=== PATIENT | female | born 1970 | race Caucasian/White ===

== ENCOUNTER → 2022-08-24 | Outpatient (CLI) | payer OTHER, SELFPAY ==
[2022-08-28 08:12] LABS: Hepatitis B Core Ab Total Negative (Negative)
== END | disposition home or self-care (01) ==
LOC: MTLAB 11:07
PROVIDERS: PCP Family Medicine; Referring Provider Physician Assistant Medical; Visit Provider Physician Assistant Medical
DX: L40.0 Psoriasis vulgaris (principal); Z79.899 Other long term (current) drug therapy
CPT/HCPCS: 36415; 86480; 86704

== ENCOUNTER → 2024-12-17 | Outpatient (CLI) | payer OTHER, SELFPAY ==
--- OUTSIDE RECORDS SUMMARY | 2024-12-17 14:24 | XMS RPT_ITS | CCD ---
Author Organization [facility] Care Team Providers Care Table Games Supervisor Name Role Phone Donovan Jimenes Unavailable [phone] Unavailable Unavailable Unavailable Donovan Jimenes Primary Care Provider Joyce Wilks Primary Care Provider [phone] ALAN MADRID Admitting Unavailab AUDRA Mancilla Attending Unavailable ALAN MADRID Referring Unavailab JOYCE Ordaz Primary Care Unavailable Joyce Wilks Primary Care Provider Joyce iWlks Primary Care Provider Joyce Wilks CNP Primary Care Provider [phone] Mg Ndiaye Unavailable Unavailable Unavailable Joyce Wilks CNP Primary Care Provider Joyce Wilks CNP Primary Care Provider [phone] Donovan Jimenes MD Primary Care Provider [phone] Joyce Wilks CNP Primary Care Provider Etienne Hutchins Primary Care Unavailable Carlos Stone Referring Unavailable Carlos Stone Attending Unavailable Mg Gunn Primary Care Provider Joyce Wilks CNP Primary Care Provider [phone] MG NDIAYE Primary Care Unavailable Bob Cruz PA-C Primary Care Provider LOYD JACKSON Attending Unavailable STENTZ, BOB Primary Care Unavailable Stentz Bob CARROLL Primary Care Provider STENTZ, BOB Primary Care Unavailable TATI LOVE Attending Unavailable STENTZ, BOB Primary Care Unavailable JOSSELIN BERNABE Attending Unavailable LOYD JACKSON Referring Unavailable STENTZ, BOB Primary Care Unavailable ALAN MADRID Attending UnavailJOYCE Calvin Primary Care Unavailable ALAN MADRID Attending UnavailJOYCE Calvin Primary Care Unavailable ALAN MADRID Attending UnavailJOYCE Calvin Primary Care Unavailable TRI PIKE Attending Unavailable JOYCE WILKS Primary Care Unavailable JOYCE WILKS Primary Care Unavailable ALAN MADRID Attending Unavailab ALAN Bai Attending UnavailJOYCE Calvin Primary Care Unavailable ALAN MADRID Attending UnavailJOYCE Calvin Primary Care Unavailable ROSALEE EASON Attending Unavailable JOYCE WILKS Primary Care Unavailable Medications Current Medications Medication Drug Class(es) Dates Sig (Normalized) Sig (Original) [id number] actuat albuterol 0.09 mg/actuat metered dose inhaler (1 source) beta2-Adrenergic Agonist Start: 05-04-2024 End: 06-03-2024 take 2 puff(s) by inhalation every four hours for wheezing albuterol 90 mcg/actuation inhaler Indications: Influenza A Inhale 2 puffs every 4 hours if needed for wheezing or shortness of breath. 17 g 05/04/2024 06/03/2024 Active BASAGLAR KWIKPEN 100 unit/mL (3 mL) InPn (1 source) Start: 09-14-2016 BASAGLAR KWIKPEN 100 unit/mL (3 mL) InPn Use as directed, approx 41 units per day. 45 mL 3 09/14/2016 Active Basaglar Kwikpen 100 Unit/Ml (3 Ml) Subcutaneous (1 source) Start: 09-14-2016 BASAGLAR KWIKPEN 100 unit/mL (3 mL) InPn Use as directed, approx 41 units per day. 45 mL 3 09/14/2016 Active blood-glucose meter (Accu-Chek Kiki Plus Meter) Misc (20 sources) Start: 03-12-2019 blood-glucose meter (Accu-Chek Kiki Plus Meter) Misc Use to check BG 4x daily. DX code E10.65 Use Accu-chek brand . 1 each 03/12/2019 Active Start: 03-12-2019 blood-glucose meter (Accu-Chek Kiki Plus Meter) Misc Use to check BG 4x daily. DX code E10.65 Use Accu-chek brand . 1 each 0 03/12/2019 Active blood-glucose sensor (Dexcom G7 Sensor) Shanon (2 sources) Start: 11-12-2024 blood-glucose sensor (Dexcom G7 Sensor) Shanon Indications: Type 1 diabetes mellitus with hyperglycemia (HCC) 1 each by Miscellaneous route every 10 (ten) days . 9 each 3 11/12/2024 Active brompheniramine maleate 0.4 mg/ml / dextromethorphan hydrobromide 2 mg/ml / pseudoephedrine hydrochloride 6 mg/ml oral solution (1 source) alpha-Adrenergic Agonist, Uncompetitive P-sntomr-O-aspartat e Receptor Antagonist, Sigma-1 Agonist Start: 05-04-2024 End: 05-14-2024 take 5 mL by mouth four times daily as needed for cough brompheniramine-ps eudoeph-DM 2-30-10 mg/5 mL syrup Indications: Influenza A Take 5 mL by mouth 4 times a day as needed for congestion or cough for up to 10 days. 120 mL 05/04/2024 05/14/2024 Active cholecalciferol 0.025 mg oral tablet (20 sources) Vitamin D take 1 tablet by mouth once daily cholecalciferol, vitamin D3, 1,000 unit tablet Take 1 (one) tablet (1,000 Units total) by mouth daily . Active take 1 capsule by mouth once senait ly cholecalciferol (Vitamin D-3) 25 MCG (1000 UT) capsule Take 1 capsule (25 mcg) by mouth once daily. Active Vitamin D 1000 U NIT CAPS Quantity: 0 Refills: 0 Ordered: 09-Jan-2019 DO Active esomeprazole 20 mg delayed release oral capsule (20 sources) Proton Pump Inhibitor Start: 10-22-2012 End: 06-05-2024 take 1 capsule by mouth once daily before breakfast esomeprazole (NEXIUM) 20 MG capsule Take 1 (one) capsule (20 mg total) by mouth every morning before breakfast . 90 capsule 3 06/05/2024 Active NexIUM 24HR 20 M G Oral Capsule Delayed Release Quantity: 0 Refills: 0 Ordered: 09-Jan-2019 DO Active 1.5 ml insulin glargine 300 unt/ml pen injector (20 sources) Insulin Analogue Start: 02-28-2024 Toujeo SoloSt ar U-300 Insulin 300 unit/mL (1.5 mL) injection Inject 300 Units under the skin. 02/28/2024 Active Start: 03-13-2022 End: 06-05-2024 insulin glargine U-300 conc (Toujeo SoloStar U-300 Insulin) 300 unit/mL (1.5 mL) Inject 40 (forty) Units under the skin 2 (two) times a day . 39 mL 3 05/24/2023 06/05/2024 Discontinued Start: 12-11-2021 End: 03-13-2022 insulin glargine U-300 conc (Toujeo SoloStar U-300 Insulin) 300 unit/mL (1.5 mL) Inject 65 (sixty five) Units under the skin at bedtime . 39 mL 3 12/11/2021 03/13/2022 Discontinued (Reorder (Suppress CancelRx Message to Pharmacy)) Start: 05-23-2021 End: 12-11-2021 Basaglar KwikPen U-100 Insul in 100 unit/mL (3 mL) InPn Inject 62 (sixty two) Units under the skin nightly . 60 mL 3 08/11/2021 12/11/2021 Discontinued (Reorder) Start: 05-30-2018 End: 05-23-2021 Basaglar KwikPen U-100 Insul in 100 unit/mL (3 mL) InPn INJECT 60 UNITS SUBCUTANEOUSLY NIGHTLY 60 mL 3 05/30/2020 05/23/2021 Discontinued Start: 05-30-2017 inject 60 [IU] by holm bcutaneous injection once daily, then inject 100 [IU] by subcutaneous injection BASAGLAR KWIKPEN U-100 INSULIN 100 unit/mL (3 mL) InPn Inject 60 (sixty) Units under the skin nightly. 60 mL 3 05/30/2017 Active Start: 05-30-2017 BASAGLAR KWIKP EN U-100 INSULIN 100 unit/mL (3 mL) InPn Inject 60 (sixty) Units under the skin nightly. 60 mL 3 05/30/2017 Active Start: 05-30-2017 BASAGLAR KWIKP EN U-100 INSULIN 100 unit/mL (3 mL) InPn Inject 60 (sixty) Units under the skin nightly. 60 mL 3 05/30/2017 Active Start: 09-14-2016 End: 05-30-2017 BASAGLAR KWIKPEN 100 unit/mL (3 mL) InPn Use as directed, approx 41 units per day. 45 mL 3 09/14/2016 05/30/2017 Discontinued Basaglar KwikPen 100 UNIT/ML Subcutaneous Solution Pen-injector INJECT 41 UNIT Daily Quantity: 0 Refills: 0 Ordered: 09-Jan-2019 DO Active Basaglar KwikPen 100 UNIT/ML Subcutaneous Solution Pen-injector INJECT 41 UNIT Daily Quantity: 0 Refills: 0 Ordered: 09-Jan-2019 DO Active 3 ml insulin lispro 200 unt/ml pen injector (20 sources) Insulin Analog Start: 04-30-2022 End: 05-30-2024 insulin lispro (HumaLOG KwikPen Insulin) 200 unit/mL (3 mL) InPn Inject 60 (sixty) Units under the skin 3 (three) times a day . 90 mL 3 05/31/2024 Active Start: 03-13-2022 End: 04-30-2022 insulin lispro (HumaLOG Kwik Pen Insulin) 200 unit/mL (3 mL) InPn Inject 45 (forty five) Units under the skin 3 (three) times a day . 75 mL 3 03/13/2022 04/30/2022 Discontinued (Reorder (Suppress CancelRx Message to Pharmacy)) Start: 12-11-2021 End: 03-13-2022 insulin lispro (HumaLOG Kwik Pen Insulin) 200 unit/mL (3 mL) InPn Inject 30 (thirty) Units under the skin 3 (three) times a day . 45 mL 3 12/11/2021 03/13/2022 Discontinued (Reorder (Suppress CancelRx Message to Pharmacy)) insulin x ray service engineer cart,aut,G6/7,cntr (Omnipod 5 G6-G7 Intro Kt,Gen5,) Crtg (5 sources) Start: 12-23-2023 insulin x ray service engineer cart,aut,G6/7,cntr (Omnipod 5 G6-G7 Intro Kt,Gen5,) Crtg Inject 1 Device under the skin daily . 1 each 12/23/2023 Active insulin pump cart,auto,BT,G6/7 (Omnipod 5 G6-G7 Pods, Gen 5,) Crtg (5 sources) Start: 12-23-2023 insulin pump cart,auto,BT,G6/7 (Omnipod 5 G6-G7 Pods, Gen 5,) Crtg Inject 1 Device under the skin every other day . 45 each 3 12/23/2023 Active 3 ml insulin aspart, human 100 unt/ml pen injector (20 sources) Insulin Analogue Start: 06-23-2021 End: 12-11-2021 NovoLOG Flexpen U-100 Insulin 100 unit/mL (3 mL) InPn Use as directed up to 35 units TID. . 135 mL 0 08/11/2021 12/11/2021 Discontinued (Reorder) Start: 06-06-2020 End: 06-23-2021 NovoLOG Flexpen U-100 Insuli n 100 unit/mL (3 mL) InPn Use as directed up to 45 units TID. . 135 mL 3 06/06/2020 06/23/2021 Discontinued Start: 01-19-2020 End: 06-06-2020 inject 150 [IU] by subcutaneous injection once daily before mealtime, then inject 100 [IU] by subcutaneous injection NovoLOG Flexpen U-100 Insulin 100 unit/mL (3 mL) InPn INJECT SUBCUTANEOUSLY DIRECTED BEFORE MEALS, APPROXIMATELY 150 UNITS DAILY 135 mL 0 04/08/2020 06/06/2020 Discontinued (Reorder) Start: 03-23-2019 NovoLOG Flexpe n U-100 Insulin 100 unit/mL (3 mL) InPn Use as directed before meals, approx. 150 units daily. . 150 mL 3 03/23/2019 Active Start: 10-07-2018 End: 03-23-2019 NOVOLOG FLEXPEN U-100 INSULI N 100 unit/mL (3 mL) InPn Use as directed before meals, approx. 100 units daily. . 90 mL 3 10/07/2018 03/23/2019 Discontinued (Reorder) Start: 10-03-2018 End: 10-07-2018 NOVOLOG FLEXPEN U-100 INSULI N 100 unit/mL (3 mL) InPn USE APPROXIMATELY 80 UNITS SUBCUTANEOUSLY DAILY DIRECTED . 75 mL 3 10/03/2018 10/07/2018 Discontinued Start: 09-14-2016 End: 10-07-2018 NOVOLOG FLEXPEN U-100 INSULI N 100 unit/mL InPn USE DIRECTED APPROXIMATELY 80 UNITS DAILY 75 mL 3 11/21/2017 10/07/2018 Discontinued lisinopril 40 mg oral tablet (20 sources) Angiotensin Converting Enzyme Inhibitor Start: 11-30-2024 lisinopriL (PRINIVIL,ZESTRIL) 40 MG tablet TAKE 1 TABLET DAILY 90 tablet 3 11/30/2024 Active Start: 12-23-2023 End: 11-30-2024 take 1 tablet by mouth once daily lisinopriL (PRINIVIL,ZESTRIL) 40 MG tablet Take 1 (one) tablet (40 mg total) by mouth daily . 90 tablet 3 12/23/2023 11/30/2024 Discontinued Start: 05-30-2015 End: 05-24-2023 take 1 tablet by mouth once daily lisinopril 40 mg tablet Take 1 tablet (40 mg) by mouth once daily. 05/30/2015 Active Omnipod 5 G6-G7 Intro Kt,Gen 5, cartridge (3 sources) Start: 01-08-2024 Omnipod 5 G6-G 7 Intro Kt,Gen5, cartridge 01/08/2024 Active Pen Needle, Diabetic 31 Gaug e X 5/16" (1 source) Start: 06-22-2016 pen needle, di abetic 31 gauge x 5/16" Ndle Use as directed QID. 400 each 3 06/22/2016 Active pen needle, diabetic 31 gaug e x 5/16" Ndle (3 sources) Start: 05-30-2017 pen needle, di abetic 31 gauge x 5/16" Ndle Use as directed QID. 400 each 3 05/30/2017 Active Start: 06-22-2016 End: 05-30-2017 pen needle, diabetic 31 gaug e x 5/16" Ndle Use as directed QID. 400 each 3 06/22/2016 05/30/2017 Discontinued Start: 06-22-2016 pen needle, kimberly roberts 31 gauge x 16" Ndle Use as directed QID. 400 each 3 06/22/2016 Active rosuvastatin calcium 20 mg oral tablet (20 sources) HMG-CoA Reductase Inhibitor Start: 12-23-2023 take 1 tablet by mouth once daily rosuvastatin (CRESTOR) 20 MG tablet Take 1 (one) tablet (20 mg total) by mouth daily . 90 tablet 3 12/23/2023 Active Start: 11-19-2013 End: 05-24-2023 take 1 tablet by mouth once daily rosuvastatin (Crestor) 20 mg tablet Take 1 tablet (20 mg) by mouth once daily. 11/19/2013 Active 0.25 mg, 0.5 mg dose 1.5 ml semaglutide 1.34 mg/ml pen injector (2 sources) Start: 08-11-2021 End: 12-11-2021 semaglutide (Ozempic) 0.25 mg or 0.5 mg(2 mg/1.5 mL) Pen Inject 0.25 (one-quarter) mg under the skin every 7 days . 1.5 mL 11 08/11/2021 12/11/2021 Discontinued Skyrizi 150 mg/mL Pen (3 sources) Start: 09-09-2024 Skyrizi 150 mg /mL Pen 09/09/2024 Active Stelara 45 Mg/0.5 Ml Subcutaneous Syringe (1 source) Start: 01-08-2017 STELARA 45 mg/ 0.5 mL Syrg levothyroxine sodium 0.137 mg oral tablet (20 sources) l-Thyroxi ne Start: 12-23-2023 take 1 tablet by mouth once daily levothyroxine (SYNTHROID, LEVOTHROID) 137 MCG tablet Indications: Hypothyroidism, unspecified type Take 1 (one) tablet (137 mcg total) by mouth daily . 90 tablet 3 12/23/2023 Active Start: 10-24-2020 End: 05-24-2023 take 1 tablet by mouth once daily levothyroxine (Synthroid, Levoxyl) 137 mcg tablet Take 1 tablet (137 mcg) by mouth once daily. 03/19/2022 Active Start: 08-01-2018 End: 10-24-2020 levothyroxine (Synthroid) 12 5 MCG tablet Take 1 (one) tablet (125 mcg total) by mouth daily With extra 1/2 on Saturday . 100 tablet 3 06/06/2020 10/24/2020 Discontinued Start: 07-09-2016 End: 05-30-2017 take 1 tablet by mouth once daily levothyroxine (SYNTHROID, LEVOTHROID) 125 MCG tablet Take 1 (one) tablet (125 mcg total) by mouth once daily. 90 tablet 3 05/30/2017 Active 0.5 ml ustekinumab 90 mg/ml prefilled syringe (20 sources) Start: 01-08-2017 STELARA 45 mg/ 0.5 mL Syrg 01/08/2017 Active Start: 01-08-2017 STELARA 45 mg/ 0.5 mL Syrg Stelara SOLN Сергей ntity: 0 Refills: 0 Ordered: 09-Jan-2019 DO Active Completed/Discontinued Medications Medication Drug Class(es) Dates Sig (Normalized) Sig (Original) Adalimumab 40 Mg/0.8 Ml Subcutaneous Syringe Kit (2 sources) Tumor Necrosis Factor Aditi End: 02-05-2017 adalimumab (HUMIRA) 40 mg/0.8 mL syringe Inject 40 mg under the skin. 02/05/2017 Discontinued adalimumab (HUMI RA) 40 mg/0.8 mL syringe Inject 40 mg under the skin. Active aspirin 81 mg delayed release oral tablet (20 sources) Nonsteroidal Anti-inflammatory Drug Start: 05-28-2008 End: 06-05-2024 take 1 tablet by mouth once daily aspirin 81 MG EC tablet Take 1 (one) tablet (81 mg total) by mouth daily . 05/28/2008 06/05/2024 Discontinued Aspirin 81 MG Or al Tablet Chewable Quantity: 0 Refills: 0 Ordered: 25-Oct-2020 DO Active 0.5 ml dulaglutide 3 mg/ml auto-injector (8 sources) GLP-1 Receptor Agonist Start: 03-13-2022 End: 10-01-2022 dulaglutide (Trulicity) 1.5 mg/0.5 mL Pen Inject 0.5 mL (1.5 mg total) under the skin every 7 days . 6 mL 3 03/13/2022 10/01/2022 Discontinued Start: 12-11-2021 End: 03-13-2022 dulaglutide (Trulicity) 0.75 mg/0.5 mL Pen Inject 0.5 mL (0.75 mg total) under the skin every 7 days . 6 mL 3 12/11/2021 03/13/2022 Discontinued ferrous sulfate 325 mg oral tablet (1 source) End: 10-04-2016 take 1 tablet by mouth once daily at breakfast ferrous sulfate 325 (65 FE) MG tablet Take 325 mg by mouth daily with breakfast. 10/04/2016 Discontinued methylPREDNISolone 4 MG Oral Tablet Therapy Pack (3 sources) Start: 05-18-2021 methylPREDNISo lone 4 MG Oral Tablet Therapy Pack TAKE 1 TABLET Other take medication as directed in the package Quantity: 1 Refills: 0 Ordered: 18-May-2021 Davis Dorian Start : 18-May-2021 Active semaglutide, weight loss, (Wegovy) 0.25 mg/0.5 mL Pen (2 sources) Start: 04-30-2022 End: 10-01-2022 semaglutide, weight loss, (Wegovy) 0.25 mg/0.5 mL Pen Inject 0.5 mL (0.25 mg total) under the skin every 7 days For first month. . 2 mL 0 04/30/2022 10/01/2022 Discontinued Start: 04-30-2022 semaglutide, w eight loss, (Wegovy) 0.25 mg/0.5 mL Pen Inject 0.5 mL (0.25 mg total) under the skin every 7 days For first month. . 2 mL 0 04/30/2022 Active semaglutide, weight loss, (Wegovy) 0.5 mg/0.5 mL Pen (2 sources) Start: 04-30-2022 End: 10-01-2022 semaglutide, weight loss, (Wegovy) 0.5 mg/0.5 mL Pen Inject 0.5 mL (0.5 mg total) under the skin every 7 days Starting month 2 and 3. . 6 mL 3 04/30/2022 10/01/2022 Discontinued Start: 04-30-2022 semaglutide, w eight loss, (Wegovy) 0.5 mg/0.5 mL Pen Inject 0.5 mL (0.5 mg total) under the skin every 7 days Starting month 2 and 3. . 6 mL 3 04/30/2022 Active valsartan 80 mg oral tablet (9 sources) Angiotensin 2 Receptor Aditi Start: 05-30-2018 End: 12-15-2018 valsartan (DIOVAN) 80 MG tablet TAKE 1 TABLET DAILY 90 tablet 3 05/30/2018 12/15/2018 Discontinued (Therapy completed) Start: 07-09-2016 End: 05-30-2017 take 1 tablet by mouth once daily valsartan (DIOVAN) 80 MG tablet Take 1 (one) tablet (80 mg total) by mouth daily. 90 tablet 3 05/30/2017 Active Problems Active Problems Problem Classification Problem Date Documented Da te Episodic/Chronic Diabetes mellitus with complications (20 sources) Type 1 diabetes mellitus with hyperglycemia; Translations: [Hyperglycemia due to type 1 diabetes mellitus] Onset: 06-07-2016 Chronic Diabetes mellitus without complication (20 sources) Type 1 diabetes mellitus; Translations: [Type 1 diabetes mellitus without complications] Onset: 06-07-2016 06-07-2016 Chronic Disorders of lipid metabolism (20 sources) Hyperlipidemia; Translations: [Hyperlipidemia, unspecified] Onset: 06-11-2016 06-11-2016 Chronic Essential hypertension (20 sources) Hypertensive disorder; Translations: [Essential hypertension] Onset: 06-11-2016 06-11-2016 Chronic Genitourinary symptoms and ill-defined conditions (17 sources) History of hematuria; Translations: [Personal history of other specified urinary system disorders] Episodic Influenza (1 source) Influenza due to Influenza A virus; Translations: [Influenza due to other identified influenza virus with other respiratory manifestations] 05-04-2024 Episodic Malaise and fatigue (17 sources) Fatigue; Translations: [Other malaise and fatigue] Episodic Other complications of ; puerperium affecting management of mother (17 sources) Deliveries by ; Translations: [ delivery, without mention of indication, unspecified as to episode of care or not applicable] Episodic Comment on above: 06/29/2000_39weeks 3 days_Male_9# 6oz; Other inflammatory condition of skin (17 sources) Psoriasis; Translations: [Other psoriasis] Chronic Other inflammatory condition of skin (1 source) Psoriasis vulgaris; Translations: [Psoriasis vulgaris] Onset: 09-20-2022 Chronic Other lower respiratory disease (1 source) Cough; Translations: [Acute cough] 05-04-2024 Episodic Other nervous system disorders (1 source) Bilateral carpal tunnel syndrome; Translations: [Carpal tunnel syndrome, bilateral upper limbs] Chronic Other nervous system disorders (17 sources) Median nerve entrapment; Translations: [Carpal tunnel syndrome] Chronic Other nervous system disorders (19 sources) Numbness and tingling sensation of skin; Translations: [Anesthesia of skin] Episodic Other nutritional; endocrine; and metabolic disorders (17 sources) Obesity; Translations: [Obesity, unspecified] Chronic Other nutritional; endocrine; and metabolic disorders (14 sources) Body mass index 40+ - severely obese; Translations: [Body mass index (BMI) 40.0-44.9, adult] Onset: 04-30-2022 Chronic Other screening for suspected conditions (not mental disorders or infectious disease) (20 sources) Patient encounter status; Translations: [Special screening for malignant neoplasms of colon] Onset: 03-09-2024 03-06-2023 Episodic Residual codes; unclassified (17 sources) Past history of procedure; Translations: [Other specified personal history presenting hazards to health] Episodic Comment on above: 08/19/2018; Thyroid disorders (20 sources) Hypothyroidism; Translations: [Hypothyroidism, unspecified] Onset: 08-31-2019 08-31-2019 Chronic Unclassified (2 sources) Patient encounter status 03-09-2024 Unclassified (1 source) Acute cough; Translations: [Acute cough] Onset: 05-04-2024 Past or Other Problems Problem Classification Problem Date Documented Da te Episodic/Chronic Other upper respiratory infections (3 sources) Viral upper respiratory tract infection; Translations: [Acute upper respiratory infection, unspecified] Onset: 01-23-2024 01-23-2024 Episodic Unclassified (17 sources) Finding of menstrual bleeding; Translations: [Menstruation] Comment on above: Onset age 9 years; Unclassified (3 sources) Onset: 03-09-2024 03-09-2024 Unclassified (1 source) Acute cough; Translations: [Acute cough] Onset: 05-04-2024 Results Test Name Value Interpretation Reference Range Facility POCT SARS-COV-2/FLU/RSV PCR SYMPTOMATIC manually resultedon 05-04-2024 FLUAV RNA TONYA+probe Ql (Resp) Detected Abnormal Not Detected [facility] Work Phone: FLUBV RNA TONYA+probe Ql (Resp) Not detected Not Detected [facility] Work Phone: Interpretation and review of laboratory results Abnormal [facility] Work Phone: RSV RNA TONYA+probe Ql (Resp) Not detected Not Detected [facility] Work Phone: SARS-CoV-2 (COVID-19) RNA TONYA+probe Ql (Resp) Not detected Not Detected [facility] Work Phone: [facility] Work Phone: BI MAMMO BILATERAL SCREENING TOMOSYNTHESISon 03-23-2024 BI MAMMO BILATERAL SCREENING TOMOSYNTHESIS Interpreted By: Emerson Lynch, STUDY: BI MAMMO BILATERAL SCREENING TOMOSYNTHESIS; 03/23/2024 10:00 am ACCESSION NUMBER(S): [id number] ORDERING CLINICIAN: LOYD JACKSON INDICATION: Screening. COMPARISON: Digital mammograms dated 03/15/2023 FINDINGS: CC and MLO 2D digital mammograms and digital breast tomosynthesis images were obtained of the bilateral breasts. 3-D volume images were reconstructed in 4 views at an independent workstation as 1 mm slices through the breasts in both the CC and MLO projections. Density: There are scattered areas of fibroglandular density. No discrete mass or focal asymmetry is identified. No suspicious microcalcifications or foci of architectural distortion are seen. There has been no significant change. This study was interpreted with CAD. IMPRESSION: No mammographic evidence of malignancy. BI-RADS CATEGORY: BI-RADS Category: 1 Negative. Recommendation: Annual Screening. Recommended Date: 1 Year. Laterality: Bilateral. MACRO: None Signed by: Emerson Lynch 03/24/2024 8:16 AM Dictation workstation: [id number] [facility] Cervical AND or Vaginal cyto logy studyon 03-09-2024 Cytology Cervical or vaginal smear or scraping study Pathology report.total SEE COMMENT Gynecologic Cytology Case: [id number] Authorizing Provider: Loyd Jackson MD Collected: 03/09/2024 0839 Ordering Location: [facility] Received: 03/09/2024 0839 Office Building First Screen: Larissa Kink, CT Specimen: ThinPrep Liquid-Based Pap-Imaging System Screen, VAGINA, SCREENING Cytology study comment SEE COMMENT A. THINPREP PAP VAGINA, SCREENING - Specimen Adequacy Satisfactory for evaluation General Categorization Negative for intraepithelial lesion or malignancy. Descriptive Interpretation Negative for intraepithelial lesion or malignancy Specimen does not meet the requisition-stated criteria for HPV testing. See Pap test interpretation above. Laboratory comment SEE COMMENT Slide(s) initially screened by LIZ Tomlinson at [facility] [id number] [facility] [id number] By the signature on this report, the individual or group listed as making the Final Interpretation/Diagnosis certifies that they have reviewed this case. This specimen has been analyzed by the [employer] System ([employer] an automated imaging and review system, which assists the laboratory in evaluating cells on ThinPrep Pap tests. Following automated imaging, selected kaur from every slide were reviewed by a digital campaign manager and/or pathologist. Cervical cytology is a screening procedure primarily for squamous cancers and precursors and has associated false-negative and false-positives results as evidenced by published data. Your patient's test should be interpreted in this context, together with the patient's history and clinical findings. Regular sampling and follow-up of unexplained clinical signs and symptoms are recommended to minimize false negative results. LAB AP HPV HR Reflex if ASCUS only LAB AP HPV GENOTYPE QUESTION Yes Menstrual History Hysterectomy Normal [facility] Ambulatory ALBUMIN, RANDOM URINE W/CREA [place] 12-23-2023 ALBUMIN, URINE 2.2 mg/dL Normal See Note: [facility] Comment on above: Result Comment: Refe renmorenita Range: Reference Range Not established Performed By: #### [id number], [id number] [id number] [phone] [id number] #### [facility] [address], [address] [place] [address] Md Senior Research Scientist: Bo Greer MD ALBUMIN/CREATININE RATIO, RANDOM URINE 28 mg/g creat Normal <30 [facility] Comment on above: Result Comment: The ADA defines abnormalities in albumin excretion as follows: Albuminuria Category Result (mg/g creatinine) Normal to Mildly increased <30 Moderately increased 30-299 Severely increased > OR = 300 The ADA recommends that at least two of three specimens collected within a 3-6 month period be abnormal before considering a patient to be within a diagnostic category. Performed By: #### 7 600, 6517, 899, 6399, 496, 30895 #### [facility] [place] [address] Md Senior Research Scientist: Bo Greer MD Creatinine (U) [Mass/Vol] 78 mg/dL Normal 20-275 [facility] Comment on above: Performed By: #### 7 600, 6517, 899, 6399, 496, 77815 #### [facility] [place] [address] Md Senior Research Scientist: Bo Greer MD CBC (INCLUDES DIFF/PLT)on Basophils (Bld) [#/Vol] 0.107 10*3/uL Normal 0-200 [facility] Comment on above: Performed By: #### 7 600, 6517, 899, 6399, 496, 46118 #### [facility] [place] [address] Md Senior Research Scientist: Bo Greer MD Basophils/100 WBC (Bld) 1.2 % Normal [facility] Comment on above: Performed By: #### 7 600, 6517, 899, 6399, 496, 63285 #### [facility] [place] [address] Md Senior Research Scientist: Bo Greer MD Eosinophils (Bld) [#/Vol] 0.24 10*3/uL Normal 15-500 [facility] Comment on above: Performed By: #### 7 600, 6517, 899, 6399, 496, 96791 #### [facility] [place] [address] Md Senior Research Scientist: Bo Greer MD Eosinophils/100 WBC (Bld) 2.7 % Normal [facility] Comment on above: Performed By: #### 7 600, 6517, 899, 6399, 496, 98578 #### [facility] [place] [address] Md Senior Research Scientist: Bo Greer MD Erythrocyte distribution width (RBC) [Ratio] 12.1 % Normal 11.0-15.0 [facility] Comment on above: Performed By: #### 7 600, 6517, 899, 6399, 496, 78885 #### [facility] [place] [address] Md Senior Research Scientist: Bo Greer MD Hematocrit (Bld) [Volume fraction] 46.4 % High 35.0-45.0 [facility] Comment on above: Performed By: #### 7 600, 6517, 899, 6399, 496, 67930 #### [facility] [place] [address] Md Senior Research Scientist: Bo Greer MD Hemoglobin (Bld) [Mass/Vol] 14.7 g/dL Normal 11.7-15.5 [facility] Comment on above: Performed By: #### 7 600, 6517, 899, 6399, 496, 35762 #### [facility] [place] [address] Md Senior Research Scientist: Bo Greer MD Lymphocytes (Bld) [#/Vol] 2.341 10*3/uL Normal 850-3900 [facility] Comment on above: Performed By: #### 7 600, 6517, 899, 6399, 496, 03356 #### [facility] [place] [address] Md Senior Research Scientist: Bo Greer MD Lymphocytes/100 WBC (Bld) 26.3 % Normal [facility] Comment on above: Performed By: #### 7 600, 6517, 899, 6399, 496, 53223 #### [facility] [place] [address] Md Senior Research Scientist: Bo Greer MD MCH (RBC) [Entitic mass] 28.7 pg Normal 27.0-33.0 [facility] Comment on above: Performed By: #### 7 600, 6517, 899, 6399, 496, 95977 #### [facility] [place] [address] Md Senior Research Scientist: Bo Greer MD MCHC (RBC) [Mass/Vol] 31.7 g/dL Low 32.0-36.0 [facility] Comment on above: Result Comment: For adults, a slight decrease in the calculated MCHC value (in the range of 30 to 32 g/dL) is most likely not clinically significant; however, it should be interpreted with caution in correlation with other red cell parameters and the patient's clinical condition. Performed By: #### 7 600, 6517, 899, 6399, 496, 21946 #### [facility] [place] [address] Md Senior Research Scientist: Bo Greer MD MCV (RBC) [Entitic vol] 90.4 fL Normal 80.0-100.0 [facility] Comment on above: Performed By: #### 7 600, 6517, 899, 6399, 496, 60169 #### [facility] [place] [address] Md Senior Research Scientist: Bo Greer MD Monocytes (Bld) [#/Vol] 0.765 10*3/uL Normal 200-950 [facility] Comment on above: Performed By: #### 7 600, 6517, 899, 6399, 496, 08220 #### [facility] [place] [address] Md Senior Research Scientist: Bo Greer MD Monocytes/100 WBC (Bld) 8.6 % Normal [facility] Comment on above: Performed By: #### 7 600, 6517, 899, 6399, 496, 58006 #### [facility] [place] [address] Md Senior Research Scientist: Bo Greer MD Neutrophils (Bld) [#/Vol] 5.447 10*3/uL Normal 0888-7449 [facility] Comment on above: Performed By: #### 7 600, 6517, 899, 6399, 496, 39980 #### [facility] [place] [address] Md Senior Research Scientist: Bo Greer MD Neutrophils/100 WBC (Bld) 61.2 % Normal [facility] Comment on above: Performed By: #### 7 600, 6517, 899, 6399, 496, 14186 #### [facility] [place] [address] Md Senior Research Scientist: Bo Greer MD Platelet mean volume (Bld) [Entitic vol] 12.2 fL Normal 7.5-12.5 [facility] Comment on above: Performed By: #### 7 600, 6517, 899, 6399, 496, 05352 #### [facility] of [address], [address] [place] [address] Md Senior Research Scientist: Bo Greer MD Platelets (Bld) [#/Vol] 205 10*3/uL Normal 140-400 [facility] Comment on above: Performed By: #### 7 600, 6517, 899, 6399, 496, 48189 #### [facility] [place] [address] Md Senior Research Scientist: Bo Greer MD RBC (Bld) [#/Vol] 5.13 10*6/uL High 3.80-5.10 [facility] Comment on above: Performed By: #### 7 600, 6517, 899, 6399, 496, 56122 #### [facility] [place] [address] Md Senior Research Scientist: Bo Greer MD WBC (Bld) [#/Vol] 8.9 10*3/uL Normal 3.8-10.8 [facility] Comment on above: Performed By: #### 7 600, 6517, 899, 6399, 496, 38913 #### [facility] [place] [address] Md Senior Research Scientist: Bo Greer MD COMPREHENSIVE METABOLIC PANE [facility] 12-23-2023 Albumin [Mass/Vol] 3.7 g/dL Normal 3.6-5.1 [facility] Comment on above: Performed By: #### 7 600, 6517, 899, 6399, 496, 87609 #### [facility] [place] [address] Md Senior Research Scientist: Bo Greer MD Albumin/Globulin [Mass ratio] 1.5 {ratio} Normal 1.0-2.5 [facility] Comment on above: Performed By: #### 7 600, 6517, 899, 6399, 496, 15923 #### [facility] [place] [address] Md Senior Research Scientist: Bo Greer MD ALP [Catalytic activity/Vol] 67 U/L Normal 37-153 [facility] Comment on above: Performed By: #### 7 600, 6517, 899, 6399, 496, 99909 #### [facility] [place] [address] Md Senior Research Scientist: Bo Greer MD ALT [Catalytic activity/Vol] 19 U/L Normal 6-29 [facility] Comment on above: Performed By: #### 7 600, 6517, 899, 6399, 496, 30577 #### [facility] [place] [address] Md Senior Research Scientist: Bo Greer MD AST [Catalytic activity/Vol] 14 U/L Normal 10-35 [facility] Comment on above: Performed By: #### 7 600, 6517, 899, 6399, 496, 56886 #### [facility] [place] [address] Md Senior Research Scientist: Bo Greer MD Bilirubin [Mass/Vol] 0.6 mg/dL Normal 0.2-1.2 [facility] Comment on above: Performed By: #### 7 600, 6517, 899, 6399, 496, 78059 #### [facility] [place] [address] Md Senior Research Scientist: Bo Greer MD BUN/CREATININE RATIO SEE NOTE: Normal 6-22 [facility] Comment on above: Result Comment: Not Reported: BUN and Creatinine are within reference range. Performed By: #### 7 600, 6517, 899, 6399, 496, 94181 #### [facility] [place] [address] Md Senior Research Scientist: Bo Greer MD Calcium [Mass/Vol] 8.7 mg/dL Normal 8.6-10.4 [facility] Comment on above: Performed By: #### 7 600, 6517, 899, 6399, 496, 37109 #### [facility] [place] [address] Md Senior Research Scientist: Bo Greer MD Chloride [Moles/Vol] 101 mmol/L Normal 98-110 [facility] Comment on above: Performed By: #### 7 600, 6517, 899, 6399, 496, 61272 #### [facility] [place] [address] Md Senior Research Scientist: Bo Greer MD CO2 [Moles/Vol] 26 mmol/L Normal 20-32 [facility] Comment on above: Performed By: #### 7 600, 6517, 899, 6399, 496, 46181 #### [facility] [place] [address] Md Senior Research Scientist: Bo Greer MD Creatinine [Mass/Vol] 0.70 mg/dL Normal 0.50-1.03 [facility] Comment on above: Performed By: #### 7 600, 6517, 899, 6399, 496, 96562 #### [facility] [place] [address] Md Senior Research Scientist: Bo Greer MD GFR/1.73 sq M.predicted among non-blacks MDRD (S/P/Bld) [Vol rate/Area] 102 mL/min/{1.73_m2} Normal > OR = 60 [facility] Comment on above: Performed By: #### 7 600, 6517, 899, 6399, 496, 65457 #### [facility] [place] [address] Md Senior Research Scientist: Bo Greer MD Globulin (S) [Mass/Vol] 2.5 g/dL Normal 1.9-3.7 [facility] Comment on above: Performed By: #### 7 600, 6517, 899, 6399, 496, 50703 #### [facility] [place] [address] Md Senior Research Scientist: Bo Greer MD Glucose [Mass/Vol] 330 mg/dL High 65-99 [facility] Comment on above: Result Comment: Fasting reference interval For someone without known diabetes, a glucose value >125 mg/dL indicates that they may have diabetes and this should be confirmed with a follow-up test. Performed By: #### 7 600, 6517, 899, 6399, 496, 64217 #### [facility] [place] [address] Md Senior Research Scientist: Bo Greer MD Potassium [Moles/Vol] 4.3 mmol/L Normal 3.5-5.3 [facility] Comment on above: Performed By: #### 7 600, 6517, 899, 6399, 496, 39272 #### [facility] [place] [address] Md Senior Research Scientist: Bo Greer MD Protein [Mass/Vol] 6.2 g/dL Normal 6.1-8.1 [facility] Comment on above: Performed By: #### 7 600, 6517, 899, 6399, 496, 55467 #### [facility] [place] [address] Md Senior Research Scientist: Bo Greer MD Sodium [Moles/Vol] 136 mmol/L Normal 135-146 [facility] Comment on above: Performed By: #### 7 600, 6517, 899, 6399, 496, 93935 #### [facility] of [address], [address] [place], [place] [id number] Md Senior Research Scientist: Bo Greer MD Urea nitrogen [Mass/Vol] 15 mg/dL Normal 7-25 [facility] Comment on above: Performed By: #### 7 600, 6517, 899, 6399, 496, 76387 #### [facility] [address], [address] [place] [address] Md Senior Research Scientist: Bo Greer MD HEMOGLOBIN A1con 12-23-2023 HEMOGLOBIN A1c 11.1 % of total Hgb High <5.7 [facility] Comment on above: Result Comment: For someone without known diabetes, a hemoglobin A1c value of 6.5% or greater indicates that they may have diabetes and this should be confirmed with a follow-up test. For someone with known diabetes, a value <7% indicates that their diabetes is well controlled and a value greater than or equal to 7% indicates suboptimal control. A1c targets should be individualized based on duration of diabetes, age, comorbid conditions, and other considerations. Currently, no consensus exists regarding use of hemoglobin A1c for diagnosis of diabetes for children. Performed By: #### 7 600, 6517, 899, 6399, 496, 57148 #### [facility] [address], [address] [place] [address] Md Senior Research Scientist: Bo Greer MD LIPID PANEL, STANDARDon 12-03 Cholesterol [Mass/Vol] 179 mg/dL Normal <200 [facility] Comment on above: Order Comment: FASTI NG:YES FASTING: YES Performed By: #### 7 600, 6517, 899, 6399, 496, 53925 #### [facility] [address], [address] [place] [address] Md Senior Research Scientist: Bo Greer MD Cholesterol in HDL [Mass/Vol] 39 mg/dL Low > OR = 50 [facility] Comment on above: Order Comment: FASTI NG:YES FASTING: YES Performed By: #### 7 600, 6517, 899, 6399, 496, 53727 #### [facility] [place] [address] [place] [address] Md Senior Research Scientist: Bo Greer MD Cholesterol in LDL [Mass/Vol] 108 mg/dL High [facility] Comment on above: Order Comment: FASTI NG:YES FASTING: YES Result Comment: Refe rence range: <100 Desirable range <100 mg/dL for primary prevention; <70 mg/dL for patients with CHD or diabetic patients with > or = 2 CHD risk factors. LDL-C is now calculated using the Saima calculation, which is a validated novel method providing better accuracy than the Friedewald equation in the estimation of LDL-C. Michael MILLER et al. EN. 2013;310(19): 2088-1179 (http://education.[employer]/faq/KIR512) Performed By: #### 7 600, 6517, 899, 6399, 496, 63299 #### [facility] [place] [address] Md Senior Research Scientist: Bo Greer MD Cholesterol.total/ Cholesterol in HDL [Mass ratio] 4.6 {ratio} Normal <5.0 [facility] Comment on above: Order Comment: FASTI NG:YES FASTING: YES Performed By: #### 7 600, 6517, 899, 6399, 496, 76829 #### [facility] [place] [address] Md Senior Research Scientist: Bo Greer MD NON HDL CHOLESTEROL 140 mg/dL (calc) High <130 [facility] Comment on above: Order Comment: FASTI NG:YES FASTING: YES Result Comment: For patients with diabetes plus 1 major ASCVD risk factor, treating to a non-HDL-C goal of <100 mg/dL (LDL-C of <70 mg/dL) is considered a therapeutic option. Performed By: #### 7 600, 6517, 899, 6399, 496, 67217 #### [facility] [place] [address] Md Senior Research Scientist: Bo Greer MD Triglyceride [Mass/Vol] 207 mg/dL High <150 [facility] Comment on above: Order Comment: FASTI NG:YES FASTING: YES Result Comment: If a non-fasting specimen was collected, consider repeat triglyceride testing on a fasting specimen if clinically indicated. Ajay et al. J. of Clin. Lipidol. 2015;9:129-169. Performed By: #### 7 600, 6517, 899, 6399, 496, 68923 #### [facility] [address], [address] [place] [address] Md Senior Research Scientist: Bo Greer MD T4, FREEon 12-23-2023 Free T4 [Mass/Vol] 1.3 ng/dL Normal 0.8-1.8 [facility] Comment on above: Performed By: #### 7 600, 6517, 899, 6399, 496, 88176 #### [facility] [address], [address] [place] [address] Md Senior Research Scientist: Bo Greer MD TSHon 12-23-2023 TSH Qn 2.80 m[IU]/L Normal [facility] Comment on above: Result Comment: Refe rence Range > or = 20 Years 0.40-4.50 Ranges First trimester 0.26-2.66 Second trimester 0.55-2.73 Third trimester 0.43-2.91 Performed By: #### 7 600, 6517, 899, 6399, 496, 16748 #### [facility] [address], [address] [place] [address] Md Senior Research Scientist: Bo Greer MD CBC and Differentialon 12-20 Basophils (Bld) [#/Vol] 107 10*3/uL [facility] Basophils/100 WBC (Bld) 1.2 % [facility] Eosinophils (Bld) [#/Vol] 240 10*3/uL [facility] Eosinophils/100 WBC (Bld) 2.7 % [facility] Erythrocyte distribution width (RBC) [Ratio] 12.1 % 11.0 - 15.0 % [facility] Hematocrit (Bld) [Volume fraction] 46.4 % High 35.0 - 45.0 % [facility] Hemoglobin (Bld) [Mass/Vol] 14.7 g/dL 11.7 - 15.5 g/dL [facility] Lymphocytes (Bld) [#/Vol] 2341 10*3/uL [facility] Lymphocytes/100 WBC (Bld) 26.3 % [facility] MCH (RBC) [Entitic mass] 28.7 pg 27.0 - 33.0 pg [facility] MCHC (RBC) [Mass/Vol] 31.7 g/dL Low 32.0 - 36.0 g/dL [facility] Comment on above: For adults, a slight decrease in the calculated MCHC value (in the range of 30 to 32 g/dL) is most likely not clinically significant; however, it should be interpreted with caution in correlation with other red cell parameters and the patient's clinical condition. MCV (RBC) [Entitic vol] 90.4 fL 80.0 - 100.0 fL [facility] Monocytes (Bld) [#/Vol] 765 10*3/uL [facility] Monocytes/100 WBC (Bld) 8.6 % [facility] Neutrophils (Bld) [#/Vol] 5447 10*3/uL [facility] Neutrophils/100 WBC (Bld) 61.2 % [facility] Platelet mean volume (Bld) [Entitic vol] 12.2 fL 7.5 - 12.5 fL [facility] Platelets (Bld) [#/Vol] 205 10*3/uL [facility] RBC (Bld) [#/Vol] 5.13 10*6/uL High [facility] ealth WBC (Bld) [#/Vol] 8.9 10*3/uL [facility] Comprehensive metabolic 2000 panelon 12-21-2023 Albumin [Mass/Vol] 3.7 g/dL 3.6 - 5.1 g/dL [facility] Albumin/Globulin [Mass ratio] 1.5 {ratio} [facility] ALP [Catalytic activity/Vol] 67 U/L 37 - 153 U/L [facility] ALT [Catalytic activity/Vol] 19 U/L 6 - 29 U/L [facility] AST [Catalytic activity/Vol] 14 U/L 10 - 35 U/L [facility] Bilirubin [Mass/Vol] 0.6 mg/dL 0.2 - 1.2 mg/dL [facility] Calcium [Mass/Vol] 8.7 mg/dL 8.6 - 10. 4 mg/dL [facility] Chloride [Moles/Vol] 101 mmol/L 98 - 110 mmol/L [facility] CO2 [Moles/Vol] 26 mmol/L 20 - 32 mmol/L [facility] Creatinine [Mass/Vol] 0.7 mg/dL 0.50 - 1.03 mg/dL [facility] GFR/1.73 sq M.predicted among non-blacks MDRD (S/P/Bld) [Vol rate/Area] 102 mL/min/{1.73_m2} > OR = 60 mL/min/1.73m2 [facility] Globulin (S) [Mass/Vol] 2.5 g/dL [facility] Glucose [Mass/Vol] 330 mg/dL High 65 - 99 mg/dL [facility] Comment on above: Fasting reference interval For someone without known diabetes, a glucose value >125 mg/dL indicates that they may have diabetes and this should be confirmed with a follow-up test. Potassium [Moles/Vol] 4.3 mmol/L 3.5 - 5.3 mmol/L [facility] Protein [Mass/Vol] 6.2 g/dL 6.1 - 8.1 g/dL [facility] Sodium [Moles/Vol] 136 mmol/L 135 - 146 mmol/L [facility] Urea nitrogen [Mass/Vol] 15 mg/dL 7 - 25 mg/dL [facility] Urea nitrogen/Creatinin e [Mass ratio] SEE NOTE: [facility] Comment on above: Not Reported: BUN an d Creatinine are within reference range. HbA1c (Bld) [Mass fraction]o n 12-21-2023 Interpretation and review of laboratory results Abnormal [facility] FASTING:YES FASTING: YES [facility] Hemoglobin A1con 12-21-2023 HbA1c (Bld) [Mass fraction] 11.1 % High [facility] Comment on above: For someone without known diabetes, a hemoglobin A1c value of 6.5% or greater indicates that they may have diabetes and this should be confirmed with a follow-up test. For someone with known diabetes, a value <7% indicates that their diabetes is well controlled and a value greater than or equal to 7% indicates suboptimal control. A1c targets should be individualized based on duration of diabetes, age, comorbid conditions, and other considerations. Currently, no consensus exists regarding use of hemoglobin A1c for diagnosis of diabetes for children. Lipid 1996 panelon 4 Cholesterol [Mass/Vol] 179 mg/dL NINF - 200 mg/dL [facility] Cholesterol in HDL [Mass/Vol] 39 mg/dL Low > OR = 50 [facility] Cholesterol in LDL [Mass/Vol] 108 mg/dL High mg/dL (calc) [facility] Comment on above: Reference range: <10 0 Desirable range <100 mg/dL for primary prevention; <70 mg/dL for patients with CHD or diabetic patients with > or = 2 CHD risk factors. LDL-C is now calculated using the Michael-Mervat calculation, which is a validated novel method providing better accuracy than the Friedewald equation in the estimation of LDL-C. Michael SS et al. EN. 2013;310(19): 7563-6124 (http://education.[employer]/faq/VWW537) Cholesterol non HDL [Mass/Vol] 140 mg/dL High [facility] Comment on above: For patients with di abetes plus 1 major ASCVD risk factor, treating to a non-HDL-C goal of <100 mg/dL (LDL-C of <70 mg/dL) is considered a therapeutic option. Cholesterol.total/ Cholesterol in HDL [Mass ratio] 4.6 {ratio} [facility] Triglyceride [Mass/Vol] 207 mg/dL High [facility] - 150 mg/dL [facility] Comment on above: If a non-fasting specimen was collected, consider repeat triglyceride testing on a fasting specimen if clinically indicated. Moss et al. J. of Clin. Lipidol. 2015;9:129-169. No Panel Informationon 12-20 Interpretation and review of laboratory results Abnormal [facility] FASTING:YES FASTING: YES [facility] T4, Freeon 12-21-2023 Free T4 [Mass/Vol] 1.3 ng/dL 0.8 - 1.8 ng/dL [facility] TSH DL <= 0.005 mIU/L Qnon 1 TSH Qn 2.8 m[IU]/L mIU/L [facility] Comment on above: Reference Range > or = 20 Years 0.40-4.50 Ranges First trimester 0.26-2.66 Second trimester 0.55-2.73 Third trimester 0.43-2.91 Comprehensive metabolic 2000 panelon 05-22-2023 Albumin BCP dye [Mass/Vol] 3.7 g/dL Normal 3.4-5.0 [facility] Comment on above: Performed By: #### 2 4322-8 #### ANANT PAEZ ([id number]) [facility] ([facility]) [address] [place] [address] ALP [Catalytic activity/Vol] 72 U/L Normal 33-110 [facility] Comment on above: Performed By: #### 2 4322-8 #### ANANT PAEZ ([id number]) [facility] ([facility]) [address] [place] [address] ALT With P-5'-P [Catalytic activity/Vol] 15 U/L Normal 7-45 [facility] Comment on above: Result Comment: Blaire ents treated with Sulfasalazine may generate falsely decreased results for ALT. Performed By: #### 2 4322-8 #### ANANT PAEZ ([id number]) [facility] ([facility]) [address] [place] [address] Anion gap [Moles/Vol] 11 mmol/L Normal 10-20 [facility] Comment on above: Performed By: #### 2 4322-8 #### ANANT PAEZ ([id number]) [facility] ([facility]) [address] [place] [address] AST With P-5'-P [Catalytic activity/Vol] 14 U/L Normal 9-39 [facility] Comment on above: Performed By: #### 2 4322-8 #### ANANT PAEZ ([id number]) [facility] ([facility]) [address] [place] [address] Bilirubin [Mass/Vol] 0.6 mg/dL Normal 0.0-1.2 [facility] Comment on above: Performed By: #### 2 4322-8 #### NAANT PAEZ ([id number]) [facility] ([facility]) [address] [place] [address] Calcium [Mass/Vol] 8.7 mg/dL Normal 8.6-10.3 [facility] Comment on above: Performed By: #### 2 4322-8 #### ANANT PAEZ ([id number]) [facility] ([facility]) [address] [place] [address] Chloride [Moles/Vol] 101 mmol/L Normal 98-107 [facility] Comment on above: Performed By: #### 2 4323-8 #### ANANT PAEZ ([id number]) [facility] ([facility]) [address] [place] [address] CO2 [Moles/Vol] 29 mmol/L Normal 21-32 [facility] Comment on above: Performed By: #### 2 4323-8 #### ANANT PAEZ ([id number]) [facility] ([facility]) [address] [place] [address] Creatinine [Mass/Vol] 0.69 mg/dL Normal 0.50-1.05 [facility] Comment on above: Performed By: #### 2 4323-8 #### ANANT PAEZ ([id number]) [facility] ([facility]) [address] [place] [address] GFR/1.73 sq M.predicted MDRD (S/P/Bld) [Vol rate/Area] mL/min/{1.73_m2} Normal >60 [facility] Comment on above: Result Comment: Calc ulations of estimated GFR are performed using the 2020 CKD-EPI Study Refit equation without the race variable for the IDMS-Traceable creatinine methods. https://jasn.asnjournals.org/content//ASN.289540618 8 Performed By: #### 2 4323-8 #### ANANT PAEZ ([id number]) [facility] ([facility]) [address] [place] [address] Glucose [Mass/Vol] 274 mg/dL High 74-99 [facility] Comment on above: Performed By: #### 2 4323-8 #### ANANT PAEZ ([id number]) [facility] ([facility]) [address] [place] [address] Potassium [Moles/Vol] 4.3 mmol/L Normal 3.5-5.3 [facility] Comment on above: Performed By: #### 2 4323-8 #### ANANT PAEZ ([id number]) [facility] ([facility]) [address] [place] [address] Protein [Mass/Vol] 6.1 g/dL Low 6.4-8.2 [facility] Comment on above: Performed By: #### 2 4323-8 #### ANANT PAEZ (05071) [facility] [facility] ([facility]) [address] [place] [address] Sodium [Moles/Vol] 137 mmol/L Normal 136-145 [facility] Comment on above: Performed By: #### 2 4323-8 #### ANANT PAEZ ([id number]) [facility] ([facility]) [address] [place] [address] Urea nitrogen [Mass/Vol] 12 mg/dL Normal 6-23 [facility] Comment on above: Performed By: #### 2 4323-8 #### ANANT PAEZ ([id number]) [facility] ([facility]) [address] [place] [address] HbA1c (Bld) [Mass fraction]o n 05-22-2023 Average glucose Estimated from glycated hemoglobin (Bld) [Mass/Vol] 249 mg/dL Normal Not Established [facility] Comment on above: Order Comment: Diagn osis of Diabetes-Adults Non-Diabetic: < or = 5.6% Increased risk for developing diabetes: 5.7-6.4% Diagnostic of diabetes: > or = 6.5% Monitoring of Diabetes Age (y)....................... Therapeutic Goal (%) Adults: >18.........................<7.0 Pediatrics: 13-18...................<7.5 Pediatrics: 7-12....................<8.0 Pediatrics: 0-6..................... 7.5-8.5 [employer]. Diabetes Care 33(S1), Mar 2009 Performed By: #### 4 548-4 #### ANANT PAEZ ([id number]) [facility] ([facility]) [address] [place] [address] Hemoglobin A1c/Hemoglobin.to mayra 05-22-2023 HbA1c (Bld) [Mass fraction] 10.3 % High see below [facility] Comment on above: Order Comment: Diagn osis of Diabetes-Adults Non-Diabetic: < or = 5.6% Increased risk for developing diabetes: 5.7-6.4% Diagnostic of diabetes: > or = 6.5% Monitoring of Diabetes Age (y)....................... Therapeutic Goal (%) Adults: >18.........................<7.0 Pediatrics: 13-18...................<7.5 Pediatrics: 7-12....................<8.0 Pediatrics: 0-6..................... 7.5-8.5 [employer]. Diabetes Care 33(S1), Mar 2009 Performed By: #### 4 548-4 #### ANANT PAEZ ([id number]) [facility] ([facility]) [address] [place] [address] Thyrotropinon 05-22-2023 TSH Qn 3.34 m[IU]/L Normal 0.44-3.98 [facility] Comment on above: Order Comment: TSH t esting is performed using different testing methodology at [facility] than at other [facility]. Direct result comparisons should only be made within the same method. Performed By: #### 3 016-3 #### ANANT PAEZ ([id number]) [facility] ([facility]) [facility] [place] [address] Thyroxine.freeon 05-22-2023 Free T4 [Mass/Vol] 0.87 ng/dL Normal 0.61-1.12 [facility] Comment on above: Order Comment: Thyro xine Free testing is performed using different testing methodology at [facility] than at other [facility]. Direct result comparisons should only be made within the same method. Biotin can cause falsely elevated free T4 results. Patients taking a Biotin dose of up to 10 mg/day should refrain from taking Biotin for 24 hours before sample collection. Patient taking a Biotin dose of >10 mg/day should consult with their physician or the laboratory before the blood draw. Performed By: #### 3 024-7 #### [place] PHILIPPE ([id number]) [facility] ([facility]) [address] [place] [address] COMPREHENSIVE PANELon 2022 Albumin [Mass/Vol] 3.7 g/dL Normal 3.4 - 5.0 [facility] Comment on above: Performed By: #### C MP #### [address] [address] ALP [Catalytic activity/Vol] 68 U/L Normal 33 - 110 [facility] Comment on above: Performed By: #### C MP #### [address] [address] ALT [Catalytic activity/Vol] 16 U/L Normal 7 - 45 [facility] Comment on above: Result Comment: Blaire ents treated with Sulfasalazine may generate falsely decreased results for ALT. Performed By: #### C MP #### [address] [address] Anion gap [Moles/Vol] 11 mmol/L Normal 10 - 20 [facility] Comment on above: Performed By: #### C MP #### [address] [address] AST [Catalytic activity/Vol] 13 U/L Normal 9 - 39 [facility] Comment on above: Performed By: #### C MP #### [address] [address] Bilirubin [Mass/Vol] 0.6 mg/dL Normal 0.0 - 1.2 [facility] Comment on above: Performed By: #### C MP #### [address] [address] Calcium [Mass/Vol] 9.2 mg/dL Normal 8.6 - 10.3 [facility] Comment on above: Performed By: #### C MP #### [address] [address] Chloride [Moles/Vol] 104 mmol/L Normal 98 - 107 [facility] Comment on above: Performed By: #### C MP #### [address] [address] Creatinine [Mass/Vol] 0.74 mg/dL Normal 0.50 - 1.05 [facility] Comment on above: Performed By: #### C MP #### [address] [address] eGFR FEMALE >90 Normal >90 [facility] Comment on above: Result Comment: CALC ULATIONS OF ESTIMATED GFR ARE PERFORMED USING THE 2020 CKD-EPI STUDY REFIT EQUATION WITHOUT THE RACE VARIABLE FOR THE IDMS-TRACEABLE CREATININE METHODS. https://jasn.asnjournals.org/content//ASN.264598454 8 Performed By: #### C MP #### [address] [address] Glucose [Mass/Vol] 265 mg/dL High 74 - 99 [facility] Comment on above: Performed By: #### C MP #### [address] [address] HCO3 (Bld) [Moles/Vol] 28 mmol/L Normal 21 - 32 [facility] Comment on above: Performed By: #### C MP #### [address] [address] Potassium [Moles/Vol] 4.0 mmol/L Normal 3.5 - 5.3 [facility] Comment on above: Performed By: #### C MP #### [address] [address] Protein [Mass/Vol] 6.4 g/dL Normal 6.4 - 8.2 [facility] Comment on above: Performed By: #### C MP #### [address] [address] Sodium [Moles/Vol] 139 mmol/L Normal 136 - 145 [facility] Comment on above: Performed By: #### C MP #### [address] [address] Urea nitrogen [Mass/Vol] 16 mg/dL Normal 6 - 23 [facility] Comment on above: Performed By: #### C MP #### [address] [address] HEMOGLOBIN A1Con 09-28-2022 Glucose [Mass/Vol] 226 mg/dL Normal [facility] Comment on above: Performed By: #### H BA1E #### [address] [address] HbA1c (Bld) [Mass fraction] 9.5 % Abnormal [facility] Comment on above: Result Comment: Diag nosis of Diabetes-Adults Non-Diabetic: < or = 5.6% Increased risk for developing diabetes: 5.7-6.4% Diagnostic of diabetes: > or = 6.5% . Monitoring of Diabetes Age (y) Therapeutic Goal (%) Adults: >18 <7.0 Pediatrics: 13-18 <7.5 7-12 <8.0 0- 6 7.5-8.5 [employer]. Diabetes Care 33(S1), Mar 2009. Performed By: #### H BA1E #### [address] [address] THYROXINE,FREEon 09-28-2022 THYROXINE,FREE 1.09 ng/dL Normal 0.61 - 1.12 [facility] Comment on above: Result Comment: Thyr oxine Free testing is performed using different testing methodology at [facility] than at other [facility]. Direct result comparisons should only be made within the same method. . Biotin can cause falsely elevated free T4 results. Patients taking a Biotin dose of up to 10 mg/day should refrain from taking Biotin for 24 hours before sample collection. Patient taking a Biotin dose of >10 mg/day should consult with their physician or the laboratory before the blood draw. Performed By: #### T 4FRE #### [address] [place] [address] TSHon 09-28-2022 TSH Qn 3.79 m[IU]/L Normal 0.44 - 3.98 [facility] Comment on above: Result Comment: TSH testing is performed using different testing methodology at [facility] than at other [facility]. Direct result comparisons should only be made within the same method. Performed By: #### T 4FRE #### [address] [address] Quantiferon TB-Gold+on 08-29 QFT TB GOLD+ Normal [facility] Comment on above: Result Comment: TEST RESULTS LIMITS QFT-TB Plus (Client Incubated) QuantiFERON Criteria QuantiFERON-TB Gold Plus is a qualitative indirect test for M tuberculosis infection (including disease) and is intended for use in conjunction with risk assessment, radiography, and other medical and diagnostic evaluations. The QuantiFERON-TB Gold Plus result is determined by subtracting the Nil value from either TB antigen (Ag) value. The Mitogen tube serves as a control for the test. QuantiFERON TB1 Ag Value 0.05 IU/mL QuantiFERON TB2 Ag Value 0.07 IU/mL QuantiFERON Nil Value 0.07 IU/mL QuantiFERON Mitogen Value >10.00 IU/mL QuantiFERON-TB Gold Plus Negative Negative No response to M tuberculosis antigens detected. Infection with M tuberculosis is unlikely, but high risk individuals should be considered for additional testing (ATS/IDSA/CDC Clinical Practice Guidelines, 2017). The reference range is an Antigen minus Nil result of <0.35 IU/mL. The specimen received for QuantiFERON testing was incubated by the ordering institution. Specific procedures outlined in our Directory of Services and in the package insert for the QuantiFERON Gold (In Tube) test must be followed to enable for proper stimulation of cells for the production of interferon gamma. Chemiluminescence immunoassay methodology TESTING PERFORMED AT [facility]. ORIGINAL REPORT ON FILE IN LAB CONTAINS ADDITIONAL TEST SITE INFORMATION. Performed By: #### L 3400.8000, L3100.0460 #### [facility] [address] [place], [place], [address] Hepatitis B Core Ab Totalon 08-28-2022 HEP B CORE,TOT Negative Normal Negative [facility] Comment on above: Result Comment: Perf ormed at: CB - [facility] [address] [id number] Manuscripts Curator: Austin Almeida PhD, Phone: [phone] Performed By: #### L 3400.8000, L3100.0460 #### [facility] [address] [place], [place], [id number] Serum hepatitis B virus core antibody detectionOrdered By: Carlos Zuniga on 08-24-2022 HBV core Ab Ql (S) Negative Negative [facility] Comment on above: Performed at: CB - [facility] [address] [id number] Director: Austin Almeida PhD, Phone: [phone] ALBUMIN, URINE SPOTon 2022 ALBUMIN,URINE 36.4 mg/L Normal Not Established [facility] Comment on above: Performed By: #### A LBSP #### [facility] [address] 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 [address] CREATININE,URINE 276.0 mg/dL Normal 20.0 - 320.0 [facility] Comment on above: Performed By: #### A LBSP #### [facility] [address] [place] [address] CBC AND DIFFERENTIALon 04-11 % AUTOMATED IMMATURE GRAN 0.3 % Normal 0.0 - 0.9 [facility] Comment on above: Result Comment: Alice ture Granulocyte Count (IG) includes promyelocytes, myelocytes and metamyelocytes but does not include bands. Percent differential counts (%) should be interpreted in the context of the absolute cell counts (cells/L). Performed By: #### C BCDF #### [address] [address] Basophils (Bld) [#/Vol] 0.06 10*3/uL Normal 0.00 - 0.10 [facility] Comment on above: Performed By: #### C BCDF #### [address] [address] Basophils/100 WBC (Bld) 0.9 % Normal 0.0 - 2.0 [facility] Comment on above: Performed By: #### C BCDF #### [address] [address] Eosinophils (Bld) [#/Vol] 0.10 10*3/uL Normal 0.00 - 0.70 [facility] Comment on above: Performed By: #### C BCDF #### [address] [address] Eosinophils/100 WBC (Bld) 1.5 % Normal 0.0 - 6.0 [facility] Comment on above: Performed By: #### C BCDF #### [address] [address] Erythrocyte distribution width (RBC) [Ratio] 12.7 % Normal 11.5 - 14.5 [facility] Comment on above: Performed By: #### C BCDF #### [address] [address] Hematocrit (Bld) [Volume fraction] 46.6 % High 36.0 - 46.0 [facility] Comment on above: Performed By: #### C BCDF #### [address] [address] Hemoglobin (Bld) [Mass/Vol] 15.2 g/dL Normal 12.0 - 16.0 [facility] Comment on above: Performed By: #### C BCDF #### [address] [address] Lymphocytes (Bld) [#/Vol] 2.33 10*3/uL Normal 1.20 - 4.80 [facility] Comment on above: Performed By: #### C BCDF #### [address] [address] Lymphocytes/100 WBC (Bld) 35.7 % Normal 13.0 - 44.0 [facility] Comment on above: Performed By: #### C BCDF #### [address] [address] MCHC (RBC) [Mass/Vol] 32.6 g/dL Normal 32.0 - 36.0 [facility] Comment on above: Performed By: #### C BCDF #### [address] [address] MCV (RBC) [Entitic vol] 88 fL Normal 80 - 100 [facility] Comment on above: Performed By: #### C BCDF #### [address] [address] Monocytes (Bld) [#/Vol] 1.12 10*3/uL High 0.10 - 1.00 [facility] Comment on above: Performed By: #### C BCDF #### [address] [address] Monocytes/100 WBC (Bld) 17.2 % Normal 2.0 - 10.0 [facility] Comment on above: Performed By: #### C BCDF #### [address] [address] Neutrophils (Bld) [#/Vol] 2.89 10*3/uL Normal 1.20 - 7.70 [facility] Comment on above: Result Comment: Perc ent differential counts (%) should be interpreted in the context of the absolute cell counts (cells/L). Performed By: #### C BCDF #### [address] [address] Neutrophils/100 WBC (Bld) 44.4 % Normal 40.0 - 80.0 [facility] Comment on above: Performed By: #### C BCDF #### [address] [address] Platelets (Bld) [#/Vol] 202 10*3/uL Normal 150 - 450 [facility] Comment on above: Performed By: #### C BCDF #### [address] [address] RBC 5.29 x10E12/L High 4.00 - 5.20 [facility] Comment on above: Performed By: #### C BCDF #### [address] [address] WBC (Bld) [#/Vol] 6.5 10*3/uL Normal 4.4 - 11.3 [facility] Comment on above: Performed By: #### C BCDF #### [address] [address] COMPREHENSIVE PANELon 2022 Albumin [Mass/Vol] 3.8 g/dL Normal 3.4 - 5.0 [facility] Comment on above: Performed By: #### C MP #### [address] [address] ALP [Catalytic activity/Vol] 64 U/L Normal 33 - 110 [facility] Comment on above: Performed By: #### C MP #### [address] [address] ALT [Catalytic activity/Vol] 27 U/L Normal 7 - 45 [facility] Comment on above: Result Comment: Blaire ents treated with Sulfasalazine may generate falsely decreased results for ALT. Performed By: #### C MP #### [address] [address] Anion gap [Moles/Vol] 12 mmol/L Normal 10 - 20 [facility] Comment on above: Performed By: #### C MP #### [address] [address] AST [Catalytic activity/Vol] 23 U/L Normal 9 - 39 [facility] Comment on above: Performed By: #### C MP #### [address] [address] Bilirubin [Mass/Vol] 0.6 mg/dL Normal 0.0 - 1.2 [facility] Comment on above: Performed By: #### C MP #### [address] [address] Calcium [Mass/Vol] 9.0 mg/dL Normal 8.6 - 10.3 [facility] Comment on above: Performed By: #### C MP #### [address] [address] Chloride [Moles/Vol] 103 mmol/L Normal 98 - 107 [facility] Comment on above: Performed By: #### C MP #### [address] [address] Creatinine [Mass/Vol] 0.78 mg/dL Normal 0.50 - 1.05 [facility] Comment on above: Performed By: #### C MP #### [address] [address] GFR/1.73 sq M.predicted among non-blacks MDRD (S/P/Bld) [Vol rate/Area] 90 mL/min/{1.73_m2} Normal >90 [facility] Comment on above: Result Comment: CALC ULATIONS OF ESTIMATED GFR ARE PERFORMED USING THE 2020 CKD-EPI STUDY REFIT EQUATION WITHOUT THE RACE VARIABLE FOR THE IDMS-TRACEABLE CREATININE METHODS. https://jasn.asnjournals.org/content/early//ASN.072871956 8 Performed By: #### C MP #### [address] [address] Glucose [Mass/Vol] 250 mg/dL High 74 - 99 [facility] Comment on above: Performed By: #### C MP #### [address] [address] HCO3 (Bld) [Moles/Vol] 28 mmol/L Normal 21 - 32 [facility] Comment on above: Performed By: #### C MP #### [address] [address] Potassium [Moles/Vol] 3.7 mmol/L Normal 3.5 - 5.3 [facility] Comment on above: Performed By: #### C MP #### [address] [address] Protein [Mass/Vol] 6.6 g/dL Normal 6.4 - 8.2 [facility] Comment on above: Performed By: #### C MP #### [address] [address] Sodium [Moles/Vol] 139 mmol/L Normal 136 - 145 [facility] Comment on above: Performed By: #### C MP #### [address] [address] Urea nitrogen [Mass/Vol] 14 mg/dL Normal 6 - 23 [facility] Comment on above: Performed By: #### C MP #### [address] [address] HEMOGLOBIN A1Con 04-11-2022 Glucose [Mass/Vol] 246 mg/dL Normal [facility] Comment on above: Performed By: #### H BA1E #### [address] [address] HbA1c (Bld) [Mass fraction] 10.2 % Abnormal [facility] Comment on above: Result Comment: Diag nosis of Diabetes-Adults Non-Diabetic: < or = 5.6% Increased risk for developing diabetes: 5.7-6.4% Diagnostic of diabetes: > or = 6.5% . Monitoring of Diabetes Age (y) Therapeutic Goal (%) Adults: >18 <7.0 Pediatrics: 13-18 <7.5 7-12 <8.0 0- 6 7.5-8.5 [employer]. Diabetes Care 33(S1), Mar 2009. Performed By: #### H BA1E #### [address] [address] LIPID PANEL (CORONARY RISK 2 )on 04-11-2022 Cholesterol [Mass/Vol] 142 mg/dL Normal 0 - 199 [facility] Comment on above: Result Comment: . AGE DESIRABLE BORDERLINE HIGH HIGH 0-19 Y 0 - 169 170 - 199 >/= 200 20-24 Y 0 - 189 190 - 224 >/= 225 >24 Y 0 - 199 200 - 239 >/= 240 All ranges are based on fasting samples. Specific therapeutic targets will vary based on patient-specific cardiac risk. . Pediatric guidelines reference:Pediatrics 2011, 128(S5). Adult guidelines reference: NCEP ATPIII Guidelines, EN 2001, 258:2486-97 . Venipuncture immediately after or during the administration of Metamizole may lead to falsely low results. Testing should be performed immediately prior to Metamizole dosing. Performed By: #### L IPID #### [address] [address] Cholesterol in HDL [Mass/Vol] 32.0 mg/dL Abnormal [facility] Comment on above: Result Comment: . AGE VERY LOW LOW NORMAL HIGH 0-19 Y < 35 < 40 40-45 ---- 20-24 Y ---- < 40 >45 ---- >24 Y ---- < 40 40-60 >60 . Performed By: #### L IPID #### [address] [address] Cholesterol in LDL [Mass/Vol] 88 mg/dL Normal 0 - 99 [facility] Comment on above: Result Comment: . NEAR BORD AGE DESIRABLE OPTIMAL HIGH HIGH VERY HIGH 0-19 Y 0 - 109 --- 110-129 >/= 130 ---- 20-24 Y 0 - 119 --- 120-159 >/= 160 ---- >24 Y 0 - 99 100-129 130-159 160-189 >/=190 . Performed By: #### L IPID #### [address] [address] Cholesterol in VLDL [Mass/Vol] 22 mg/dL Normal 0 - 40 [facility] Comment on above: Performed By: #### L IPID #### [address] [address] Cholesterol.total/ Cholesterol in HDL [Mass ratio] 4.4 {ratio} Normal [facility] Comment on above: Result Comment: REF VALUES DESIRABLE < 3.4 HIGH RISK > 5.0 Performed By: #### L IPID #### [address] [address] Triglyceride [Mass/Vol] 112 mg/dL Normal 0 - 149 [facility] Comment on above: Result Comment: . AGE DESIRABLE BORDERLINE HIGH HIGH VERY HIGH 0 D-90 D 19 - 174 ---- ---- ---- 91 D- 9 Y 0 - 74 75 - 99 >/= 100 ---- 10-19 Y 0 - 89 90 - 129 >/= 130 ---- 20-24 Y 0 - 114 115 - 149 >/= 150 ---- >24 Y 0 - 149 150 - 199 200- 499 >/= 500 . Venipuncture immediately after or during the administration of Metamizole may lead to falsely low results. Testing should be performed immediately prior to Metamizole dosing. Performed By: #### L IPID #### [place] [id number] THYROXINE,FREEon 04-11-2022 THYROXINE,FREE 0.95 ng/dL Normal 0.61 - 1.12 [facility] Comment on above: Result Comment: Thyr oxine Free testing is performed using different testing methodology at [facility] than at [facility]. Direct result comparisons should only be made within the same method. . Biotin can cause falsely elevated free T4 results. Patients taking a Biotin dose of up to 10 mg/day should refrain from taking Biotin for 24 hours before sample collection. Patient taking a Biotin dose of >10 mg/day should consult with their physician or the laboratory before the blood draw. Performed By: #### T 4FRE #### [address] [address] TSHon 04-11-2022 TSH Qn 1.19 m[IU]/L Normal 0.44 - 3.98 [facility] Comment on above: Result Comment: TSH testing is performed using different testing methodology at [facility] than at [facility]. Direct result comparisons should only be made within the same method. Performed By: #### T SH2 #### [place] [id number] Established Visit (Orthopaed ic Surgery)on 06-01-2021 Established Visit (Orthopaedic Surgery) Diagnoses/Problems Assessed Numbness and tingling (782.0) (R20.0,R20.2) Patient Discussion/Summary By signing my name below, I, Kitty Chuadhari, attest that this documentation has been prepared under the direction and in the presence of Dr. Dorian Davis. All medical record entries made by the Manuelibe were at my direction and personally dictated by me. I have reviewed the chart and agree that the record accurately reflects my personal performance of the history, physical exam, discussion and plan. Provider Impressions Assessment?status post left open carpal tunnel release, left wrist numbness Plan?oral steroid did not help her symptoms of numbness and tingling along the dorsal radial sensory nerve branch. Not sure why she has symptoms there is is distant from previous surgical site and occurred in an odd manner. At this point there is no real direct treatment method for improving her symptoms I think I would allow time to tell us if she will have nerve improvement. It is not affecting her function her daily activity at this point it may be something that she has to live with but I am happy to see her back at any point This note has been created with voice recognition software. Please be aware that there may be grammatical or contextual errors due to the use of the software. Chief Complaint 2 week follow-up) re-evaluation of left hand numbness. She is 3+ months status post open carpal tunnel release of the left wrist in 02/2021. She states overall numbness of the left radial wrist has decreased, however she states it still feels "weird". History of Present Illness Patient is a pleasant 50-year-old female presenting today for 2 week follow up with regards to her left hand numbness. She is 3+ months status post open carpal tunnel release of the left wrist performed on 02/20/21. She was administered a corticosteroid injection at her last office visit in which she reports provided mild improvement in her condition, but caused complications with her sugar levels as she is a type 2 diabetic, as well as hot flashes and anxiety. She reports overall numbness of the left radial wrist has mildly decreased, but states it continues to present with a "weird" feeling. She denies experiencing the "pulling" sensation with reaching that she was previously. Her hand is occasionally bothersome with over use, but states she would like to delay any intervention as her condition has been manageable and does not disrupt her daily activities. Review of Systems Constitutional: no fever, no chills, not feeling tired, no recent weight gain and no recent weight loss. ENT: no nosebleeds. Cardiovascular: no chest pain. Respiratory: no shortness of breath and no cough. Gastrointestinal: no abdominal pain, no nausea, no vomiting and no diarrhea. Musculoskeletal: no arthralgias and as noted in HPI. Integumentary: no rashes and no skin wound. Neurological: no headache. Psychiatric: no depression and no sleep disturbances. Endocrine: no muscle weakness and no muscle cramps. Hematologic/Lymphatic: no swollen glands and no tendency for easy bruising. All other systems have been reviewed and are negative for complaint. Active Problems Problems Diabetes mellitus, type 2 (250.00) (E11.9) Encounter for screening mammogram for breast cancer (V76.12) (Z12.31) Fatigue (780.79) (R53.83) History of hematuria (V13.09) (Z87.448) HTN (hypertension) (401.9) (I10) Hypothyroidism (244.9) (E03.9) Median nerve entrapment (354.0) (G56.00) Mixed hyperlipidemia (272.2) (E78.2) Numbness and tingling (782.0) (R20.0,R20.2) Obesity (278.00) (E66.9) Psoriasis (696.1) (L40.9) Screening for malignant neoplasm of colon (V76.51) (Z12.11) Vaginal Papanicolaou smear (V76.47) (Z12.72) Women's annual routine gynecological examination (V72.31) (Z01.419) Past Medical History Problems History of Delivery of by section (669.70) (O82) 06/29/1998_39weeks 3days_Male_9# 6oz History of mammogram (V15.89) (Z92.89) 08/19/2018 History of Menstruation Onset age 9 years History of Pap test, as part of routine gynecological examination (V76.2) (Z01.419) 11/09/2020: Negative 11/02/2019: Negative 08/13/2018: Negative Surgical History Problems History of Cervical cryosurgery 1992 History of section 1998 History of Hysterectomy abdominal 04/28/2015: with corpus and cervix History of Tonsillectomy Family History Mother Family history of lung cancer (V16.1) (Z80.1) Brother Family history of liver cancer (V16.0) (Z80.0) Grandparent Family history of diabetes mellitus (V18.0) (Z83.3) Family history of gastric ulcer (V18.59) (Z83.79) Family history of hypertension (V17.49) (Z82.49) Family history of thyroid disease (V18.19) (Z83.49) Family history of type 2 diabetes mellitus (V18.0) (Z83.3) Social History Problems Former smoker (V15.82) (Z87.891) No advance directives (V49.89) (Z78.9) No alcohol use (more content not included)... Normal [employer] Tobacco Screening.on 022 Tobacco use status [facility] b) No [facility] 300 Work Phone: Established Visit (Orthopaed ic Surgery)on 05-18-2021 Established Visit (Orthopaedic Surgery) Diagnoses/Problems Assessed Numbness and tingling (782.0) (R20.0,R20.2) Patient Discussion/Summary By signing my name below, I, Kitty Chaudhari, attest that this documentation has been prepared under the direction and in the presence of Dr. Dorian Davis. All medical record entries made by the Kitty were at my direction and personally dictated by me. I have reviewed the chart and agree that the record accurately reflects my personal performance of the history, physical exam, discussion and plan. Provider Impressions Assessment?status post left open carpal tunnel release, left wrist numbness Plan?patient is having some mild numbness and tingling is in the dorsum of the wrist which is atypical. She was lifting a computer bag and potentially this aggravated the dorsal aspect of the wrist she does not have any numbness tingling or symptoms along the median nerve. I think she is successfully recovering from her carpal tunnel release but she does have some mild nerve symptoms I like to start her on an oral steroid pack if this is ineffective we may consider EMG. I will see her back in 2 weeks This note has been created with voice recognition software. Please be aware that there may be grammatical or contextual errors due to the use of the software. Chief Complaint Est patient) returning for left dorsal radial wrist numbness, intermittent radial wrist pain x few weeks. She is 12+ weeks status post open carpal tunnel release on 02/20/2021. She rarely has pain and denies any significant pain at this time. She is more concerned about the numbness. History of Present Illness Patient is a pleasant 50-year-old female presenting today for follow up with regards to her left wrist. Patient is 12+ weeks status post open carpal tunnel release performed on 02/20/2021. She returns as she is complaining of left dorsal radial wrist numbness and tingling sensations, as well as intermittent radial wrist pain. She states she picked up a heavy bag approximately 4 weeks ago and began to become symptomatic 2 days later. She states although the pain is bothersome, she is most concerned about the numbness at this time. She has mild pain with palpation along her wrist, but denies any feeling with palpation along the area of the radial nerve. With regards to intervention, patient states she would like to try an oral steroid medication in hopes to avoid EMG testing. She is a type II diabetic in which she states she is not opposed to trying the steroid medication as there is a possibility the medication can alter her sugar levels. Review of Systems Constitutional: no fever, no chills, not feeling tired, no recent weight gain and no recent weight loss. ENT: no nosebleeds. Cardiovascular: no chest pain. Respiratory: no shortness of breath and no cough. Gastrointestinal: no abdominal pain, no nausea, no vomiting and no diarrhea. Musculoskeletal: no arthralgias and as noted in HPI. Integumentary: no rashes and no skin wound. Neurological: no headache. Psychiatric: no depression and no sleep disturbances. Endocrine: no muscle weakness and no muscle cramps. Hematologic/Lymphatic: no swollen glands and no tendency for easy bruising. All other systems have been reviewed and are negative for complaint. Active Problems Problems Diabetes mellitus, type 2 (250.00) (E11.9) Encounter for screening mammogram for breast cancer (V76.12) (Z12.31) Fatigue (780.79) (R53.83) History of hematuria (V13.09) (Z87.448) HTN (hypertension) (401.9) (I10) Hypothyroidism (244.9) (E03.9) Median nerve entrapment (354.0) (G56.00) Mixed hyperlipidemia (272.2) (E78.2) Numbness and tingling (782.0) (R20.0,R20.2) Obesity (278.00) (E66.9) Psoriasis (696.1) (L40.9) Screening for malignant neoplasm of colon (V76.51) (Z12.11) Vaginal Papanicolaou smear (V76.47) (Z12.72) Women's annual routine gynecological examination (V72.31) (Z01.419) Past Medical History Problems History of Delivery of by section (669.70) (O82) 06/29/1998_39weeks 3days_Male_9# 6oz History of mammogram (V15.89) (Z92.89) 08/19/2018 History of Menstruation Onset age 9 years History of Pap test, as part of routine gynecological examination (V76.2) (Z01.419) 11/09/2020: Negative 11/02/2019: Negative 08/13/2018: Negative Surgical History Problems History of Cervical cryosurgery 1992 History of section 1998 History of Hysterectomy abdominal 04/28/2015: with corpus and cervix History of Tonsillectomy Family History Mother Family history of lung cancer (V16.1) (Z80.1) Brother Family history of liver cancer (V16.0) (Z80.0) Grandparent Family history of diabetes mellitus (V18.0) (Z83.3) Family history of gastric ulcer (V18.59) (Z83.79) Family history of hypertension (V17.49) (Z82.49) Family history of thyroid disease (V18.19) (Z83.49) Family history of type 2 diabetes mellitus (V18.0) (Z83.3) Social History Problems Former s (more content not included)... Normal [employer] Tobacco Screening.on 03-17-2 022 Tobacco use status [facility] b) No [facility] 300 Work Phone: Post Op (Orthopaedic Surgery )on 04-18-2021 Post Op (Orthopaedic Surgery) Diagnoses/Problems Assessed Numbness and tingling (782.0) (R20.0,R20.2) Provider Impressions Assessment?status post left open carpal tunnel release Plan?patient is healing from her carpal tunnel release she still is having some occasional numbness and tingling in the median nerve distribution with certain activities I did discuss with her that the nerve is continuing to heal from the surgery her pillar pain is very typical following the surgical intervention she needs to continue to be patient and to perform her scar massage and these do think should resolve with time I am happy to see her back whenever she wants she does want to proceed with the contralateral side to side at some point but she is can let us know when she would like to do that This note has been created with voice recognition software. Please be aware that there may be grammatical or contextual errors due to the use of the software. Chief Complaint Post-op) 8+ weeks status post open carpal tunnel release left wrist on 02/20/2021. She denies any night time pain, only mild intermittent pain with pressure over pillar region of the hand. She does have intermittent numbness as well. History of Present Illness Patient is a pleasant 50-year-old female who presents today follow-up with regards to her carpal tunnel release. She still having some occasional numbness and tingling and some pillar pain but she is improving her overall symptoms. Review of Systems Constitutional: no fever, no chills, not feeling tired, no recent weight gain and no recent weight loss. ENT: no nosebleeds. Cardiovascular: no chest pain. Respiratory: no shortness of breath and no cough. Gastrointestinal: no abdominal pain, no nausea, no vomiting and no diarrhea. Musculoskeletal: no arthralgias and as noted in HPI. Integumentary: no rashes and no skin wound. Neurological: no headache. Psychiatric: no depression and no sleep disturbances. Endocrine: no muscle weakness and no muscle cramps. Hematologic/Lymphatic: swollen glands, but no tendency for easy bruising. Active Problems Problems Diabetes mellitus, type 2 (250.00) (E11.9) Encounter for screening mammogram for breast cancer (V76.12) (Z12.31) Fatigue (780.79) (R53.83) History of hematuria (V13.09) (Z87.448) HTN (hypertension) (401.9) (I10) Hypothyroidism (244.9) (E03.9) Median nerve entrapment (354.0) (G56.00) Mixed hyperlipidemia (272.2) (E78.2) Numbness and tingling (782.0) (R20.0,R20.2) Obesity (278.00) (E66.9) Psoriasis (696.1) (L40.9) Screening for malignant neoplasm of colon (V76.51) (Z12.11) Vaginal Papanicolaou smear (V76.47) (Z12.72) Women's annual routine gynecological examination (V72.31) (Z01.419) Past Medical History Problems History of Delivery of by section (669.70) (O82) 06/29/1998_39weeks 3days_Male_9# 6oz History of mammogram (V15.89) (Z92.89) 08/19/2018 History of Menstruation Onset age 9 years History of Pap test, as part of routine gynecological examination (V76.2) (Z01.419) 11/09/2020: Negative 11/02/2019: Negative 08/13/2018: Negative Surgical History Problems History of Cervical cryosurgery 1991 History of section 1998 History of Hysterectomy abdominal 04/28/2015: with corpus and cervix History of Tonsillectomy Family History Mother Family history of lung cancer (V16.1) (Z80.1) Brother Family history of liver cancer (V16.0) (Z80.0) Grandparent Family history of diabetes mellitus (V18.0) (Z83.3) Family history of gastric ulcer (V18.59) (Z83.79) Family history of hypertension (V17.49) (Z82.49) Family history of thyroid disease (V18.19) (Z83.49) Family history of type 2 diabetes mellitus (V18.0) (Z83.3) Social History Problems Former smoker (V15.82) (Z87.891) No advance directives (V49.89) (Z78.9) No alcohol use No illicit drug use No recent foreign travel Sexually active Allergies Medication No Known Drug Allergies Recorded By: Queenie Rodriguez; 01/09/2019 7:06:38 AM Current Meds Medication NameInstruction Accu-Chek Kiki Plus In Vitro Strip Aspirin 81 MG Oral Tablet Chewable Basaglar KwikPen 100 UNIT/ML Subcutaneous Solution Pen-injectorINJECT 41 UNIT Daily Crestor 20 MG Oral TabletTake 1 tablet daily Levothyroxine Sodium 137 MCG Oral TabletTAKE 1 TABLET DAILY DIRECTED. Lisinopril 40 MG Oral TabletTAKE 1 TABLET DAILY DIRECTED. NexIUM 24HR 20 MG Oral Capsule Delayed Release NovoLOG FlexPen 100 UNIT/ML Subcutaneous Solution [id number] per day Stelara SOLN Vitamin D 1000 UNIT CAPS Vitals Vital Signs Recorded: [id number] 03:34PM Rkmppamzdpa97.8 F Height5 ft 4 in Zhslda873 lb BMI Qhtqawjkrv67.79 kg/m2 BSA Calculated2.06 Tobacco Useb) No Physical Exam Alert and Oriented x 3 Patient resting comfortably in the exam room Normocephalic atraumatic extraocular movements intact mucous membranes moist warm well perfused extremities nonlabored breathi (more content not included)... Normal [employer] Tobacco Screening.on 022 Tobacco use status [facility] b) No [facility] 300 Work Phone: Post Op (Orthopaedic Surgery )on 03-28-2021 Post Op (Orthopaedic Surgery) Diagnoses/Problems Assessed Numbness and tingling (782.0) (R20.0,R20.2) Patient Discussion/Summary By signing my name below, I, Kitty Chaudhari, attest that this documentation has been prepared under the direction and in the presence of Dr. Dorian Davis. All medical record entries made by the Kitty were at my direction and personally dictated by me. I have reviewed the chart and agree that the record accurately reflects my personal performance of the history, physical exam, discussion and plan. Provider Impressions Assessment?bilateral carpal tunnel syndrome left worse than right, s/p left carpal tunnel release Plan?patient continues to heal from her open carpal tunnel release. She occasionally does still have some numbness and tingling especially when she is gripping the steering well and occasional things I did encourage her to be aggressive with her scar massage and that some of the pillar pain symptoms will improve with time she desensitize the hand we will see her back in a few weeks to evaluate her This note has been created with voice recognition software. Please be aware that there may be grammatical or contextual errors due to the use of the software. Chief Complaint Pt presents to this office for PO L CTR. PAIN - POSITIONAL STRENGTH - GOOD ROM- 100% SOME NUMBNESS AT TIMES History of Present Illness Patient is a pleasant 50-year-old female presenting today for post operative evaluation of left CTR surgery on 02/20/21. Patient states her hand has remained tender and her pain is positional. She states her strength is good and her range of motion is almost to 100% but there is some stiffness. Following surgery and when she was still wearing the casting she states she was not experiencing any numbness. She has now begun to feel numbness in her hand and fingers that increases with fine motor activities and driving. She reports an increase in pain when her hand is straight and turning of the wrist that radiates up the arm and throughout the wrist. She has been doing physical therapy and has been tolerating it well. Review of Systems Constitutional: no fever, no chills, not feeling tired, no recent weight gain and no recent weight loss. ENT: no nosebleeds. Cardiovascular: no chest pain. Respiratory: no shortness of breath and no cough. Gastrointestinal: no abdominal pain, no nausea, no vomiting and no diarrhea. Musculoskeletal: no arthralgias and as noted in HPI. Integumentary: no rashes and no skin wound. Neurological: no headache. Psychiatric: no depression and no sleep disturbances. Endocrine: no muscle weakness and no muscle cramps. Hematologic/Lymphatic: no swollen glands and no tendency for easy bruising. All other systems have been reviewed and are negative for complaint. Active Problems Problems Diabetes mellitus, type 2 (250.00) (E11.9) Encounter for screening mammogram for breast cancer (V76.12) (Z12.31) Fatigue (780.79) (R53.83) History of hematuria (V13.09) (Z87.448) HTN (hypertension) (401.9) (I10) Hypothyroidism (244.9) (E03.9) Median nerve entrapment (354.0) (G56.00) Mixed hyperlipidemia (272.2) (E78.2) Numbness and tingling (782.0) (R20.0,R20.2) Obesity (278.00) (E66.9) Psoriasis (696.1) (L40.9) Screening for malignant neoplasm of colon (V76.51) (Z12.11) Vaginal Papanicolaou smear (V76.47) (Z12.72) Women's annual routine gynecological examination (V72.31) (Z01.419) Past Medical History Problems History of Delivery of by section (669.70) (O82) 06/29/1998_39weeks 3days_Male_9# 6oz History of mammogram (V15.89) (Z92.89) 08/19/2018 History of Menstruation Onset age 9 years History of Pap test, as part of routine gynecological examination (V76.2) (Z01.419) 11/09/2020: Negative 11/02/2019: Negative 08/13/2018: Negative Surgical History Problems History of Cervical cryosurgery 1991 History of section 1998 History of Hysterectomy abdominal 04/28/2015: with corpus and cervix History of Tonsillectomy Family History Mother Family history of lung cancer (V16.1) (Z80.1) Brother Family history of liver cancer (V16.0) (Z80.0) Grandparent Family history of diabetes mellitus (V18.0) (Z83.3) Family history of gastric ulcer (V18.59) (Z83.79) Family history of hypertension (V17.49) (Z82.49) Family history of thyroid disease (V18.19) (Z83.49) Family history of type 2 diabetes mellitus (V18.0) (Z83.3) Social History Problems Former smoker (V15.82) (Z87.891) No advance directives (V49.89) (Z78.9) No alcohol use No illicit drug use No recent foreign travel Sexually active Allergies Medication No Known Drug Allergies Recorded By: Queenie Rodriguez; 01/09/2019 7:06:38 AM Current Meds Medication NameInstruction Accu-Chek Kiki Plus In Vitro Strip Aspirin 81 MG Oral Tablet Chewable Basaglar KwikPen 100 UNIT/ML Subcutaneous Solution Pen-injectorINJECT 41 UNIT Daily Crestor 20 MG Ora (more content not included)... Normal [employer] Tobacco Screening.on 022 Fall risk assessment a) No falls within the last year [facility] 300 Work Phone: Tobacco use status [facility] b) No [facility] 300 Work Phone: Post Op (Orthopaedic Surgery )on 03-07-2021 Post Op (Orthopaedic Surgery) Diagnoses/Problems Assessed Median nerve entrapment (354.0) (G56.00) Patient Discussion/Summary She was instructed on wound cleansing with antibacterial soap and water, cover healing wound as needed. She was instructed on Steri-Strip care. Reviewed signs and symptoms of infection to seek urgent evaluation. She was updated to work on right range of motion gently and no lifting greater than 5 to 10 pounds for the next 3 to 4 weeks and then gently increase as tolerated. Follow-up here in approximately 1 month, sooner for changes or concerns. This note was generated using [employer] software. It may contain errors in wording, punctuation or spelling. Provider Impressions Patient is status post carpal tunnel surgery with good wound healing. She has had immediate relief of her preoperative symptoms. Chief Complaint 10 day PO L CTR. Pain 3/10. History of Present Illness Patient is a pleasant 60-year-old female here for 10-day postop visit for her left carpal tunnel release. She was wearing her postop splint up to 3 days ago. She has been washing the wound with soap and water. She does get some random pains, she does take occasional Tylenol or ibuprofen which help her symptoms. She did use the pain medication for a few days postop and none since. She had immediate relief of the numb and tingling to her hand and fingers after the procedure. This is her nondominant hand. Review of Systems Constitutional: no fever, no chills, not feeling tired and not feeling poorly. Eyes: no eyesight problems. ENT: no nosebleeds. Cardiovascular: no chest pain. Respiratory: no shortness of breath and no cough. Gastrointestinal: no abdominal pain, no nausea, no vomiting and no diarrhea. The patient presents with complaints of left wrist arthralgias. Integumentary: no rashes and no skin wound. Neurological: no headache. Psychiatric: no depression and no sleep disturbances. Endocrine: no muscle weakness and no muscle cramps. Hematologic/Lymphatic: no swollen glands and no tendency for easy bruising. All other systems have been reviewed and are negative for complaint. Active Problems Problems Diabetes mellitus, type 2 (250.00) (E11.9) Encounter for screening mammogram for breast cancer (V76.12) (Z12.31) Fatigue (780.79) (R53.83) History of hematuria (V13.09) (Z87.448) HTN (hypertension) (401.9) (I10) Hypothyroidism (244.9) (E03.9) Median nerve entrapment (354.0) (G56.00) Mixed hyperlipidemia (272.2) (E78.2) Numbness and tingling (782.0) (R20.0,R20.2) Obesity (278.00) (E66.9) Psoriasis (696.1) (L40.9) Screening for malignant neoplasm of colon (V76.51) (Z12.11) Vaginal Papanicolaou smear (V76.47) (Z12.72) Women's annual routine gynecological examination (V72.31) (Z01.419) Past Medical History Problems History of Delivery of by section (669.70) (O82) 06/29/1998_39weeks 3days_Male_9# 6oz History of mammogram (V15.89) (Z92.89) 08/19/2018 History of Menstruation Onset age 9 years History of Pap test, as part of routine gynecological examination (V76.2) (Z01.419) 11/09/2020: Negative 11/02/2019: Negative 08/13/2018: Negative Surgical History Problems History of Cervical cryosurgery 1991 History of section 1998 History of Hysterectomy abdominal 04/28/2015: with corpus and cervix History of Tonsillectomy Family History Mother Family history of lung cancer (V16.1) (Z80.1) Brother Family history of liver cancer (V16.0) (Z80.0) Grandparent Family history of diabetes mellitus (V18.0) (Z83.3) Family history of gastric ulcer (V18.59) (Z83.79) Family history of hypertension (V17.49) (Z82.49) Family history of thyroid disease (V18.19) (Z83.49) Family history of type 2 diabetes mellitus (V18.0) (Z83.3) Social History Problems Former smoker (V15.82) (Z87.891) No advance directives (V49.89) (Z78.9) No alcohol use No illicit drug use No recent foreign travel Sexually active Allergies Medication No Known Drug Allergies Recorded By: Queenie Rodriguez; 01/09/2019 7:06:38 AM Current Meds Medication NameInstruction Accu-Chek Kiki Plus In Vitro Strip Aspirin 81 MG Oral Tablet Chewable Basaglar KwikPen 100 UNIT/ML Subcutaneous Solution Pen-injectorINJECT 41 UNIT Daily Crestor 20 MG Oral TabletTake 1 tablet daily Levothyroxine Sodium 137 MCG Oral TabletTAKE 1 TABLET DAILY DIRECTED. Lisinopril 40 MG Oral TabletTAKE 1 TABLET DAILY DIRECTED. NexIUM 24HR 20 MG Oral Capsule Delayed Release NovoLOG FlexPen 100 UNIT/ML Subcutaneous Solution [id number] per day Stelara SOLN Vitamin D 1000 UNIT CAPS Vitals Vital Signs Recorded: 07Mar2021 09:36AM Vwupdeknqah83.5 F Height5 ft 4 in Yknkjg907 lb BMI Nkedcosred72.62 kg/m2 BSA Calculated2.06 Tobacco Useb) No Fall Screeninga) No falls within the last year Physical Exam Left Wrist: Surgical incision was clean, dry, and intact Wound edges well approximated, small anamika (more content not included)... Normal [employer] Tobacco Screening.on 022 Fall risk assessment a) No falls within the last year [facility] 300 Work Phone: Tobacco use status [facility] b) No [facility] 300 Work Phone: GLUCOSE-[facility] 02-20-2021 Glucose [Mass/Vol] 193 mg/dL High 74 - 99 [facility] Comment on above: Performed By: #### G SEAN #### [place] [address] Laboratory - Chemistry and C hemistry - challengeon 02-20-2021 Glucose [Mass/Vol] 193 mg/dL above high threshold 74 - 99 [facility] 300 Work Phone: Order Reconciliationon 02-20 Order Reconciliation Page 1 Discharge Reconciliation Document Reconciliation Type: Discharge requested on behalf of Dorian Davis (Physician) done by Dorian Davis (DO) Discharge - Reconciliation: 20-Feb-2021 10:39 by: Dorian Davis (DO) Home Medications EnteredHOME MEDICATIONS AT DISCHARGE DateReconciliation Comment/ Additional Information Basaglar KwikPen 100 units/mL subcutaneous solution 55 unit(s) subcutaneous 07-Apr-2019 11:18 Basaglar KwikPen 100 units/mL subcutaneous solution 55 unit(s) subcutaneous 07-Apr-2019 11:18 Basaglar KwikPen 100 units/mL subcutaneous solution is continued as Basaglar KwikPen 100 units/mL subcutaneous solution lisinopril 40 mg oral tablet 1 tab(s) orally once a day 07-Apr-2019 11:15 lisinopril 40 mg oral tablet 1 tab(s) orally once a day 07-Apr-2019 11:15 lisinopril 40 mg oral tablet is continued as lisinopril 40 mg oral tablet [place] 5 mg-325 mg oral tablet 1 tab(s) orally every 4 hours, As Needed 20-Feb-2021 10:37 [place] 5 mg-325 mg oral tablet 1 tab(s) orally every 4 hours, As Needed 20-Feb-2021 10:37 [place] 5 mg-325 mg oral tablet is continued as [place] 5 mg-325 mg oral tablet NovoLOG 100 units/mL injectable solution 30-36 units a day then uses it as sliding scale throughout the day 07-Apr-2019 11:17 NovoLOG 100 units/mL injectable solution 30-36 units a day then uses it as sliding scale throughout the day 07-Apr-2019 11:17 NovoLOG 100 units/mL injectable solution is continued as NovoLOG 100 units/mL injectable solution rosuvastatin 20 mg oral tablet 1 tab(s) orally once a day 07-Apr-2019 11:15 rosuvastatin 20 mg oral tablet 1 tab(s) orally once a day 07-Apr-2019 11:15 rosuvastatin 20 mg oral tablet is continued as rosuvastatin 20 mg oral tablet Stelara 45 mg/0.5 mL subcutaneous solution subcutaneous every 3 months 07-Apr-2019 11:14 Stelara 45 mg/0.5 mL subcutaneous solution subcutaneous every 3 months 07-Apr-2019 11:14 Stelara 45 mg/0.5 mL subcutaneous solution is continued as Stelara 45 mg/0.5 mL subcutaneous solution Synthroid 125 mcg (0.125 mg) oral tablet 1 tab(s) orally once a day 07-Apr-2019 11:14 Synthroid 125 mcg (0.125 mg) oral tablet 1 tab(s) orally once a day 07-Apr-2019 11:14 Synthroid 125 mcg (0.125 mg) oral tablet is continued as Synthroid 125 mcg (0.125 mg) oral tablet Vitamin D3 1000 intl units (25 mcg) oral tablet 1 tab(s) orally once a day 07-Apr-2019 11:16 Vitamin D3 1000 intl units (25 mcg) oral tablet 1 tab(s) orally once a day 07-Apr-2019 11:16 Vitamin D3 1000 intl units (25 mcg) oral tablet is continued as Vitamin D3 1000 intl units (25 mcg) oral tablet Current OrdersDateHOME MEDICATIONS AT DISCHARGE DateReconciliation Comment/ Additional Information Lactated Ringers Infusion IV Bag Volume = 1,000 mL Run at: 100 mL/hr IntraVenous Clinician Notes: [facility]-operative order ONLY 17-Feb-2021 09:48 Lactated Ringers Infusion is not required Lactated Ringers Infusion IV Bag Volume = 1,000 mL Run at: 30 mL/hr IntraVenous 17-Feb-2021 09:48 Lactated Ringers Infusion is not required Morphine Injectable DOSE = 4 mg IntraVenous Push Every 5 Minutes, PRN Pain - Severe (7-10) (PACU)Clinician Notes: [facility]-operative order ONLYMax total of 20 mg regardless of dose. 17-Feb-2021 09:48 Morphine Injectable is not required oxyCODONE Immediate Release Tablet (OXYIR, ROXICODONE)DOSE = 5 mg Oral Every 4 Hours, PRN Pain - Mod (4-6) (PACU) when able to take OralClinician Notes: [facility] order ONLY 17-Feb-2021 09:48 oxyCODONE Immediate Release is not required Home Medications Added During Discharge Reconciliation Activity as Tolerated 20-Feb-2021, Routine, Assistance Level: None, Restrictions: None, Limit your activities and rest today. Additional Patient Instructions Apply Ice pack to surgical area. Additional Patient Instructions Do not consume alcoholic beverages for 24 hours. Additional Patient Instructions Do not engage in sports, heavy work or lifting. Additional Patient Instructions Do not make important decisions or sign any important documents for the next 24 hours. Additional Patient Instructions Keep Surgical incision dry and clean. Call Physician For: excessive bleeding (slow general oozing that completely soaks dressing or fresh bright red bleeding) or bleeding that will not stop. Apply pressure to the area and elevate. Call Physician For: if the arm or leg operated on has a change in color, numbness or tingling coldness to the touch or excessive pain. Call Physician For: inability to urinate every 8-12 hours and your bladder becomes too full or painful. Call Physician For: persistant nausea and/or vomiting Over 24 hours Call Physician For: signs and sypmtoms of infection Increased redness or swelling at incision site, increased pain/tenderness at surgical site, increased temperature greater than 100 degress, increasing and/or progressive drainage from surgical site, and/or unusual odor from (more content not included)... Normal [facility] Coronavirus 2019 RNA by PCR, Screening Asymptomticon 02-17-2021 Coronavirus 2019 RNA by PCR, Screening Asymptomtic Not detected Normal See Below [facility] Work Phone: Comment on above: SOURCE: Nasal, Nasop haryngealReference Range: Not Detected.This assay is designed to detect the N, ORF1ab and/or S genes of SARS-CoV-2 via nucleic acid amplification. A Negative (NOT DETECTED) result does not preclude 2019-nCoV infection since the adequacy of sample collection and/or low viral burden may result in presence of viral nucleic acids below the clinical sensitivity of this test method. Negative (NOT DETECTED) result should not be used as the sole basis for treatment or other patient management decisions. Rather negative results should be combined with clinical observations, patient history, and epidemiological information to make patient management decisions.Fact sheet for providers: https://www.fda.gov/media/739256/downloadFact sheet for patients: https://www.fda.gov/media/543809/downloadThis test has received FDA Emergency Use Authorization (EUA) and has been verified by [facility] ([facility]). This test is only authorized for the duration of time that circumstances exist to justify the authorization of the emergency use of in vitro diagnostic tests for the detection of SARS-CoV-2 virus and/or diagnosis of COVID-19 infection under section 564(b)(1) of the Act, 21 U.S.C. 360bbb-3(b)(1), unless the authorization is terminated or revoked sooner. [facility] is certified under CLIA-88 as qualified to perform high complexity testing. Testing is performed in the [facility] laboratories located at [address] [place] [address]. Patient Profile - Preop v3on 02-16-2021 Patient Profile - Preop v3 Patient Profile - Preop: Initial Info: Patient DemographicsName: GREGORIA BAI Date: 1970 Address: [address] [place] [address] Primary Phone [phone] How to be AddressedTricia Spoken Language PreferredEnglish Source of Informationpatient Stated Reason for Admissionleft carpal tunnel surgery Primary Contact Name and [phone] Medications Brought to Hospitalno General Health: Weight in kg100 kilogram(s) Weight in tzt491.4 pound(s) Weight Methodactual (measured) Height in feet5 feet Height in inches3 inch(es) Height in cm160 centimeter(s) BMI (kg/m2)39.062 square meter Patient or Family Member Reaction to Anesthesiano previous reaction Blood Avoidance/Restrictionsnon e Previous Transfusion Reactionnot applicable Health Mgmt: Symptoms/Conditions Managed at [facility] Are You no Are You Currently Breastfeedingno Barriers to Managing Healthnone Relationship/Environ: Lives Withspouse Living Arrangementshouse Resource/Environmental Concernsnone [facility] Anticipated at Transitionnone Tobacco Use: Tobacco Useno Pre-op Checklist: Arrival [id number] Arrival Time08:19 NPOyes Last Food [id number] 20:00 Last Clear Fluid [id number] 07:15 NPO Commenttook sips of water with am meds ID Band On Patientpatient ID (name) Consent Signedyes H&P Completeyes Bowel Prepno Additional Information: Information Review: Allergies, Home Meds and Significant Events have been Reviewed and Verified with Patient/Familyyes Allergy, Intolerance, Adverse Event: Allergies: No Known Allergies: Active Electronic Signatures: Tami Patel (RN) (Signed 16-Feb-2021 10:52) Authored: Initial Info, General Health, Health Mgmt, Tobacco Use, Additional Information Gertrude Nolasco (WINNIE) (Signed 20-Feb-2021 08:34) Authored: Initial Info, General Health, Relationship/Environ, Pre-op Checklist, Additional Information Last Updated: 20-Feb-2021 08:34 by Gertrude Nolasco (RN) [facility] Established Visit (Orthopaed ic Surgery)on 01-11-2021 Established Visit (Orthopaedic Surgery) Diagnoses/Problems Assessed Median nerve entrapment (354.0) (G56.00) Patient Discussion/Summary By signing my name below, I, Kitty Chaudhari, attest that this documentation has been prepared under the direction and in the presence of Dr. Dorian Davis. Provider Impressions Assessment?bilateral carpal tunnel syndrome left worse than right Plan?patient has continued to be quite symptomatic if not having worsening symptoms primarily in the left hand. She is failed more conservative measures including splinting and oral medication. She is interested in pursuing a surgical invention I did caution her that with her hemoglobin A1c we certainly at risk for infection and poor nerve recovery because of the significant abnormality in her A1c she is going to try and work on this prior to surgery. But she does understand the risks and benefits she would like to proceed This note has been created with voice recognition software. Please be aware that there may be grammatical or contextual errors due to the use of the software. Chief Complaint L CTS, F/U PRE SURGERY History of Present Illness Patient is a very pleasant 50-year-old female presents today for left CTS; pre-surgery. She has bilateral hand numbness and tingling patient has been dealing with numbness and tingling the hand for some time now. She states the pain and numbness has been progressively worsening. She does have a number of confounding medical comorbidities including diabetes mellitus type 2 with hemoglobin A1c of around 9 as well as psoriatic arthritis treated with immunomodulators. The left hand is much more severe than the right hand which bothers her primarily when she is driving. She has been wearing splints but do not feel they have been helping. She would like to move forward with scheduling surgery, starting with the left hand first. Review of Systems Constitutional: no fever, no chills, not feeling tired, no recent weight gain and no recent weight loss. ENT: no nosebleeds. Cardiovascular: no chest pain. Respiratory: no shortness of breath and no cough. Gastrointestinal: no abdominal pain, no nausea, no vomiting and no diarrhea. Musculoskeletal: no arthralgias and as noted in HPI. Integumentary: no rashes and no skin wound. Neurological: no headache. Psychiatric: no depression and no sleep disturbances. Endocrine: no muscle weakness and no muscle cramps. Hematologic/Lymphatic: swollen glands, but no tendency for easy bruising. Active Problems Problems Diabetes mellitus, type 2 (250.00) (E11.9) Encounter for screening mammogram for breast cancer (V76.12) (Z12.31) Fatigue (780.79) (R53.83) History of hematuria (V13.09) (Z87.448) HTN (hypertension) (401.9) (I10) Hypothyroidism (244.9) (E03.9) Median nerve entrapment (354.0) (G56.00) Mixed hyperlipidemia (272.2) (E78.2) Numbness and tingling (782.0) (R20.0,R20.2) Obesity (278.00) (E66.9) Psoriasis (696.1) (L40.9) Screening for malignant neoplasm of colon (V76.51) (Z12.11) Vaginal Papanicolaou smear (V76.47) (Z12.72) Women's annual routine gynecological examination (V72.31) (Z01.419) Past Medical History Problems History of Delivery of by section (669.70) (O82) 06/29/1998_39weeks 3days_Male_9# 6oz History of mammogram (V15.89) (Z92.89) 08/19/2018 History of Menstruation Onset age 9 years History of Pap test, as part of routine gynecological examination (V76.2) (Z01.419) 11/09/2020: Negative 11/02/2019: Negative 08/13/2018: Negative Surgical History Problems History of Cervical cryosurgery 1992 History of section 1998 History of Hysterectomy abdominal 04/28/2015: with corpus and cervix History of Tonsillectomy Family History Mother Family history of lung cancer (V16.1) (Z80.1) Brother Family history of liver cancer (V16.0) (Z80.0) Grandparent Family history of diabetes mellitus (V18.0) (Z83.3) Family history of gastric ulcer (V18.59) (Z83.79) Family history of hypertension (V17.49) (Z82.49) Family history of thyroid disease (V18.19) (Z83.49) Family history of type 2 diabetes mellitus (V18.0) (Z83.3) Social History Problems Former smoker (V15.82) (Z87.891) No advance directives (V49.89) (Z78.9) No alcohol use No illicit drug use No recent foreign travel Sexually active Allergies Medication No Known Drug Allergies Recorded By: Queenie Rodriguez; 01/09/2019 7:06:38 AM Current Meds Medication NameInstruction Accu-Chek Kiki Plus In Vitro Strip Aspirin 81 MG Oral Tablet Chewable Basaglar KwikPen 100 UNIT/ML Subcutaneous Solution Pen-injectorINJECT 41 UNIT Daily Crestor 20 MG Oral TabletTake 1 tablet daily Levothyroxine Sodium 137 MCG Oral TabletTAKE 1 TABLET DAILY DIRECTED. Lisinopril 40 MG Oral TabletTAKE 1 TABLET DAILY DIRECTED. NexIUM 24HR 20 MG Oral Capsule Delayed Release NovoLOG FlexPen 100 UNIT/ML Subcutaneous Solution Pgu--729muzgm per day Henry SMITH (more content not included)... Normal [facility] Tobacco Screening.on 021 Fall risk assessment a) No falls within the last year [facility] [address] Work Phone: Tobacco use status [facility] b) No -[facility] Work Phone: DIGITAL MAMM SCREENING W/ TO [place] 12-23-2020 DIGITAL MAMM SCREENING W/ RON Patient Name: GREGORIA BAI STUDY: Digital mammography screening with ron; 12/23/2020 8:33 am ACCESSION NUMBER(S): [id number] ORDERING CLINICIAN: LOYD JACKSON INDICATION: Screening. COMPARISON: Comparison is made to prior digital mammograms dated 11/18/2019 FINDINGS: CC and MLO 2D digital mammograms and digital breast tomosynthesis images were obtained of the bilateral breasts. 3-D volume images were reconstructed in 4 views at an independent workstation as 1 mm slices through the breasts in both the CC and MLO projections. There are areas of scattered fibroglandular tissue. No discrete mass or focal asymmetry is identified. No suspicious microcalcifications or foci of architectural distortion are seen. There has been no significant change. This study was interpreted with CAD. IMPRESSION: No mammographic evidence of malignancy. BI-RADS CATEGORY: Category: 1 - Negative. Recommendation: 1 Year Screening. Electronically signed by: EMERSON LYNCH MD [facility] Mamm - Screening Mammogram w / Tomosynthesison 12-23-2020 MG Breast Screening Normal [facility] [employer] Work Phone: Laboratory - Cytologyon Cytology report Cyto stain.thin prep Doc (Cvx/Vag) [place] [address] [employer] Work Phone: CHROME POLISHER - Office Visiton [facility]ER - Office Visit Diagnoses/Problems Assessed Encounter for screening mammogram for breast cancer (V76.12) (Z12.31) Vaginal Papanicolaou smear (V76.47) (Z12.72) Women's annual routine gynecological examination (V72.31) (Z01.419) Orders Mamm - Screening Mammogram w/ Tomosynthesis; Status:Hold For - Scheduling; Requested for:09Nov2020; Radiologist to Determine Optimal Study : Y What are the patient's signs and symptoms ? : Annual Screening Mammogram PAP PRACTICE OR STUDENT TEACHER, Cytology; Status:In Progress - Specimen/Data Collected; Done: 09Nov2020 Last Menstrual Period (LMP): : Hysterectomy PAP - Site : VAGINAL Cytology Order : ThinPrep PAP, Screening, HPV Reflex - Include Genotyping Provider Impressions 1. Annual exam 2. Screening mammogram Follow-up in 1 year or as needed. Chief Complaint Patient is here for her yearly exam and pap test. Hysterectomy in 2016. Patient does not do self breast exams and has no concerns at this time. History of Present IllnessPresents for annual exam. She voices no complaints and is doing well. Denies any bowel or bladder problems. Denies any breast problems. She had previous hysterectomy. Review of Systems Review of Systems: Constitutional: No fever or chills Respiratory: No shortness of breath, or cough Cardiovascular: No chest pain or syncope Breasts: No breast pain, no masses, no nipple discharge Gastrointestinal: No nausea, vomiting, or diarrhea, no abdominal pain Genitourinary: No dysuria or frequency Gynecology: Negative except as noted in history of present illness All other: All other systems reviewed and negative for complaint Active Problems Problems Diabetes mellitus, type 2 (250.00) (E11.9) Encounter for screening mammogram for breast cancer (V76.12) (Z12.31) Fatigue (780.79) (R53.83) History of hematuria (V13.09) (Z87.448) HTN (hypertension) (401.9) (I10) Hypothyroidism (244.9) (E03.9) Median nerve entrapment (354.0) (G56.00) Mixed hyperlipidemia (272.2) (E78.2) Numbness and tingling (782.0) (R20.0,R20.2) Obesity (278.00) (E66.9) Psoriasis (696.1) (L40.9) Screening for malignant neoplasm of colon (V76.51) (Z12.11) Vaginal Papanicolaou smear (V76.47) (Z12.72) Women's annual routine gynecological examination (V72.31) (Z01.419) Past Medical History Problems History of Delivery of by section (669.70) (O82) 06/29/1998_39weeks 3days_Male_9# 6oz History of mammogram (V15.89) (Z92.89) 08/19/2018 History of Menstruation Onset age 9 years History of Pap test, as part of routine gynecological examination (V76.2) (Z01.419) 11/02/2019: Negative 08/13/2018: Negative Surgical History Problems History of Cervical cryosurgery 1992 History of section 1998 History of Hysterectomy abdominal 04/28/2015: with corpus and cervix History of Tonsillectomy Family History Mother Family history of lung cancer (V16.1) (Z80.1) Brother Family history of liver cancer (V16.0) (Z80.0) Grandparent Family history of diabetes mellitus (V18.0) (Z83.3) Family history of gastric ulcer (V18.59) (Z83.79) Family history of hypertension (V17.49) (Z82.49) Family history of thyroid disease (V18.19) (Z83.49) Family history of type 2 diabetes mellitus (V18.0) (Z83.3) Social History Problems Former smoker (V15.82) (Z87.891) No advance directives (V49.89) (Z78.9) No alcohol use No illicit drug use No recent foreign travel Sexually active Allergies Medication No Known Drug Allergies Recorded By: Queenie Rodriguez; 01/09/2019 7:06:38 AM Current Meds Medication NameInstruction Accu-Chek Kiki Plus In Vitro Strip Aspirin 81 MG Oral Tablet Chewable Basaglar KwikPen 100 UNIT/ML Subcutaneous Solution Pen-injectorINJECT 41 UNIT Daily Crestor 20 MG Oral TabletTake 1 tablet daily Levothyroxine Sodium 137 MCG Oral TabletTAKE 1 TABLET DAILY DIRECTED. Lisinopril 40 MG Oral TabletTAKE 1 TABLET DAILY DIRECTED. NexIUM 24HR 20 MG Oral Capsule Delayed Release NovoLOG FlexPen 100 UNIT/ML Subcutaneous Solution Utj-[id number] per day Stelara SOLN Vitamin D 1000 UNIT CAPS Vitals Vital Signs Recorded: 09Nov2020 09:17AM Tvugnvimagf47.5 F Tctddfxa110 Twhbdnwze59 Height5 ft 4.6 in Vqsgmm639.7 kg BMI Idbdhfsdou91.15 kg/m2 BSA Calculated2.08 Tobacco Useb) No LMPHysterectomy 2015 Physical Exam PHYSICAL EXAMINATION: Well-developed, well nourished, in no acute distress, alert and oriented x three, is pleasant and cooperative. HEENT: Clear. Pupils equal, round and reactive to light and accommodation. Extraocular muscles are intact. Oral mucosa pink without exudate. NECK: No lymphadenopathy, no thyromegaly. BREASTS: Symmetric, no palpable masses. No nipple discharge or retraction. LUNGS: Clear bilaterally. HEART: Regular rate and rhythm without murmurs. ABDOMEN: Normoactive bowel sounds, soft and nontender, no guarding or rebound tenderness, no CVA tenderness. EXTREMITIES: No clubbing, cya (more content not included)... Normal [facility] Tobacco Screening.on Last menstrual period start date [facility]sterectomy [facility] Work Phone: Tobacco use status [facility] b) No [facility] Work Phone: Initial Visit (Orthopaedic S urgery)on 10-25-2020 Initial Visit (Orthopaedic Surgery) Diagnoses/Problems Assessed Median nerve entrapment (354.0) (G56.00) Provider Impressions Assessment?bilateral carpal tunnel syndrome left worse than right Plan?we did have a long discussion today about potential treatment options we discussed night splints injections and surgical intervention based on the patient's EMG I would recommend a surgical intervention as a long period of waiting certainly would place the nerve at risk for some reversible nerve damage unfortunately patient does have significantly elevated hemoglobin A1c she was interested in trying to get this down prior to surgery which I do think would only benefit nerve healing and wound healing and potentially limit the complications associated with that. As well she is on biologic immune modulators for her psoriatic arthritis this could certainly impact wound healing as well as recovery of the nerve we could try to schedule surgery at the tail end of a dose prior to the new dose she is going to think about timing get back with me and let me know when she would like to proceed with this if she would like to proceed This note has been created with voice recognition software. Please be aware that there may be grammatical or contextual errors due to the use of the software. Chief Complaint BILAT CTS, EMG DONE. PAIN 0 History of Present Illness Patient is a very pleasant 50-year-old female presents today for evaluation of bilateral hand numbness and tingling patient has been dealing with numbness and tingling the hand for some time now. It has been progressively worsening. She does have a number of confounding medical comorbidities including diabetes mellitus type 2 with hemoglobin A1c of around 9 as well as psoriatic arthritis treated with immunomodulators. The left hand is much more severe than the right hand bothers her primarily when she is driving her fingers will fall asleep in the median nerve distribution she is tried a night splint already she is already had an EMG done we did review the EMG. Review of Systems Constitutional: no fever, no chills, not feeling tired, no recent weight gain and no recent weight loss. ENT: no nosebleeds. Cardiovascular: no chest pain. Respiratory: no shortness of breath and no cough. Gastrointestinal: no abdominal pain, no nausea, no vomiting and no diarrhea. Musculoskeletal: no arthralgias and as noted in HPI. Integumentary: no rashes and no skin wound. Neurological: no headache. Psychiatric: no depression and no sleep disturbances. Endocrine: no muscle weakness and no muscle cramps. Hematologic/Lymphatic: no swollen glands and no tendency for easy bruising. All other systems have been reviewed and are negative for complaint. Active Problems Problems Diabetes mellitus, type 2 (250.00) (E11.9) Encounter for screening mammogram for breast cancer (V76.12) (Z12.31) Fatigue (780.79) (R53.83) History of hematuria (V13.09) (Z87.448) HTN (hypertension) (401.9) (I10) Hypothyroidism (244.9) (E03.9) Median nerve entrapment (354.0) (G56.00) Mixed hyperlipidemia (272.2) (E78.2) Numbness and tingling (782.0) (R20.0,R20.2) Obesity (278.00) (E66.9) Psoriasis (696.1) (L40.9) Screening for malignant neoplasm of colon (V76.51) (Z12.11) Vaginal Papanicolaou smear (V76.47) (Z12.72) Women's annual routine gynecological examination (V72.31) (Z01.419) Past Medical History Problems History of Delivery of by section (669.70) (O82) 06/29/1998_39weeks 3days_Male_9# 6oz History of mammogram (V15.89) (Z92.89) 08/19/2018 History of Menstruation Onset age 9 years History of Pap test, as part of routine gynecological examination (V76.2) (Z01.419) 11/02/2019: Negative 08/13/2018: Negative Surgical History Problems History of Cervical cryosurgery 1991 History of section 1998 History of Hysterectomy abdominal 04/28/2015: with corpus and cervix History of Tonsillectomy Family History Mother Family history of lung cancer (V16.1) (Z80.1) Brother Family history of liver cancer (V16.0) (Z80.0) Grandparent Family history of diabetes mellitus (V18.0) (Z83.3) Family history of gastric ulcer (V18.59) (Z83.79) Family history of hypertension (V17.49) (Z82.49) Family history of thyroid disease (V18.19) (Z83.49) Family history of type 2 diabetes mellitus (V18.0) (Z83.3) Social History Problems Former smoker (V15.82) (Z87.891) No advance directives (V49.89) (Z78.9) No alcohol use No illicit drug use No recent foreign travel Sexually active Allergies No Known Drug Allergies Recorded By: Queenie Rodriguez; 01/09/2019 7:06:38 AM Current Meds Medication NameInstruction Accu-Chek Kiki Plus In Vitro Strip Aspirin 81 MG Oral Tablet Chewable Basaglar KwikPen 100 UNIT/ML Subcutaneous Solution Pen-injectorINJECT 41 UNIT Daily Crestor 20 MG Oral TabletTake 1 tablet daily Levothyroxine Sodium 137 MCG Oral TabletTAKE 1 TABLET DAILY DIRECTED. Lisinopril 40 MG (more content not included)... Normal [employer] Tobacco Screening.on 021 Fall risk assessment a) No falls within the last year [facility] Work Phone: Tobacco use status [facility] b) No [facility] Work Phone: Office Visit (Family Carrington harman)on 08-16-2020 Follow-up visit Diagnoses/Problems Median nerve entrapment (354.0) (G56.00) Numbness and tingling (782.0) (R20.0,R20.2) Orders Median nerve entrapment Orthopedic - Hand Referral Evaluation and Treatment Evaluate AND Treat Status: Hold For - Scheduling Requested for: 16Aug2020 Provider Impressions Median nerve entrapment as indicated by nerve conduction study completed in Dr. Pires's office. She would like to be referred to Dr. Davis to discuss treatment options, however she is not sure that she would like to proceed with surgery at this time. She can wear a brace on wrist/hands to help manage symptoms. Will place referral order. She will follow with endocrinology for DM management. Follow up 6 months or sooner for any new or worsening issues. Discussed s/sx that would require ER visit or follow up in this office. She is agreeable with the above plan and verbalized understanding of all education provided. Chief Complaint pt here to discuss EMG results. History of Present Illness Here for follow up of numbness and tingling in bilateral arms/hands. She had a nerve conduction study/EMG done with Dr. Pires, at [facility] on 08/11/2020. She would like to discuss those results. She does report that her symptoms have improved slightly, with left being worse than right. She feels that she is more aware of how she sleeps at night and has made some modifications to wrist movements and she feels this may have contributed to the mild improvement of her symptoms. She does feel as if her hand grasps are weaker, but denies clumsiness or dropping items. No new concerns today, however she does report that her last hemoglobin A1C that she had done at endocrinology was improved from 10.8% it was last time. Denies excessive thirst or urination, denies episodes of low blood sugars. Does not need any refills today. Review of Systems Constitutional: no chills, no fever and no night sweats. Eyes: no blurred vision and no eyesight problems. ENT: no hearing loss, no nasal congestion, no nasal discharge, no hoarseness and no sore throat. Neck: no mass(es) and no swelling. Cardiovascular: no chest pain, no intermittent leg claudication, no lower extremity edema, no palpitations and no syncope. Respiratory: no cough, no shortness of breath during exertion, no shortness of breath at rest and no wheezing. Gastrointestinal: no abdominal pain, no blood in stools, no constipation, no diarrhea, no melena, no nausea, no rectal pain and no vomiting. Genitourinary: no dysuria, no change in urinary frequency, no urinary hesitancy, no feelings of urinary urgency and no vaginal discharge. Musculoskeletal: no arthralgias, no back pain and no myalgias. Integumentary: no new skin lesions and no rashes. Neurological: limb weakness, numbness and tingling, but no difficulty walking and no headache . bilteral upper extremeties. Psychiatric: no anxiety, no depression, no anhedonia and no substance use disorders. Endocrine: no recent weight gain and no recent weight loss. Hematologic/Lymphatic: no tendency for easy bruising and no swollen glands. Active Problems Diabetes mellitus, type 2 (250.00) (E11.9) Encounter for screening mammogram for breast cancer (V76.12) (Z12.31) Fatigue (780.79) (R53.83) History of hematuria (V13.09) (Z87.448) HTN (hypertension) (401.9) (I10) Hypothyroidism (244.9) (E03.9) Mixed hyperlipidemia (272.2) (E78.2) Numbness and tingling (782.0) (R20.0,R20.2) Obesity (278.00) (E66.9) Psoriasis (696.1) (L40.9) Screening for malignant neoplasm of colon (V76.51) (Z12.11) Vaginal Papanicolaou smear (V76.47) (Z12.72) Women's annual routine gynecological examination (V72.31) (Z01.419) Past Medical History History of Delivery of by section (669.70) (O82) 06/29/1998_39weeks 3days_Male_9# 6oz History of mammogram (V15.89) (Z92.89) 08/19/2018 History of Menstruation Onset age 9 years History of Pap test, as part of routine gynecological examination (V76.2) (Z01.419) 11/02/2019: Negative 08/13/2018: Negative Surgical History History of Cervical cryosurgery 1991 History of section 1998 History of Hysterectomy abdominal 04/28/2015: with corpus and cervix History of Tonsillectomy Family History Family history of lung cancer (V16.1) (Z80.1) Family history of liver cancer (V16.0) (Z80.0) Family history of diabetes mellitus (V18.0) (Z83.3) Family history of gastric ulcer (V18.59) (Z83.79) Family history of hypertension (V17.49) (Z82.49) Family history of thyroid disease (V18.19) (Z83.49) Family history of type 2 diabetes mellitus (V18.0) (Z83.3) Social History Former smoker (V15.82) (Z87.891) No advance directives (V49.89) (Z78.9) No alcohol use No illicit drug use No recent foreign travel Sexually active Allergies No Known Drug Allergies Recorded By: Queenie Rodriguez; 01/09/2019 7:06:38 AM Current Meds Medication NameInstructionReason Basaglar KwikPen 100 UNIT/ML Subcuta (more content not included)... Normal Touchworks Tobacco Screening.on 021 Tobacco use status CP a) Yes Nomanini [facility] Work Phone: Tobacco Screening. Yes Kabam [facility] Work Phone: Office Visit ([facility] gh[facility]al)on 06-14-2020 Follow-up visit Chief Complaint 3 week f/u, review labs. History of Present Illness Gregoria presents to the office for three week follow up and review of labs. She reports numbness and tingling in her bilateral hands/fingers. She states that her left hand is worse than her right hand, and her left hand tingles almost constantly. She noticed this first about six months ago. 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 She is here to review her labs. Her A1C is 8.3% through her philosophy specialist, her fasting sugar is slightly above 200, her B12 is on the lower end of normal, and her vitamin D was 22.3. hyperglycemia: blood sugars all over the place at home. diet has not been the greatest. needs to eat a healthy, well-balanced diet and increase fluids. reports that she doesn't eat how she should, but she knows how she should eat. some days are better than others. 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 labs reviewed. Review of Systems Constitutional: no chills, no fever and no night sweats. Cardiovascular: lower extremity edema, but no chest pain, no intermittent leg claudication, no palpitations and no syncope . psoriatic arthritis. Respiratory: shortness of breath during exertion, but no cough, no shortness of breath at rest and no wheezing. Active Problems Diabetes mellitus, type 2 (250.00) (E11.9) Encounter for screening mammogram for breast cancer (V76.12) (Z12.31) Fatigue (780.79) (R53.83) History of hematuria (V13.09) (Z87.448) HTN (hypertension) (401.9) (I10) Hypothyroidism (244.9) (E03.9) Mixed hyperlipidemia (272.2) (E78.2) Obesity (278.00) (E66.9) Psoriasis (696.1) (L40.9) Screening for malignant neoplasm of colon (V76.51) (Z12.11) Vaginal Papanicolaou smear (V76.47) (Z12.72) Women's annual routine gynecological examination (V72.31) (Z01.419) Past Medical History History of Delivery of by section (669.70) (O82) 06/29/1998_39weeks 3days_Male_9# 6oz History of mammogram (V15.89) (Z92.89) 08/19/2018 History of Menstruation Onset age 9 years History of Pap test, as part of routine gynecological examination (V76.2) (Z01.419) 11/02/2019: Negative 08/13/2018: Negative Surgical History History of Cervical cryosurgery 1991 History of section 1998 History of Hysterectomy abdominal 04/28/2015: with corpus and cervix History of Tonsillectomy Family History Family history of lung cancer (V16.1) (Z80.1) Family history of liver cancer (V16.0) (Z80.0) Family history of diabetes mellitus (V18.0) (Z83.3) Family history of gastric ulcer (V18.59) (Z83.79) Family history of hypertension (V17.49) (Z82.49) Family history of thyroid disease (V18.19) (Z83.49) Family history of type 2 diabetes mellitus (V18.0) (Z83.3) Social History Former smoker (V15.82) (Z87.891) No advance directives (V49.89) (Z78.9) No alcohol use No illicit drug use No recent foreign travel Sexually active Allergies No Known Drug Allergies Recorded By: Queenie Rodriguez; 01/09/2019 7:06:38 AM Current Meds Basaglar KwikPen 100 UNIT/ML Subcutaneous Solution Pen-injector; INJECT 41 UNIT Daily; Therapy: (Recorded:09Jan2019) to Recorded Dispense: 0 Days ; #: Sufficient X 3 ML Pen; Refill: 0;For: Diabetes mellitus, type 2; SAMI = N; Record; Last Updated By: Queenie Rodriguez; 01/09/2019 7:19:39 AM NovoLOG FlexPen 100 UNIT/ML Subcutaneous Solution Pen-injector; 90-150units per day; Therapy: (Recorded:[id number]) to Recorded Dispense: 0 Days ; #: Sufficient X 5 x 3 ML Pen; Refill: 0;For: Diabetes mellitus, type 2; SAMI = N; Record; Last Updated By: Aimee Patterson; 11/02/2019 9:41:03 AM Lisinopril 40 MG Oral Tablet; TAKE 1 TABLET DAILY DIRECTED; Therapy: (Recorded:09Jan2019) to Recorded Dispense: 0 Days ; #: Sufficient X 30 Tablet Pack; Refill: 0;For: HTN (hypertension); SAMI = N; Record; Last Updated By: Queenie Rodriguez; 01/09/2019 7:19:39 AM Synthroid 125 MCG Oral Tablet; TAKE 1 TABLET DAILY; Therapy: (Recorded:09Jan2019) to Recorded Dispense: 0 Days ; #: Sufficient Tablet; Refill: 0;For: Hypothyroidism; SAMI = N; Record; Last Updated By: Queenie Rodriguez; 01/09/2019 7:19:39 AM Crestor 20 MG Oral Tablet; Take 1 tablet daily; Therapy: (Recorded:09Jan2019) to Recorded Dispense: 0 Days ; #: Sufficient Tablet; Refill: 0;For: Mixed hyperlipidemia; SAMI = N; Record; Last Updated By: Queenie Rodriguez; 01/09/2019 7:19:39 AM NexIUM 24HR 20 MG Oral Capsule Delayed Release; Therapy: (Recorded:09Jan2019) to Recorded Dispense: 0 Days ; #: Sufficient; Refill: 0; SAMI = N; Record; Last Updated By: Michael Queenie; 01/09/2019 7:19:39 AM Henry SMITH; Therapy: (Recorded:09Jan2019) to Recorded Dispense: 0 Days ; #: Sufficient; Refill: 0; SAMI = N; Record; Last Updated By: Queenie Rodriguez; 01/09/2019 7:19:39 AM Vitamin D 1000 UNIT CAPS; Therapy: (Recorded:09Jan2019) to Recorded Dispense: 0 Days ; #: Sufficient; Refill: 0; SAMI = N; Record; Last Updated B (more content not included)... Normal [facility] C Urineon 11-20-2018 C Urine Final Report: Light growth of Normal skin analisa isolated [facility] Comment on above: Performed By: #### 1 [id number] #### SARAH [employer] [facility] [place] [id number] US Renalon 11-19-2018 US Renal Exam Date/Time: 11/19/2018 14:14 EDT Reason for Exam: GROSS HEMATURIA;Hematuria Report STUDY: US Renal; 11/19/2018 2:14 pm INDICATION: Hematuria. COMPARISON: None. ACCESSION NUMBER(S): [id number] ORDERING CLINICIAN: Etienne Hutchins TECHNIQUE: Multiple images of the kidneys were obtained . FINDINGS: RIGHT KIDNEY: The right kidney measures 11.9 cm. The renal parenchymal echogenicity is normal. A 0.4 cm calculus in the mid lateral right kidney. No hydronephrosis. LEFT KIDNEY: The left kidney measures 12.8 cm. The renal parenchymal echogenicity is normal. 0.5 cm calculus in the mid left kidney. No hydronephrosis. BLADDER: The ureteral jets are noted bilaterally. The urinary bladder is well distended and unremarkable. No significant postvoid residual. IMPRESSION: Bilateral nephrolithiasis. No hydronephrosis. FINAL REPORT Dictated: 11/19/2018 3:29 pm Alia Moran MD Signed (Electronic Signature): 11/19/2018 3:29 pm Signed by: Alia Moran MD Technologist: BS [facility] IGP W/hpv Rfx [id number] 08-19 Diagnosis: See Ref Lab Report Normal [facility] Comment on above: Order Comment: Thin Prep. Hysterectomy Performed By: #### 1 [id number] #### [place] [address] [place] Mamm Screen w/CAD if perf ormed bilaton 08-19-2018 [place] Mamm Screen w/CAD if performed bilat Exam Date/Time: 08/19/2018 08:16 EDT Reason for Exam: SCREENING;Screening Report STUDY: Digital mammography screening; 08/19/2018 8:16 am ACCESSION NUMBER(S): [id number] ORDERING CLINICIAN: Loyd Jackson INDICATION: Screening. COMPARISON: Comparison is made to prior digital mammograms dated 08/16/2017 and 02/22/2015 FINDINGS: CC and MLO 2D digital mammographic images of the bilateral breasts were obtained. There are areas of scattered fibroglandular tissue. No discrete mass or focal asymmetry is identified. No suspicious microcalcifications or foci of architectural distortion are seen. There has been no significant change. This study was interpreted with CAD. IMPRESSION: No mammographic evidence of malignancy. BI-RADS CATEGORY: Category: 1 - Negative. Recommendation: Normal Interval Follow-up, Over Age 40. Recall Interval: 12 Months. Breast Density: Scattered Fibroglandular Density. FINAL REPORT Dictated: 08/19/2018 10:44 am Emerson Lynch MD Signed (Electronic Signature): 08/19/2018 10:44 am Signed by: Emerson Lynch MD Technologist: MGW Assessment: BI-RADS Category 1-Negative Recommendation: Normal interval follow-up [facility] 08-13-2018 [place] [facility] Date of Procedure: 08/13/2018 Pathologist: PATHOLOGIST SALVADOR Date Reported: 08/18/2018 Date Received: 08/14/2018 Submitting Physician: LOYD JACKSON MD FINAL CYTOLOGICAL INTERPRETATION A. THINPREP PAP Vaginal Reflex - Ascus only: Specimen Adequacy: SATISFACTORY FOR EVALUATION. General Categorization: NEGATIVE FOR INTRAEPITHELIAL LESION OR MALIGNANCY. Electronically Signed Out By [facility], Cytology//MXG By the signature on this report, the individual or group listed as making the Final Interpretation/Diagnosis certifies that they have reviewed this case. Educational Note: Cervical cytology is a screening procedure primarily for squamous cancers and precursors and has associated false-negative and false-positive results as evidenced by published data. Your patient?s test should be interpreted in this context, together with patient?s history and clinical findings. Regular sampling and follow-up of unexplained clinical signs and symptoms are recommended to minimize false negative results. Clinical History Date of Last Menstrual Period: {Not Entered} Menstrual History: Hysterectomy Other Clinical Conditions: Reflex HPV Testing Ordered: Ascus and Above Bloody Prep - Reprocessed with addition of Glacial Acetic Acid Z12.72, Z11.51 Source of Specimen A: THINPREP PAP Vaginal Reflex - Ascus only Normal [facility] [id number] 03-30-2018 HbA1c (Bld) [Mass fraction] 9.4 % High 4.0-6.3 [facility] Comment on above: Performed By: #### 3 [id number] #### SARAH Chemistry Manual [address] [place] [address] CMPon 03-29-2018 Albumin [Mass/Vol] 3.8 g/dL Normal 3.4-5.0 [facility] Comment on above: Performed By: #### 2 [id number] #### SARAH [employer] [address] [place] [address] Albumin/Globulin [Mass ratio] 1.5 {ratio} Normal 1.1-1.9 [facility] Comment on above: Performed By: #### 2 [id number] #### SARAH [employer] [facility] [place] [address] Alk Phos 76 Int._Unit/L Normal 33-110 [facility] Comment on above: Performed By: #### 2 [id number] #### SARAH [employer] [facility] [place] [address] ALT [Catalytic activity/Vol] 16 Int._Unit/L Normal 7-45 [facility] Comment on above: Performed By: #### 2 [id number] #### SARAH [employer] [facility] [place] [address] Anion gap [Moles/Vol] 9 mmol/L Low 10-20 [facility] Comment on above: Performed By: #### 2 [id number] #### SARAH [employer] [address] [place] [address] AST [Catalytic activity/Vol] 15 Int._Unit/L Normal 9-39 [facility] Comment on above: Performed By: #### 2 [id number] #### SARAH [employer] [address] [place] [address] Bili Total 0.75 mg/dL Normal 0.00-1.20 [facility] Comment on above: Performed By: #### 2 [id number] #### SARAH [employer] [address] [place], [place] [address] Calcium [Mass/Vol] 9.4 mg/dL Normal 8.6-10.3 [facility] Comment on above: Performed By: #### 2 [id number] #### [facility] [employer] [address] [place] [address] Chloride [Moles/Vol] 104 mmol/L Normal 98-107 [facility] Comment on above: Performed By: #### 2 [id number] #### [facility] [employer] [address] [place] [address] CO2 [Moles/Vol] 29.0 mmol/L Normal 21.0-32.0 [facility] Comment on above: Performed By: #### 2 [id number] #### [facility] [employer] [address] [place], [place] [address] Creatinine [Mass/Vol] 0.8 mg/dL Normal 0.5-1.1 [facility] Comment on above: Performed By: #### 2 [id number] #### SARAH [employer] [address] [place] [address] Globulin (S) [Mass/Vol] 3.0 g/dL Normal 2.0-4.0 [facility] Comment on above: Performed By: #### 2 115611 #### SARAH [employer] [address] [place] [address] Glucose [Mass/Vol] 253 mg/dL High 70-99 [facility] Comment on above: Performed By: #### 2 [id number] #### SARAH [employer] [address] [place] [address] Potassium [Moles/Vol] 4.0 mmol/L Normal 3.5-5.3 [facility] Comment on above: Performed By: #### 2 [id number] #### SARAH [employer] [address] [place] [address]364 Protein [Mass/Vol] 6.3 g/dL Low 6.4-8.2 [facility] Comment on above: Performed By: #### 2 [id number] #### SARAH [employer] [address] [place] [address]37 Sodium [Moles/Vol] 138 mmol/L Normal 136-145 [facility] Comment on above: Performed By: #### 2 [id number] #### SARAH [employer] [address] [place], [place] [address] Urea nitrogen [Mass/Vol] 13 mg/dL Normal 6-23 [facility] Comment on above: Performed By: #### 2 [id number] #### SARAH [employer] [address] [place], [place] [address] Urea nitrogen/Creatinin e [Mass ratio] 16.2 ratio Normal 5.4-30.0 [facility] Comment on above: Performed By: #### 2 [id number] #### SARAH [employer] [address] [place] [address] Free T4on 03-29-2018 Free T4 [Mass/Vol] 1.18 ng/dL Normal 0.58-1.64 [facility] Comment on above: Performed By: #### 2 [id number] #### SARAH [employer] [address] [place] [address] TSHon 03-29-2018 TSH Qn 0.36 mcIU/mL Normal 0.30-5.60 [facility] Comment on above: Performed By: #### 2 [id number] #### SARAH [employer] [address] [place] [address] eGFRon 03-29-2018 GFR/1.73 sq M predicted among non-blacks MDRD (S/P/Bld) [Vol rate/Area] mL/min/{1.73_m2} Normal [facility] Comment on above: Order Comment: Order added by Discern Expert. Performed By: #### 1 [id number] #### SARAH [employer] [address] [place], [place] [address] CMPon 11-26-2017 Albumin [Mass/Vol] 3.7 g/dL Normal 3.2-5.0 [facility] Comment on above: Performed By: #### 2 [id number] #### SARAH [employer] [address] [place] [address] Albumin/Globulin [Mass ratio] 1.2 {ratio} Normal 1.1-1.9 [facility] Comment on above: Performed By: #### 2 [id number] #### SARAH [employer] [address] [place] [address] Alk Phos 81 Int._Unit/L Normal 42-121 [facility] Comment on above: Performed By: #### 2 [id number] #### SARAH [employer] [address] [place] [address] ALT [Catalytic activity/Vol] 19 Int._Unit/L Normal 10-40 [facility] Comment on above: Performed By: #### 2 [id number] #### SARAH [employer] [address] [place] [address] AST [Catalytic activity/Vol] 22 Int._Unit/L Normal 10-42 [facility] Comment on above: Performed By: #### 2 [id number] #### SARAH [employer] [address] [place] [address] Bili Total 0.7 mg/dL Normal 0.2-1.0 [facility] Comment on above: Performed By: #### 2 309267 #### SARAH [employer] [address] [place] [address] Calcium [Mass/Vol] 9.2 mg/dL Normal 8.4-10.2 [facility] Comment on above: Performed By: #### 2 653927 #### SARAH [employer] [address] [place] [address] Chloride [Moles/Vol] 103 mmol/L Normal 98-107 [facility] Comment on above: Performed By: #### 2 [id number] #### SARAH [employer] [address] [place] [address] CO2 [Moles/Vol] 26.5 mmol/L Normal 24.0-30.0 [facility] Comment on above: Performed By: #### 2 537117 #### SARAH [employer] [address] [place] [address] Creatinine [Mass/Vol] 0.6 mg/dL Normal 0.6-1.3 [facility] Comment on above: Performed By: #### 2 [id number] #### SARAH [employer] [facility] [place] [address] Globulin (S) [Mass/Vol] 3.0 g/dL Normal 2.0-4.0 [facility] Comment on above: Performed By: #### 2 145828 #### [facility] [place] [address] Glucose [Mass/Vol] 207 mg/dL High 70-99 [facility] Comment on above: Performed By: #### 2 [id number] #### [facility] [place] [address] Potassium [Moles/Vol] 3.9 mmol/L Normal 3.5-5.1 [facility] Comment on above: Performed By: #### 2 [id number] #### [facility] [address] [place] [address] Protein [Mass/Vol] 6.7 g/dL Normal 6.4-8.3 [facility] Comment on above: Performed By: #### 2 [id number] #### [facility] [address] [place] [address] Sodium [Moles/Vol] 141 mmol/L Normal 136-145 [facility] Comment on above: Performed By: #### 2 597739 #### [facility] [place] [address] Urea nitrogen [Mass/Vol] 15 mg/dL Normal 7-18 [facility] Comment on above: Performed By: #### 2 136156 #### [facility] [place] [address] Urea nitrogen/Creatinin e [Mass ratio] 25.0 ratio Normal 5.4-30.0 [facility] Comment on above: Performed By: #### 2 [id number] #### [facility] [place] [address] [id number] 11-26-2017 HbA1c (Bld) [Mass fraction] 9.2 % High 4.0-6.3 [facility] Comment on above: Performed By: #### 3 [id number] #### SARAH Chemistry Manual Subsection [address] [place] [address] eGFRon 11-26-2017 GFR/1.73 sq M predicted among non-blacks MDRD (S/P/Bld) [Vol rate/Area] mL/min/{1.73_m2} Normal [facility] Comment on above: Order Comment: Order added by Discern Expert. Performed By: #### 1 [id number] #### SARAH [employer] [address] [place] [id number] Pathology ([facility])on 08-05-2017 Pathology ([facility]) FINAL GYNECOLOGIC CYTOLOGY [id number] ADEQUACYSatisfactory for EvaluationEndocervical component absent but acceptable due to patient age/historyGENERAL CATEGORIZATIONNegative for Intraepithelial Lesion or MalignancyCLINICAL HISTORYHysterectomySPECIM EN(A) SCREENING CERVICAL/ENDOCERVICAL THIN PREP VIALPerformed at [facility], [address] [place], [place] [address]Upsowcgh by: Signed Out by: KEVAN SUAREZ Transfer Specialist Reported: 08/08/2017 Normal [facility] Healthcare Comment on above: Performed By: #### G YN ####[facility] [address] [place] [address] Vital Signs Date Time Vital Sign Value Performing Clinician Facility 10-12-2024 09:15-0400 Body mass index (BMI) [Ratio] 39.51 kg/m2 Alan Madrid SUPERVISOR [employer] Work Phone: [facility] 10-12-2024 09:15-0400 Body weight 97.98 kg Alan Madrid SUPERVISOR [employer] Work Phone: [facility] 10-12-2024 09:15-0400 Diastolic blood pressure 79 mm[Hg] Alan Madrid SUPERVISOR [employer] Work Phone: [facility] 10-12-2024 09:15-0400 Heart rate 103 /min Alan Madrid SUPERVISOR [employer]TERN Work Phone: [facility] 10-12-2024 09:15-0400 Systolic blood pressure 125 mm[Hg] Alan Madrid SUPERVISOR [employer] [place] Phone: [place] [facility] 06-05-2024 13:11-0400 Body mass index (BMI) [Ratio] 39.38 kg/m2 Alan Madrid SUPERVISOR FRAME SAMPLE AND PATTERN Work Phone: [facility] 06-05-2024 13:11-0400 Body weight 97.66 kg Alanmaya Madrid SUPERVISOR FRAME SAMPLE AND PATTERN Work Phone: [facility] 06-05-2024 13:11-0400 Diastolic blood pressure 82 mm[Hg] Alan Madrid SUPERVISOR FRAME SAMPLE AND PATTERN Work Phone: [facility] 06-05-2024 13:11-0400 Heart rate 90 /min Alanmaya Madrid SUPERVISOR FRAME SAMPLE AND PATTERN Work Phone: [facility] 06-05-2024 13:11-0400 Systolic blood pressure 125 mm[Hg] Alan Madrid SUPERVISOR FRAME SAMPLE AND PATTERN Work Phone: [facility] 05-04-2024 10:18-0500 Body height 160 cm Tati Kate APPAREL MACHINERY INSTRUCTOR-SUPERVISOR FRAME SAMPLE AND PATTERN Work Phone: [facility] 05-04-2024 10:18-0500 Body mass index (BMI) [Ratio] 38.97 kg/m2 Tati Kate APPAREL MACHINERY INSTRUCTOR-SUPERVISOR FRAME SAMPLE AND PATTERN Work Phone: [facility] 05-04-2024 10:18-0500 Body temperature 100.8 [degF] Tati Kate APPAREL MACHINERY INSTRUCTOR-SUPERVISOR FRAME SAMPLE AND PATTERN Work Phone: [facility] 05-04-2024 10:18-0500 Body weight 99.79 kg Tativaldemar Dilley APPAREL MACHINERY INSTRUCTOR-SUPERVISOR FRAME SAMPLE AND PATTERN Work Phone: [facility] 05-04-2024 10:18-0500 Diastolic blood pressure 87 mm[Hg] Tati Love APPAREL MACHINERY INSTRUCTOR-SUPERVISOR FRAME SAMPLE AND PATTERN Work Phone: [facility] 05-04-2024 10:18-0500 Heart rate 128 /min Tati Love APPAREL MACHINERY INSTRUCTOR-SUPERVISOR FRAME SAMPLE AND PATTERN Work Phone: [facility] 05-04-2024 10:18-0500 Respiratory rate 16 /min Tati Love APPAREL MACHINERY INSTRUCTOR-SUPERVISOR FRAME SAMPLE AND PATTERN Work Phone: [facility] 05-04-2024 10:18-0500 SaO2% (BldA) [Mass fraction] 95 % Tati Love APPAREL MACHINERY INSTRUCTOR-SUPERVISOR FRAME SAMPLE AND PATTERN Work Phone: [facility] 05-04-2024 10:18-0500 Systolic blood pressure 136 mm[Hg] Tati Love APPAREL MACHINERY INSTRUCTOR-SUPERVISOR FRAME SAMPLE AND PATTERN Work Phone: [facility] 03-23-2024 10:08-0500 Body height 160 cm [facility] 03-23-2024 10:08-0500 Body mass index (BMI) [Ratio] 39.26 kg/m2 [facility] 03-23-2024 10:08-0500 Body weight 100.52 kg [facility] 03-09-2024 08:34-0500 Body height 160 cm Loyd Jackson MD Work Phone: [facility] 03-09-2024 08:34-0500 Body mass index (BMI) [Ratio] 39.25 kg/m2 Loyd Jackson MD Work Phone: [facility] 03-09-2024 08:34-0500 Body weight 100.52 kg Loyd Jackson MD Work Phone: [facility] 03-09-2024 08:34-0500 Diastolic blood pressure 76 mm[Hg] Loyd Jackson MD Work Phone: [facility] 03-09-2024 08:34-0500 Systolic blood pressure 118 mm[Hg] Loyd Jackson MD Work Phone: [facility] 01-23-2024 13:47-0500 Body height 160 cm Josselin Bernabe PA-C Work Phone: [facility] 01-23-2024 13:47-0500 Body mass index (BMI) [Ratio] 38.97 kg/m2 Josselin Bernabe PA-C Work Phone: [facility] 01-23-2024 13:47-0500 Body temperature 98.01 [degF] Josselin Florecita PA-C Work Phone: [facility] 01-23-2024 13:47-0500 Body weight 99.79 kg Josselin Florecita PA-C Work Phone: [facility] 01-23-2024 13:47-0500 Diastolic blood pressure 86 mm[Hg] Josselin Florecita PA-C Work Phone: [facility] 01-23-2024 13:47-0500 Heart rate 108 /min Josselin Florecita PA-C Work Phone: [facility] 01-23-2024 13:47-0500 Respiratory rate 16 /min Josselin Florecita PA-C Work Phone: [facility] 01-23-2024 13:47-0500 SaO2% (BldA) [Mass fraction] 97 % Josselin Florecita PA-C Work Phone: [facility] 01-23-2024 13:47-0500 Systolic blood pressure 129 mm[Hg] Josselin Florecita PA-C Work Phone: [facility] 05-24-2023 08:14-0400 Body mass index (BMI) [Ratio] 41.34 kg/m2 Alan Madrid SUPERVISOR FRAME SAMPLE AND PATTERN Work Phone: [facility] 05-24-2023 08:14-0400 Body weight 102.51 kg Alan Madrid SUPERVISOR FRAME SAMPLE AND PATTERN Work Phone: [facility] 05-24-2023 08:14-0400 Diastolic blood pressure 84 mm[Hg] Alan Madrid SUPERVISOR FRAME SAMPLE AND PATTERN Work Phone: [facility] 05-24-2023 08:14-0400 Heart rate 98 /min Alan Madrid SUPERVISOR FRAME SAMPLE AND PATTERN Work Phone: [facility] 05-24-2023 08:14-0400 Systolic blood pressure 128 mm[Hg] Alan Madrid SUPERVISOR FRAME SAMPLE AND PATTERN Work Phone: [facility] 03-06-2023 08:54-0500 Body height 162.6 cm Loyd Jackson MD Work Phone: [facility] 03-06-2023 08:54-0500 Body mass index (BMI) [Ratio] 38.45 kg/m2 Loyd Jackson MD Work Phone: [facility] 03-06-2023 08:54-0500 Body weight 101.61 kg Loyd Jackson MD Work Phone: [facility] 03-06-2023 08:54-0500 Diastolic blood pressure 78 mm[Hg] Loyd Jackson MD Work Phone: [facility] 03-06-2023 08:54-0500 Systolic blood pressure 122 mm[Hg] Loyd Jackson MD Work Phone: [facility] 10-01-2022 14:59-0400 Body mass index (BMI) [Ratio] 40.42 kg/m2 Alan Madrid SUPERVISOR FRAME SAMPLE AND PATTERN Work Phone: [facility] 10-01-2022 14:59-0400 Body weight 100.25 kg Alan Madrid SUPERVISOR FRAME SAMPLE AND PATTERN Work Phone: [facility] 10-01-2022 14:59-0400 Diastolic blood pressure 84 mm[Hg] Alan Madrid SUPERVISOR FRAME SAMPLE AND PATTERN Work Phone: [facility] 10-01-2022 14:59-0400 Heart rate 101 /min Alan Madrid SUPERVISOR FRAME SAMPLE AND PATTERN Work Phone: [facility] 10-01-2022 14:59-0400 Systolic blood pressure 126 mm[Hg] Alan Madrid SUPERVISOR FRAME SAMPLE AND PATTERN Work Phone: [facility] 04-30-2022 15:21-0500 Body mass index (BMI) [Ratio] 40.26 kg/m2 Alan Madrid SUPERVISOR FRAME SAMPLE AND PATTERN Work Phone: [facility] 04-30-2022 15:21-0500 Body weight 99.84 kg Alan Madrid SUPERVISOR FRAME SAMPLE AND PATTERN Work Phone: [facility] 04-30-2022 15:21-0500 Diastolic blood pressure 69 mm[Hg] Alan Madrid SUPERVISOR FRAME SAMPLE AND PATTERN Work Phone: [facility] 04-30-2022 15:21-0500 Heart rate 116 /min Alan Madrid SUPERVISOR FRAME SAMPLE AND PATTERN Work Phone: [facility] 04-30-2022 15:21-0500 Systolic blood pressure 130 mm[Hg] Alan Madrid SUPERVISOR FRAME SAMPLE AND PATTERN Work Phone: [facility] 12-11-2021 08:00-0400 Body mass index (BMI) [Ratio] 39.87 kg/m2 Alan Madrid SUPERVISOR FRAME SAMPLE AND PATTERN Work Phone: [facility] 12-11-2021 08:00-0400 Body weight 98.88 kg Alan Madrid SUPERVISOR FRAME SAMPLE AND PATTERN Work Phone: [facility] 12-11-2021 08:00-0400 Diastolic blood pressure 85 mm[Hg] Alan Madrid SUPERVISOR FRAME SAMPLE AND PATTERN Work Phone: [facility] 12-11-2021 08:00-0400 Heart rate 91 /min Alan Madrid SUPERVISOR FRAME SAMPLE AND PATTERN Work Phone: [facility] 12-11-2021 08:00-0400 Systolic blood pressure 127 mm[Hg] Alan Madrid SUPERVISOR FRAME SAMPLE AND PATTERN Work Phone: [facility] 08-11-2021 07:54-0400 Body height 157.5 cm Alan Madrid SUPERVISOR FRAME SAMPLE AND PATTERN Work Phone: [facility] 08-11-2021 07:54-0400 Body mass index (BMI) [Ratio] 41.15 kg/m2 Alan Madrid SUPERVISOR FRAME SAMPLE AND PATTERN Work Phone: [facility] 08-11-2021 07:54-0400 Body weight 102.06 kg Alan Madrid SUPERVISOR FRAME SAMPLE AND PATTERN Work Phone: [facility] 08-11-2021 07:54-0400 Diastolic blood pressure 75 mm[Hg] Alan Madrid SUPERVISOR FRAME SAMPLE AND PATTERN Work Phone: [facility] 08-11-2021 07:54-0400 Heart rate 90 /min Alan Madrid SUPERVISOR FRAME SAMPLE AND PATTERN Work Phone: [facility] 08-11-2021 07:54-0400 Systolic blood pressure 113 mm[Hg] Alan Madrid CNP Work Phone: [facility] 06-01-2021 15:51-0400 Body height 162.56 cm Mg Ndiaye Work Phone: [facility] Work Phone: 06-01-2021 15:51-0400 Body mass index (BMI) [Ratio] 38.79 kg/m2 Mg Ndiaye Work Phone: [facility] Work Phone: 06-01-2021 15:51-0400 Body surface area Derived from formula 2.06 m2 Mg Ndiaye Work Phone: [facility] Work Phone: 06-01-2021 15:51-0400 Body temperature 97.7 [degF] Mg Ndiaye Work Phone: [facility] Work Phone: 06-01-2021 15:51-0400 Body weight 102.51 kg Mg Ndiaye Work Phone: [facility] Work Phone: 05-18-2021 07:58-0400 Body height 162.56 cm Mg Ndiaye Work Phone: [facility] Work Phone: 05-18-2021 07:58-0400 Body mass index (BMI) [Ratio] 38.79 kg/m2 Mg Ndiaye Work Phone: [facility] Work Phone: 05-18-2021 07:58-0400 Body surface area Derived from formula 2.06 m2 Mg Ndiaye Work Phone: [facility] Work Phone: 05-18-2021 07:58-0400 Body temperature 96.8 [degF] Mg Ndiaye Work Phone: [facility] [address] Work Phone: 05-18-2021 07:58-0400 Body weight 102.51 kg Mg Ndiaye Work Phone: [facility] Work Phone: 04-18-2021 15:34-0500 Body height 162.56 cm Mg Ndiaye Work Phone: [facility] Work Phone: 04-18-2021 15:34-0500 Body mass index (BMI) [Ratio] 38.79 kg/m2 Mg Ndiaye Work Phone: [facility] Work Phone: 04-18-2021 15:34-0500 Body surface area Derived from formula 2.06 m2 Mg Ndiaye Work Phone: [facility] Work Phone: 04-18-2021 15:34-0500 Body temperature 97.8 [degF] Mg Ndiaye Work Phone: [facility] [address] Work Phone: 04-18-2021 15:34-0500 Body weight 102.51 kg Mg Ndiaye Work Phone: [facility] Work Phone: 03-28-2021 15:59-0500 Body height 162.56 cm Mg Ndiaye Work Phone: [facility] Work Phone: 03-28-2021 15:59-0500 Body mass index (BMI) [Ratio] 38.79 kg/m2 Mg Ndiaye Work Phone: [facility] [address] Work Phone: 03-28-2021 15:59-0500 Body surface area Derived from formula 2.06 m2 Mg Ndiaye Work Phone: [facility] [address] Work Phone: 03-28-2021 15:59-0500 Body temperature 97.7 [degF] Mg Ndiaye Work Phone: [facility] [address] Work Phone: 03-28-2021 15:59-0500 Body weight 102.51 kg Mg Ndiaye Work Phone: [facility] [address] Work Phone: 03-07-2021 09:36-0500 Body height 162.56 cm Mg Ndiaye Work Phone: [facility] [address] Work Phone: 03-07-2021 09:36-0500 Body mass index (BMI) [Ratio] 38.62 kg/m2 Mg Ndiaye Work Phone: [facility] [address] Work Phone: 03-07-2021 09:36-0500 Body surface area Derived from formula 2.06 m2 Mg Ndiaye Work Phone: [facility] [address] Work Phone: 03-07-2021 09:36-0500 Body temperature 97.5 [degF] Mg Ndiaye Work Phone: [facility] [address] Work Phone: 03-07-2021 09:36-0500 Body weight 102.06 kg Mg Ndiaye Work Phone: [facility] [address] Work Phone: 01-11-2021 09:44-0500 Body height 164.08 cm Mg Ndiaye Work Phone: [facility] [address] Work Phone: 01-11-2021 09:44-0500 Body mass index (BMI) [Ratio] 38.08 kg/m2 Mg Ndiaye Work Phone: [facility] [address] Work Phone: 01-11-2021 09:44-0500 Body surface area Derived from formula 2.07 m2 Mg M Zelda Work Phone: [facility] [address] Work Phone: 01-11-2021 09:44-0500 Body temperature 97.8 [degF] Mglandry Emersoner Work Phone: [facility] [address] Work Phone: 01-11-2021 09:44-0500 Body weight 102.51 kg Mg Ndiaye Work Phone: [facility] Work Phone: 01-11-2021 09:44-0500 Diastolic blood pressure 82 mm[Hg] Mg Zachariah Zelda Work Phone: [facility] [address] Work Phone: 01-11-2021 09:44-0500 Heart rate 84 /min Mg M Zelda Work Phone: [facility] Work Phone: 01-11-2021 09:44-0500 Systolic blood pressure 124 mm[Hg] Mg Zachariah Zelda Work Phone: [facility] [address] Work Phone: 11-09-2020 09:17-0400 Body height 164.08 cm Mg Ndiaye Work Phone: [employer] [facility] [place] [address] [place] Work Phone: 11-09-2020 09:17-0400 Body mass index (BMI) [Ratio] 38.15 kg/m2 Mg Ndiaye Work Phone: [facility] [address] [place] Work Phone: 11-09-2020 09:17-0400 Body surface area Derived from formula 2.08 m2 Mg Ndiaye Work Phone: [place] [address] [place] Work Phone: 11-09-2020 09:17-0400 Body temperature 97.5 [degF] Mg Ndiaye Work Phone: [place] [address] [place] Work Phone: 11-09-2020 09:17-0400 Body weight 102.7 kg Mg Ndiaye Work Phone: [employer] [place] [address] [place] Work Phone: 11-09-2020 09:17-0400 Diastolic blood pressure 72 mm[Hg] Mg Ndiaye Work Phone: [facility] [address] [place] Work Phone: 11-09-2020 09:17-0400 Systolic blood pressure 124 mm[Hg] Mg Ndiaye Work Phone: [address] Work Phone: 10-25-2020 08:32-0400 Body height 164.08 cm Mg Ndiaye Work Phone: [facility] Work Phone: 10-25-2020 08:32-0400 Body mass index (BMI) [Ratio] 37.74 kg/m2 Mg Ndiaye Work Phone: [facility] Work Phone: 10-25-2020 08:32-0400 Body surface area Derived from formula 2.07 m2 Mg Ndiaye Work Phone: [facility] Work Phone: 10-25-2020 08:32-0400 Body temperature 97.7 [degF] Mg Ndiaye Work Phone: [facility] Work Phone: 10-25-2020 08:32-0400 Body weight 101.61 kg Mg Ndiaye Work Phone: [facility] Work Phone: 10-25-2020 08:32-0400 Diastolic blood pressure 79 mm[Hg] Mg Ndiaye Work Phone: [facility] Work Phone: 10-25-2020 08:32-0400 Heart rate 85 /min Mg Ndiaye Work Phone: [facility] Work Phone: 10-25-2020 08:32-0400 Systolic blood pressure 126 mm[Hg] Mg Ndiaye Work Phone: [facility] Work Phone: 10-24-2020 13:41-0400 Body height 157.5 cm Alan Madrid SUPERVISOR FRAME SAMPLE AND PATTERN Work Phone: [facility] 10-24-2020 13:41-0400 Body mass index (BMI) [Ratio] 42.07 kg/m2 Alan Madrid SUPERVISOR FRAME SAMPLE AND PATTERN Work Phone: [facility] 10-24-2020 13:41-0400 Body weight 104.33 kg Alan Madrid SUPERVISOR FRAME SAMPLE AND PATTERN Work Phone: [facility] 10-24-2020 13:41-0400 Diastolic blood pressure 82 mm[Hg] Alan Madrid SUPERVISOR FRAME SAMPLE AND PATTERN Work Phone: [facility] 10-24-2020 13:41-0400 Heart rate 86 /min Alan Madrid SUPERVISOR FRAME SAMPLE AND PATTERN Work Phone: [facility] 10-24-2020 13:41-0400 Systolic blood pressure 120 mm[Hg] Alan Madrid SUPERVISOR FRAME SAMPLE AND PATTERN Work Phone: [facility] 08-16-2020 16:24-0400 Body height 164.08 cm Mg Ndiaye Work Phone: [facility] Work Phone: 08-16-2020 16:24-0400 Body mass index (BMI) [Ratio] 37.91 kg/m2 Mg Ndiaye Work Phone: [facility] Work Phone: 08-16-2020 16:24-0400 Body surface area Derived from formula 2.07 m2 Mg Ndiaye Work Phone: [facility] Work Phone: 08-16-2020 16:24-0400 Body weight 102.06 kg Mg Ndiaye Work Phone: [facility] Work Phone: 08-16-2020 16:24-0400 Diastolic blood pressure 70 mm[Hg] Mg Ndiaye Work Phone: [facility] Work Phone: 08-16-2020 16:24-0400 Heart rate 84 /min Mg Ndiaye Work Phone: [facility] Work Phone: 08-16-2020 16:24-0400 Systolic blood pressure 128 mm[Hg] Mg Ndiaye Work Phone: [facility] Work Phone: 06-06-2020 15:21-0400 BMI (Body Mass Index) 41.88 kg/m2 Alan Madrid [facility] 06-06-2020 15:21-0400 Body weight 103.87 kg Alan Madrid [facility] 06-06-2020 15:21-0400 BP Diastolic 83 mm[Hg] Alan Madrid [facility] 06-06-2020 15:21-0400 BP Systolic 122 mm[Hg] Alan Madrid [facility] 06-06-2020 15:21-0400 Height 157.5 cm Alan [facility] 06-06-2020 [id number] Pulse (Heart Rate) 93 /min Alan [facility] 02-01-2020 15:09-0500 BMI (Body Mass Index) 38.56 kg/m2 Alan [facility] 02-01-2020 15:090500 Body weight 95.62 kg Alan [facility] 02-01-2020 15:09-0500 BP Diastolic 77 mm[Hg] [facility] 02-01-2020 15:09-0500 BP Systolic 133 mm[Hg] Alan [facility] 02-01-2020 15:090500 Height 157.5 cm [facility] 02-01-2020 15:09-0500 Pulse (Heart Rate) 97 /min [facility] 08-31-2019 15:08-0400 BMI (Body Mass Index) 37.86 kg/m2 Alan [facility] 08-31-2019 15:08-0400 Body weight 93.89 kg [facility] 08-31-2019 15:08-0400 BP Diastolic 83 mm[Hg] Alan [facility] 08-31-2019 15:08-0400 BP Systolic 122 mm[Hg] Alan [facility] 08-31-2019 15:080400 Height 157.5 cm [facility] 08-31-2019 15:08-0400 Pulse (Heart Rate) 85 /min [facility] 03-23-2019 15:09-0500 BMI (Body Mass Index) 37 kg/m2 [facility] 03-23-2019 15:09-0500 Body weight 94.76 kg [facility] 03-23-2019 15:09-0500 BP Diastolic 80 mm[Hg] [facility] 03-23-2019 15:09-0500 BP Systolic 119 mm[Hg] [facility] 03-23-2019 15:090500 Height 160 cm [facility] 03-23-2019 15:09-0500 Pulse (Heart Rate) 97 /min [facility] 03-23-2019 15:09-0500 Respiratory Rate 96 /min [facility] 12-15-2018 15:46-0400 BMI (Body Mass Index) 36.35 kg/m2 [facility] 12-15-2018 15:46-0400 Body weight 93.07 kg [facility] 12-15-2018 15:46-0400 BP Diastolic 77 mm[Hg] [facility] 12-15-2018 15:46-0400 BP Systolic 111 mm[Hg] [facility] 12-15-2018 15:46-0400 Height 160 cm [facility] 12-15-2018 15:46-0400 Pulse (Heart Rate) 94 /min [facility] 09-01-2018 15:41-0400 BMI (Body Mass Index) 36.14 kg/m2 [facility] 09-01-2018 15:41-0400 Body weight 92.53 kg [facility] 09-01-2018 15:41-0400 Height 160 cm [facility] 04-01-2018 08:41-0500 BMI (Body Mass Index) 34.45 kg/m2 [facility] 04-01-2018 08:41-0500 BP Diastolic 72 mm[Hg] [facility] 04-01-2018 08:41-0500 BP Systolic 106 mm[Hg] [facility] 04-01-2018 08:41-0500 Height 160 cm [facility] 04-01-2018 08:41-0500 Pulse (Heart Rate) 87 /min [facility] 04-01-2018 08:41-0500 Weight 88.22 kg [facility] 05-30-2017 14:21-0400 BMI (Body Mass Index) 37.73 kg/m2 [facility] 05-30-2017 14:21-0400 BP Diastolic 72 mm[Hg] [facility] 05-30-2017 14:21-0400 BP Systolic 104 mm[Hg] [facility] 05-30-2017 14:21-0400 Height 160 cm [facility] 05-30-2017 14:21-0400 Weight 96.62 kg [facility] 02-05-2017 15:26-0500 BMI (Body Mass Index) 36.49 kg/m2 [facility] Work Phone: 02-05-2017 15:26-0500 BP Diastolic 62 mm[Hg] [facility] Work Phone: 02-05-2017 15:26-0500 BP Systolic 110 mm[Hg] [facility] Work Phone: 02-05-2017 15:26-0500 Height 160 cm [facility] Work Phone: 02-05-2017 15:26-0500 Pulse (Heart Rate) 68 /min [facility] Work Phone: 02-05-2017 15:26-0500 Weight 93.44 kg [facility] Work Phone: 10-04-2016 14:51-0400 BMI (Body Mass Index) 35.89 kg/m2 Alan Madrid [facility] Work Phone: 10-04-2016 14:51-0400 BP Diastolic 72 mm[Hg] Alan Madrid [facility] Work Phone: 10-04-2016 14:51-0400 BP Systolic 110 mm[Hg] Alan Madrid [facility] Work Phone: 10-04-2016 14:51-0400 Height 160 cm Alan Madrid [facility] Work Phone: 10-04-2016 14:51-0400 Weight 91.9 kg Alan Madrid [facility] Work Phone: Encounters Encounter Date Encounter Type Care Provider Facility Start: 12-02-2024 ambulatory JOYCE WILKS [facility] Ambulatory Start: 11-30-2024 End: 11-30-2024 Refill Alan Madrid SUPERVISOR FR[employer] SAMPLE [employer] PATTERN Work Phone: [facility] [place] Start: 11-11-2024 End: 11-12-2024 Refill Alan Madrid SUPERVISOR FRAME SAMPLE AND PATTERN Work Phone: [facility] Comment on above: Type 1 diabetes shanta itus with hyperglycemia (HCC) (Primary Dx) Start: 10-12-2024 End: 10-12-2024 Office outpatient visit 25 minutes Alan Madrid SUPERVISOR FRAME SAMPLE AND PATTERN Work Phone: [facility] [place] Comment on above: Type 1 diabetes shanta itus with hyperglycemia (HCC) [E10.65] (Primary Dx) Start: 10-12-2024 End: 10-12-2024 ambulatory ALAN MADRID [facility] Amb[facility] Start: 06-05-2024 End: 06-05-2024 Office outpatient visit 25 minutes Alan Madrid SUPERVISOR FRAME SAMPLE AND PATTERN Work Phone: [facility] [place] Comment on above: Type 1 diabetes shanta itus with hyperglycemia (HCC) (Primary Dx); Hypothyroidism, unspecified type Start: 06-05-2024 End: 06-05-2024 ambulatory ALAN MADRID [facility] Ambulatory Start: 06-02-2024 ambulatory TRI PIKE [facility] Ambulatory Start: 05-30-2024 End: 05-31-2024 Refill Alan Madrid SUPERVISOR FR[employer] SAMPLE [employer] PATTERN Work Phone: [facility] Start: 05-04-2024 End: 05-04-2024 Patient encounter procedure Tati Love APRN-SUPERVISOR FRAME SAMPLE AND PATTERN Work Phone: [facility] Comment on above: Influenza A (Primary Dx); Acute cough Start: 05-04-2024 End: 05-04-2024 ambulatory BOB [facility] Start: 03-23-2024 End: 03-23-2024 Subsequent hospital visit by physician Hay [id number] Comment on above: Encounter for screen ing mammogram for malignant neoplasm of breast Start: 03-23-2024 End: 03-23-2024 ambulatory LOYD JACKSON [facility] Start: 03-14-2024 ambulatory ROSALEE EASON [facility] Start: 03-09-2024 End: 03-09-2024 Patient encounter status Loyd Jackson MD Work Phone: [facility] Work Phone: Start: 03-09-2024 End: 03-09-2024 Periodic preventive med est patient 40-64yrs Loyd Jackson MD Work Phone: [facility] Comment on above: Encounter for screen ing mammogram for malignant neoplasm of breast; Encounter for gynecological examination without abnormal finding; Vaginal Pap smear Start: 03-09-2024 End: 03-09-2024 ambulatory [facility] Ambulatory Start: 03-09-2024 End: 03-09-2024 Encounter for gynecological examination (general) (routine) without abnormal findings [facility] Ambulatory Start: 01-23-2024 End: 01-23-2024 Office outpatient visit 10 minutes Josselin Bernabe PA-C Work Phone: [facility] Comment on above: Viral URI with cough (Primary Dx) Start: 01-23-2024 End: 01-23-2024 ambulatory BOB CRUZ [facility] Start: 12-23-2023 End: 12-23-2023 ambulatory ALAN MADRID [facility] Start: 12-20-2023 End: 01-02-2024 Orders Only Alan Madrid SUPERVISOR FRAME SAMPLE AND PATTERN Work Phone: [facility] Start: 12-10-2023 ambulatory ALAN MADRID [facility] Ambulatory Start: 10-28-2023 End: 11-17-2023 Refill Alan Madrid SUPERVISOR FRAME SAMPLE AND PATTERN Work Phone: [facility] [place] Start: 06-24-2023 Refill Alan Madrid SUPERVISOR FRAME SAMPLE AND PATTERN Work Phone: [facility] [place] Start: 06-03-2023 Refill Alan Madrid SUPERVISOR FRAME SAMPLE AND PATTERN Work Phone: [facility] Start: 05-24-2023 End: 05-24-2023 Office outpatient visit 25 minutes Alan Madrid SUPERVISOR FRAME SAMPLE AND PATTERN Work Phone: [facility] [place] Comment on above: Type 1 diabetes shanta itus with hyperglycemia (HCC) (Primary Dx) Start: 05-22-2023 End: 05-23-2023 ambulatory MG NDIAYE [facility] Start: 03-06-2023 End: 03-06-2023 Patient encounter status Loyd Jackson MD Work Phone: [facility] Start: 03-06-2023 End: 03-06-2023 Periodic preventive med est patient 40-64yrs Loyd Jackson MD Work Phone: [facility] Comment on above: Encounter for gyneco logical examination without abnormal finding; Vaginal Pap smear; Encounter for screening mammogram for breast cancer Start: 11-27-2022 Documentation procedure Trey Massey MD Work Phone: [facility] Start: 10-01-2022 End: 10-01-2022 Office outpatient visit 25 minutes Alan Madrid SUPERVISOR FRAME SAMPLE AND PATTERN Work Phone: [facility] [place] Comment on above: Type 1 diabetes shanta itus with hyperglycemia (HCC) (Primary Dx); Hyperlipidemia, unspecified hyperlipidemia type Start: 08-24-2022 End: 08-24-2022 ambulatory [facility] Work Phone: Start: 08-24-2022 End: 08-24-2022 Patient encounter procedure [facility] Work Phone: Start: 04-30-2022 End: 04-30-2022 Office outpatient visit 25 minutes Alan Madrid SUPERVISOR FRAME SAMPLE AND PATTERN Work Phone: [facility] [place] Comment on above: Type 1 diabetes shanta itus with hyperglycemia (HCC) (Primary Dx); Hypothyroidism, unspecified type; Primary hypertension; Hyperlipidemia, unspecified hyperlipidemia type; BMI 40.0-44.9, adult (HCC) Start: 03-19-2022 Refill Alan Madrid SUPERVISOR FRAME SAMPLE AND PATTERN Work Phone: [facility] Start: 03-13-2022 Orders Only Alan Madrid SUPERVISOR FRAME SAMPLE AND PATTERN Work Phone: [facility] Start: 12-28-2021 Refill Alan Madrid SUPERVISOR FRAME SAMPLE AND PATTERN Work Phone: [facility] Start: 12-11-2021 End: 12-11-2021 Office outpatient visit 25 minutes Alan Darrelyenni Madrid SUPERVISOR FRAME SAMPLE AND PATTERN Work Phone: [facility] [place] Comment on above: Type 1 diabetes shanta itus with hyperglycemia (HCC) (Primary Dx); Hypothyroidism, unspecified type; Hyperlipidemia, unspecified hyperlipidemia type; Primary hypertension Start: 08-11-2021 End: 08-11-2021 Office outpatient visit 25 minutes Alan Darrelyenni Madrid SUPERVISOR FRAME SAMPLE AND PATTERN Work Phone: [facility] [place] Comment on above: Type 1 diabetes shanta itus with hyperglycemia (HCC) (Primary Dx); Hypothyroidism, unspecified type; Primary hypertension; Hyperlipidemia, unspecified hyperlipidemia type Start: 06-22-2021 Refill Alan Arnol Madrid SUPERVISOR FRAME SAMPLE AND PATTERN Work Phone: [facility] [place] Start: 06-01-2021 Office outpatient vi sit 15 minutes Mg Ndiaye Work Phone: [facility] Work Phone: Start: 06-01-2021 Patient encounter procedure Mg Ndiaye Work Phone: [facility] Work Phone: Start: 05-18-2021 Office outpatient vi sit 15 minutes Mg Ndiaye Work Phone: -[facility] Work Phone: Start: 05-17-2021 Refill Ned Brown PA-C Work Phone: [facility] Start: 04-18-2021 Patient encounter procedure Mg Ndiaye Work Phone: -[facility] [address] Work Phone: Start: 04-18-2021 Postop follow up vis it related to original px Mg Ndiaye Work Phone: [facility] [address] Work Phone: Start: 04-18-2021 Luh Brown PA-C Work Phone: [facility] Start: 03-28-2021 Postop follow up vis it related to original px Mglandry Emersoner Work Phone: [facility] [address] Work Phone: Start: 03-07-2021 Patient encounter procedure Mglandry Ndiaye Work Phone: [facility] [address] Work Phone: Start: 03-07-2021 Postop follow up vis it related to original px Mglandry Ndiaye Work Phone: [facility] Work Phone: Start: 02-21-2021 Chart Update Mg willis Work Phone: [facility] [address] Work Phone: Start: 01-11-2021 Office outpatient vi sit 15 minutes Mg Ndiaye Work Phone: [facility] [address] Work Phone: Start: 01-11-2021 Patient encounter procedure Mglandry Ndiaye Work Phone: [facility] [address] Work Phone: Start: 12-23-2020 Chart Update Mg willis Work Phone: [facility] [address] Work Phone: Start: 11-17-2020 Chart Update Mg willis Work Phone: [facility] [address] Work Phone: Start: 11-09-2020 Periodic preventive med est patient 40-64yrs Mg Ndiaye Work Phone: [facility] [address] Work Phone: Start: 10-24-2020 End: 10-24-2020 Office outpatient visit 15 minutes Alan Madrid SUPERVISOR FRAME SAMPLE AND PATTERN Work Phone: [facility] Comment on above: Type 1 diabetes shanta itus with hyperglycemia (HCC) (Primary Dx); Hypothyroidism, unspecified type; Essential hypertension; Hyperlipidemia, unspecified hyperlipidemia type Start: 08-16-2020 Office outpatient vi sit 15 minutes Mg Ndiaye Work Phone: [facility] Work Phone: Start: 08-08-2020 Refill Alan Madrid SUPERVISOR FRAME SAMPLE AND PATTERN Work Phone: [facility] Start: 08-08-2020 End: 08-08-2020 Patient encounter procedure Jen Brooks CNP Work Phone: [facility] Comment on above: Carpal tunnel syndro me, bilateral (Primary Dx); Numbness and tingling Start: 06-17-2020 End: 06-17-2020 Transcribe Orders Jen Brooks CNP Work Phone: [facility] Comment on above: Numbness and tinglin g (Primary Dx) Start: 06-06-2020 End: 06-06-2020 Office outpatient visit 25 minutes Alan Madrid Work Phone: [facility] Comment on above: Type 1 diabetes shanta itus with hyperglycemia (HCC) (Primary Dx); Hypothyroidism, unspecified type; Hyperlipidemia, unspecified hyperlipidemia type Start: 05-29-2020 End: 05-29-2020 Refill Ned Brown Work Phone: [facility] Start: 05-10-2020 End: 05-10-2020 Orders Only Shauna Marin Work Phone: [facility] Start: 04-08-2020 End: 04-08-2020 Refill Alan Madrid Work Phone: [facility] Start: 04-08-2020 End: 04-08-2020 Refill Alan Madrid Work Phone: [facility] Start: 02-01-2020 End: 02-01-2020 Office outpatient visit 25 minutes Alan Madrid Work Phone: [facility] Comment on above: Type 1 diabetes shanta itus with hyperglycemia (HCC) (Primary Dx); Hypothyroidism, unspecified type; Essential hypertension; Hyperlipidemia, unspecified hyperlipidemia type Start: 08-31-2019 End: 08-31-2019 Office outpatient visit 25 minutes Alan Madrid Work Phone: [facility] Comment on above: Type 1 diabetes shanta itus with hyperglycemia (HCC) (Primary Dx); Essential hypertension; Hyperlipidemia, unspecified hyperlipidemia type; Hypothyroidism, unspecified type Start: 04-14-2019 End: 04-18-2019 Patient encounter procedure ALANMAYA MADRID [facility] Start: 03-23-2019 End: 03-23-2019 Office outpatient visit 25 minutes Alan Madrid Work Phone: [facility] Comment on above: Type 1 diabetes shanta itus with hyperglycemia (HCC) (Primary Dx); Essential hypertension; Hyperlipidemia, unspecified hyperlipidemia type Start: 12-15-2018 End: 12-15-2018 Office outpatient visit 25 minutes Ned Brown Work Phone: [facility] Comment on above: Type 1 diabetes shanta itus with hyperglycemia (HCC) (Primary Dx) Start: 10-03-2018 Refill Alan Darrelyenni Madrid SUPERVISOR FRAME SAMPLE AND PATTERN Work Phone: [facility] Start: 09-01-2018 End: 09-01-2018 Office outpatient visit 25 minutes Ned Brown Work Phone: [facility] Comment on above: Type 1 diabetes shanta itus with hyperglycemia (HCC) (Primary Dx) Start: 04-01-2018 End: 04-01-2018 Office outpatient visit 25 minutes Alan Darrelyenni Madrid Work Phone: [facility] Comment on above: Type 1 diabetes shanta itus with hyperglycemia (HCC) (Primary Dx); Hyperlipidemia, unspecified hyperlipidemia type; Essential hypertension Start: 02-14-2018 End: 02-14-2018 Patient encounter procedure Miya Massey Work Phone: [facility] Start: 05-30-2017 Office/outpatient vi sit, est, level 4 Alan Madrid Work Phone: [facility] Start: 02-05-2017 Office outpatient vi sit 15 minutes Diana Rodriguez Work Phone: [facility] Start: 10-04-2016 Office/outpatient vi sit, est, level 3 Alan Madrid Work Phone: [facility] Cancer cervix - screening done Mg Ndiaye Work Phone: [facility] Work Phone: Comment on above: 11/02/2019: Negative 08/13/2018: Negative; Encounter for gynecological examination (general) (routine) without abnormal findings Mg Ndiaye Work Phone: [address] Work Phone: Comment on above: 11/09/2020: Negative 11/02/2019: [id number]/12/2019: Negative; Patient encounter procedure Mglandry Ndiaye Work Phone: [facility] Work Phone: Procedures Date Procedure Procedure Detail Performing Clinician Start: 10-12-2024 External resaw carriage operator, CGM sys Alan Madrid SUPERVISOR FRAME SAMPLE AND PATTERN Work Phone: Start: 06-04-2024 External resaw carriage operator, CGM sys Alan Madrid SUPERVISOR FRAME SAMPLE AND PATTERN Work Phone: Start: 05-04-2024 POCT SARS-COV-2/FLU/ RSV PCR SYMPTOMATIC Tati oLve APPAREL MACHINERY INSTRUCTOR-SUPERVISOR FRAME SAMPLE AND PATTERN Work Phone: Start: 03-23-2024 Mammography Tati frederick APPAREL MACHINERY INSTRUCTOR-SUPERVISOR FRAME SAMPLE [employer] PATTERN Work Phone: Start: 03-09-2024 Microscopic observat ion [Identifier] in Cervix by Cyto stain Alan Madrid SUPERVISOR FRAME SAMPLE AND PATTERN Work Phone: Start: 12-20-2023 Comprehensive metabo lic panel Alan Madrid SUPERVISOR FRAME SAMPLE AND PATTERN Work Phone: Start: 12-20-2023 Lipid panel Alan Madrid SUPERVISOR FRAME SAMPLE AND PATTERN Work Phone: Start: 12-20-2023 Thyrotropin [Units/v olume] in Serum or Plasma Josselin Bernabe PA-C Work Phone: Start: 05-22-2023 Comprehensive metabo lic 2000 panel - Serum or Plasma MG NDIAYE Start: 05-22-2023 Hemoglobin A1c/Hemoglobin.total in Blood MG EMERSONER Start: 05-22-2023 Thyrotropin [Units/v olume] in Serum or Plasma MG NDIAYE Start: 05-22-2023 THYROXINE, FREE MG NDIAYE Start: 03-15-2023 Mammography Alanmaya ricci SUPERVISOR FRAME SAMPLE AND PATTERN Work Phone: Start: 03-06-2023 Microscopic observat ion [Identifier] in Cervix by Cyto stain Alan Madrid SUPERVISOR FRAME SAMPLE AND PATTERN Work Phone: Start: 11-27-2022 Examination of retina C larry Massey MD Work Phone: Start: 10-01-2022 3 comp foot exam completed Alan Madrid SUPERVISOR FRAME SAMPLE AND PATTERN Work Phone: Start: 04-30-2022 3 comp foot exam completed Alan Madrid SUPERVISOR FRAME SAMPLE AND PATTERN Work Phone: Start: 04-11-2022 Lipid 1996 panel - S clarice or Plasma Loyd Jackson MD Work Phone: Start: 04-11-2022 Microalbumin [Mass/v olume] in Urine by Test strip Alan Madrid SUPERVISOR FRAME SAMPLE AND PATTERN Work Phone: Start: 12-11-2021 3 comp foot exam completed Alan Madrid SUPERVISOR FRAME SAMPLE AND PATTERN Work Phone: Start: 11-02-2021 Ophthalmic examinati on and evaluation Alan Madrid SUPERVISOR FRAME SAMPLE AND PATTERN Work Phone: Start: 08-11-2021 3 comp foot exam completed Alanmaya Madrid SUPERVISOR FRAME SAMPLE AND PATTERN Work Phone: Start: 12-23-2020 Mammography Loyd graham MD Work Phone: Start: 10-24-2020 3 comp foot exam completed Alan Madrid SUPERVISOR FRAME SAMPLE AND PATTERN Work Phone: Start: 10-21-2020 Microalbumin [Mass/v olume] in Urine by Test strip Alan Madrid SUPERVISOR FRAME SAMPLE AND PATTERN Work Phone: Start: 06-06-2020 3 comp foot exam completed Alan Madrid Start: 02-01-2020 3 comp foot exam completed Alan Madrid Start: 08-31-2019 3 comp foot exam completed Alan Madrid Start: 04-10-2019 Colonoscopy Loyd graham MD Work Phone: Start: 03-23-2019 3 comp foot exam completed Alan Madrid Start: 12-15-2018 3 comp foot exam completed Ned Brown Start: 12-09-2018 Microalbumin [Mass/v olume] in Urine by Test strip Andrew Pires MD Work Phone: Start: 09-01-2018 3 comp foot exam completed Ned Brown Start: 11-28-2017 3 comp foot exam completed Miya Massey Abdominal hysterectomy Laura Ndiaye Work Phone: Comment on above: 04/28/2015: with cor pus and cervix; section Mg coleman Work Phone: Comment on above: 1998; Cryosurgery of lesio n of cervix Mg Ndiaye Work Phone: Comment on above: 1991; Tonsillectomy Mg willis Work Phone: Plan of Treatment Date Care Activity Detail Author Start: 04-10-2029 Screening for malign ant neoplasm of colon [facility] Start: 03-31-2028 DTaP/Tdap/Td Vaccine s (2 - Td or Tdap) DTaP/Tdap/Td Vaccines (2 - Td or Tdap) [facility] Start: 03-31-2028 Tetanus vaccination Tetanus: Every 1 0yrs [facility] Start: 04-11-2027 Lipid panel Lipid Panel [facility] Start: 03-09-2027 Screening for malign ant neoplasm of cervix [facility] Start: 03-06-2026 Screening for malign ant neoplasm of cervix [facility] Start: 10-12-2025 Diabetic foot examination Diabetic Foot Exam [facility] Start: 10-08-2025 eGFR Diabetes eGFR Diabetes [facility] Start: 09-28-2025 Diabetes mellitus screening Diabetes Screening [facility] Start: 06-05-2025 Diabetic foot examination Diabetic Foot Exam [facility] Start: 06-03-2025 Urine screening for protein eGFR Diabetes [facility] Start: 03-23-2025 Screening for malign ant neoplasm of breast Mammogram [facility] Start: 03-15-2025 End: 03-15-2025 Patient encounter procedure [facility] Start: 03-10-2025 Yearly Adult Physical Yearly Adult P hysical [facility] Start: 03-09-2025 History and physical examination, annual for health maintenance Wellness Visit [facility] Start: 02-12-2025 End: 02-12-2025 Patient encounter procedure 02/12/2025 2:45 PM EST Office Visit [facility] [place] [address] [place] [phone] Alan Madrid, SUPERVISOR FRAME SAMPLE AND PATTERN [address] [place] [address] [facility] [place] Start: 01-08-2025 Hemoglobin A1c measurement A1C [facility] Start: 12-22-2024 Diabetic foot examination Diabetic Foot Exam [facility] Start: 12-19-2024 Thyroid stimulating hormone measurement TSH Level [facility] Start: 12-19-2024 Urine screening for protein [facility] Start: 12-08-2024 Glaucoma screening Diabetic Eye Exam [facility] Start: 11-02-2024 COVID-19 Vaccine ( season) COVID-19 Vaccine ( season) [facility] Start: 11-02-2024 Influenza vaccination [facility] Start: 10-12-2024 End: 10-12-2024 Patient encounter procedure 10/12/2024 9:15 AM EDT Office Visit [facility] [place] [address] [place] [address] Alan Madrid, SUPERVISOR FRAME SAMPLE AND PATTERN [address] [place] [address] [facility] [place] Start: 10-01-2024 End: 06-06-2025 Comprehensive metabolic 2000 panel - Serum or Plasma Comprehensive Metabolic Panel Lab Routine Type 1 diabetes mellitus with hyperglycemia (HCC) Expected: 10/01/2024, Expires: 06/06/2025 [facility] Work Phone: Comment on above: Expected: 10/01/2024 , Expires: 06/06/2025 Start: 10-01-2024 End: 06-06-2025 Hemoglobin A1c/Hemoglobin.total in Blood Hemoglobin A1c Lab Routine Type 1 diabetes mellitus with hyperglycemia (HCC) Expected: 10/01/2024, Expires: 06/06/2025 [facility] Comment on above: Expected: 10/01/2024 , Expires: 06/06/2025 Start: 10-01-2024 End: 06-06-2025 Thyrotropin [Units/volume] in Serum or Plasma TSH Lab Routine Type 1 diabetes mellitus with hyperglycemia (HCC) Hypothyroidism, unspecified type Expected: 10/01/2024, Expires: 06/06/2025 [facility] Comment on above: Expected: 10/01/2024 , Expires: 06/06/2025 Start: 10-01-2024 End: 06-06-2025 Thyroxine (T4) free [Mass/volume] in Serum or Plasma T4, Free Lab Routine Type 1 diabetes mellitus with hyperglycemia (HCC) Hypothyroidism, unspecified type Expected: 10/01/2024, Expires: 06/06/2025 [facility] Comment on above: Expected: 10/01/2024 , Expires: 06/06/2025 Start: 09-02-2024 Hemoglobin A1c measurement A1C [facility] Start: 06-05-2024 End: 06-05-2024 Patient encounter procedure 06/05/2024 1:15 PM EDT Office Visit [facility] [place] [address] [place] [address] Alan Madrid, SUPERVISOR FRAME SAMPLE AND PATTERN [address] [place] [address] [facility] [place] Start: 05-23-2024 Diabetic foot examination Diabetic Foot Exam [facility] Start: 05-21-2024 Thyroid stimulating hormone measurement TSH Level [facility] Start: 03-27-2024 End: 03-27-2024 Patient encounter procedure 03/27/2024 2:15 PM EST Office Visit [facility] [place] [address] [place] [phone] Alan aMdrid, SUPERVISOR FRAME SAMPLE AND PATTERN [address] [place] [address] [facility] [place] Start: 03-21-2024 Hemoglobin A1c measurement [facility] Start: 03-15-2024 Screening for malign ant neoplasm of breast Mammogram [facility] Start: 03-09-2024 End: 03-09-2025 Cytology Cervical or vaginal smear or scraping study [facility] Work Phone: Comment on above: Expected: 03/09/2024 (Approximate), Expires: 03/09/2025 Start: 03-09-2024 End: 04-09-2025 DBT Breast - bilateral BI mammo bilateral screening [facility]os[facility] Imaging Routine Encounter for screening mammogram for malignant neoplasm of breast Expected: 03/09/2024, Expires: 04/09/2025 [facility] Service Area Work Phone: Comment on above: Expected: 03/09/2024 , Expires: 04/09/2025 Start: 03-09-2024 End: 03-09-2024 Patient encounter procedure 03/09/2024 8:30 AM EST Office Visit [facility] [address] [place] [id number] Loyd Jackson MD [address] [facility], [address] [place] [address] [facility] Start: 03-07-2024 Yearly Adult Physical Yearly Adult P hysical [facility] Start: 03-06-2024 History and physical examination, annual for health maintenance Wellness Visit [facility] Start: 12-23-2023 End: 12-23-2023 Patient encounter procedure 12/23/2023 2:15 PM EDT Office Visit [facility] [address] [place] [address] Alan Madrid, UVALDO [address] [place] [address] [facility] Start: 11-28-2023 Glaucoma screening Diabetic Eye Exam [facility] Start: 11-03-2023 COVID-19 Vaccine ( season) COVID-19 Vaccine ( season) [facility] Start: 11-03-2023 COVID-19 Vaccine ( season) COVID-19 Vaccine ( season) [facility] Start: 11-03-2023 COVID-19 Vaccine ( season) COVID-19 Vaccine ( season) [facility] Start: 11-03-2023 Influenza vaccination [facility] Start: 10-28-2023 End: 10-28-2023 Patient encounter procedure 10/28/2023 3:30 PM EDT Office Visit [facility] [address] [place] [address] Alan Madrid, UVALDO [address] [place] [address] [facility] Start: 10-03-2023 End: 05-24-2024 Complete blood count with white cell differential, manual CBC and Differential Lab Routine Type 1 diabetes mellitus with hyperglycemia (HCC) Expected: 10/03/2023, Expires: 05/24/2024 [facility] Work Phone: Comment on above: Expected: 10/03/2023 , Expires: 05/24/2024 Start: 10-03-2023 End: 05-24-2024 Comprehensive metabolic 2000 panel - Serum or Plasma Comprehensive Metabolic Panel Lab Routine Type 1 diabetes mellitus with hyperglycemia (HCC) Expected: 10/03/2023, Expires: 05/24/2024 [facility] Comment on above: Expected: 10/03/2023 , Expires: 05/24/2024 Start: 10-03-2023 End: 05-24-2024 Hemoglobin A1c/Hemoglobin.total in Blood Hemoglobin A1c Lab Routine Type 1 diabetes mellitus with hyperglycemia (HCC) Expected: 10/03/2023, Expires: 05/24/2024 [facility] Comment on above: Expected: 10/03/2023 , Expires: 05/24/2024 Start: 10-03-2023 End: 05-24-2024 Lipid 1996 panel - Serum or Plasma Lipid Panel Lab Routine Type 1 diabetes mellitus with hyperglycemia (HCC) Expected: 10/03/2023, Expires: 05/24/2024 [facility] Comment on above: Expected: 10/03/2023 , Expires: 05/24/2024 Start: 10-03-2023 End: 05-23-2024 Microalbumin measurement, urine, quantitative Microalbumin/Creatinin e Ratio, UR Random Lab Routine Type 1 diabetes mellitus with hyperglycemia (HCC) Expected: 10/03/2023, Expires: 05/23/2024 [facility] Comment on above: Expected: 10/03/2023 , Expires: 05/23/2024 Start: 10-03-2023 End: 05-24-2024 Thyrotropin [Units/volume] in Serum or Plasma TSH Lab Routine Type 1 diabetes mellitus with hyperglycemia (HCC) Expected: 10/03/2023, Expires: 05/24/2024 [facility] Comment on above: Expected: 10/03/2023 , Expires: 05/24/2024 Start: 10-03-2023 End: 05-24-2024 Thyroxine (T4) free [Mass/volume] in Serum or Plasma T4, Free Lab Routine Type 1 diabetes mellitus with hyperglycemia (HCC) Expected: 10/03/2023, Expires: 05/24/2024 [facility] Comment on above: Expected: 10/03/2023 , Expires: 05/24/2024 Start: 10-02-2023 Diabetic foot examination Foot Exam [facility] Start: 08-22-2023 Hemoglobin A1c measurement [facility] Start: 04-30-2023 Diabetic foot examination Foot Exam [facility] Start: 04-11-2023 Lipid panel Lipid Panel [facility] Start: 04-11-2023 Urine screening for protein [facility] Start: 03-06-2023 End: 03-06-2024 Cytology Cervical or vaginal smear or scraping study THINPREP PAP TEST Pathology and Cytology Routine Encounter for gynecological examination without abnormal finding Vaginal Pap smear Expected: 03/06/2023 (Approximate), Expires: 03/06/2024 [facility] Work Phone: Comment on above: Expected: 03/06/2023 (Approximate), Expires: 03/06/2024 Start: 03-06-2023 End: 05-04-2024 DBT Breast - bilateral BI mammo bilateral screening tomosynthesis Imaging Routine Encounter for screening mammogram for breast cancer Expected: 03/06/2023, Expires: 05/04/2024 [facility] Service Area Work Phone: Comment on above: Expected: 03/06/2023 , Expires: 05/04/2024 Start: 02-04-2023 End: 02-04-2023 Patient encounter procedure 02/04/2023 3:15 PM EST Office Visit [facility] [place] [address] [place] [id number] Alan Madrid, SUPERVISOR [employer]TERN [address] [place] [address] [facility] [place] Start: 01-02-2023 End: 10-02-2023 Comprehensive metabolic 2000 panel - Serum or Plasma Comprehensive Metabolic Panel Lab Routine Type 1 diabetes mellitus with hyperglycemia (HCC) Expected: 01/02/2023, Expires: 10/02/2023 [facility] Work Phone: Comment on above: Expected: 01/02/2023 , Expires: 10/02/2023 Start: 01-02-2023 End: 10-02-2023 Hemoglobin A1c/Hemoglobin.total in Blood Hemoglobin A1c Lab Routine Type 1 diabetes mellitus with hyperglycemia (HCC) Expected: 01/02/2023, Expires: 10/02/2023 [facility] Comment on above: Expected: 01/02/2023 , Expires: 10/02/2023 Start: 01-02-2023 End: 10-02-2023 Thyrotropin [Units/volume] in Serum or Plasma TSH Lab Routine Type 1 diabetes mellitus with hyperglycemia (HCC) Expected: 01/02/2023, Expires: 10/02/2023 [facility] Comment on above: Expected: 01/02/2023 , Expires: 10/02/2023 Start: 01-02-2023 End: 10-02-2023 Thyroxine (T4) free [Mass/volume] in Serum or Plasma T4, Free Lab Routine Type 1 diabetes mellitus with hyperglycemia (HCC) Expected: 01/02/2023, Expires: 10/02/2023 [facility] Comment on above: Expected: 01/02/2023 , Expires: 10/02/2023 Start: 12-29-2022 Hemoglobin A1c measurement A1C [facility] Start: 12-11-2022 Diabetic foot examination Foot Exam [facility] Start: 11-02-2022 COVID-19 Vaccine ( season) COVID-19 Vaccine ( season) [facility] Start: 11-02-2022 Glaucoma screening [facility] Start: 11-02-2022 Influenza vaccination [facility] Start: 08-27-2022 End: 08-27-2022 Patient encounter procedure 08/27/2022 Office Visit Endocrinology Alan Madrid, SUPERVISOR [employer]TERN [address] [place] [address] [facility] [place] Start: 08-11-2022 Diabetic foot examination Foot Exam [facility] Start: 07-02-2022 End: 05-01-2023 Comprehensive metabolic 2000 panel - Serum or Plasma Comprehensive Metabolic Panel Lab Routine Type 1 diabetes mellitus with hyperglycemia (HCC) Expected: 07/02/2022, Expires: 05/01/2023 [facility] Work Phone: Comment on above: Expected: 07/02/2022 , Expires: 05/01/2023 Start: 07-02-2022 End: 05-01-2023 Hemoglobin A1c/Hemoglobin.total in Blood Hemoglobin A1c Lab Routine Type 1 diabetes mellitus with hyperglycemia (HCC) Expected: 07/02/2022, Expires: 05/01/2023 [facility] Comment on above: Expected: 07/02/2022 , Expires: 05/01/2023 Start: 07-02-2022 End: 05-01-2023 Thyrotropin [Units/volume] in Serum or Plasma TSH Lab Routine Type 1 diabetes mellitus with hyperglycemia (HCC) Expected: 07/02/2022, Expires: 05/01/2023 [facility] Comment on above: Expected: 07/02/2022 , Expires: 05/01/2023 Start: 07-02-2022 End: 05-01-2023 Thyroxine (T4) free [Mass/volume] in Serum or Plasma T4, Free Lab Routine Type 1 diabetes mellitus with hyperglycemia (HCC) Expected: 07/02/2022, Expires: 05/01/2023 [facility] Comment on above: Expected: 07/02/2022 , Expires: 05/01/2023 Start: 04-13-2022 End: 04-13-2022 Patient encounter procedure 04/13/2022 Office Visit Endocrinology Alan Madrid, SUPERVISOR [employer]TERN [address] [place] [id number] [facility] [place] Start: 04-04-2022 End: 12-12-2022 Complete blood count with white cell differential, manual CBC and Differential Lab Routine Type 1 diabetes mellitus with hyperglycemia (HCC) Expected: 04/04/2022, Expires: 12/12/2022 [facility] Comment on above: Expected: 04/04/2022 , Expires: 12/12/2022 Start: 04-04-2022 End: 12-12-2022 Comprehensive metabolic 2000 panel - Serum or Plasma Comprehensive Metabolic Panel Lab Routine Type 1 diabetes mellitus with hyperglycemia (HCC) Expected: 04/04/2022, Expires: 12/12/2022 [facility] Work Phone: Comment on above: Expected: 04/04/2022 , Expires: 12/12/2022 Start: 04-04-2022 End: 12-12-2022 Hemoglobin A1c/Hemoglobin.total in Blood Hemoglobin A1c Lab Routine Type 1 diabetes mellitus with hyperglycemia (HCC) Expected: 04/04/2022, Expires: 12/12/2022 [facility] Comment on above: Expected: 04/04/2022 , Expires: 12/12/2022 Start: 04-04-2022 End: 12-12-2022 Lipid 1996 panel - Serum or Plasma Lipid Panel Lab Routine Type 1 diabetes mellitus with hyperglycemia (HCC) Expected: 04/04/2022, Expires: 12/12/2022 [facility] Comment on above: Expected: 04/04/2022 , Expires: 12/12/2022 Start: 04-04-2022 End: 12-11-2022 Microalbumin measurement, urine, quantitative Microalbumin/Creatinin e Ratio, UR Random Lab Routine Type 1 diabetes mellitus with hyperglycemia (HCC) Expected: 04/04/2022, Expires: 12/11/2022 [facility] Comment on above: Expected: 04/04/2022 , Expires: 12/11/2022 Start: 04-04-2022 End: 12-12-2022 Thyrotropin [Units/volume] in Serum or Plasma TSH Lab Routine Type 1 diabetes mellitus with hyperglycemia (HCC) Expected: 04/04/2022, Expires: 12/12/2022 [facility] Comment on above: Expected: 04/04/2022 , Expires: 12/12/2022 Start: 04-04-2022 End: 12-12-2022 Thyroxine (T4) free [Mass/volume] in Serum or Plasma T4, Free Lab Routine Type 1 diabetes mellitus with hyperglycemia (HCC) Expected: 04/04/2022, Expires: 12/12/2022 [facility] Comment on above: Expected: 04/04/2022 , Expires: 12/12/2022 Start: 03-04-2022 Hemoglobin A1c measurement A1C [facility] Start: 12-23-2021 Screening for malign ant neoplasm of breast Mammogram [facility] Start: 12-11-2021 End: 12-11-2021 Patient encounter procedure 12/11/2021 Office Visit Endocrinology Alan Madrid, SUPERVISOR [employer]TERN [address] [place] [address] [facility] [place] Start: 12-02-2021 End: 08-12-2022 Comprehensive metabolic 2000 panel - Serum or Plasma Comprehensive Metabolic Panel Lab Routine Type 1 diabetes mellitus with hyperglycemia (HCC) Expected: 12/02/2021, Expires: 08/12/2022 [facility] Work Phone: Comment on above: Expected: 12/02/2021 , Expires: 08/12/2022 Start: 12-02-2021 End: 08-12-2022 Hemoglobin A1c/Hemoglobin.total in Blood Hemoglobin A1c Lab Routine Type 1 diabetes mellitus with hyperglycemia (HCC) Expected: 12/02/2021, Expires: 08/12/2022 [facility] Comment on above: Expected: 12/02/2021 , Expires: 08/12/2022 Start: 12-02-2021 End: 08-12-2022 Thyrotropin [Units/volume] in Serum or Plasma TSH Lab Routine Type 1 diabetes mellitus with hyperglycemia (HCC) Expected: 12/02/2021, Expires: 08/12/2022 [facility] Comment on above: Expected: 12/02/2021 , Expires: 08/12/2022 Start: 12-02-2021 End: 08-12-2022 Thyroxine (T4) free [Mass/volume] in Serum or Plasma T4, Free Lab Routine Type 1 diabetes mellitus with hyperglycemia (HCC) Expected: 12/02/2021, Expires: 08/12/2022 [facility] Comment on above: Expected: 12/02/2021 , Expires: 08/12/2022 Start: 11-09-2021 History and physical examination, annual for health maintenance Wellness Visit [facility] Start: 11-02-2021 Influenza vaccination [facility] Start: 10-24-2021 Diabetic foot examination Foot Exam [facility] Start: 10-21-2021 Microalbumin measurement, urine, quantitative Urine Microalbumin [facility] Start: 10-21-2021 Urine screening for protein Urine Microalbumin [facility] Start: 10-17-2021 Hemoglobin A1c measurement A1C [facility] Start: 06-06-2021 Diabetic foot examination Foot Exam [facility] Start: 06-01-2021 FUV, Provider: Dorian Davis, Status: Pen, Time: 3:30 PM FUV, Provider: Dorian Davis, Status: Pen, Time: 3:30 PM [facility] 300 Work Phone: Start: 04-23-2021 Hemoglobin A1c measurement A1C [facility] Start: 04-23-2021 Urine screening for protein Urine Microalbumin [facility] Start: 04-18-2021 POV, Provider: Dorian Davis, Status: Pen, Time: 3:30 PM POV, Provider: Dorian Davis, Status: Pen, Time: 3:30 PM [facility] 300 Work Phone: Start: 03-28-2021 POV, Provider: Dorian Davis, Status: Pen, Time: 3:30 PM POV, Provider: Dorian Davis, Status: Pen, Time: 3:30 PM [facility] 300 Work Phone: Start: 03-07-2021 POV, Provider: Dorian Davis, Status: Pen, Time: 8:30 AM POV, Provider: Dorian Davis, Status: Pen, Time: 8:30 AM [facility] 300 Work Phone: Start: 02-17-2021 End: 02-17-2021 Patient encounter procedure 02/17/2021 Office Visit Endocrinology Alan Madrid, SUPERVISOR [employer]TERN [address] [place] [id number] [facility] [place] Start: 02-01-2021 End: 10-25-2021 Comprehensive metabolic 2000 panel - Serum or Plasma Comprehensive Metabolic Panel Lab Routine Type 1 diabetes mellitus with hyperglycemia (HCC) Expected: 02/01/2021, Expires: 10/25/2021 [facility] Comment on above: Expected: 02/01/2021 , Expires: 10/25/2021 Start: 02-01-2021 End: 10-25-2021 Hemoglobin A1c/Hemoglobin.total in Blood Hemoglobin A1c Lab Routine Type 1 diabetes mellitus with hyperglycemia (HCC) Expected: 02/01/2021, Expires: 10/25/2021 [facility] Comment on above: Expected: 02/01/2021 , Expires: 10/25/2021 Start: 02-01-2021 End: 10-25-2021 Thyrotropin [Units/volume] in Serum or Plasma TSH Lab Routine Type 1 diabetes mellitus with hyperglycemia (HCC) Expected: 02/01/2021, Expires: 10/25/2021 [facility] Work Phone: Comment on above: Expected: 02/01/2021 , Expires: 10/25/2021 Start: 02-01-2021 End: 10-25-2021 Thyroxine (T4) free [Mass/volume] in Serum or Plasma T4, Free Lab Routine Type 1 diabetes mellitus with hyperglycemia (HCC) Expected: 02/01/2021, Expires: 10/25/2021 [facility] Comment on above: Expected: 02/01/2021 , Expires: 10/25/2021 Start: 01-31-2021 Diabetic foot examination Foot Exam [facility] Start: 01-21-2021 Hemoglobin A1c measurement A1C [facility] Start: 01-11-2021 FUV, Provider: Dorian Davis, Status: Pen, Time: 9:30 AM FUV, Provider: Dorian Davis, Status: Pen, Time: 9:[address] Work Phone: Start: 01-10-2021 End: 02-01-2021 Comprehensive metabolic 2000 panel Comprehensive Metabolic Panel Lab Routine Type 1 diabetes mellitus with hyperglycemia (HCC) Expected: 01/10/2021, Expires: 02/01/2021 [facility] Comment on above: Expected: 01/10/2021 , Expires: 02/01/2021 Start: 01-10-2021 End: 02-01-2021 HbA1c (Bld) [Mass fraction] Hemoglobin A1c Lab Routine Type 1 diabetes mellitus with hyperglycemia (HCC) Expected: 01/10/2021, Expires: 02/01/2021 [facility] Comment on above: Expected: 01/10/2021 , Expires: 02/01/2021 Start: 12-02-2020 HbA1c (Bld) [Mass fraction] A1C [facility] Start: 12-02-2020 Hemoglobin A1c measurement A1C [facility] Start: 11-09-2020 Patient encounter procedure ANNUAL, Provider: Loyd Jackson, Status: Pen, Time: 9:[address] [facility] Work Phone: Start: 11-02-2020 Influenza vaccination [facility] Start: 10-12-2020 COVID-19 Vaccine (3 - Booster for Pfizer series) COVID-19 Vaccine (3 - Booster for Pfizer series) [facility] Start: 10-03-2020 End: 10-03-2020 Office Visit 10/03/2020 Office Visit Endocrinology Julius Alanmaya Ambrose, SUPERVISOR [employer]TERN [address] [place] [address] [phone] [facility] [place] Start: 10-02-2020 End: 06-07-2021 Complete blood count with white cell differential, manual CBC and Differential Lab Routine Type 1 diabetes mellitus with hyperglycemia (HCC) Expected: 10/02/2020, Expires: 06/07/2021 [facility] Comment on above: Expected: 10/02/2020 , Expires: 06/07/2021 Start: 10-02-2020 End: 06-07-2021 Comprehensive metabolic 2000 panel Comprehensive Metabolic Panel Lab Routine Type 1 diabetes mellitus with hyperglycemia (HCC) Expected: 10/02/2020, Expires: 06/07/2021 [facility] Comment on above: Expected: 10/02/2020 , Expires: 06/07/2021 Start: 10-02-2020 End: 06-07-2021 Free T4 [Mass/Vol] T4, Free Lab Routine Type 1 diabetes mellitus with hyperglycemia (HCC) Expected: 10/02/2020, Expires: 06/07/2021 [facility] Comment on above: Expected: 10/02/2020 , Expires: 06/07/2021 Start: 10-02-2020 End: 06-07-2021 HbA1c (Bld) [Mass fraction] Hemoglobin A1c Lab Routine Type 1 diabetes mellitus with hyperglycemia (HCC) Expected: 10/02/2020, Expires: 06/07/2021 [facility] Comment on above: Expected: 10/02/2020 , Expires: 06/07/2021 Start: 10-02-2020 End: 06-07-2021 Lipid 1996 panel Lipid Panel Lab Routine Type 1 diabetes mellitus with hyperglycemia (HCC) Expected: 10/02/2020, Expires: 06/07/2021 [facility] Comment on above: Expected: 10/02/2020 , Expires: 06/07/2021 Start: 10-02-2020 End: 06-06-2021 Microalbumin measurement, urine, quantitative Microalbumin/Creatinin e Ratio, UR Random Lab Routine Type 1 diabetes mellitus with hyperglycemia (HCC) Expected: 10/02/2020, Expires: 06/06/2021 [facility] Comment on above: Expected: 10/02/2020 , Expires: 06/06/2021 Start: 10-02-2020 End: 06-07-2021 TSH Qn TSH Lab Routine Type 1 diabetes mellitus with hyperglycemia (HCC) Expected: 10/02/2020, Expires: 06/07/2021 [facility] Comment on above: Expected: 10/02/2020 , Expires: 06/07/2021 Start: 09-30-2020 NPV, Provider: Dorian Davis, Status: Pen, Time: 10:30 AM NPV, Provider: Dorian Davis, Status: Pen, Time: 10:30 AM [facility] Work Phone: Start: 08-30-2020 Diabetic foot examination Foot Exam [facility] Start: 07-28-2020 HbA1c (Bld) [Mass fraction] A1C [facility] Start: 07-07-2020 COVID-19 Vaccine (3 - Booster for Pfizer series) COVID-19 Vaccine (3 - Booster for Pfizer series) [facility] Start: 07-07-2020 COVID-19 Vaccine (3 - Pfizer series) COVID-19 Vaccine (3 - Pfizer series) [facility] Start: 06-06-2020 End: 06-06-2020 Office Visit 06/06/2020 Office Visit Endocrinology Alan Madrid CNP [address] [place] [address] [phone] [facility] [place] Start: 03-23-2020 Diabetic foot examination FOOT EXAM [facility] Start: 02-27-2020 HbA1c (Bld) [Mass fraction] A1C [facility] Start: 01-04-2020 End: 01-04-2020 Office Visit 01/04/2020 Office Visit Endocrinology Alan Madrid CNP [address] [address] [phone] [facility] Start: 12-16-2019 Diabetic foot examination FOOT EXAM [facility] Start: 12-10-2019 Microalbumin measurement, urine, quantitative Urine Microalbumin [facility] Start: 12-01-2019 End: 08-31-2020 Comprehensive metabolic 2000 panel Comprehensive Metabolic Panel Lab Routine Type 1 diabetes mellitus with hyperglycemia (HCC) Expected: 12/01/2019, Expires: 08/31/2020 [facility] Comment on above: Expected: 12/01/2019 , Expires: 08/31/2020 Start: 12-01-2019 End: 08-31-2020 Free T4 [Mass/Vol] T4, Free Lab Routine Type 1 diabetes mellitus with hyperglycemia (HCC) Expected: 12/01/2019, Expires: 08/31/2020 [facility] Comment on above: Expected: 12/01/2019 , Expires: 08/31/2020 Start: 12-01-2019 End: 08-31-2020 HbA1c (Bld) [Mass fraction] Hemoglobin A1c Lab Routine Type 1 diabetes mellitus with hyperglycemia (HCC) Expected: 12/01/2019, Expires: 08/31/2020 [facility] Comment on above: Expected: 12/01/2019 , Expires: 08/31/2020 Start: 12-01-2019 End: 08-31-2020 TSH Qn TSH Lab Routine Type 1 diabetes mellitus with hyperglycemia (HCC) Expected: 12/01/2019, Expires: 08/31/2020 [facility] Comment on above: Expected: 12/01/2019 , Expires: 08/31/2020 Start: 11-03-2019 Influenza vaccination Sequenti al Influenza Vaccine (#1) [facility] Start: 11-03-2019 Influenza vaccinatio n given [facility] Start: 09-18-2019 HbA1c (Bld) [Mass fraction] A1C [facility] Start: 09-02-2019 Diabetic foot examination FOOT EXAM [facility] Start: 06-22-2019 End: 06-22-2019 Office Visit 06/22/2019 Office Visit Endocrinology Alan Madrid, SUPERVISOR [employer]TERN [address] [address] [phone] [facility] Start: 06-10-2019 HbA1c (Bld) [Mass fraction] A1C [facility] Start: 03-23-2019 End: 03-23-2019 Office Visit 03/23/2019 Office Visit Endocrinology Rosalee Eason, SUPERVISOR [employer]TERN [address] [facility] [address] [place] [address] [phone] [facility] Start: 02-27-2019 HbA1c (Bld) [Mass fraction] A1C [facility] Start: 12-15-2018 End: 12-15-2018 Office Visit 12/15/2018 Office Visit Endocrinology Ned Brown PA-C [address] [place] [address] [place] [address] [phone] [facility] Start: 11-28-2018 Diabetic foot examination FOOT EXAM [facility] Start: 11-02-2018 Influenza vaccinatio n given SEQUENTIAL INFLUENZA VACCINE (#1) [facility] Start: 2018 Administration of rpes zoster vaccine Zoster Vaccines (1 of 2) [facility] Start: 2018 Screening for malign ant neoplasm of colon [facility] Start: 2018 Zoster Vaccines (1 of 2) Zoste r Vaccines (1 of 2) [facility] Start: 07-29-2018 End: 07-29-2018 Office Visit 07/29/2018 Office Visit Endocrinology Vandana Davis PA-C [address] [place] [address] [place] [address] [phone] [facility] Start: 05-30-2018 Diabetic foot examination (regime/therapy) FOOT EXAM [facility] Start: 04-01-2018 End: 04-01-2018 Ambulatory 04/01/2018 Office Visit Endocrinology Alan Madrid, SUPERVISOR [employer] [address] [facility] [address] [place] [address] [phone] [facility] Start: 02-05-2018 Diabetic foot examination (regime/therapy) FOOT EXAM [facility] Work Phone: Start: 11-02-2017 Influenza vaccination SEQUENTI AL INFLUENZA VACCINE (#1) [facility] Start: 11-02-2017 Influenza vaccinatio n given SEQUENTIAL INFLUENZA VACCINE (#1) [facility] Start: 10-04-2017 FOOT EXAM FOOT EXAM [facility] Work Phone: Start: 10-03-2017 Ambulatory 10/03/2017 [place] Visit Endocrinology Diana Rodrigueze, SUPERVISOR [employer]TERN [address] [place] [address] [phone] [facility] Start: 05-20-2017 Ambulatory 05/20/2017 [place] Visit Endocrinology Michael Diana Shaila, SUPERVISOR [employer]TERN [address] [facility] [address] [place] [address] [phone] [facility] Start: 01-10-2017 Ambulatory 01/10/2017 [place] Visit Endocrinology Alan Madrid, SUPERVISOR [employer] PATTERN [address] [facility] [address] [place] [address] [phone] [facility] Start: 11-02-2016 Influenza vaccination SEQUENTI AL INFLUENZA VACCINE (#1) [facility] Work Phone: Start: 11-02-2016 SEQUENTIAL INFLUENZA VACCINE (#1) SEQUENTIAL INFLUENZA VACCINE (#1) [facility] Work Phone: Start: 2008 Screening for malign ant neoplasm of breast Mammogram [facility] Start: 2008 Screening mammography Mammogram [facility] Start: 1998 Screening for malign ant neoplasm of cervix HPV/Cotest [facility] Start: 1989 Screening for malign ant neoplasm of cervix Pap Smear [facility] Start: 08-11-1987 Hepatitis B Vaccines (1 of 3 - 19+ 3-dose series) Hepatitis B Vaccines (1 of 3 - 19+ 3-dose series) [facility] Start: 08-11-1987 Pneumococcal vaccination Pneum ococcal Vaccine (1 of 2 - PCV) [facility] Start: 08-11-1987 Pneumococcal Vaccine : Age 50+ (1 of 2 - PCV) Pneumococcal Vaccine: Age 50+ (1 of 2 - PCV) [facility] Start: 1986 Hepatitis C antibody , confirmatory test Hepatitis C Screening [facility] Start: 1986 Hepatitis C screening Hepatitis C Sc [facility] Start: 1984 COVID-19 Vaccine (1 of 2) COVID-19 Vaccine (1 of 2) [facility] Start: 1984 COVID-19 Vaccine (1) COVID-19 Vaccin e (1) [facility] Start: 08-11-1983 HIV screening HIV Screening [facility] Start: 1980 Adolescent depressio n screening assessment Depression Screening (PHQ9) [facility] Start: 1980 Depression screening using PHQ-9 (Patient Health Questionnaire 9) score [facility] Start: 1978 Glaucoma screening [facility] Start: 1978 Microalbumin measurement, urine, quantitative Urine Microalbumin [facility] Start: 1978 Ophthalmic examinati on and evaluation OPHTHALMOLOGY EXAM [facility] Start: 1978 OPHTHALMOLOGY EXAM OPHTHALMOLOGY EXA M [facility] Work Phone: Start: 1978 URINE MICROALBUMIN URINE MICROALBUMI N [facility] Work Phone: Start: 1978 Urine, microalbumin URINE MICROALBUM IN [facility] Work Phone: Start: 1974 Pneumococcal Vaccine : Ped or At-Risk (1 - PCV) Pneumococcal Vaccine: Ped or At-Risk (1 - PCV) [facility] Start: 1974 Pneumococcal Vaccine : Ped or At-Risk (1 of 2 - PCV) Pneumococcal Vaccine: Ped or At-Risk (1 of 2 - PCV) [facility] Start: 1974 Pneumococcal Vaccine : Ped or At-Risk (1 of 2 - PPSV23) Pneumococcal Vaccine: Ped or At-Risk (1 of 2 - PPSV23) [facility] Start: 1974 Pneumococcal Vaccine : Pediatrics (0 to 5 Years) and At-Risk Patients (6 to 64 Years) (1 of 2 - PCV) Pneumococcal Vaccine: Pediatrics (0 to 5 Years) and At-Risk Patients (6 to 64 Years) (1 of 2 - PCV) [facility] Start: 08-11-1971 History and physical examination, annual for health maintenance Wellness Visit [facility] Start: 1969 MMR Vaccines (1 of 1 - Standard series) MMR Vaccines (1 of 1 - Standard series) [facility] Start: 1968 Cyanocobalamin vitam in b-12 Vitamin B-12 [facility] Start: 1968 Cytopathology proced ure, preparation of smear, genital source PAP SMEAR [facility] Work Phone: Start: 1968 Diabetes: Celiac Dis ease Screening Diabetes: Celiac Disease Screening [facility] Start: 1968 HbA1c HEMOGLOBIN A1C [facility] Work Phone: Start: 1968 HEMOGLOBIN A1C HEMOGLOBIN A1C [facility] Work Phone: Start: 1968 Hepatitis B Vaccines (1 of 3 - 3-dose series) Hepatitis B Vaccines (1 of 3 - 3-dose series) [facility] Start: 1970 HIV screening HIV Screening [facility] Start: 1970 Screening for malign ant neoplasm of cervix PAP SMEAR [facility] Start: 1970 Screening for malign ant neoplasm of colon [facility] Start: 1968 Screening mammography Mammogram [facility] Start: 1968 TETANUS EVERY 10 YR TETANUS EVERY 10 YR [facility] Work Phone: Start: 1968 Tetanus vaccination [facility] Start: 1968 Yearly Adult Physical Yearly Adult P hycal [facility] End: 02-05-2018 CBC and Differential CBC and Differential Routine Type 1 diabetes mellitus with hyperglycemia (HCC) Essential hypertension 1 Occurrences starting 02/05/2017 until 02/05/2018 [facility] Work Phone: End: 04-02-2019 Complete blood count with white cell differential, manual CBC and Differential Routine Type 1 diabetes mellitus with hyperglycemia (HCC) 1 Occurrences starting 04/01/2018 until 04/02/2019 [facility] Comment on above: 1 Occurrences starti ng 04/01/2018 until 04/02/2019 End: 10-13-2025 Complete blood count with white cell differential, manual CBC and Differential Lab Routine Type 1 diabetes mellitus with hyperglycemia (HCC) [E10.65] 1 Occurrences starting 10/12/2024 until 10/13/2025 [facility] Comment on above: 1 Occurrences starti ng 10/12/2024 until 10/13/2025 End: 04-02-2019 Comprehensive metabolic 2000 panel Comprehensive Metabolic Panel Routine Type 1 diabetes mellitus with hyperglycemia (HCC) 1 Occurrences starting 04/01/2018 until 04/02/2019 [facility] Comment on above: 1 Occurrences starti ng 04/01/2018 until 04/02/2019 End: 09-02-2019 Comprehensive metabolic 2000 panel Comprehensive Metabolic Panel Lab Routine Type 1 diabetes mellitus with hyperglycemia (HCC) 1 Occurrences starting 09/01/2018 until 09/02/2019 [facility] Comment on above: 1 Occurrences starti ng 09/01/2018 until 09/02/2019 End: 03-23-2020 Comprehensive metabolic 2000 panel Comprehensive Metabolic Panel Lab Routine Type 1 diabetes mellitus with hyperglycemia (HCC) 1 Occurrences starting 03/23/2019 until 03/23/2020 [facility] Comment on above: 1 Occurrences starti ng 03/23/2019 until 03/23/2020 End: 12-16-2019 Comprehensive metabolic 2000 panel Comprehensive Metabolic Panel Lab Routine Type 1 diabetes mellitus with hyperglycemia (HCC) 1 Occurrences starting 12/15/2018 until 12/16/2019 [facility] Comment on above: 1 Occurrences starti ng 12/15/2018 until 12/16/2019 End: 10-13-2025 Comprehensive metabolic 2000 panel - Serum or Plasma Comprehensive Metabolic Panel Lab Routine Type 1 diabetes mellitus with hyperglycemia (HCC) [E10.65] 1 Occurrences starting 10/12/2024 until 10/13/2025 [facility] Work Phone: Comment on above: 1 Occurrences starti ng 10/12/2024 until 10/13/2025 End: 05-31-2018 Comprehensive metabolic panel [AGGREGATE] Comprehensive Metabolic Panel Routine Type 1 diabetes mellitus with hyperglycemia (HCC) 1 Occurrences starting 05/30/2017 until 05/31/2018 [facility] End: 02-05-2018 Comprehensive metabolic panel [AGGREGATE] Comprehensive Metabolic Panel Routine Type 1 diabetes mellitus with hyperglycemia (HCC) Essential hypertension 1 Occurrences starting 02/05/2017 until 02/05/2018 [facility] Work Phone: End: 03-23-2024 DBT Breast - bilateral [facility] Work Phone: Comment on above: Once for 1 Occurrenc es starting 03/23/2024 until 03/23/2024 End: 02-05-2018 External Lab Microalbumin/Creatinine External Lab Microalbumin/Creatinin e Routine Type 1 diabetes mellitus with hyperglycemia (HCC) Essential hypertension 1 Occurrences starting 02/05/2017 until 02/05/2018 [facility] Work Phone: End: 09-02-2019 External Lab Microalbumin/Creatinine External Lab Microalbumin/Creatinin e Lab Routine Type 1 diabetes mellitus with hyperglycemia (HCC) 1 Occurrences starting 09/01/2018 until 09/02/2019 [facility] Comment on above: 1 Occurrences starti ng 09/01/2018 until 09/02/2019 End: 09-02-2019 Free T4 [Mass/Vol] T4, Free Lab Routine Type 1 diabetes mellitus with hyperglycemia (HCC) 1 Occurrences starting 09/01/2018 until 09/02/2019 [facility] Comment on above: 1 Occurrences starti ng 09/01/2018 until 09/02/2019 End: 03-23-2020 Free T4 [Mass/Vol] T4, Free Lab Routine Type 1 diabetes mellitus with hyperglycemia (HCC) 1 Occurrences starting 03/23/2019 until 03/23/2020 [facility] Comment on above: 1 Occurrences starti ng 03/23/2019 until 03/23/2020 End: 05-31-2018 HbA1c Hemoglobin A1c Routine Type 1 diabetes mellitus with hyperglycemia (HCC) 1 Occurrences starting 05/30/2017 until 05/31/2018 [facility] End: 10-05-2017 HbA1c Hemoglobin A1c Routine Type 1 diabetes mellitus with hyperglycemia (HCC) 1 Occurrences starting 10/04/2016 until 10/05/2017 [facility] Work Phone: End: 09-02-2019 HbA1c (Bld) [Mass fraction] Hemoglobin A1c Lab Routine Type 1 diabetes mellitus with hyperglycemia (HCC) 1 Occurrences starting 09/01/2018 until 09/02/2019 [facility] Comment on above: 1 Occurrences starti ng 09/01/2018 until 09/02/2019 End: 03-23-2020 HbA1c (Bld) [Mass fraction] Hemoglobin A1c Lab Routine Type 1 diabetes mellitus with hyperglycemia (HCC) 1 Occurrences starting 03/23/2019 until 03/23/2020 [facility] Comment on above: 1 Occurrences starti ng 03/23/2019 until 03/23/2020 End: 12-16-2019 HbA1c (Bld) [Mass fraction] Hemoglobin A1c Lab Routine Type 1 diabetes mellitus with hyperglycemia (HCC) 1 Occurrences starting 12/15/2018 until 12/16/2019 [facility] Comment on above: 1 Occurrences starti ng 12/15/2018 until 12/16/2019 End: 10-13-2025 Hemoglobin A1c/Hemoglobin.total in Blood Hemoglobin A1c Lab Routine Type 1 diabetes mellitus with hyperglycemia (HCC) [E10.65] 1 Occurrences starting 10/12/2024 until 10/13/2025 [facility] Comment on above: 1 Occurrences starti ng 10/12/2024 until 10/13/2025 End: 02-05-2018 Hemoglobin A1c/Hemoglobin.total mass fraction (Bld) Hemoglobin A1c Routine Type 1 diabetes mellitus with hyperglycemia (HCC) Essential hypertension 1 Occurrences starting 02/05/2017 until 02/05/2018 [facility] Work Phone: End: 04-02-2019 Hemoglobin A1c/Hemoglobin.total mass fraction (Bld) Hemoglobin A1c Routine Type 1 diabetes mellitus with hyperglycemia (HCC) 1 Occurrences starting 04/01/2018 until 04/02/2019 [facility] Comment on above: 1 Occurrences starti ng 04/01/2018 until 04/02/2019 In-vitro immunologic test [facility] End: 04-02-2019 Lipid 1996 panel Lipid Panel Routine Type 1 diabetes mellitus with hyperglycemia (HCC) 1 Occurrences starting 04/01/2018 until 04/02/2019 [facility] Comment on above: 1 Occurrences starti ng 04/01/2018 until 04/02/2019 End: 12-16-2019 Lipid 1996 panel Lipid Panel Lab Routine Type 1 diabetes mellitus with hyperglycemia (HCC) 1 Occurrences starting 12/15/2018 until 12/16/2019 [facility] Comment on above: 1 Occurrences starti ng 12/15/2018 until 12/16/2019 End: 10-13-2025 Lipid 1996 panel - Serum or Plasma Lipid Panel Lab Routine Type 1 diabetes mellitus with hyperglycemia (HCC) [E10.65] 1 Occurrences starting 10/12/2024 until 10/13/2025 [facility] Comment on above: 1 Occurrences starti ng 10/12/2024 until 10/13/2025 End: 02-05-2018 Lipid panel Lipid Panel Routine Type 1 diabetes mellitus with hyperglycemia (HCC) Essential hypertension 1 Occurrences starting 02/05/2017 until 02/05/2018 [facility] Work Phone: End: 10-12-2025 Microalbumin measurement, urine, quantitative Microalbumin/Creatinin e Ratio, UR Random Lab Routine Type 1 diabetes mellitus with hyperglycemia (HCC) [E10.65] 1 Occurrences starting 10/12/2024 until 10/12/2025 [facility] Comment on above: 1 Occurrences starti ng 10/12/2024 until 10/12/2025 Mycobacterium tuberculosis tuberculin stimulated gamma interferon [Presence] in Blood [facility] End: 10-13-2025 Thyrotropin [Units/volume] in Serum or Plasma TSH Lab Routine Type 1 diabetes mellitus with hyperglycemia (HCC) [E10.65] 1 Occurrences starting 10/12/2024 until 10/13/2025 [facility] Comment on above: 1 Occurrences starti ng 10/12/2024 until 10/13/2025 End: 02-05-2018 Thyroxine (T4) free T4, Free Routine Type 1 diabetes mellitus with hyperglycemia (HCC) Essential hypertension 1 Occurrences starting 02/05/2017 until 02/05/2018 [facility] Work Phone: End: 10-13-2025 Thyroxine (T4) free [Mass/volume] in Serum or Plasma T4, Free Lab Routine Type 1 diabetes mellitus with hyperglycemia (HCC) [E10.65] 1 Occurrences starting 10/12/2024 until 10/13/2025 [facility] Comment on above: 1 Occurrences starti ng 10/12/2024 until 10/13/2025 End: 02-05-2018 TSH TSH Routine Type 1 diabetes mellitus with hyperglycemia (HCC) Essential hypertension 1 Occurrences starting 02/05/2017 until 02/05/2018 [facility] Work Phone: End: 09-02-2019 TSH Qn TSH Lab Routine Type 1 diabetes mellitus with hyperglycemia (HCC) 1 Occurrences starting 09/01/2018 until 09/02/2019 [facility] Comment on above: 1 Occurrences starti ng 09/01/2018 until 09/02/2019 End: 03-23-2020 TSH Qn TSH Lab Routine Type 1 diabetes mellitus with hyperglycemia (HCC) 1 Occurrences starting 03/23/2019 until 03/23/2020 [facility] Comment on above: 1 Occurrences starti ng 03/23/2019 until 03/23/2020 [facility] Immunizations Immunization Date Immunization Notes Care Provider Marion teran 05-12-2020 Pfizer SARS-CoV-2 Vaccination Alan Madrid [facility] 04-22-2020 Pfizer SARS-CoV-2 Vaccination Alan Madrid [facility] 01-15-2007 influenza virus vaccine, whole virus Mg Ndiaye Work Phone: [facility] Work Phone: 01-15-2007 influenza virus vaccine, unspecified formulation Loyd Jackson MD Work Phone: [facility] Work Phone: Payers Date Payer Category Payer Managed Care (Private) [employer] [id number] 2022 Self-pay 2021 Managed Care PPO (unspecified) [employer] PPO [id number] 2021 Unknown [id number] 2016 Unknown xxxxxxxxx [id number] 2016 Unknown [id number] 2015 Unknown 2015 Unknown [id number] [id number] 2014 Unknown [id number] 1968 Unknown [id number] 2.16.840.1.336180.3.579.2. 903 1968 Unknown [id number] 2.16.840.1.043498.3.579.2. 124 1968 Unknown [id number] 2.16.840.1.093971.3.579.2. 1243 1968 Unknown [id number] 2.16.840.1.707588.3.579.2. 1242 1968 Unknown [id number] 2.16.840.1.159168.3.579.2. 1242 1968 Unknown [id number] 2.16.840.1.796467.3.579.2. 1242 1968 Unknown [id number] 2.16.840.1.514560.3.579.2. 1968 Unknown [id number] 2.16.840.1.561817.3.579.2. 1968 Unknown [id number] 2.16.840.1.454013.3.579.2. 90 1968 Unknown [id number] 2.16.840.1.492124.3.579.2. 90 1968 Unknown [id number] 2.16.840.1.811351.3.579.2. 1968 Unknown [id number] 2.16.840.1.200516.3.579.2. 1968 Unknown [id number] 2.16.840.1.885203.3.579.2. 90 1968 Unknown [id number] 2.16.840.1.785795.3.579.2. 90 Unknown [id number] 2.16.840.1.000211.3.579.2. 462 Social History Date Type Detail Facility Start: 05-30-2017 End: 08-11-2021 Tobacco smoking status NHIS Former smoker [facility] Work Phone: Start: 1970 Sex Assigned At Not on file [facility] Work Phone: Start: 06-11-2016 End: 08-11-2021 Tobacco Comment quit 14 years ago [facility] Start: 03-23-2019 End: 10-12-2024 Alcohol intake Current non-drinker of alcohol (finding) [facility] Start: 08-01-2021 End: 05-04-2024 Exposure to SARS-CoV-2 (event) Not sure [facility] Start: 02-01-2020 End: 08-11-2021 Tobacco use and exposure Never used [facility] Start: 08-11-2021 End: 10-12-2024 Former smoker Former smoker [facility] Work Phone: History of tobacco use [facility] Start: 1970 Sex Assigned At Female [facility] Start: 04-30-2022 End: 10-12-2024 Tobacco use panel [facility] History of tobacco use Cigarette Smoker [facility] Work Phone: Start: 03-06-2023 End: 05-04-2024 Alcohol intake Lifetime non-drinker (finding) [facility] Work Phone: Within the last year , have you been afraid of your partner or ex-partner? No [facility] Work Phone: How often to you hav e a drink containing alcohol? Never [facility] Work Phone: Average Number of Drinks Not on file [facility] Work Phone: Do you feel stress - tense, restless, nervous, or anxious, or unable to sleep at night because your mind is troubled all the time - these days [OSQ] Not at all [facility] Work Phone: Medical Equipment Procedure Code Equipment Code Equipment Origin al Text Equipment Identifier Dates One Touch Ultra test strips. Use as directed, 6 times daily. E10.65. [id number] Start: 11-28-2017 End: 02-04-2019 Use as directed QID. [id number] Star t: 05-30-2017 End: 12-11-2021 Accu-chek test strips. Use as directed, 4 times daily. E10.65 . [id number] Start: 03-12-2019 Accu-chek test strips. Use as directed, 4 times daily. E10.65 . [id number] Start: 04-14-2019 End: 12-11-2021 Accu-chek test strips SAMI. Use as directed, 4 times daily. E10.65 . [id number] Start: 12-11-2021 Inject 1 Device under the skin 4 (four) times a day Use as directed QID . [id number] Start: 12-11-2021 End: 03-13-2022 Inject 1 Device under the skin 5 (five) times a day . [id number] Start: 03-13-2022 End: 05-24-2023 Inject insulin u p to 5 times daily . . [id number] Start: 05-24-2023 Accu-chek test strips SAMI. Use as directed, 4 times daily. E10.65 . [id number] Start: 12-23-2023 Clinical Notes 08-08-2020 to 10-12-2024 lAan Madrid CNP - 10/12/2024 9:30 AM Alan Orozco CNP - 06/05/2024 1:19 PM Geraldo Love APRN-[facility] - 05/04/2024 10:05 AM Rommel Jackson MD - 03/09/2024 8:30 AM EST Note Date & Type Note Facility 10-12-2024 Note +Patient ID: Gregoria Bai is a 54 y.o. female 1970 Subjective: HPI: Gregoria Bai presents for follow-up of Type 1 diabetes The initial diagnosis of gestational diabetes was made 26 years ago in 1997. One year later she developed Type 2 and was on oral agents for ~ 4 years, then started on Insulin and her diagnosis was changed to Type 1 Diabetes, confirmed with labs on 06/14/16. Started omnipod 5 insulin pump 05/30/24 Dexcom downloaded and reviewed by this provider 10/12/24 Patient is following a diabetic diet intermittently Meal planning includes avoidance of concentrated sweets. She was able to meet with a intensive care specialist once. Currently taking: Humalog U-200 in Omnipod insulin pump Current pump settings: BASAL RATES: Time U/Hr. 0000 1.3 0600 1.4 Insulin to Carb Ratio: 0000 1:7 Sensitivity: 0000 1:30 Target B Correct Above: 150 Attempted ozempic in August 2021, however reported increased heartburn days 3-4 after injection. Outpatient Medications Marked as Taking for the 10/12/24 encounter (Office Visit) with Alan Madrid CNP: blood sugar diagnostic strips, Accu-chek test strips SAMI. Use as directed, 4 times daily. E10.65 . blood-glucose meter (Accu-Chek Kiki Plus Meter) [facility] [place] BG 4x daily. DX code E10.65 Use Accu-chek brand . cholecalciferol, vitamin D3, 1,000 unit tablet, Take 1 (one) tablet (1,000 Units total) by mouth daily . esomeprazole (NEXIUM) 20 MG capsule, Take 1 (one) capsule (20 mg total) by mouth every morning before breakfast . insulin lispro (HumaLOG KwikPen Insulin) 200 unit/mL (3 mL) InPn, Inject 60 (sixty) Units under the skin 3 (three) times a day . insulin x ray service engineer cart,aut,G6/7,cntr (Omnipod 5 G6-G7 Intro Kt,Gen5,) Crtg, Inject 1 Device under the skin daily . insulin pump cart,auto,BT,G6/7 (Omnipod 5 G6-G7 Pods, Gen 5,) Crtg, Inject 1 Device under the skin every other day . levothyroxine (SYNTHROID, LEVOTHROID) 137 MCG tablet, Take 1 (one) tablet (137 mcg total) by mouth daily . lisinopriL (PRINIVIL,ZESTRIL) 40 MG tablet, Take 1 (one) tablet (40 mg total) by mouth daily . pen needle, diabetic 31 gauge x 5/16" Ndle, Inject insulin up to 5 times daily . . rosuvastatin (CRESTOR) 20 MG tablet, Take 1 (one) tablet (20 mg total) by mouth daily . Skyrizi 150 mg/mL Pen, Review of Systems: Review of Systems Constitutional: Negative for activity change and unexpected weight change. HENT: Negative for trouble swallowing and voice change. Eyes: Negative for visual disturbance. Respiratory: Negative for cough and shortness of breath. Cardiovascular: Negative for chest pain, palpitations and leg swelling. Gastrointestinal: Negative for constipation, diarrhea, nausea and vomiting. Endocrine: Negative for cold intolerance, heat intolerance, polydipsia, polyphagia and polyuria. Genitourinary: Negative for dysuria. Skin: Chronic dry patches on extremities r/t psoriasis. Improving with Stelara Neurological: Negative for dizziness, tremors, light-headedness and numbness. Psychiatric/Behavioral: Negative for sleep disturbance. The following portions of the patient's history were reviewed and updated as appropriate: allergies, current medications, past family history, past medical history, past social history, past surgical history and problem list. Objective: BP 125/79 Pulse (!) 103 Wt 98 kg (216 lb) BMI 39.51 kg/m Wt Readings from Last 3 Encounters: 10/12/24 98 kg (216 lb) 06/05/24 97.7 kg (215 lb 4.8 oz) 12/23/23 100.5 kg (221 lb 8 oz) Physical Exam: General: alert, appears stated age and cooperative Eyes: conjunctivae/corneas clear. PERRL, EOM's intact. Neck: no adenopathy, supple, symmetrical, trachea midline. Thyroid: No thyromegaly appreciated. Skin is moist Lung: clear to auscultation bilaterally slightly diminished. Heart: regular rate and rhythm, S1, S2 normal, no murmur, click, rub or gallop Extremities: extremities normal, atraumatic, no cyanosis or edema Feet: Dry skin and psporiasis on legs bilaterally, Diabetic Foot Exam: Right Foot: warm, good capillary refill, normal DP and PT pulses, and normal sensory exam Left Foot: warm, good capillary refill, normal DP and PT pulses, normal monofilament exam, and normal sensory exam . Monofilament exam not assessed, bilateral lower extremities. Neuro: normal without focal findings, mental status, speech normal, alert and oriented x3 and JENNIFER Lab Review Date: 10/08/24: *labs reviewed 10/12/24 Hgb A1c: 7.8% Creat: 0.68; eGFR: 102 AST: 14; ALT: 15 K: 4.1 TSH: 1.15 ; FreeT4: 1.4 06/03/24 Hgb A1c: 10.9% Creat: 0.58; eGFR: 107 AST: 16; ALT: 17 K: 4.1 TSH: 0.92 ; FreeT4: 1.6 12/23/23 Hgb A1c: 11.1% Creat: 0.70; eGFR: 102 AST: 14; ALT: 19 K: 4.3 CBC: WBC:8.9; Hgb: 14.7; Hct: 46.4; Plt: 205 Tchol: 179; Tri ; HDL: 39 ; LDL: 108 TSH: 2.80 ; FreeT4: 1.3 Microalbumin/creatinine Ratio: 28 05/22/23 Hgb A1c (more content not included)... [facility] 10-12-2024 History of Present illness Narrative Images from the original note were not included. +Patient ID: Gregoria Bai is a 54 y.o. female 1970 Subjective: HPI: Gregoria Bai presents for follow-up of Type 1 diabetes The initial diagnosis of gestational diabetes was made 26 years ago in 1997. One year later she developed Type 2 and was on oral agents for ~ 4 years, then started on Insulin and her diagnosis was changed to Type 1 Diabetes, confirmed with labs on 06/14/16. Started omnipod 5 insulin pump 05/30/24 Dexcom downloaded and reviewed by this provider 10/12/24 Patient is following a diabetic diet intermittently Meal planning includes avoidance of concentrated sweets. She was able to meet with a intensive care specialist once. Currently taking: Humalog U-200 in Omnipod insulin pump Current pump settings: BASAL RATES: Time U/Hr. 0000 1.3 0600 1.4 Insulin to Carb Ratio: 0000 1:7 Sensitivity: 0000 1:30 Target B Correct Above: 150 Attempted ozempic in August 2021, however reported increased heartburn days 3-4 after injection. Outpatient Medications Marked as Taking for the 10/12/24 encounter (Office Visit) with Alan Madrid CNP: blood sugar diagnostic strips, Accu-chek test strips SAMI. Use as directed, 4 times daily. E10.65 . blood-glucose meter (Accu-Chek Kiki Plus Meter) [facility] [place] BG 4x daily. DX code E10.65 Use Accu-chek brand . cholecalciferol, vitamin D3, 1,000 unit tablet, Take 1 (one) tablet (1,000 Units total) by mouth daily . esomeprazole (NEXIUM) 20 MG capsule, Take 1 (one) capsule (20 mg total) by mouth every morning before breakfast . insulin lispro (HumaLOG KwikPen Insulin) 200 unit/mL (3 mL) InPn, Inject 60 (sixty) Units under the skin 3 (three) times a day . insulin x ray service engineer cart,aut,G6/7,cntr (Omnipod 5 G6-G7 Intro Kt,Gen5,) Crtg, Inject 1 Device under the skin daily . insulin pump cart,auto,BT,G6/7 (Omnipod 5 G6-G7 Pods, Gen 5,) Crtg, Inject 1 Device under the skin every other day . levothyroxine (SYNTHROID, LEVOTHROID) 137 MCG tablet, Take 1 (one) tablet (137 mcg total) by mouth daily . lisinopriL (PRINIVIL,ZESTRIL) 40 MG tablet, Take 1 (one) tablet (40 mg total) by mouth daily . pen needle, diabetic 31 gauge x 5/16" Ndle, Inject insulin up to 5 times daily . . rosuvastatin (CRESTOR) 20 MG tablet, Take 1 (one) tablet (20 mg total) by mouth daily . Skyrizi 150 mg/mL Pen, Review of Systems: Review of Systems Constitutional: Negative for activity change and unexpected weight change. HENT: Negative for trouble swallowing and voice change. Eyes: Negative for visual disturbance. Respiratory: Negative for cough and shortness of breath. Cardiovascular: Negative for chest pain, palpitations and leg swelling. Gastrointestinal: Negative for constipation, diarrhea, nausea and vomiting. Endocrine: Negative for cold intolerance, heat intolerance, polydipsia, polyphagia and polyuria. Genitourinary: Negative for dysuria. Skin: Chronic dry patches on extremities r/t psoriasis. Improving with Stelara Neurological: Negative for dizziness, tremors, light-headedness and numbness. Psychiatric/Behavioral: Negative for sleep disturbance. The following portions of the patient's history were reviewed and updated as appropriate: allergies, current medications, past family history, past medical history, past social history, past surgical history and problem list. Objective: BP 125/79 Pulse (!) 103 Wt 98 kg (216 lb) BMI 39.51 kg/m Wt Readings from Last 3 Encounters: 10/12/24 98 kg (216 lb) 06/05/24 97.7 kg (215 lb 4.8 oz) 12/23/23 100.5 kg (221 lb 8 oz) Physical Exam: General: alert, appears stated age and cooperative Eyes: conjunctivae/corneas clear. PERRL, EOM's intact. Neck: no adenopathy, supple, symmetrical, trachea midline. Thyroid: No thyromegaly appreciated. Skin is moist Lung: clear to auscultation bilaterally slightly diminished. Heart: regular rate and rhythm, S1, S2 normal, no murmur, click, rub or gallop Extremities: extremities normal, atraumatic, no cyanosis or edema Feet: Dry skin and psporiasis on legs bilaterally, Diabetic Foot Exam: Right Foot: warm, good capillary refill, normal DP and PT pulses, and normal sensory exam Left Foot: warm, good capillary refill, normal DP and PT pulses, normal monofilament exam, and normal sensory exam . Monofilament exam not assessed, bilateral lower extremities. Neuro: normal without focal findings, mental status, speech normal, alert and oriented x3 and JENNIFER Lab Review Date: 10/08/24: *labs reviewed 10/12/24 Hgb A1c: 7.8% Creat: 0.68; eGFR: 102 AST: 14; ALT: 15 K: 4.1 TSH: 1.15 ; FreeT4: 1.4 06/03/24 Hgb A1c: 10.9% Creat: 0.58; eGFR: 107 AST: 16; ALT: 17 K: 4.1 TSH: 0.92 ; FreeT4: 1.6 12/23/23 Hgb A1c: 11.1% Creat: 0.70; eGFR: 102 AST: 14; ALT: 19 K: 4.3 CBC: WBC:8.9; Hgb: 14.7; Hct: 46.4; Plt: 205 Tchol: 179; Tri ; HDL: 39 ; LDL: 108 TSH: 2.80 ; FreeT4: 1.3 Microalbumin/creatinine Ratio: 28 05/22/23 Hgb A1c: 10.3% Creat: 0.69; eGFR: >90 AST: 14; ALT: 15 K: 4.3 TSH: 3.34 ; FreeT4: 0.87 09/28/22 Hgb A1c: 9.5% Creat: 0.74; eGFR: >90 AST: 13; ALT: 16 K: 4.0 TSH: 3.79 ; FreeT4: 1.09 04/11/22 Hgb A1c: 10.2% Creat: 0.78; eGFR: 90 AST: 23; ALT: 27 K: 3.7 Tchol: 142; Tri ; HDL: 32 ; LDL: 88 12/02/21 Hgb A1c: 9.8% Creat: 0.74; eGFR: 105 AST: 10; ALT: 16 K: 4.1 TSH: 1.730 07/17/21 Hgb A1c: 9.7% Creat: 0.67; eGFR: 105 AST: 15; ALT: 18 K: 3.9 TSH: 3.850 ; FreeT4: 1.23 10/21/20 Hgb A1c: 9.2% Creat: 0.71; eGFR: 98 AST: 17; ALT: 20 K: 4.0 CBC: WBC:7.70; Hgb: 14.2; Hct: 42.6; Plt: 186 Tchol: 127; Tri; HDL: 33 ; LDL: 71 TSH: 7.180 ; FreeT4: 1.16 Microalbumin/creatinine Ratio: 9 06/02/20 Hgb A1c: 8.3% Creat: 0.71; eGFR: 99 AST: 15; ALT: 17 K: 4.6 01/29/20 Hgb A1c: 10.8% Creat: 0.73; eGFR: 96 AST: 17; ALT: 18 K: 4.1 TSH: 2.55 ; FreeT4: 1.35 08/28/19 Hgb A1c: 10.1% Creat: 0.82; eGFR: 83 AST: 16; ALT: 21 K: 4.0 TSH: 2.890 ; FreeT4: 1.32 03/20/19 Hgb A1c: 11.2% Creat: 0.75; eGFR: 93 AST: 13; ALT: 17 K: 3.8 Tchol: 158; Tri ; HDL: 39 ; LDL: 93 12/09/18 Hemoglobin A1c 10.1% Creatinine 0.71, estimated GFR 100, K4.5 AST 18, ALT 21 TSH 1.7, free T4--1.32 Microalbumin/creatinine ratio 4.5 08/28/2018 Hemoglobin A1c 9.4% Creatinine 0.70, estimated GFR 101, K3.8 AST 15, ALT 17 T cholesterol 194, TG 172, HDL 40, LDL at 120 CBC: H/H 13.9/41.1, WBC 7.60, platelets 206,000 03/29/18 Hgb A1c: 9.4% Creat: 0.8; eGFR: >60 AST: 15; ALT: 16 K: 4.0 TSH: 0.36 ; FreeT4: 1.18 11/26/17 Hgb A1c: 9.2% Creat: 0.6; eGFR: >60 AST: 22; ALT: 19 K: 3.9 05/28/17 Creat: 0.6 AST: 24; ALT: 25 K: 3.5 CBC: WBC:8.2; Hgb: 14.4; Hct: 43.0; Plt: 204 Tchol: 162; Tri ; HDL: 34 ; LDL: 89 TSH: 1.69 ; FreeT4: 0.99 02/01/17 Hgb A1C 9.6% 10/03/16 Hgb A1c: 8.7% Creat: 0.82 AST: 18; ALT: 29 K: 4.3 06/14/16 C Peptide: <0.1 ASHANTI 65 Antibody >250.0 Assessment: Dx: 1. Type 1 diabetes mellitus with hyperglycemia (HCC) [E10.65] Type 1 diabetes, under poor control Patient is currently managed with: Humalog U-200 in omnipod 5 Most recent Hgb A1c was 7.8%, improved from 10.9% Patient bases insulin injection amount based on BG and meal content. She has not specific formula or pattern. She reports missing some injections leading to hyperglycemia. Reports not exercising, not following diet closely. Retinopathy: Negative Exam within last 12 months: yes Date: 12/25.With Dr. Resendiz in [place]. Evidence of early mild BACTERIOLOGIST PHARMACEUTICAL in left eye 07/21, has follow up 01/21. for the management of Mild BACTERIOLOGIST PHARMACEUTICAL and Glaucoma. Diagnosed with optic nerve swelling following short (possibly viral) GI illness, could also be secondary to stroke or TIA. However unlikely due to no other symptoms. Bartender Server recommended against taking GLP/GIP. Nephropathy: Negative 12/23/23 Creat: 0.70; eGFR: 102; Mialb/creat ratio: 28 , patient takes lisinopril (Prinivil) Peripheral Neuropathy: Negative Denies symptoms associated with neuropathy (numbness and/or tingling). Occasional pains. Autonomic Neuropathy: Negative Patient aware of lows. Hyperlipidemia: Positive Currently taking: rosuvastatin (Crestor). LFT's WNL. Hypertension: Positive. Currently taking: lisinopril (Prinivil) BP: 125/79 Stable-Goal <130/80 Cardiac: Negative Denies Chest pain or SOB at this time. Does have occasional palpitations-needs to check blood sugars when she are having these. Vascular: Negative no edema Feet: Negative sores or lesions at this time. Last foot exam: 10/12/24 Thyroid: Positive. Takes levothyroxine 137 mcg daily. Patient has history of hypothyroidism after her in 1997. 12/20/23: TSH 2.8, free T4--1.3. PLAN: Continue 137 mcg Other: Psoriasis: Currently taking Stelara now instead of Humira per a shorer. She is pleased with this. Plan: Type 1 diabetes mellitus with hyperglycemia (HCC) [E10.65] 1. Rx changes: Continue current regimen Continue checking her BG 4 times a day and get control of her Blood sugars. DexCom CGM BASAL RATES: Time U/Hr. 0000 1.3 0600 1.4 Insulin to Carb Ratio: 0000 1:7 1100 1:7--->6 Sensitivity: 0000 1:30 1100 1:30--->25 Target B--->120 Correct Above: 140--->120 Mrs. Bai would benefit from Continued use of continuous glucose monitoring system. Patient has had Type 1 diabetes for 19 years. Complications include diabetic neuropathy and autonomic neuropathy with hypoglycemic unawareness Patient is currently managed with: insulin injections Patient has been checking their blood sugar 4 times per day Patient's most recent Hgb A1c was 10.9% on 10/26. Patient's HGb is <6.0% or >8.5% Patient currently takes humalog and basaglar insulin injections 4 times daily. Patient is positive for a history of hypoglycemic unawareness Patient has inadequate control despite compliance with multiple alterations in insulin doses/medication regimen. 2. Education: Reviewed ABCs of diabetes management (respective goals in parentheses): A1C (7.0-8.0), blood pressure (<130/80), and cholesterol (LDL <100). 3. Compliance at present is estimated to be fair. Efforts to improve compliance (if necessary) will be directed at dietary modifications: Limit portion sizes, Limit starches, carbohydrates and concentrated sugar sources and following with a intensive care specialist if insurance permits, increased exercise and regular blood sugar monitorin-6 times daily. 4. Follow up: 4 months 5. Record blood sugar readings as instructed. Call if BG consistently <70 or >250. [phone] Check blood sugar 3-4 times daily and as needed. May call in readings if blood glucose readings continue to stay elevated or drop too low. 6. Bring blood sugar meter to follow up appointment. Orders Placed This Encounter Procedures Comprehensive Metabolic Panel CBC and Differential Lipid Panel Hemoglobin A1c Microalbumin/Creatinine Ratio, UR Random T4, Free TSH AR TELEPHONE ORDER CLERK (MONITOR); EXTERNAL, FOR USE WITH NONDURABLE MEDICAL EQUIPMENT INTERSTITIAL CONTINUOUS GLUCOSE MONITORING SYSTEM (CGM) Electronically Signed by: Alan Madrid CNP 10/12/24 7:30 AM documented in this encounter [facility] 06-05-2024 Note +Patient ID: Gregoria Bai is a 53 y.o. female 1970 Subjective: HPI: Gregoria Bai presents for follow-up of Type 1 diabetes The initial diagnosis of gestational diabetes was made 26 years ago in 1997. One year later she developed Type 2 and was on oral agents for ~ 4 years, then started on Insulin and her diagnosis was changed to Type 1 Diabetes, confirmed with labs on 06/14/16. Started omnipod 5 insulin pump 05/30/24 Dexcom downloaded and reviewed by this provider 06/05/24 Patient is following a diabetic diet intermittently Meal planning includes avoidance of concentrated sweets. She was able to meet with a intensive care specialist once. Currently taking: Humalog U-200 in Omnipod insulin pump Current pump settings: BASAL RATES: Time U/Hr. 0000 1.5 0600 1.6 Insulin to Carb Ratio: 0000 1:8 Sensitivity: 0000 1:30 Target B Correct Above: 150 She also is following a standard sliding scale Humalog with meals (Greater than 150-200 extra 2 units, 201-150 extra 4 units...) Attempted ozempic in August 2021, however reported increased heartburn days 3-4 after injection. Outpatient Medications Marked as Taking for the 06/05/24 encounter (Office Visit) with Alan Madrid CNP: blood sugar diagnostic strips, Accu-chek test strips SAMI. Use as directed, 4 times daily. E10.65 . blood-glucose meter (Accu-Chek Kiki Plus Meter) [facility] [place] BG 4x daily. DX code E10.65 Use Accu-chek brand . cholecalciferol, vitamin D3, 1,000 unit tablet, Take 1 (one) tablet (1,000 Units total) by mouth daily . esomeprazole (NEXIUM) 20 MG capsule, Take 1 (one) capsule (20 mg total) by mouth every morning before breakfast . insulin lispro (HumaLOG KwikPen Insulin) 200 unit/mL (3 mL) InPn, Inject 60 (sixty) Units under the skin 3 (three) times a day . insulin x ray service engineer cart,aut,G6/7,cntr (Omnipod 5 G6-G7 Intro Kt,Gen5,) Crtg, Inject 1 Device under the skin daily . insulin pump cart,auto,BT,G6/7 (Omnipod 5 G6-G7 Pods, Gen 5,) Crtg, Inject 1 Device under the skin every other day . levothyroxine (SYNTHROID, LEVOTHROID) 137 MCG tablet, Take 1 (one) tablet (137 mcg total) by mouth daily . lisinopriL (PRINIVIL,ZESTRIL) 40 MG tablet, Take 1 (one) tablet (40 mg total) by mouth daily . pen needle, diabetic 31 gauge x 5/16" Ndle, Inject insulin up to 5 times daily . . rosuvastatin (CRESTOR) 20 MG tablet, Take 1 (one) tablet (20 mg total) by mouth daily . STELARA 45 mg/0.5 mL Syrg, Review of Systems: Review of Systems Constitutional: Negative for activity change and unexpected weight change. HENT: Negative for trouble swallowing and voice change. Eyes: Negative for visual disturbance. Respiratory: Negative for cough and shortness of breath. Cardiovascular: Negative for chest pain, palpitations and leg swelling. Gastrointestinal: Negative for constipation, diarrhea, nausea and vomiting. Endocrine: Negative for cold intolerance, heat intolerance, polydipsia, polyphagia and polyuria. Genitourinary: Negative for dysuria. Skin: Chronic dry patches on extremities r/t psoriasis. Improving with Stelara Neurological: Negative for dizziness, tremors, light-headedness and numbness. Psychiatric/Behavioral: Negative for sleep disturbance. The following portions of the patient's history were reviewed and updated as appropriate: allergies, current medications, past family history, past medical history, past social history, past surgical history and problem list. Objective: BP 125/82 Pulse 90 Wt 97.7 kg (215 lb 4.8 oz) BMI 39.38 kg/m Wt Readings from Last 3 Encounters: 06/05/24 97.7 kg (215 lb 4.8 oz) 12/23/23 100.5 kg (221 lb 8 oz) 05/24/23 102.5 kg (226 lb) Physical Exam: General: alert, appears stated age and cooperative Eyes: conjunctivae/corneas clear. PERRL, EOM's intact. Neck: no adenopathy, supple, symmetrical, trachea midline. Thyroid: No thyromegaly appreciated. Skin is moist Lung: clear to auscultation bilaterally slightly diminished. Heart: regular rate and rhythm, S1, S2 normal, no murmur, click, rub or gallop Extremities: extremities normal, atraumatic, no cyanosis or edema Feet: Dry skin and psporiasis on legs bilaterally, Diabetic Foot Exam: Right Foot: warm, good capillary refill, normal DP and PT pulses, and normal sensory exam Left Foot: warm, good capillary refill, normal DP and PT pulses, normal monofilament exam, and normal sensory exam . Monofilament exam not assessed, bilateral lower extremities. Neuro: normal without focal findings, mental status, speech normal, alert and oriented x3 and JENNIFER Lab Review Date: 06/03/24 *labs reviewed 06/05/24 Hgb A1c: 10.9% Creat: 0.58; eGFR: 107 AST: 16; ALT: 17 K: 4.1 TSH: 0.92 ; FreeT4: 1.6 12/23/23 Hgb A1c: 11.1% Creat: 0.70; eGFR: 102 AST: 14; ALT: 19 K: 4.3 CBC: WBC:8.9; Hgb: 14.7; Hct: 46.4; Plt: 205 Tchol: 179; Tri ; HDL: 39 ; LDL: 108 TSH: 2.80 ; FreeT4: 1.3 Microalbumin/cr (more content not included)... [facility] 06-05-2024 History of Present illness Narrative Images from the original note were not included. +Patient ID: Gregoria Bai is a 53 y.o. female 1970 Subjective: HPI: Gregoria Bai presents for follow-up of Type 1 diabetes The initial diagnosis of gestational diabetes was made 26 years ago in 1997. One year later she developed Type 2 and was on oral agents for ~ 4 years, then started on Insulin and her diagnosis was changed to Type 1 Diabetes, confirmed with labs on 06/14/16. Started omnipod 5 insulin pump 05/30/24 Dexcom downloaded and reviewed by this provider 06/05/24 Patient is following a diabetic diet intermittently Meal planning includes avoidance of concentrated sweets. She was able to meet with a intensive care specialist once. Currently taking: Humalog U-200 in Omnipod insulin pump Current pump settings: BASAL RATES: Time U/Hr. 0000 1.5 0600 1.6 Insulin to Carb Ratio: 0000 1:8 Sensitivity: 0000 1:30 Target B Correct Above: 150 She also is following a standard sliding scale Humalog with meals (Greater than 150-200 extra 2 units, 201-150 extra 4 units...) Attempted ozempic in August 2021, however reported increased heartburn days 3-4 after injection. Outpatient Medications Marked as Taking for the 06/05/24 encounter (Office Visit) with Alan Madrid CNP: blood sugar diagnostic strips, Accu-chek test strips SAMI. Use as directed, 4 times daily. E10.65 . blood-glucose meter (Accu-Chek Kiki Plus Meter) [facility] [place] check BG 4x daily. DX code E10.65 Use Accu-chek brand . cholecalciferol, vitamin D3, 1,000 unit tablet, Take 1 (one) tablet (1,000 Units total) by mouth daily . esomeprazole (NEXIUM) 20 MG capsule, Take 1 (one) capsule (20 mg total) by mouth every morning before breakfast . insulin lispro (HumaLOG KwikPen Insulin) 200 unit/mL (3 mL) InPn, Inject 60 (sixty) Units under the skin 3 (three) times a day . insulin x ray service engineer cart,aut,G6/7,cntr (Omnipod 5 G6-G7 Intro Kt,Gen5,) Crtg, Inject 1 Device under the skin daily . insulin pump cart,auto,BT,G6/7 (Omnipod 5 G6-G7 Pods, Gen 5,) Crtg, Inject 1 Device under the skin every other day . levothyroxine (SYNTHROID, LEVOTHROID) 137 MCG tablet, Take 1 (one) tablet (137 mcg total) by mouth daily . lisinopriL (PRINIVIL,ZESTRIL) 40 MG tablet, Take 1 (one) tablet (40 mg total) by mouth daily . pen needle, diabetic 31 gauge x 5/16" Ndle, Inject insulin up to 5 times daily . . rosuvastatin (CRESTOR) 20 MG tablet, Take 1 (one) tablet (20 mg total) by mouth daily . STELARA 45 mg/0.5 mL Syrg, Review of Systems: Review of Systems Constitutional: Negative for activity change and unexpected weight change. HENT: Negative for trouble swallowing and voice change. Eyes: Negative for visual disturbance. Respiratory: Negative for cough and shortness of breath. Cardiovascular: Negative for chest pain, palpitations and leg swelling. Gastrointestinal: Negative for constipation, diarrhea, nausea and vomiting. Endocrine: Negative for cold intolerance, heat intolerance, polydipsia, polyphagia and polyuria. Genitourinary: Negative for dysuria. Skin: Chronic dry patches on extremities r/t psoriasis. Improving with Stelara Neurological: Negative for dizziness, tremors, light-headedness and numbness. Psychiatric/Behavioral: Negative for sleep disturbance. The following portions of the patient's history were reviewed and updated as appropriate: allergies, current medications, past family history, past medical history, past social history, past surgical history and problem list. Objective: BP 125/82 Pulse 90 Wt 97.7 kg (215 lb 4.8 oz) BMI 39.38 kg/m Wt Readings from Last 3 Encounters: 06/05/24 97.7 kg (215 lb 4.8 oz) 12/23/23 100.5 kg (221 lb 8 oz) 05/24/23 102.5 kg (226 lb) Physical Exam: General: alert, appears stated age and cooperative Eyes: conjunctivae/corneas clear. PERRL, EOM's intact. Neck: no adenopathy, supple, symmetrical, trachea midline. Thyroid: No thyromegaly appreciated. Skin is moist Lung: clear to auscultation bilaterally slightly diminished. Heart: regular rate and rhythm, S1, S2 normal, no murmur, click, rub or gallop Extremities: extremities normal, atraumatic, no cyanosis or edema Feet: Dry skin and psporiasis on legs bilaterally, Diabetic Foot Exam: Right Foot: warm, good capillary refill, normal DP and PT pulses, and normal sensory exam Left Foot: warm, good capillary refill, normal DP and PT pulses, normal monofilament exam, and normal sensory exam . Monofilament exam not assessed, bilateral lower extremities. Neuro: normal without focal findings, mental status, speech normal, alert and oriented x3 and JENNIFER Lab Review Date: 06/03/24 *labs reviewed 06/05/24 Hgb A1c: 10.9% Creat: 0.58; eGFR: 107 AST: 16; ALT: 17 K: 4.1 TSH: 0.92 ; FreeT4: 1.6 12/23/23 Hgb A1c: 11.1% Creat: 0.70; eGFR: 102 AST: 14; ALT: 19 K: 4.3 CBC: WBC:8.9; Hgb: 14.7; Hct: 46.4; Plt: 205 Tchol: 179; Tri ; HDL: 39 ; LDL: 108 TSH: 2.80 ; FreeT4: 1.3 Microalbumin/creatinine Ratio: 28 05/22/23 Hgb A1c: 10.3% Creat: 0.69; eGFR: >90 AST: 14; ALT: 15 K: 4.3 TSH: 3.34 ; FreeT4: 0.87 09/28/22 Hgb A1c: 9.5% Creat: 0.74; eGFR: >90 AST: 13; ALT: 16 K: 4.0 TSH: 3.79 ; FreeT4: 1.09 04/11/22 Hgb A1c: 10.2% Creat: 0.78; eGFR: 90 AST: 23; ALT: 27 K: 3.7 Tchol: 142; Tri ; HDL: 32 ; LDL: 88 12/02/21 Hgb A1c: 9.8% Creat: 0.74; eGFR: 105 AST: 10; ALT: 16 K: 4.1 TSH: 1.730 07/17/21 Hgb A1c: 9.7% Creat: 0.67; eGFR: 105 AST: 15; ALT: 18 K: 3.9 TSH: 3.850 ; FreeT4: 1.23 10/21/20 Hgb A1c: 9.2% Creat: 0.71; eGFR: 98 AST: 17; ALT: 20 K: 4.0 CBC: WBC:7.70; Hgb: 14.2; Hct: 42.6; Plt: 186 Tchol: 127; Tri; HDL: 33 ; LDL: 71 TSH: 7.180 ; FreeT4: 1.16 Microalbumin/creatinine Ratio: 9 06/02/20 Hgb A1c: 8.3% Creat: 0.71; eGFR: 99 AST: 15; ALT: 17 K: 4.6 01/29/20 Hgb A1c: 10.8% Creat: 0.73; eGFR: 96 AST: 17; ALT: 18 K: 4.1 TSH: 2.55 ; FreeT4: 1.35 08/28/19 Hgb A1c: 10.1% Creat: 0.82; eGFR: 83 AST: 16; ALT: 21 K: 4.0 TSH: 2.890 ; FreeT4: 1.32 03/20/19 Hgb A1c: 11.2% Creat: 0.75; eGFR: 93 AST: 13; ALT: 17 K: 3.8 Tchol: 158; Tri ; HDL: 39 ; LDL: 93 12/09/18 Hemoglobin A1c 10.1% Creatinine 0.71, estimated GFR 100, K4.5 AST 18, ALT 21 TSH 1.7, free T4--1.32 Microalbumin/creatinine ratio 4.5 08/28/2018 Hemoglobin A1c 9.4% Creatinine 0.70, estimated GFR 101, K3.8 AST 15, ALT 17 T cholesterol 194, TG 172, HDL 40, LDL at 120 CBC: H/H 13.9/41.1, WBC 7.60, platelets 206,000 03/29/18 Hgb A1c: 9.4% Creat: 0.8; eGFR: >60 AST: 15; ALT: 16 K: 4.0 TSH: 0.36 ; FreeT4: 1.18 11/26/17 Hgb A1c: 9.2% Creat: 0.6; eGFR: >60 AST: 22; ALT: 19 K: 3.9 05/28/17 Creat: 0.6 AST: 24; ALT: 25 K: 3.5 CBC: WBC:8.2; Hgb: 14.4; Hct: 43.0; Plt: 204 Tchol: 162; Tri ; HDL: 34 ; LDL: 89 TSH: 1.69 ; FreeT4: 0.99 02/01/17 Hgb A1C 9.6% 10/03/16 Hgb A1c: 8.7% Creat: 0.82 AST: 18; ALT: 29 K: 4.3 06/14/16 C Peptide: <0.1 ASHANTI 65 Antibody >250.0 Assessment: Dx: 1. Type 1 diabetes mellitus with hyperglycemia (HCC) Comprehensive Metabolic Panel Hemoglobin A1c T4, Free TSH 2. Hypothyroidism, unspecified type T4, Free TSH Type 1 diabetes, under poor control Patient is currently managed with: Humalog with meals and Basaglar at bedtime. Most recent Hgb A1c was 11.1% Patient bases insulin injection amount based on BG and meal content. She has not specific formula or pattern. She reports missing some injections leading to hyperglycemia. Reports not exercising, not following diet closely. Retinopathy: Negative Exam within last 12 months: yes Date: 12/25.With Dr. Resendiz in [place]. Evidence of early mild BACTERIOLOGIST PHARMACEUTICAL in left eye 07/21, has follow up 01/21. for the management of Mild BACTERIOLOGIST PHARMACEUTICAL and Glaucoma. Diagnosed with optic nerve swelling following short (possibly viral) GI illness, could also be secondary to stroke or TIA. However unlikely due to no other symptoms. Bartender Server recommended against taking GLP/GIP. Nephropathy: Negative 12/23/23 Creat: 0.70; eGFR: 102; Mialb/creat ratio: 28 , patient takes lisinopril (Prinivil) Peripheral Neuropathy: Negative Denies symptoms associated with neuropathy (numbness and/or tingling). Occasional pains. Autonomic Neuropathy: Negative Patient aware of lows. Hyperlipidemia: Positive Currently taking: rosuvastatin (Crestor). LFT's WNL. Hypertension: Positive. Currently taking: lisinopril (Prinivil) BP: 125/82 Stable-Goal <130/80 Cardiac: Negative Denies Chest pain or SOB at this time. Does have occasional palpitations-needs to check blood sugars when she are having these. Vascular: Negative no edema Feet: Negative sores or lesions at this time. Last foot exam: 06/05/24 Thyroid: Positive. Takes levothyroxine 137 mcg daily. Patient has history of hypothyroidism after her in 1997. 12/20/23: TSH 2.8, free T4--1.3. PLAN: Continue 137 mcg Other: Psoriasis: Currently taking Stelara now instead of Humira per a shorer. She is pleased with this. Plan: Type 1 diabetes mellitus with hyperglycemia (HCC) [E10.65] 1. Rx changes: Continue current regimen Continue checking her BG 4 times a day and get control of her Blood sugars. DexCom CGM BASAL RATES: Time U/Hr. 0000 1.5--->1.3 0600 1.6--->1.5 Insulin to Carb Ratio: 0000 1:8--->7 Sensitivity: 0000 1:30 Target B--->140 Correct Above: 150---->140 Basal rates between 32-35 units per day, Bolus: 14.8 Mrs. Bai would benefit from Continued use of continuous glucose monitoring system. Patient has had Type 1 diabetes for 19 years. Complications include diabetic neuropathy and autonomic neuropathy with hypoglycemic unawareness Patient is currently managed with: insulin injections Patient has been checking their blood sugar 4 times per day Patient's most recent Hgb A1c was 11.1% on 12/20/23. Patient's HGb is <6.0% or >8.5% Patient currently takes humalog and basaglar insulin injections 4 times daily. Patient is positive for a history of hypoglycemic unawareness Patient has inadequate control despite compliance with multiple alterations in insulin doses/medication regimen. 2. Education: Reviewed ABCs of diabetes management (respective goals in parentheses): A1C (7.0-8.0), blood pressure (<130/80), and cholesterol (LDL <100). 3. Compliance at present is estimated to be fair. Efforts to improve compliance (if necessary) will be directed at dietary modifications: Limit portion sizes, Limit starches, carbohydrates and concentrated sugar sources and following with a intensive care specialist if insurance permits, increased exercise and regular blood sugar monitorin-6 times daily. 4. Follow up: 4 months 5. Record blood sugar readings as instructed. Call if BG consistently <70 or >250. [phone] Check blood sugar 3-4 times daily and as needed. May call in readings if blood glucose readings continue to stay elevated or drop too low. 6. Bring blood sugar meter to follow up appointment. Orders Placed This Encounter Procedures Comprehensive Metabolic Panel Hemoglobin A1c T4, Free TSH AR TELEPHONE ORDER CLERK (MONITOR); EXTERNAL, FOR USE WITH NONDURABLE MEDICAL EQUIPMENT INTERSTITIAL CONTINUOUS GLUCOSE MONITORING SYSTEM (CGM) Electronically Signed by: Alan Madrid CNP 06/05/24 7:30 AM documented in this encounter [facility] 05-04-2024 History of Present illness Narrative [facility] NOTE: Name: Gregoria Bai, 53 y.o. CSN:[id number] PCP: Bob Cruz PA-C ALL: No Known Allergies History: Chief Complaint: Flu Symptoms (Body aches, chills, cough, chest hurts when coughing, runny nose x 1 week) Encounter Date: 05/04/2024 HPI: The history was obtained from the patient. Gregoria is a 53 y.o. female, who presents with a chief complaint of Flu Symptoms (Body aches, chills, cough, chest hurts when coughing, runny nose x 1 week) Sinus pressure and pain, nasal congestion, bilateral ear pain/fullness, productive cough, mild sore throat, and fatigue. Denies shortness of breath, denies wheezing. Symptoms began 1 weeks ago, fever began yesterday with worsening symptoms. Denies any abdominal pain, chest pain, rashes, urinary symptoms, vomiting, and diarrhea. Denies any lightheadedness or dizziness; no changes in mental status. No swelling in legs. Appetite is decreased; is able to eat and drink fluids without difficulty. Denies any recent antibiotic use PMHx: Past Medical History: Diagnosis Date Encounter for delivery without indication ([facility]) Delivery of by section Encounter for gynecological examination (general) (routine) without abnormal findings Pap test, as part of routine gynecological examination Other conditions influencing health status Menstruation Personal history of other medical treatment History of mammogram Current Outpatient Medications Medication Sig Dispense Refill aspirin 81 mg EC tablet Take 1 tablet (81 mg) by mouth once daily. cholecalciferol (Vitamin D-3) 25 MCG (1000 UT) capsule Take 1 capsule (25 mcg) by mouth once daily. esomeprazole (NexIUM) [address] capsule Take 1 capsule (20 mg) by mouth once daily in the morning. Take before meals. HumaLOG KwikPen Insulin 200 unit/mL (3 mL) insulin pen pen Inject 60 Units under the skin 3 times a day. lisinopril 40 mg tablet Take 1 tablet (40 mg) by mouth once daily. Omnipod 5 G6-G7 Intro Kt,Gen5, cartridge rosuvastatin (Crestor) 20 mg tablet Take 1 tablet (20 mg) by mouth once daily. Stelara injection Onel Lucio U-300 Insulin 300 unit/mL (1.5 mL) injection Inject 300 Units under the skin. albuterol 90 mcg/actuation inhaler Inhale 2 puffs every 4 hours if needed for wheezing or shortness of breath. 17 g 0 dsnjnwcxmuknpyz-dfpxkctng-XU 2-30-10 mg/5 mL syrup Take 5 mL by mouth 4 times a day as needed for congestion or cough for up to 10 days. 120 mL 0 levothyroxine (Synthroid, Levoxyl) 137 mcg tablet Take 1 tablet (137 mcg) by mouth once daily. No current facility-administered medications for this visit. PMSx: Past Surgical History: Procedure Laterality Date SECTION, LOW TRANSVERSE 06/29/1998 GYNECOLOGIC CRYOSURGERY 1992 OTHER SURGICAL HISTORY 01/10/2019 Tonsillectomy TOTAL ABDOMINAL HYSTERECTOMY 04/28/2015 with corpus and cervix Fam Hx: Family History Problem Relation Name Age of Onset Lung cancer Mother No Known Problems Father Liver cancer Brother Diabetes Other Grandparent Ulcers Other Grandparent Hypertension Other Grandparent Thyroid disease Other Grandparent SOC. Hx: Social History Socioeconomic History Marital status: Spouse name: Sebastian Number of children: 1 Years of education: Not on file Highest education level: Not on file Occupational History Not on file Tobacco Use Smoking status: Former Types: Cigarettes Smokeless tobacco: Never Vaping Use Vaping status: Never Used Substance and Sexual Activity Alcohol use: Never Drug use: Never Sexual activity: Yes control/protection: Surgical Comment: Hysterectomy Other Topics Concern Not on file Social History Narrative Not on file Social Drivers of Health Financial Resource Strain: Not on file Food Insecurity: Not on file Transportation Needs: Not on file Physical Activity: Not on file Stress: No Stress Concern Present (03/09/2024) [employer] [place] [employer] - Occupational Stress Questionnaire Feeling of Stress : Not at all Social Connections: Not on file Intimate Partner Violence: Not At Risk (03/09/2024) Humiliation, Afraid, Rape, and Kick questionnaire Fear of Current or Ex-Partner: No Emotionally Abused: No Physically Abused: No Sexually Abused: No Housing Stability: Not on file Vitals: 05/04/24 1018 BP: 136/87 Pulse: (!) 128 Resp: 16 Temp: (!) 38.2 C (100.8 F) SpO2: 95% 99.8 kg (220 lb) Physical Exam Vitals and nursing note reviewed. Constitutional: Appearance: Normal appearance. HENT: Head: Normocephalic and atraumatic. Right Ear: Hearing, ear canal and external ear normal. A middle ear effusion is present. Tympanic membrane is erythematous. Tympanic membrane is not bulging. Tympanic membrane has normal mobility. Left Ear: Hearing, ear canal and external ear normal. A middle ear effusion is present. Tympanic membrane is erythematous. Tympanic membrane is not bulging. Tympanic membrane has normal mobility. Nose: Congestion and rhinorrhea present. Rhinorrhea is purulent. Right Sinus: Maxillary sinus tenderness and frontal sinus tenderness present. Left Sinus: Maxillary sinus tenderness and frontal sinus tenderness present. Mouth/Throat: Lips: Orestes. Mouth: Mucous membranes are moist. Pharynx: Uvula midline. Posterior oropharyngeal erythema present. No pharyngeal swelling or oropharyngeal exudate. Tonsils: No tonsillar exudate. Cardiovascular: Rate and Rhythm: Normal rate and regular rhythm. Heart sounds: Normal heart sounds. Pulmonary: Effort: Pulmonary effort is normal. Breath sounds: Normal breath sounds. Abdominal: General: Bowel sounds are normal. Skin: General: Skin is warm and dry. Neurological: Mental Status: She is alert and oriented to person, place, and time. LABORATORY @ RADIOLOGICAL IMAGING (if done): Results for orders placed or performed in visit on 05/04/24 (from the past 24 hours) POCT SARS-COV-2/FLU/RSV PCR SYMPTOMATIC manually resulted Result Value Ref Range POC Coronavirus 2019, PCR Not Detected Not Detected POC Flu A Result Detected (A) Not Detected POC Flu B Result Not Detected Not Detected POC RSV PCR Not Detected Not Detected Reviewed with pt ____ I did personally review Gregoria's past medical history, surgical history, social history, as well as family history (when relevant). In this case, I also oversaw the her drug management by reviewing her medication list, allergy list, as well as the medications that I prescribed during the UC course and/or recommended as an out-patient (including possible OTC medications such as acetaminophen, NSAIDs , etc). After reviewing the items above, I did look at previous medical documentation, such as recent hospitalizations, office visits, and/or recent consultations with PCP/specialist. SDOH: Another factor that I considered in Gregoria's care was her Social Determinants of Health (SDOH). During this UC encounter, she did not have social determinants of health. Those SDOH influencing Gregoria's care are: none COURSE/MEDICAL DECISION MAKING: Gregoria is a 53 y.o., who presents with a working diagnosis of 1. Influenza A 2. Acute cough Gregoria was seen today for flu symptoms. Diagnoses and all orders for this visit: Influenza A (Primary) - mrejwdfyoygkwjk-uzvadofkb-PB 2-30-10 mg/5 mL syrup; Take 5 mL by mouth 4 times a day as needed for congestion or cough for up to 10 days. - albuterol 90 mcg/actuation inhaler; Inhale 2 puffs every 4 hours if needed for wheezing or shortness of breath. Acute cough - POCT SARS-COV-2/FLU/RSV PCR SYMPTOMATIC manually resulted Plan of care reviewed with patient. If symptoms change and/or worsen will follow-up with primary care provider, return to urgent care, or go to the nearest emergency department for further evaluation. Patient states understanding and is agreeable with plan of care. Tati Love APRN, ALBERT Advanced Practice Provider [facility] Please note: While the patient may or may not have received printed discharge paperwork, all relevant medical findings, test results, and treatment details are accessible through the electronic medical record system. The patient is encouraged to review their chart via the patient portal for comprehensive information and follow-up instructions. documented in this encounter [facility] Work Phone: 03-09-2024 History of Present illness Narrative Gregoria Bai is a 53 y.o. female who is here for a routine exam. PCP = Bob Cruz PA-C Chief Complaint Patient presents with Gynecologic Exam Patient is here for yearly exam and pap test. Patient does not do regular self breast exams and has no concerns at this time. LMP: Hysterectomy Presents for annual exam. She voices no complaints and is doing well. Denies any bowel or bladder problems. Denies any breast problems. She had a previous hysterectomy. OB History 1 Para 1 Term 1 0 AB 0 Living 1 SAB 0 IAB 0 Ectopic 0 Multiple 0 Live Births 1 Past Medical History: Diagnosis Date Encounter for delivery without indication ([facility]) Delivery of by section Encounter for gynecological examination (general) (routine) without abnormal findings Pap test, as part of routine gynecological examination Other conditions influencing health status Menstruation Personal history of other medical treatment History of mammogram Past Surgical History: Procedure Laterality Date SECTION, LOW TRANSVERSE 06/29/1998 GYNECOLOGIC CRYOSURGERY 1992 OTHER SURGICAL HISTORY 01/10/2019 Tonsillectomy TOTAL ABDOMINAL HYSTERECTOMY 04/28/2015 with corpus and cervix Past med hx and past surg hx reviewed and notable for: none Review of Systems: Constitutional: No fever or chills Respiratory: No shortness of breath, or cough Cardiovascular: No chest pain or syncope Breasts: No breast pain, no masses, no nipple discharge Gastrointestinal: No nausea, vomiting, or diarrhea, no abdominal pain Genitourinary: No dysuria or frequency Gynecology: Negative except as noted in history of present illness All other: All other systems reviewed and negative for complaint Objective BP 118/76 Ht 1.6 m (5' 3") Wt 101 kg (221 lb 9.6 oz) BMI 39.25 kg/m 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 HEENT: Clear. Pupils equal, round and reactive to light and accommodation. Extraocular muscles are intact. Oral mucosa pink without exudate. NECK: No lymphadenopathy, no thyromegaly. BREASTS: Symmetric, no palpable masses. No nipple discharge or retraction. LUNGS: Clear bilaterally. HEART: Regular rate and rhythm without murmurs. ABDOMEN: Normoactive bowel sounds, soft and nontender, no guarding or rebound tenderness, no CVA tenderness. EXTREMITIES: No clubbing, cyanosis or edema. NEUROLOGIC: Cranial nerves II-XII grossly intact. : Normal external female genitalia. Normal vulva and vagina. Normal urethral meatus, urethra and bladder. Noted surgical absence of the cervix and uterus. Well-healed vaginal cuff. Pap smear performed today. Actions performed during this visit include: - Clinical breast exam - Clinical pelvic exam - Orders Placed This Encounter Procedures BI mammo bilateral screening tomosynthesis Standing Status: Future Standing Expiration Date: 04/09/2025 Order Specific Question: Is the patient ? Answer: No Order Specific Question: Reason for exam: Answer: Screening Order Specific Question: Radiologist to Determine Optimal Study Answer: Yes Order Specific Question: Release result to [facility] Answer: Immediate [1] Order Specific Question: Is this exam part of a Research Study? If Yes, link this order to the research study Answer: No Problem List Items Addressed This Visit None Visit Diagnoses Encounter for screening mammogram for malignant neoplasm of breast Relevant Orders BI mammo bilateral screening tomosynthesis Encounter for gynecological examination without abnormal finding Relevant Orders THINPREP PAP TEST Vaginal Pap smear Relevant Orders THINPREP PAP TEST Provider Impression: 1. Annual 2. Screening mammogram Thank you for coming to your annual exam. Your findings during the exam were normal. Please return for your next visit in 1 year. documented in this encounter [facility] Work Phone: 01-23-2024 History of Present illness Narrative [facility] [place] NOTE: Name: Gregoria Bai, 53 y.o. CSN:[id number] PCP: Bob Cruz PA-C ALL: No Known Allergies History: Chief Complaint: URI (Cough and congestion with sinus perssure since Saturday. ) Encounter Date: 01/23/2024 13:50hrs HPI: The history was obtained from the patient. Gregoria is a 53 y.o. female, who presents with a chief complaint of URI (Cough and congestion with sinus perssure since Saturday. ) mentions she has had symptoms since Saturday and a low-grade temperature yesterday, she took Tylenol and it improved overall symptoms, she now is feeling somewhat improved but mentions she wanted to be reassured given her medical history of diabetes. She has no active chest pain productive cough denies any notable posttussive emesis, denies any diarrhea or notable rash. Mentions she has a history of diabetes and her blood sugars have been 350+ range. PMHx: Past Medical History: Diagnosis Date Encounter for delivery without indication ([facility]) Delivery of by section Encounter for gynecological examination (general) (routine) without abnormal findings Pap test, as part of routine gynecological examination Other conditions influencing health status Menstruation Personal history of other medical treatment History of mammogram Current Outpatient Medications Medication Sig Dispense Refill aspirin 81 mg EC tablet Take 1 tablet (81 mg) by mouth once daily. cholecalciferol (Vitamin D-3) 25 MCG (1000 UT) capsule Take 1 capsule (25 mcg) by mouth once daily. esomeprazole (NexIUM) [address] capsule Take 1 capsule (20 mg) by mouth once daily in the morning. Take before meals. HumaLOG KwikPen Insulin 200 unit/mL (3 mL) insulin pen pen Inject 60 Units under the skin 3 times a day. levothyroxine (Synthroid, Levoxyl) 137 mcg tablet Take 1 tablet (137 mcg) by mouth once daily. lisinopril 40 mg tablet Take 1 tablet (40 mg) by mouth once daily. rosuvastatin (Crestor) 20 mg tablet Take 1 tablet (20 mg) by mouth once daily. Stelara injection No current facility-administered medications for this visit. PMSx: Past Surgical History: Procedure Laterality Date SECTION, LOW TRANSVERSE 06/29/1998 GYNECOLOGIC CRYOSURGERY 1991 OTHER SURGICAL HISTORY 01/10/2019 Tonsillectomy TOTAL ABDOMINAL HYSTERECTOMY 04/28/2015 with corpus and cervix Fam Hx: Family History Problem Relation Name Age of Onset Lung cancer Mother No Known Problems Father Liver cancer Brother Diabetes Other Grandparent Ulcers Other Grandparent Hypertension Other Grandparent Thyroid disease Other Grandparent SOC. Hx: Social History Socioeconomic History Marital status: Spouse name: Not on file Number of children: Not on file Years of education: Not on file Highest education level: Not on file Occupational History Not on file Tobacco Use Smoking status: Former Types: Cigarettes Smokeless tobacco: Never Vaping Use Vaping status: Never Used Substance and Sexual Activity Alcohol use: Never Drug use: Never Sexual activity: Yes control/protection: Surgical Comment: Hysterectomy Other Topics Concern Not on file Social History Narrative Not on file Social Drivers of Health Financial Resource Strain: Not on file Food Insecurity: Not on file Transportation Needs: Not on file Physical Activity: Not on file Stress: Not on file Social Connections: Not on file Intimate Partner Violence: Not on file Housing Stability: Not on file Vitals: 01/23/24 1347 BP: 129/86 Pulse: 108 Resp: 16 Temp: 36.7 C (98 F) SpO2: 97% 99.8 kg (220 lb) Physical Exam Vitals reviewed. Constitutional: Appearance: Normal appearance. She is normal weight. HENT: Head: Normocephalic and atraumatic. Nose: Congestion present. Mouth/Throat: Mouth: Mucous membranes are moist. Eyes: Extraocular Movements: Extraocular movements intact. Cardiovascular: Rate and Rhythm: Normal rate and regular rhythm. Pulmonary: Effort: Pulmonary effort is normal. Breath sounds: Normal breath sounds. Comments: Observed nonproductive nonbloody cough Abdominal: General: Abdomen is flat. Musculoskeletal: General: Normal range of motion. Cervical back: Normal range of motion and neck supple. Skin: General: Skin is warm. Neurological: Mental Status: She is alert and oriented to person, place, and time. Psychiatric: Behavior: Behavior normal. ____ I did personally review Gregoria's past medical history, surgical history, social history, as well as family history (when relevant). In this case, I also oversaw the her drug management by reviewing her medication list, allergy list, as well as the medications that I prescribed during the UC course and/or recommended as an out-patient (including possible OTC medications such as acetaminophen, NSAIDs , etc). After reviewing the items above, I did look at previous medical documentation, such as recent hospitalizations, office visits, and/or recent consultations with PCP/specialist. SDOH: Another factor that I considered in Gregoria's care was her Social Determinants of Health (SDOH). During this UC encounter, she did not have social determinants of health. Those SDOH influencing Gregoria's care are: none UC COURSE/MEDICAL DECISION MAKING: Gregoria is a 53 y.o., who presents with a working diagnosis of 1. Viral URI with cough with a differential to include: Influenza, parainfluenza, rhinovirus, adenovirus, metapneumovirus, coronavirus, COVID-19, postnasal drip, strep pharyngitis, GERD, retropharyngeal abscess, tonsillitis, adenitis, seasonal allergies No further testing at this time was offered and she was not interested. We discussed overall plan to include ulvc-hym-muixbue medications including Robitussin DM, Mucinex, we discussed hydration and this may explain with the elevated blood sugars that she is got tachycardia and may be just generalized malaise. She was reassured, and ultimately discharged. Josselin Bernabe PA-C Advanced Practice Provider [facility] Please note: While the patient may or may not have received printed discharge paperwork, all relevant medical findings, test results, and treatment details are accessible through the electronic medical record system. The patient is encouraged to review their chart via the patient portal for comprehensive information and follow-up instructions. documented in this encounter [facility] Work Phone: 12-23-2023 Note +Patient ID: Gregoria Bai is a 53 y.o. female 1970 Subjective: HPI: Gregoria Bai presents for follow-up of Type 1 diabetes The initial diagnosis of gestational diabetes was made 26 years ago in 1997. One year later she developed Type 2 and was on oral agents for ~ 4 years, then started on Insulin and her diagnosis was changed to Type 1 Diabetes, confirmed with labs on 06/14/16. Dexcom downloaded and reviewed by this provider 12/23/23 Dexcom Clarity Gregoria Bai Date of : 1970 Generated at: Sat, Dec 23, 2023 2:23 PM EDT Reporting period: Sat Dec 07, 2023 - SatDec 20, 2023 Glucose Details Average glucose: 305 mg/dL Standard deviation: 71 mg/dL GMI: 10.6% Time in Range Very High: 77% High: 17% In Range: 6% Low: 0% Very Low: 0% Target Range 70-180 mg/dL CGM Details Sensor usage: 100% Days with CGM data: Total daily dose close to 200 units daily. Patient is following a diabetic diet intermittently Meal planning includes avoidance of concentrated sweets. She was able to meet with a intensive care specialist once. Currently taking: Humalog insulin: 1:2 units at breakfast; 1:2 units at lunch; 1:2 units at supper Toujeo: insulin: 40 units at breakfast; 40 units at bedtime 30-40 units TID with meals. She also is following a standard sliding scale Humalog with meals (Greater than 150-200 extra 2 units, 201-150 extra 4 units...) Attempted ozempic in August 2021, however reported increased heartburn days 3-4 after injection. Outpatient Medications Marked as Taking for the 12/23/23 encounter (Office Visit) with Alan Madrid CNP: aspirin 81 MG EC tablet, Take 1 (one) tablet (81 mg total) by mouth daily . blood sugar diagnostic strips, Accu-chek test strips SAMI. Use as directed, 4 times daily. E10.65 . blood-glucose meter (Accu-Chek Kiki Plus Meter) [facility] [place] 4x daily. DX code E10.65 Use Accu-chek brand . cholecalciferol, vitamin D3, 1,000 unit tablet, Take 1 (one) tablet (1,000 Units total) by mouth daily . esomeprazole (NEXIUM) 20 MG capsule, Take 1 (one) capsule (20 mg total) by mouth every morning before breakfast . insulin glargine U-300 conc (Toujeo SoloStar U-300 Insulin) 300 unit/mL (1.5 mL), Inject 40 (forty) Units under the skin 2 (two) times a day . insulin lispro (HumaLOG KwikPen Insulin) 200 unit/mL (3 mL) InPn, Inject 60 (sixty) Units under the skin 3 (three) times a day . levothyroxine (SYNTHROID, LEVOTHROID) 137 MCG tablet, Take 1 (one) tablet (137 mcg total) by mouth daily . lisinopriL (PRINIVIL,ZESTRIL) 40 MG tablet, Take 1 (one) tablet (40 mg total) by mouth daily . pen needle, diabetic 31 gauge x 5/16" Ndle, Inject insulin up to 5 times daily . . rosuvastatin (CRESTOR) 20 MG tablet, Take 1 (one) tablet (20 mg total) by mouth daily . STELARA 45 mg/0.5 mL Syrg, Review of Systems: Review of Systems Constitutional: Negative for activity change and unexpected weight change. HENT: Negative for trouble swallowing and voice change. Eyes: Negative for visual disturbance. Respiratory: Negative for cough and shortness of breath. Cardiovascular: Negative for chest pain, palpitations and leg swelling. Gastrointestinal: Negative for constipation, diarrhea, nausea and vomiting. Endocrine: Negative for cold intolerance, heat intolerance, polydipsia, polyphagia and polyuria. Genitourinary: Negative for dysuria. Skin: Chronic dry patches on extremities r/t psoriasis. Improving with Stelara Neurological: Negative for dizziness, tremors, light-headedness and numbness. Psychiatric/Behavioral: Negative for sleep disturbance. The following portions of the patient's history were reviewed and updated as appropriate: allergies, current medications, past family history, past medical history, past social history, past surgical history and problem list. Objective: BP 134/84 Pulse 93 Wt 100.5 kg (221 lb 8 oz) BMI 40.51 kg/m Wt Readings from Last 3 Encounters: 12/23/23 100.5 kg (221 lb 8 oz) 05/24/23 102.5 kg (226 lb) 10/01/22 100.2 kg (221 lb) Physical Exam: General: alert, appears stated age and cooperative Eyes: conjunctivae/corneas clear. PERRL, EOM's intact. Neck: no adenopathy, supple, symmetrical, trachea midline. Thyroid: No thyromegaly appreciated. Skin is moist Lung: clear to auscultation bilaterally slightly diminished. Heart: regular rate and rhythm, S1, S2 normal, no murmur, click, rub or gallop Extremities: extremities normal, atraumatic, no cyanosis or edema Feet: Dry skin and psporiasis on legs bilaterally, Diabetic Foot Exam: Right Foot: warm, good capillary refill, normal DP and PT pulses, and normal sensory exam Left Foot: warm, good capillary refill, normal DP and PT pulses, normal monofilament exam, and normal sensory ex (more content not included)... [facility] 05-24-2023 History of Present illness Narrative Images from the original note were not included. +Patient ID: Gregoria Bai is a 52 y.o. female 1970 Subjective: HPI: Gregoria Bai presents for follow-up of Type 1 diabetes The initial diagnosis of gestational diabetes was made 23 years ago in 1997. One year later she developed Type 2 and was on oral agents for ~ 4 years, then started on Insulin and her diagnosis was changed to Type 1 Diabetes, confirmed with labs on 06/14/16. Dexcom downloaded and reviewed by this provider 05/24/23 Dexcom Clarity Gregoria Bai Date of : 1970 Generated at: May 24, 2023 8:35 AM EDT Reporting period: Sat May 11, 2023 - SatMay 24, 2023 Glucose Details Average glucose: 296 mg/dL Standard deviation: 76 mg/dL GMI: 10.4% Time in Range Very High: 72% High: 21% In Range: 7% Low: 0% Very Low: 0% Target Range 70-180 mg/dL CGM Details Sensor usage: 93% Days with CGM data: Patient is following a diabetic diet intermittently Meal planning includes avoidance of concentrated sweets. She was able to meet with a intensive care specialist once. Currently taking: Humalog insulin: 1:2 units at breakfast; 1:2 units at lunch; 1:2 units at supper Toujeo: insulin: 40 units at breakfast; 40 units at bedtime 25-35 units TID with meals. She also is following a standard sliding scale Humalog with meals (Greater than 150-200 extra 2 units, 201-150 extra 4 units...) Attempted ozempic in August 2021, however reported increased heartburn days 3-4 after injection. Outpatient Medications Marked as Taking for the 05/24/23 encounter (Office Visit) with Alan Madrid CNP: aspirin 81 MG EC tablet, Take 1 (one) tablet (81 mg total) by mouth daily . blood sugar diagnostic strips, Accu-chek test strips SAMI. Use as directed, 4 times daily. E10.65 . blood-glucose meter (Accu-Chek Kiki Plus Meter) [facility] [place] BG 4x daily. DX code E10.65 Use Accu-chek brand . cholecalciferol, vitamin D3, 1,000 unit tablet, Take 1 (one) tablet (1,000 Units total) by mouth daily . esomeprazole (NEXIUM) 20 MG capsule, Take 1 (one) capsule (20 mg total) by mouth every morning before breakfast . insulin glargine U-300 conc (Toujeo SoloStar U-300 Insulin) 300 unit/mL (1.5 mL), Inject 40 (forty) Units under the skin 2 (two) times a day . insulin lispro (HumaLOG KwikPen Insulin) 200 unit/mL (3 mL) InPn, Inject 60 (sixty) Units under the skin 3 (three) times a day . levothyroxine (SYNTHROID, LEVOTHROID) 137 MCG tablet, TAKE 1 TABLET DAILY lisinopriL (PRINIVIL,ZESTRIL) 40 MG tablet, TAKE 1 TABLET DAILY pen needle, diabetic (BD Ultra-Fine Haylee Pen Needle) 32 gauge x 5/32" Ndle, Inject 1 Device under the skin 5 (five) times a day . rosuvastatin (CRESTOR) 20 MG tablet, Take 1 (one) tablet (20 mg total) by mouth daily . STELARA 45 mg/0.5 mL Syrg, Review of Systems: Review of Systems Constitutional: Positive for activity change (Continues to exercise 4-5 days per week.). Negative for unexpected weight change. HENT: Negative for trouble swallowing and voice change. Eyes: Negative for visual disturbance. Respiratory: Negative for cough and shortness of breath. Cardiovascular: Negative for chest pain, palpitations and leg swelling. Gastrointestinal: Negative for constipation, diarrhea, nausea and vomiting. Endocrine: Negative for cold intolerance, heat intolerance, polydipsia, polyphagia and polyuria. Genitourinary: Negative for dysuria. Skin: Chronic dry patches on extremities r/t psoriasis. Improving with Stelara Neurological: Negative for dizziness, tremors, light-headedness and numbness. Psychiatric/Behavioral: Negative for sleep disturbance. The following portions of the patient's history were reviewed and updated as appropriate: allergies, current medications, past family history, past medical history, past social history, past surgical history and problem list. Objective: BP 128/84 Pulse 98 Wt 102.5 kg (226 lb) BMI 41.34 kg/m Wt Readings from Last 3 Encounters: 05/24/23 102.5 kg (226 lb) 10/01/22 100.2 kg (221 lb) 04/30/22 99.8 kg (220 lb 1.6 oz) Physical Exam: General: alert, appears stated age and cooperative Eyes: conjunctivae/corneas clear. PERRL, EOM's intact. Neck: no adenopathy, supple, symmetrical, trachea midline. Thyroid: No thyromegaly appreciated. Skin is moist Lung: clear to auscultation bilaterally slightly diminished. Heart: regular rate and rhythm, S1, S2 normal, no murmur, click, rub or gallop Extremities: extremities normal, atraumatic, no cyanosis or edema Feet: Dry skin and psporiasis on legs bilaterally, Bilateral Feet: normal PT. Monofilament exam not assessed, bilateral lower extremities. Neuro: normal without focal findings, mental status, speech normal, alert and oriented x3 and JENNIFER Lab Review Date: 05/22/23 *labs reviewed 05/24/23 Hgb A1c: 10.3% Creat: 0.69; eGFR: >90 AST: 14; ALT: 15 K: 4.3 TSH: 3.34 ; FreeT4: 0.87 09/28/22 Hgb A1c: 9.5% Creat: 0.74; eGFR: >90 AST: 13; ALT: 16 K: 4.0 TSH: 3.79 ; FreeT4: 1.09 04/11/22 Hgb A1c: 10.2% Creat: 0.78; eGFR: 90 AST: 23; ALT: 27 K: 3.7 Tchol: 142; Tri ; HDL: 32 ; LDL: 88 12/02/21 Hgb A1c: 9.8% Creat: 0.74; eGFR: 105 AST: 10; ALT: 16 K: 4.1 TSH: 1.730 07/17/21 Hgb A1c: 9.7% Creat: 0.67; eGFR: 105 AST: 15; ALT: 18 K: 3.9 TSH: 3.850 ; FreeT4: 1.23 10/21/20 Hgb A1c: 9.2% Creat: 0.71; eGFR: 98 AST: 17; ALT: 20 K: 4.0 CBC: WBC:7.70; Hgb: 14.2; Hct: 42.6; Plt: 186 Tchol: 127; Tri; HDL: 33 ; LDL: 71 TSH: 7.180 ; FreeT4: 1.16 Microalbumin/creatinine Ratio: 9 06/02/20 Hgb A1c: 8.3% Creat: 0.71; eGFR: 99 AST: 15; ALT: 17 K: 4.6 01/29/20 Hgb A1c: 10.8% Creat: 0.73; eGFR: 96 AST: 17; ALT: 18 K: 4.1 TSH: 2.55 ; FreeT4: 1.35 08/28/19 Hgb A1c: 10.1% Creat: 0.82; eGFR: 83 AST: 16; ALT: 21 K: 4.0 TSH: 2.890 ; FreeT4: 1.32 03/20/19 Hgb A1c: 11.2% Creat: 0.75; eGFR: 93 AST: 13; ALT: 17 K: 3.8 Tchol: 158; Tri ; HDL: 39 ; LDL: 93 12/09/18 Hemoglobin A1c 10.1% Creatinine 0.71, estimated GFR 100, K4.5 AST 18, ALT 21 TSH 1.7, free T4--1.32 Microalbumin/creatinine ratio 4.5 08/28/2018 Hemoglobin A1c 9.4% Creatinine 0.70, estimated GFR 101, K3.8 AST 15, ALT 17 T cholesterol 194, TG 172, HDL 40, LDL at 120 CBC: H/H 13.9/41.1, WBC 7.60, platelets 206,000 03/29/18 Hgb A1c: 9.4% Creat: 0.8; eGFR: >60 AST: 15; ALT: 16 K: 4.0 TSH: 0.36 ; FreeT4: 1.18 11/26/17 Hgb A1c: 9.2% Creat: 0.6; eGFR: >60 AST: 22; ALT: 19 K: 3.9 05/28/17 Creat: 0.6 AST: 24; ALT: 25 K: 3.5 CBC: WBC:8.2; Hgb: 14.4; Hct: 43.0; Plt: 204 Tchol: 162; Tri ; HDL: 34 ; LDL: 89 TSH: 1.69 ; FreeT4: 0.99 02/01/17 Hgb A1C 9.6% 10/03/16 Hgb A1c: 8.7% Creat: 0.82 AST: 18; ALT: 29 K: 4.3 06/14/16 C Peptide: <0.1 ASHANTI 65 Antibody >250.0 Assessment: Dx: 1. Type 1 diabetes mellitus with hyperglycemia (HCC) CBC and Differential Comprehensive Metabolic Panel Hemoglobin A1c Lipid Panel Microalbumin/Creatinine Ratio, UR Random T4, Free TSH Type 1 diabetes, under fair control Patient is currently managed with: Humalog with meals and Basaglar at bedtime. Most recent Hgb A1c was 10.3% Patient bases insulin injection amount based on BG and meal content. She has not specific formula or pattern. She reports missing some injections leading to hyperglycemia. Reports not exercising, not following diet closely. Retinopathy: Negative Exam within last 12 months: yes Date: 10/14/20.With Dr. Resendiz in [place]. Evidence of early mild [employer]IOLOG[employer]ARM[employer] in left eye 07/21, has follow up 01/21. for the management of Mild [employer]ACT[employer]IOLOG[employer] and Glaucoma. Diagnosed with optic nerve swelling following short (possibly viral) GI illness, could also be secondary to stroke or TIA. However unlikely due to no other symptoms. Nephropathy: Negative Creat: 0.74; eGFR: 105 12/02/21; Mialb/creat ratio: 4.5 on 12/09/2018, patient takes lisinopril (Prinivil) Peripheral Neuropathy: Negative Denies symptoms associated with neuropathy (numbness and/or tingling). Occasional pains. Autonomic Neuropathy: Negative Patient aware of lows. Hyperlipidemia: Positive Currently taking: rosuvastatin (Crestor). LFT's WNL. Hypertension: Positive. Currently taking: lisinopril (Prinivil), was also previously on valsartan 80 mg in combination with JOHANNA, has since discontinued valsartan due to recall. Since combination of ARB and JOHANNA not currently recommended, patient may continue without. BP: 128/84 Stable-Goal <130/80 Cardiac: Negative Denies Chest pain or SOB at this time. Does have occasional palpitations-needs to check blood sugars when she are having these. Vascular: Negative no edema Feet: Negative sores or lesions at this time. Last foot exam: at initial visit 02/05/17 Thyroid: Positive. Takes levothyroxine 125 mcg daily. Patient has history of hypothyroidism after her in 1997. 10/21/20 TSH 7.18, free T4--1.16. PLAN: Adjust dose to 137 mcg. Other: Psoriasis: Currently taking Stelara now instead of Humira per a shorer. She is pleased with this. Plan: Type 1 diabetes mellitus with hyperglycemia (HCC) [E10.65] 1. Rx changes: Adjust medications as below Be sure to take insulin with all meals, even if BG <100. Humalog insulin: 1:2 units at breakfast; 1:2 units at lunch; 1:2 units at supper Toujeo insulin: 40 units AM and 40 units PM twice daily Use as directed with Humalog insulin before meals and at bedtime. 151-200: 2 units fast acting insulin 201-250: 4 units fast acting insulin 251-300: 6 units fast acting insulin 301-350: 8 units fast acting insulin 351-400: 10 units fast acting insulin above 400: 12 units fast acting insulin, call the office. Continue checking her BG 4 times a day and get control of her Blood sugars. DexCom CGM Mrs. Bai would benefit from Continued use of continuous glucose monitoring system. Patient has had Type 1 diabetes for 19 years. Complications include diabetic neuropathy and autonomic neuropathy with hypoglycemic unawareness Patient is currently managed with: insulin injections Patient has been checking their blood sugar 4 times per day Patient's most recent Hgb A1c was 9.5% on 09/28/22 Patient's HGb is <6.0% or >8.5% Patient currently takes humalog and basaglar insulin injections 4 times daily. Patient is positive for a history of hypoglycemic unawareness Patient has inadequate control despite compliance with multiple alterations in insulin doses/medication regimen. 2. Education: Reviewed ABCs of diabetes management (respective goals in parentheses): A1C (7.0-8.0), blood pressure (<130/80), and cholesterol (LDL <100). 3. Compliance at present is estimated to be fair. Efforts to improve compliance (if necessary) will be directed at dietary modifications: Limit portion sizes, Limit starches, carbohydrates and concentrated sugar sources and following with a intensive care specialist if insurance permits, increased exercise and regular blood sugar monitorin-6 times daily. 4. Follow up: 5 months 5. Record blood sugar readings as instructed. Call if BG consistently <70 or >250. [phone] Check blood sugar 3-4 times daily and as needed. May call in readings if blood glucose readings continue to stay elevated or drop too low. 6. Bring blood sugar meter to follow up appointment. Orders Placed This Encounter Procedures CBC and Differential Comprehensive Metabolic Panel Hemoglobin A1c Lipid Panel Microalbumin/Creatinine Ratio, UR Random T4, Free TSH Electronically Signed by: Alan Madrid CNP 05/24/23 7:30 AM documented in this encounter [facility] 03-06-2023 History of Present illness Narrative Gregoria Bai is a 52 y.o. female who is here for a routine exam. PCP = HONG Vergara Chief Complaint Patient presents with Gynecologic Exam Patient is here for yearly exam and pap test. Patient does not do regular self breast exams and has no concerns at this time. LMP: Hysterectomy. Presents for annual exam. She voices no complaints and is doing well. Denies any bowel or bladder problems. Denies any breast problems. She had a previous hysterectomy. OB History 1 Para 1 Term 1 0 AB 0 Living 1 SAB 0 IAB 0 Ectopic 0 Multiple 0 Live Births 1 Past Medical History: Diagnosis Date Encounter for delivery without indication Delivery of by section Encounter for gynecological examination (general) (routine) without abnormal findings Pap test, as part of routine gynecological examination Other conditions influencing health status Menstruation Personal history of other medical treatment History of mammogram Past Surgical History: Procedure Laterality Date SECTION, LOW TRANSVERSE 06/29/1998 GYNECOLOGIC CRYOSURGERY 1991 OTHER SURGICAL HISTORY 01/10/2019 Tonsillectomy TOTAL ABDOMINAL HYSTERECTOMY 04/28/2015 with corpus and cervix Past med hx and past surg hx reviewed and notable for: none Review of Systems: Constitutional: No fever or chills Respiratory: No shortness of breath, or cough Cardiovascular: No chest pain or syncope Breasts: No breast pain, no masses, no nipple discharge Gastrointestinal: No nausea, vomiting, or diarrhea, no abdominal pain Genitourinary: No dysuria or frequency Gynecology: Negative except as noted in history of present illness All other: All other systems reviewed and negative for complaint Objective BP 122/78 Ht 1.626 m (5' 4") Wt 102 kg (224 lb) BMI 38.45 kg/m PHYSICAL EXAMINATION: Well-developed, well nourished, in no acute distress, alert and oriented x three, is pleasant and cooperative. HEENT: Clear. Pupils equal, round and reactive to light and accommodation. Extraocular muscles are intact. Oral mucosa pink without exudate. NECK: No lymphadenopathy, no thyromegaly. BREASTS: Symmetric, no palpable masses. No nipple discharge or retraction. LUNGS: Clear bilaterally. HEART: Regular rate and rhythm without murmurs. ABDOMEN: Normoactive bowel sounds, soft and nontender, no guarding or rebound tenderness, no CVA tenderness. EXTREMITIES: No clubbing, cyanosis or edema. NEUROLOGIC: Cranial nerves II-XII grossly intact. : Normal external female genitalia. Normal vulva and vagina. Normal urethral meatus, urethra and bladder. Noted surgical absence of the cervix and uterus. Well-healed vaginal cuff. Pap smear performed today. Actions performed during this visit include: - Clinical breast exam - Clinical pelvic exam - Orders Placed This Encounter Procedures BI mammo bilateral screening tomosynthesis Standing Status: Future Standing Expiration Date: 05/04/2024 Order Specific Question: Reason for exam: Answer: Screening Order Specific Question: Radiologist to Determine Optimal Study Answer: Yes Order Specific Question: Release result to [facility] Answer: Immediate [1] Order Specific Question: Is this exam part of a Research Study? If Yes, link this order to the research study Answer: No Order Specific Question: Is the patient ? Answer: No Problem List Items Addressed This Visit None Visit Diagnoses Encounter for gynecological examination without abnormal finding Relevant Orders THINPREP PAP TEST Vaginal Pap smear Relevant Orders THINPREP PAP TEST Encounter for screening mammogram for breast cancer Relevant Orders BI mammo bilateral screening tomosynthesis Provider Impression: 1. Annual 2. Screening mammogram Thank you for coming to your annual exam. Your findings during the exam were normal. Please return for your next visit in 1 year. documented in this encounter [facility] Work Phone: 11-27-2022 History of Present illness Narrative Eye exam documented in this encounter [facility] 10-01-2022 History of Present illness Narrative Images from the original note were not included. +Patient ID: Gregoria Bai is a 52 y.o. female 1970 Subjective: HPI: Gregoria Bai presents for follow-up of Type 1 diabetes The initial diagnosis of gestational diabetes was made 23 years ago in 1997. One year later she developed Type 2 and was on oral agents for ~ 4 years, then started on Insulin and her diagnosis was changed to Type 1 Diabetes, confirmed with labs on 06/14/16. Self Monitored blood glucose levels Patient has been checking BG 1-5 times daily. Utilizing DexCom CGM. Blood glucose ranges are: Fasting BG 80-465 10am-1pm: 138-491 5pm-8pm: 131-423 Bedtime (10pm-11pm): 267-528 Dexcom Clarity Gregoria Marilu Date of : 1970 Generated at: Oct 01, 2022 3:31 PM EDT Reporting period: SatSep 18, 2022 - SatOct 01, 2022 Glucose Details Average glucose: 261 mg/dL Standard deviation: 74 mg/dL GMI: 9.6% Time in Range Very High: 56% High: 28% In Range: 16% Low: 0% Very Low: 0% Target Range 70-180 mg/dL CGM Details Sensor usage: 100% Days with CGM data: Summary of Personal CGM Findings: Dates worn: 09/17/2022-10/01/2022 CGM Type: Fonemeshcom 1- CGM recording is adequate for interpretation. Worn 100% of time. 2- Average glucose is 261 mg/dl. 3. 16% time in range 70-180mg/dL 4. Coefficient of variation: 20% 5. Total frequency of hypoglycemia: 0% with BG<70 * Hypoglycemia patterns: None noted * Nocturnal hypoglycemia none noted 6- Hyperglycemic episodes 84% with BG>180 * Hyperglycemia Patterns: after meals Patient is following a diabetic diet intermittently Meal planning includes avoidance of concentrated sweets. She was able to meet with a intensive care specialist once. Currently taking: Humalog insulin: 1:2 units at breakfast; 1:2 units at lunch; 1:2 units at supper Toujeo: insulin: 40 units at breakfast; 40 units at bedtime 25-35 units TID with meals. She also is following a standard sliding scale Humalog with meals (Greater than 150-200 extra 2 units, 201-150 extra 4 units...) Attempted ozempic in August 2021, however reported increased heartburn days 3-4 after injection. Outpatient Medications Marked as Taking for the 10/01/22 encounter (Office Visit) with Alan Madrid UVALDO: aspirin 81 MG EC tablet, Take 1 (one) tablet (81 mg total) by mouth daily . blood sugar diagnostic strips, Accu-chek test strips SAMI. Use as directed, 4 times daily. E10.65 . blood-glucose meter (Accu-Chek Kiki Plus Meter) [facility] [place] BG 4x daily. DX code E10.65 Use Accu-chek brand . cholecalciferol, vitamin D3, 1,000 unit tablet, Take 1 (one) tablet (1,000 Units total) by mouth daily . esomeprazole (NEXIUM) 20 MG capsule, Take 1 (one) capsule (20 mg total) by mouth every morning before breakfast . insulin glargine U-300 conc (Toujeo SoloStar U-300 Insulin) 300 unit/mL (1.5 mL), Inject 40 (forty) Units under the skin 2 (two) times a day . insulin lispro (HumaLOG KwikPen Insulin) 200 unit/mL (3 mL) InPn, Inject 60 (sixty) Units under the skin 3 (three) times a day . levothyroxine (SYNTHROID, LEVOTHROID) 137 MCG tablet, Take 1 (one) tablet (137 mcg total) by mouth daily . lisinopriL (PRINIVIL,ZESTRIL) 40 MG tablet, Take 1 (one) tablet (40 mg total) by mouth daily . pen needle, diabetic (BD Ultra-Fine Haylee Pen Needle) 32 gauge x 5/32" Ndle, Inject 1 Device under the skin 5 (five) times a day . rosuvastatin (CRESTOR) 20 MG tablet, Take 1 (one) tablet (20 mg total) by mouth daily . STELARA 45 mg/0.5 mL Syrg, Review of Systems: Review of Systems Constitutional: Positive for activity change (Continues to exercise 4-5 days per week.). Negative for unexpected weight change. HENT: Negative for trouble swallowing and voice change. Eyes: Negative for visual disturbance. Respiratory: Negative for cough and shortness of breath. Cardiovascular: Negative for chest pain, palpitations and leg swelling. Gastrointestinal: Negative for constipation, diarrhea, nausea and vomiting. Endocrine: Negative for cold intolerance, heat intolerance, polydipsia, polyphagia and polyuria. Genitourinary: Negative for dysuria. Skin: Chronic dry patches on extremities r/t psoriasis. Improving with Stelara Neurological: Negative for dizziness, tremors, light-headedness and numbness. Psychiatric/Behavioral: Negative for sleep disturbance. The following portions of the patient's history were reviewed and updated as appropriate: allergies, current medications, past family history, past medical history, past social history, past surgical history and problem list. Objective: BP 126/84 Pulse (!) 101 Wt 100.2 kg (221 lb) BMI 40.42 kg/m Wt Readings from Last 3 Encounters: 10/01/22 100.2 kg (221 lb) 04/30/22 99.8 kg (220 lb 1.6 oz) 12/11/21 98.9 kg (218 lb) Physical Exam: General: alert, appears stated age and cooperative Eyes: conjunctivae/corneas clear. PERRL, EOM's intact. Neck: no adenopathy, supple, symmetrical, trachea midline. Thyroid: No thyromegaly appreciated. Skin is moist Lung: clear to auscultation bilaterally slightly diminished. Heart: regular rate and rhythm, S1, S2 normal, no murmur, click, rub or gallop Extremities: extremities normal, atraumatic, no cyanosis or edema Feet: Dry skin and psporiasis on legs bilaterally, Bilateral Feet: normal PT. Monofilament exam not assessed, bilateral lower extremities. Neuro: normal without focal findings, mental status, speech normal, alert and oriented x3 and JENNIFER Lab Review Date: 09/28/22 *labs reviewed 10/01/22 Hgb A1c: 9.5% Creat: 0.74; eGFR: >90 AST: 13; ALT: 16 K: 4.0 TSH: 3.79 ; FreeT4: 1.09 04/11/22 Hgb A1c: 10.2% Creat: 0.78; eGFR: 90 AST: 23; ALT: 27 K: 3.7 Tchol: 142; Tri ; HDL: 32 ; LDL: 88 12/02/21 Hgb A1c: 9.8% Creat: 0.74; eGFR: 105 AST: 10; ALT: 16 K: 4.1 TSH: 1.730 07/17/21 Hgb A1c: 9.7% Creat: 0.67; eGFR: 105 AST: 15; ALT: 18 K: 3.9 TSH: 3.850 ; FreeT4: 1.23 10/21/20 Hgb A1c: 9.2% Creat: 0.71; eGFR: 98 AST: 17; ALT: 20 K: 4.0 CBC: WBC:7.70; Hgb: 14.2; Hct: 42.6; Plt: 186 Tchol: 127; Tri; HDL: 33 ; LDL: 71 TSH: 7.180 ; FreeT4: 1.16 Microalbumin/creatinine Ratio: 9 06/02/20 Hgb A1c: 8.3% Creat: 0.71; eGFR: 99 AST: 15; ALT: 17 K: 4.6 01/29/20 Hgb A1c: 10.8% Creat: 0.73; eGFR: 96 AST: 17; ALT: 18 K: 4.1 TSH: 2.55 ; FreeT4: 1.35 08/28/19 Hgb A1c: 10.1% Creat: 0.82; eGFR: 83 AST: 16; ALT: 21 K: 4.0 TSH: 2.890 ; FreeT4: 1.32 03/20/19 Hgb A1c: 11.2% Creat: 0.75; eGFR: 93 AST: 13; ALT: 17 K: 3.8 Tchol: 158; Tri ; HDL: 39 ; LDL: 93 12/09/18 Hemoglobin A1c 10.1% Creatinine 0.71, estimated GFR 100, K4.5 AST 18, ALT 21 TSH 1.7, free T4--1.32 Microalbumin/creatinine ratio 4.5 08/28/2018 Hemoglobin A1c 9.4% Creatinine 0.70, estimated GFR 101, K3.8 AST 15, ALT 17 T cholesterol 194, TG 172, HDL 40, LDL at 120 CBC: H/H 13.9/41.1, WBC 7.60, platelets 206,000 03/29/18 Hgb A1c: 9.4% Creat: 0.8; eGFR: >60 AST: 15; ALT: 16 K: 4.0 TSH: 0.36 ; FreeT4: 1.18 11/26/17 Hgb A1c: 9.2% Creat: 0.6; eGFR: >60 AST: 22; ALT: 19 K: 3.9 05/28/17 Creat: 0.6 AST: 24; ALT: 25 K: 3.5 CBC: WBC:8.2; Hgb: 14.4; Hct: 43.0; Plt: 204 Tchol: 162; Tri ; HDL: 34 ; LDL: 89 TSH: 1.69 ; FreeT4: 0.99 02/01/17 Hgb A1C 9.6% 10/03/16 Hgb A1c: 8.7% Creat: 0.82 AST: 18; ALT: 29 K: 4.3 06/14/16 C Peptide: <0.1 ASHANTI 65 Antibody >250.0 Assessment: Dx: 1. Type 1 diabetes mellitus with hyperglycemia (HCC) 2. Hyperlipidemia, unspecified hyperlipidemia type Type 1 diabetes, under fair control Patient is currently managed with: Humalog with meals and Basaglar at bedtime. Most recent Hgb A1c was 9.5% Patient bases insulin injection amount based on BG and meal content. She has not specific formula or pattern. She reports missing some injections leading to hyperglycemia. Reports not exercising, not following diet closely. Retinopathy: Negative Exam within last 12 months: yes Date: 10/14/20.With Dr. Resendiz in [place]. Evidence of early mild BACT[employer]IOLOG[employer]ARMACE[employer] in left eye 07/21, has follow up 01/21. for the management of Mild BACT[employer]IOLOGIST [employer]ARMACE[employer] and Glaucoma. Diagnosed with optic nerve swelling following short (possibly viral) GI illness, could also be secondary to stroke or TIA. However unlikely due to no other symptoms. Nephropathy: Negative Creat: 0.74; eGFR: 105 12/02/21; Mialb/creat ratio: 4.5 on 12/09/2018, patient takes lisinopril (Prinivil) Peripheral Neuropathy: Negative Denies symptoms associated with neuropathy (numbness and/or tingling). Occasional pains. Autonomic Neuropathy: Negative Patient aware of lows. Hyperlipidemia: Positive Currently taking: rosuvastatin (Crestor). LFT's WNL. Hypertension: Positive. Currently taking: lisinopril (Prinivil), was also previously on valsartan 80 mg in combination with JOHANNA, has since discontinued valsartan due to recall. Since combination of ARB and JOHANNA not currently recommended, patient may continue without. BP: 126/84 Stable-Goal <130/80 Cardiac: Negative Denies Chest pain or SOB at this time. Does have occasional palpitations-needs to check blood sugars when she are having these. Vascular: Negative no edema Feet: Negative sores or lesions at this time. Last foot exam: at initial visit 02/05/17 Thyroid: Positive. Takes levothyroxine 125 mcg daily. Patient has history of hypothyroidism after her in 1997. 10/21/20 TSH 7.18, free T4--1.16. PLAN: Adjust dose to 137 mcg. Other: Psoriasis: Currently taking Stelara now instead of Humira per a shorer. She is pleased with this. Plan: Type 1 diabetes mellitus with hyperglycemia (HCC) [E10.65] 1. Rx changes: Adjust medications as below Be sure to take insulin with all meals, even if BG <100. Humalog insulin: 1:2 units at breakfast; 1:2 units at lunch; 1:2 units at supper Toujeo insulin: 45 units AM and 40 units PM twice daily Use as directed with Humalog insulin before meals and at bedtime. 151-200: 2 units fast acting insulin 201-250: 4 units fast acting insulin 251-300: 6 units fast acting insulin 301-350: 8 units fast acting insulin 351-400: 10 units fast acting insulin above 400: 12 units fast acting insulin, call the office. Continue checking her BG 4 times a day and get control of her Blood sugars. DexCom CGM Mrs. Bai would benefit from Continued use of continuous glucose monitoring system. Patient has had Type 1 diabetes for 19 years. Complications include diabetic neuropathy and autonomic neuropathy with hypoglycemic unawareness Patient is currently managed with: insulin injections Patient has been checking their blood sugar 4 times per day Patient's most recent Hgb A1c was 9.5% on 09/28/22 Patient's HGb is <6.0% or >8.5% Patient currently takes humalog and basaglar insulin injections 4 times daily. Patient is positive for a history of hypoglycemic unawareness Patient has inadequate control despite compliance with multiple alterations in insulin doses/medication regimen. 2. Education: Reviewed ABCs of diabetes management (respective goals in parentheses): A1C (7.0-8.0), blood pressure (<130/80), and cholesterol (LDL <100). 3. Compliance at present is estimated to be fair. Efforts to improve compliance (if necessary) will be directed at dietary modifications: Limit portion sizes, Limit starches, carbohydrates and concentrated sugar sources and following with a intensive care specialist if insurance permits, increased exercise and regular blood sugar monitorin-6 times daily. 4. Follow up: 4 months 5. Record blood sugar readings as instructed. Call if BG consistently <70 or >250. [phone] Check blood sugar 3-4 times daily and as needed. May call in readings if blood glucose readings continue to stay elevated or drop too low. 6. Bring blood sugar meter to follow up appointment. Orders Placed This Encounter Procedures Comprehensive Metabolic Panel Hemoglobin A1c TSH T4, Free Electronically Signed by: Alan Madrid CNP 10/01/22 7:30 AM documented in this encounter [facility] 04-30-2022 History of Present illness Narrative Images from the original note were not included. +Patient ID: Gregoria Bai is a 51 y.o. female 1970 Subjective: HPI: Gregoria Bai presents for follow-up of Type 1 diabetes The initial diagnosis of gestational diabetes was made 23 years ago in 1997. One year later she developed Type 2 and was on oral agents for ~ 4 years, then started on Insulin and her diagnosis was changed to Type 1 Diabetes, confirmed with labs on 06/14/16. Self Monitored blood glucose levels Patient has been checking BG 1-5 times daily. Utilizing DexCom CGM. Blood glucose ranges are: Fasting BG 80-465 10am-1pm: 138-491 5pm-8pm: 131-423 Bedtime (10pm-11pm): 267-528 Patient's weight has increased 2 lbs. Current eight 220 lbs, BMI 41.1 Patient is following a diabetic diet intermittently Meal planning includes avoidance of concentrated sweets. She was able to meet with a intensive care specialist once. Currently taking: Humalog insulin: 1:2 units at breakfast; 1:2 units at lunch; 1:2 units at supper Basaglar insulin: 63 units at bedtime 25-35 units TID with meals. She also is following a standard sliding scale Humalog with meals (Greater than 150-200 extra 2 units, 201-150 extra 4 units...) Attempted ozempic in August 2021, however reported increased heartburn days 3-4 after injection. Outpatient Medications Marked as Taking for the 04/30/22 encounter (Office Visit) with Alan Madrid CNP: aspirin 81 MG EC tablet, Take 1 (one) tablet (81 mg total) by mouth daily . blood sugar diagnostic strips, Accu-chek test strips SAMI. Use as directed, 4 times daily. E10.65 . blood-glucose meter (Accu-Chek Kiki Plus Meter) [facility] [place] BG 4x daily. DX code E10.65 Use Accu-chek brand . cholecalciferol, vitamin D3, 1,000 unit tablet, Take 1 (one) tablet (1,000 Units total) by mouth daily . esomeprazole (NEXIUM) 20 MG capsule, Take 1 (one) capsule (20 mg total) by mouth every morning before breakfast . insulin glargine U-300 conc (Toujeo SoloStar U-300 Insulin) 300 unit/mL (1.5 mL), Inject 40 (forty) Units under the skin 2 (two) times a day . insulin lispro (HumaLOG KwikPen Insulin) 200 unit/mL (3 mL) InPn, Inject 45 (forty five) Units under the skin 3 (three) times a day . levothyroxine (SYNTHROID, LEVOTHROID) 137 MCG tablet, Take 1 (one) tablet (137 mcg total) by mouth daily . lisinopriL (PRINIVIL,ZESTRIL) 40 MG tablet, Take 1 (one) tablet (40 mg total) by mouth daily . pen needle, diabetic (BD Ultra-Fine Haylee Pen Needle) 32 gauge x 5/32" Ndle, Inject 1 Device under the skin 5 (five) times a day . rosuvastatin (CRESTOR) 20 MG tablet, Take 1 (one) tablet (20 mg total) by mouth daily . STELARA 45 mg/0.5 mL Syrg, Review of Systems: Review of Systems Constitutional: Positive for activity change (Continues to exercise 4-5 days per week.). Negative for unexpected weight change. HENT: Negative for trouble swallowing and voice change. Eyes: Negative for visual disturbance. Respiratory: Negative for cough and shortness of breath. Cardiovascular: Negative for chest pain, palpitations and leg swelling. Gastrointestinal: Negative for constipation, diarrhea, nausea and vomiting. Endocrine: Negative for cold intolerance, heat intolerance, polydipsia, polyphagia and polyuria. Genitourinary: Negative for dysuria. Skin: Chronic dry patches on extremities r/t psoriasis. Improving with Stelara Neurological: Negative for dizziness, tremors, light-headedness and numbness. Psychiatric/Behavioral: Negative for sleep disturbance. The following portions of the patient's history were reviewed and updated as appropriate: allergies, current medications, past family history, past medical history, past social history, past surgical history and problem list. Objective: BP 130/69 (BP Location: Left arm) Pulse (!) 116 Wt 99.8 kg (220 lb 1.6 oz) BMI 40.26 kg/m Wt Readings from Last 3 Encounters: 04/30/22 99.8 kg (220 lb 1.6 oz) 12/11/21 98.9 kg (218 lb) 08/11/21 102.1 kg (225 lb) Physical Exam: General: alert, appears stated age and cooperative Eyes: conjunctivae/corneas clear. PERRL, EOM's intact. Neck: no adenopathy, supple, symmetrical, trachea midline. Thyroid: No thyromegaly appreciated. Skin is moist Lung: clear to auscultation bilaterally slightly diminished. Heart: regular rate and rhythm, S1, S2 normal, no murmur, click, rub or gallop Extremities: extremities normal, atraumatic, no cyanosis or edema Feet: Dry skin and psporiasis on legs bilaterally, Bilateral Feet: normal PT. Monofilament exam not assessed, bilateral lower extremities. Neuro: normal without focal findings, mental status, speech normal, alert and oriented x3 and JENNIFER Lab Review Date: 04/11/22 *labs reviewed 04/30/22 Hgb A1c: 10.2% Creat: 0.78; eGFR: 90 AST: 23; ALT: 27 K: 3.7 Tchol: 142; Tri ; HDL: 32 ; LDL: 88 12/02/21 Hgb A1c: 9.8% Creat: 0.74; eGFR: 105 AST: 10; ALT: 16 K: 4.1 TSH: 1.730 07/17/21 Hgb A1c: 9.7% Creat: 0.67; eGFR: 105 AST: 15; ALT: 18 K: 3.9 TSH: 3.850 ; FreeT4: 1.23 10/21/20 Hgb A1c: 9.2% Creat: 0.71; eGFR: 98 AST: 17; ALT: 20 K: 4.0 CBC: WBC:7.70; Hgb: 14.2; Hct: 42.6; Plt: 186 Tchol: 127; Tri; HDL: 33 ; LDL: 71 TSH: 7.180 ; FreeT4: 1.16 Microalbumin/creatinine Ratio: 9 06/02/20 Hgb A1c: 8.3% Creat: 0.71; eGFR: 99 AST: 15; ALT: 17 K: 4.6 01/29/20 Hgb A1c: 10.8% Creat: 0.73; eGFR: 96 AST: 17; ALT: 18 K: 4.1 TSH: 2.55 ; FreeT4: 1.35 08/28/19 Hgb A1c: 10.1% Creat: 0.82; eGFR: 83 AST: 16; ALT: 21 K: 4.0 TSH: 2.890 ; FreeT4: 1.32 03/20/19 Hgb A1c: 11.2% Creat: 0.75; eGFR: 93 AST: 13; ALT: 17 K: 3.8 Tchol: 158; Tri ; HDL: 39 ; LDL: 93 12/09/18 Hemoglobin A1c 10.1% Creatinine 0.71, estimated GFR 100, K4.5 AST 18, ALT 21 TSH 1.7, free T4--1.32 Microalbumin/creatinine ratio 4.5 08/28/2018 Hemoglobin A1c 9.4% Creatinine 0.70, estimated GFR 101, K3.8 AST 15, ALT 17 T cholesterol 194, TG 172, HDL 40, LDL at 120 CBC: H/H 13.9/41.1, WBC 7.60, platelets 206,000 03/29/18 Hgb A1c: 9.4% Creat: 0.8; eGFR: >60 AST: 15; ALT: 16 K: 4.0 TSH: 0.36 ; FreeT4: 1.18 11/26/17 Hgb A1c: 9.2% Creat: 0.6; eGFR: >60 AST: 22; ALT: 19 K: 3.9 05/28/17 Creat: 0.6 AST: 24; ALT: 25 K: 3.5 CBC: WBC:8.2; Hgb: 14.4; Hct: 43.0; Plt: 204 Tchol: 162; Tri ; HDL: 34 ; LDL: 89 TSH: 1.69 ; FreeT4: 0.99 02/01/17 Hgb A1C 9.6% 10/03/16 Hgb A1c: 8.7% Creat: 0.82 AST: 18; ALT: 29 K: 4.3 06/14/16 C Peptide: <0.1 ASHANTI 65 Antibody >250.0 Assessment: Dx: 1. Type 1 diabetes mellitus with hyperglycemia (HCC) 2. Hypothyroidism, unspecified type 3. Primary hypertension 4. Hyperlipidemia, unspecified hyperlipidemia type Type 1 diabetes, under fair control Patient is currently managed with: Humalog with meals and Basaglar at bedtime. Most recent Hgb A1c was 10.2% Patient bases insulin injection amount based on BG and meal content. She has not specific formula or pattern. She reports missing some injections leading to hyperglycemia. Reports not exercising, not following diet closely. Retinopathy: Negative Exam within last 12 months: yes Date: 10/14/20.With Dr. Resendiz in [place]. Evidence of early mild [employer]OLOG[employer] in left eye 07/21, has follow up 01/21. for the management of Mild [employer]ACT[employer]IOLOG[employer] and Glaucoma. Diagnosed with optic nerve swelling following short (possibly viral) GI illness, could also be secondary to stroke or TIA. However unlikely due to no other symptoms. Nephropathy: Negative Creat: 0.74; eGFR: 105 12/02/21; Mialb/creat ratio: 4.5 on 12/09/2018, patient takes lisinopril (Prinivil) Peripheral Neuropathy: Negative Denies symptoms associated with neuropathy (numbness and/or tingling). Occasional pains. Autonomic Neuropathy: Negative Patient aware of lows. Hyperlipidemia: Positive Currently taking: rosuvastatin (Crestor). LFT's WNL. Hypertension: Positive. Currently taking: lisinopril (Prinivil), was also previously on valsartan 80 mg in combination with JOHANNA, has since discontinued valsartan due to recall. Since combination of ARB and JOHANNA not currently recommended, patient may continue without. BP: 130/69 Stable-Goal <130/80 Cardiac: Negative Denies Chest pain or SOB at this time. Does have occasional palpitations-needs to check blood sugars when she are having these. Vascular: Negative no edema Feet: Negative sores or lesions at this time. Last foot exam: at initial visit 02/05/17 Thyroid: Positive. Takes levothyroxine 125 mcg daily. Patient has history of hypothyroidism after her in 1997. 10/21/20 TSH 7.18, free T4--1.16. PLAN: Adjust dose to 137 mcg. Other: Psoriasis: Currently taking Stelara now instead of Humira per a shorer. She is pleased with this. Plan: Type 1 diabetes mellitus with hyperglycemia (HCC) [E10.65] 1. Rx changes: Adjust medications as below Be sure to take insulin with all meals, even if BG <100. Humalog insulin: 1:2 units at breakfast; 1:2 units at lunch; 1:2 units at supper Toujeo insulin: 40 units twice daily Use as directed with Humalog insulin before meals and at bedtime. 151-200: 2 units fast acting insulin 201-250: 4 units fast acting insulin 251-300: 6 units fast acting insulin 301-350: 8 units fast acting insulin 351-400: 10 units fast acting insulin above 400: 12 units fast acting insulin, call the office. Obesity: Class 3. Patient had success with sample of ozempic presribed off label previously, now that wegovy is available with her recent weight gain, elevated A1c, risk factors for CV, renal and neuro deficit. Patient would benefit from starting med for weight loss and other subsequent benefits. Start wegovy 0.25 mg weekly for 4 weeks then increase to 0.5 mg weekly. Continue checking her BG 4 times a day and get control of her Blood sugars. DexCom CGM Mrs. Bai would benefit from Continued use of continuous glucose monitoring system. Patient has had Type 1 diabetes for 19 years. Complications include diabetic neuropathy and autonomic neuropathy with hypoglycemic unawareness Patient is currently managed with: insulin injections Patient has been checking their blood sugar 4 times per day Patient's most recent Hgb A1c was 10.8% on 01/21 Patient's HGb is <6.0% or >8.5% Patient currently takes humalog and basaglar insulin injections 4 times daily. Patient is positive for a history of hypoglycemic unawareness Patient has inadequate control despite compliance with multiple alterations in insulin doses/medication regimen. 2. Education: Reviewed ABCs of diabetes management (respective goals in parentheses): A1C (7.0-8.0), blood pressure (<130/80), and cholesterol (LDL <100). 3. Compliance at present is estimated to be fair. Efforts to improve compliance (if necessary) will be directed at dietary modifications: Limit portion sizes, Limit starches, carbohydrates and concentrated sugar sources and following with a intensive care specialist if insurance permits, increased exercise and regular blood sugar monitorin-6 times daily. 4. Follow up: 4 months 5. Record blood sugar readings as instructed. Call if BG consistently <70 or >250. [phone] Check blood sugar 3-4 times daily and as needed. May call in readings if blood glucose readings continue to stay elevated or drop too low. 6. Bring blood sugar meter to follow up appointment. No orders of the defined types were placed in this encounter. Electronically Signed by: Alan Madrid CNP 04/30/22 7:30 AM documented in this encounter [facility] 12-11-2021 History of Present illness Narrative Images from the original note were not included. +Patient ID: Gregoria Bai is a 51 y.o. female 1970 Subjective: HPI: Gregoria Bai presents for follow-up of Type 1 diabetes The initial diagnosis of gestational diabetes was made 23 years ago in 1997. One year later she developed Type 2 and was on oral agents for ~ 4 years, then started on Insulin and her diagnosis was changed to Type 1 Diabetes, confirmed with labs on 06/14/16. Self Monitored blood glucose levels Patient has been checking BG 1-5 times daily. Utilizing DexCom CGM. Blood glucose ranges are: Fasting BG 80-465 10am-1pm: 138-491 5pm-8pm: 131-423 Bedtime (10pm-11pm): 267-528 Patient's weight is stable Patient is following a diabetic diet intermittently Meal planning includes avoidance of concentrated sweets. She was able to meet with a intensive care specialist once. Currently taking: Humalog insulin: 1:2 units at breakfast; 1:2 units at lunch; 1:2 units at supper Basaglar insulin: 63 units at bedtime 25-35 units TID with meals. She also is following a standard sliding scale Humalog with meals (Greater than 150-200 extra 2 units, 201-150 extra 4 units...) Attempted ozempic in August 2021, however reported increased heartburn days 3-4 after injection. Outpatient Medications Marked as Taking for the 12/11/21 encounter (Office Visit) with Alan Madrid CNP: aspirin 81 MG EC tablet, Take 1 tablet by mouth daily . Basaglar KwikPen U-100 Insulin 100 unit/mL (3 mL) InPn, Inject 62 (sixty two) Units under the skin nightly . blood sugar diagnostic strips, Accu-chek test strips. Use as directed, 4 times daily. E10.65 . blood-glucose meter (Accu-Chek Kiki Plus Meter) [facility] [place] BG 4x daily. DX code E10.65 Use Accu-chek brand . cholecalciferol, vitamin D3, 1,000 unit tablet, Take 1,000 Units by mouth daily. esomeprazole (NEXIUM) 20 MG capsule, Take 20 mg by mouth every morning before breakfast. levothyroxine (SYNTHROID, LEVOTHROID) 137 MCG tablet, Take 1 (one) tablet (137 mcg total) by mouth daily . lisinopriL (PRINIVIL,ZESTRIL) 40 MG tablet, TAKE 1 TABLET DAILY NovoLOG Flexpen U-100 Insulin 100 unit/mL (3 mL) InPn, Use as directed up to 35 units TID. . pen needle, diabetic 31 gauge x 5/16" Ndle, Use as directed QID. rosuvastatin (CRESTOR) 20 MG tablet, TAKE 1 TABLET DAILY STELARA 45 mg/0.5 mL Syrg, Review of Systems: Review of Systems Constitutional: Positive for activity change (Continues to exercise 4-5 days per week.). Negative for unexpected weight change. HENT: Negative for trouble swallowing and voice change. Eyes: Negative for visual disturbance. Respiratory: Negative for cough and shortness of breath. Cardiovascular: Negative for chest pain, palpitations and leg swelling. Gastrointestinal: Negative for constipation, diarrhea, nausea and vomiting. Endocrine: Negative for cold intolerance, heat intolerance, polydipsia, polyphagia and polyuria. Genitourinary: Negative for dysuria. Skin: Chronic dry patches on extremities r/t psoriasis. Improving with Stelara Neurological: Negative for dizziness, tremors, light-headedness and numbness. Psychiatric/Behavioral: Negative for sleep disturbance. The following portions of the patient's history were reviewed and updated as appropriate: allergies, current medications, past family history, past medical history, past social history, past surgical history and problem list. Objective: BP 127/85 Pulse 91 Wt 98.9 kg (218 lb) BMI 39.87 kg/m Wt Readings from Last 3 Encounters: 12/11/21 98.9 kg (218 lb) 08/11/21 102.1 kg (225 lb) 10/24/20 104.3 kg (230 lb) Physical Exam: General: alert, appears stated age and cooperative Eyes: conjunctivae/corneas clear. PERRL, EOM's intact. Neck: no adenopathy, supple, symmetrical, trachea midline. Thyroid: No thyromegaly appreciated. Skin is moist Lung: clear to auscultation bilaterally slightly diminished. Heart: regular rate and rhythm, S1, S2 normal, no murmur, click, rub or gallop Extremities: extremities normal, atraumatic, no cyanosis or edema Feet: Dry skin and psporiasis on legs bilaterally, Bilateral Feet: normal PT. Monofilament exam not assessed, bilateral lower extremities. Neuro: normal without focal findings, mental status, speech normal, alert and oriented x3 and JENNIFER Lab Review Date: 12/02/21 *labs reviewed 12/11/21 Hgb A1c: 9.8% Creat: 0.74; eGFR: 105 AST: 10; ALT: 16 K: 4.1 TSH: 1.730 07/17/21 Hgb A1c: 9.7% Creat: 0.67; eGFR: 105 AST: 15; ALT: 18 K: 3.9 TSH: 3.850 ; FreeT4: 1.23 10/21/20 Hgb A1c: 9.2% Creat: 0.71; eGFR: 98 AST: 17; ALT: 20 K: 4.0 CBC: WBC:7.70; Hgb: 14.2; Hct: 42.6; Plt: 186 Tchol: 127; Tri; HDL: 33 ; LDL: 71 TSH: 7.180 ; FreeT4: 1.16 Microalbumin/creatinine Ratio: 9 4/1/21 Hgb A1c: 8.3% Creat: 0.71; eGFR: 99 AST: 15; ALT: 17 K: 4.6 01/29/20 Hgb A1c: 10.8% Creat: 0.73; eGFR: 96 AST: 17; ALT: 18 K: 4.1 TSH: 2.55 ; FreeT4: 1.35 08/28/19 Hgb A1c: 10.1% Creat: 0.82; eGFR: 83 AST: 16; ALT: 21 K: 4.0 TSH: 2.890 ; FreeT4: 1.32 03/20/19 Hgb A1c: 11.2% Creat: 0.75; eGFR: 93 AST: 13; ALT: 17 K: 3.8 Tchol: 158; Tri ; HDL: 39 ; LDL: 93 12/09/18 Hemoglobin A1c 10.1% Creatinine 0.71, estimated GFR 100, K4.5 AST 18, ALT 21 TSH 1.7, free T4--1.32 Microalbumin/creatinine ratio 4.5 08/28/2018 Hemoglobin A1c 9.4% Creatinine 0.70, estimated GFR 101, K3.8 AST 15, ALT 17 T cholesterol 194, TG 172, HDL 40, LDL at 120 CBC: H/H 13.9/41.1, WBC 7.60, platelets 206,000 03/29/18 Hgb A1c: 9.4% Creat: 0.8; eGFR: >60 AST: 15; ALT: 16 K: 4.0 TSH: 0.36 ; FreeT4: 1.18 11/26/17 Hgb A1c: 9.2% Creat: 0.6; eGFR: >60 AST: 22; ALT: 19 K: 3.9 05/28/17 Creat: 0.6 AST: 24; ALT: 25 K: 3.5 CBC: WBC:8.2; Hgb: 14.4; Hct: 43.0; Plt: 204 Tchol: 162; Tri ; HDL: 34 ; LDL: 89 TSH: 1.69 ; FreeT4: 0.99 02/01/17 Hgb A1C 9.6% 10/03/16 Hgb A1c: 8.7% Creat: 0.82 AST: 18; ALT: 29 K: 4.3 06/14/16 C Peptide: <0.1 ASHANTI 65 Antibody >250.0 Assessment: Dx: 1. Type 1 diabetes mellitus with hyperglycemia (HCC) blood sugar diagnostic strips (This order has not been finalized) 2. Hypothyroidism, unspecified type 3. Hyperlipidemia, unspecified hyperlipidemia type 4. Primary hypertension Type 1 diabetes, under fair control Patient is currently managed with: Humalog with meals and Basaglar at bedtime. Most recent Hgb A1c was 9.8% Patient bases insulin injection amount based on BG and meal content. She has not specific formula or pattern. She reports missing some injections leading to hyperglycemia. Reports not exercising, not following diet closely. Retinopathy: Negative Exam within last 12 months: yes Date: 10/14/20.With Dr. Resendiz in [place]. Evidence of early mild [employer]OLOG[employer] in left eye 07/21, has follow up 01/21. for the management of Mild [employer]ACT[employer]IOLOG[employer]ARM[employer] and Glaucoma. Diagnosed with optic nerve swelling following short (possibly viral) GI illness, could also be secondary to stroke or TIA. However unlikely due to no other symptoms. Nephropathy: Negative Creat: 0.74; eGFR: 105 12/02/21; Mialb/creat ratio: 4.5 on 12/09/2018, patient takes lisinopril (Prinivil) Peripheral Neuropathy: Negative Denies symptoms associated with neuropathy (numbness and/or tingling). Occasional pains. Autonomic Neuropathy: Negative Patient aware of lows. Hyperlipidemia: Positive Currently taking: rosuvastatin (Crestor). LFT's WNL. Hypertension: Positive. Currently taking: lisinopril (Prinivil), was also previously on valsartan 80 mg in combination with JOHANNA, has since discontinued valsartan due to recall. Since combination of ARB and JOHANNA not currently recommended, patient may continue without. BP: 127/85 Stable-Goal <130/80 Cardiac: Negative Denies Chest pain or SOB at this time. Does have occasional palpitations-needs to check blood sugars when she are having these. Vascular: Negative no edema Feet: Negative sores or lesions at this time. Last foot exam: at initial visit 02/05/17 Thyroid: Positive. Takes levothyroxine 125 mcg daily. Patient has history of hypothyroidism after her in 1997. 10/21/20 TSH 7.18, free T4--1.16. PLAN: Adjust dose to 137 mcg. Other: Psoriasis: Currently taking Stelara now instead of Humira per a shorer. She is pleased with this. Plan: Type 1 diabetes mellitus with hyperglycemia (HCC) [E10.65] 1. Rx changes: Adjust medications as below Be sure to take insulin with all meals, even if BG <100. Humalog insulin: 1:2 units at breakfast; 1:2 units at lunch; 1:2 units at supper Toujeo insulin: 63 units at bedtime Start trulicity 0.[address] of ozempic due to increased heartburn. Use as directed with Humalog insulin before meals and at bedtime. 151-200: 2 units fast acting insulin 201-250: 4 units fast acting insulin 251-300: 6 units fast acting insulin 301-350: 8 units fast acting insulin 351-400: 10 units fast acting insulin above 400: 12 units fast acting insulin, call the office. Continue checking her BG 4 times a day and get control of her Blood sugars. DexCom CGM Mrs. Bai would benefit from Continued use of continuous glucose monitoring system. Patient has had Type 1 diabetes for 19 years. Complications include diabetic neuropathy and autonomic neuropathy with hypoglycemic unawareness Patient is currently managed with: insulin injections Patient has been checking their blood sugar 4 times per day Patient's most recent Hgb A1c was 10.8% on 01/21 Patient's HGb is <6.0% or >8.5% Patient currently takes humalog and basaglar insulin injections 4 times daily. Patient is positive for a history of hypoglycemic unawareness Patient has inadequate control despite compliance with multiple alterations in insulin doses/medication regimen. 2. Education: Reviewed ABCs of diabetes management (respective goals in parentheses): A1C (7.0-8.0), blood pressure (<130/80), and cholesterol (LDL <100). 3. Compliance at present is estimated to be fair. Efforts to improve compliance (if necessary) will be directed at dietary modifications: Limit portion sizes, Limit starches, carbohydrates and concentrated sugar sources and following with a intensive care specialist if insurance permits, increased exercise and regular blood sugar monitorin-6 times daily. 4. Follow up: 4 months 5. Record blood sugar readings as instructed. Call if BG consistently <70 or >250. [phone] Check blood sugar 3-4 times daily and as needed. May call in readings if blood glucose readings continue to stay elevated or drop too low. 6. Bring blood sugar meter to follow up appointment. Orders Placed This Encounter Procedures Comprehensive Metabolic Panel Hemoglobin A1c T4, Free TSH Lipid Panel CBC and Differential Microalbumin/Creatinine Ratio, UR Random Electronically Signed by: Alan Madrid CNP 12/11/21 7:30 AM documented in this encounter [facility] 08-11-2021 Instructions Alan Madrid CNP - 08/11/2021 8:33 AM EDT Plan: Type 1 diabetes mellitus with hyperglycemia (HCC) [E10.65] 1. Rx changes: Adjust medications as below Be sure to take insulin with all meals, even if BG <100. Humalog insulin: 1:2 units at breakfast; 1:2 units at lunch; 1:2 units at supper Basaglar insulin: 63 units at bedtime Start Ozempic 0.25 mg weekly for 4 weeks, then increase to 0.5 mg weekly Use as directed with Humalog insulin before meals and at bedtime. 151-200: 2 units fast acting insulin 201-250: 4 units fast acting insulin 251-300: 6 units fast acting insulin 301-350: 8 units fast acting insulin 351-400: 10 units fast acting insulin above 400: 12 units fast acting insulin, call the office. documented in this encounter [facility] 08-11-2021 History of Present illness Narrative Images from the original note were not included. +Patient ID: Gregoria Bai is a 51 y.o. female 1970 Subjective: HPI: Gregoria Bai presents for follow-up of Type 1 diabetes The initial diagnosis of gestational diabetes was made 23 years ago in 1997. One year later she developed Type 2 and was on oral agents for ~ 4 years, then started on Insulin and her diagnosis was changed to Type 1 Diabetes, confirmed with labs on 06/14/16. Self Monitored blood glucose levels Patient has been checking BG 1-5 times daily. Utilizing DexCom CGM. Blood glucose ranges are: Fasting BG 80-465 10am-1pm: 138-491 5pm-8pm: 131-423 Bedtime (10pm-11pm): 267-528 Patient's weight is stable Patient is following a diabetic diet intermittently Meal planning includes avoidance of concentrated sweets. She was able to meet with a intensive care specialist once. Currently taking: Humalog insulin: 1:2 units at breakfast; 1:2 units at lunch; 1:2 units at supper Basaglar insulin: 63 units at bedtime 25-35 units TID with meals. She also is following a standard sliding scale Humalog with meals (Greater than 150-200 extra 2 units, 201-150 extra 4 units...) Outpatient Medications Marked as Taking for the 08/11/21 encounter (Office Visit) with Alan Madrid CNP: aspirin 81 MG EC tablet, Take 1 tablet by mouth daily . Basaglar KwikPen U-100 Insulin 100 unit/mL (3 mL) InPn, Inject 62 (sixty two) Units under the skin nightly . blood sugar diagnostic strips, Accu-chek test strips. Use as directed, 4 times daily. E10.65 . blood-glucose meter (Accu-Chek Kiki Plus Meter) [facility] [place] BG 4x daily. DX code E10.65 Use Accu-chek brand . cholecalciferol, vitamin D3, 1,000 unit tablet, Take 1,000 Units by mouth daily. esomeprazole (NEXIUM) 20 MG capsule, Take 20 mg by mouth every morning before breakfast. levothyroxine (SYNTHROID, LEVOTHROID) 137 MCG tablet, Take 1 (one) tablet (137 mcg total) by mouth daily . lisinopriL (PRINIVIL,ZESTRIL) 40 MG tablet, TAKE 1 TABLET DAILY NovoLOG Flexpen U-100 Insulin 100 unit/mL (3 mL) InPn, Use as directed up to 35 units TID. . pen needle, diabetic 31 gauge x 5/16" Ndle, Use as directed QID. rosuvastatin (CRESTOR) 20 MG tablet, TAKE 1 TABLET DAILY STELARA 45 mg/0.5 mL Syrg, Review of Systems: Review of Systems Constitutional: Positive for activity change (Continues to exercise 4-5 days per week.). Negative for unexpected weight change. HENT: Negative for trouble swallowing and voice change. Eyes: Negative for visual disturbance. Respiratory: Negative for cough and shortness of breath. Cardiovascular: Negative for chest pain, palpitations and leg swelling. Gastrointestinal: Negative for constipation, diarrhea, nausea and vomiting. Endocrine: Negative for cold intolerance, heat intolerance, polydipsia, polyphagia and polyuria. Genitourinary: Negative for dysuria. Skin: Chronic dry patches on extremities r/t psoriasis. Improving with Stelara Neurological: Negative for dizziness, tremors, light-headedness and numbness. Psychiatric/Behavioral: Negative for sleep disturbance. The following portions of the patient's history were reviewed and updated as appropriate: allergies, current medications, past family history, past medical history, past social history, past surgical history and problem list. Objective: BP 113/75 Pulse 90 Ht 5' 2" Wt 102.1 kg (225 lb) BMI 41.15 kg/m Wt Readings from Last 3 Encounters: 08/11/21 102.1 kg (225 lb) 10/24/20 104.3 kg (230 lb) 06/06/20 103.9 kg (229 lb) Physical Exam: General: alert, appears stated age and cooperative Eyes: conjunctivae/corneas clear. PERRL, EOM's intact. Neck: no adenopathy, supple, symmetrical, trachea midline. Thyroid: No thyromegaly appreciated. Skin is moist Lung: clear to auscultation bilaterally slightly diminished. Heart: regular rate and rhythm, S1, S2 normal, no murmur, click, rub or gallop Extremities: extremities normal, atraumatic, no cyanosis or edema Feet: Dry skin and psporiasis on legs bilaterally, Bilateral Feet: normal PT. Monofilament exam not assessed, bilateral lower extremities. Neuro: normal without focal findings, mental status, speech normal, alert and oriented x3 and JENNIFER Lab Review Date: 07/17/21 *labs reviewed 08/11/21 Hgb A1c: 9.7% Creat: 0.67; eGFR: 105 AST: 15; ALT: 18 K: 3.9 TSH: 3.850 ; FreeT4: 1.23 10/21/20 Hgb A1c: 9.2% Creat: 0.71; eGFR: 98 AST: 17; ALT: 20 K: 4.0 CBC: WBC:7.70; Hgb: 14.2; Hct: 42.6; Plt: 186 Tchol: 127; Tri; HDL: 33 ; LDL: 71 TSH: 7.180 ; FreeT4: 1.16 Microalbumin/creatinine Ratio: 9 06/02/20 Hgb A1c: 8.3% Creat: 0.71; eGFR: 99 AST: 15; ALT: 17 K: 4.6 01/29/20 Hgb A1c: 10.8% Creat: 0.73; eGFR: 96 AST: 17; ALT: 18 K: 4.1 TSH: 2.55 ; FreeT4: 1.35 08/28/19 Hgb A1c: 10.1% Creat: 0.82; eGFR: 83 AST: 16; ALT: 21 K: 4.0 TSH: 2.890 ; FreeT4: 1.32 03/20/19 Hgb A1c: 11.2% Creat: 0.75; eGFR: 93 AST: 13; ALT: 17 K: 3.8 Tchol: 158; Tri ; HDL: 39 ; LDL: 93 12/09/18 Hemoglobin A1c 10.1% Creatinine 0.71, estimated GFR 100, K4.5 AST 18, ALT 21 TSH 1.7, free T4--1.32 Microalbumin/creatinine ratio 4.5 08/28/2018 Hemoglobin A1c 9.4% Creatinine 0.70, estimated GFR 101, K3.8 AST 15, ALT 17 T cholesterol 194, TG 172, HDL 40, LDL at 120 CBC: H/H 13.9/41.1, WBC 7.60, platelets 206,000 03/29/18 Hgb A1c: 9.4% Creat: 0.8; eGFR: >60 AST: 15; ALT: 16 K: 4.0 TSH: 0.36 ; FreeT4: 1.18 11/26/17 Hgb A1c: 9.2% Creat: 0.6; eGFR: >60 AST: 22; ALT: 19 K: 3.9 05/28/17 Creat: 0.6 AST: 24; ALT: 25 K: 3.5 CBC: WBC:8.2; Hgb: 14.4; Hct: 43.0; Plt: 204 Tchol: 162; Tri ; HDL: 34 ; LDL: 89 TSH: 1.69 ; FreeT4: 0.99 02/01/17 Hgb A1C 9.6% 10/03/16 Hgb A1c: 8.7% Creat: 0.82 AST: 18; ALT: 29 K: 4.3 06/14/16 C Peptide: <0.1 ASHANTI 65 Antibody >250.0 Assessment: Dx: 1. Type 1 diabetes mellitus with hyperglycemia (HCC) Comprehensive Metabolic Panel Hemoglobin A1c T4, Free TSH 2. Hypothyroidism, unspecified type 3. Primary hypertension 4. Hyperlipidemia, unspecified hyperlipidemia type Type 1 diabetes, under fair control Patient is currently managed with: Humalog with meals and Basaglar at bedtime. Most recent Hgb A1c was 9.7% Patient bases insulin injection amount based on BG and meal content. She has not specific formula or pattern. She reports missing some injections leading to hyperglycemia. Reports not exercising, not following diet closely. Retinopathy: Negative Exam within last 12 months: yes Date: 10/14/20.With Dr. Resendiz in [place]. Evidence of early mild [employer]ACT[employer]IOLOGIST [employer]ARMACE[employer] in left eye 07/21, has follow up 01/21. for the management of Mild [employer]ACT[employer]IOLOGIST PHARMACE[employer] and Glaucoma. Diagnosed with optic nerve swelling following short (possibly viral) GI illness, could also be secondary to stroke or TIA. However unlikely due to no other symptoms. Nephropathy: Negative Creat: 0.82; eGFR: 83 08/21; Mialb/creat ratio: 4.5 on 12/09/2018, patient takes lisinopril (Prinivil) Peripheral Neuropathy: Negative Denies symptoms associated with neuropathy (numbness and/or tingling). Occasional pains. Autonomic Neuropathy: Negative Patient aware of lows. Hyperlipidemia: Positive Currently taking: rosuvastatin (Crestor). LFT's WNL. Hypertension: Positive. Currently taking: lisinopril (Prinivil), was also previously on valsartan 80 mg in combination with JOHANNA, has since discontinued valsartan due to recall. Since combination of ARB and JOHANNA not currently recommended, patient may continue without. BP: 113/75 Stable-Goal <130/80 Cardiac: Negative Denies Chest pain or SOB at this time. Does have occasional palpitations-needs to check blood sugars when she are having these. Vascular: Negative no edema Feet: Negative sores or lesions at this time. Last foot exam: at initial visit 02/05/17 Thyroid: Positive. Takes levothyroxine 125 mcg daily. Patient has history of hypothyroidism after her in 1997. 10/21/20 TSH 7.18, free T4--1.16. PLAN: Adjust dose to 137 mcg. Other: Psoriasis: Currently taking Stelara now instead of Humira per a shorer. She is pleased with this. Plan: Type 1 diabetes mellitus with hyperglycemia (HCC) [E10.65] 1. Rx changes: Adjust medications as below Be sure to take insulin with all meals, even if BG <100. Humalog insulin: 1:2 units at breakfast; 1:2 units at lunch; 1:2 units at supper Basaglar insulin: 63 units at bedtime Start Ozempic 0.25 mg weekly for 4 weeks, then increase to 0.5 mg weekly Use as directed with Humalog insulin before meals and at bedtime. 151-200: 2 units fast acting insulin 201-250: 4 units fast acting insulin 251-300: 6 units fast acting insulin 301-350: 8 units fast acting insulin 351-400: 10 units fast acting insulin above 400: 12 units fast acting insulin, call the office. Continue checking her BG 4 times a day and get control of her Blood sugars. DexCom CGM Mrs. Bai would benefit from Continued use of continuous glucose monitoring system. Patient has had Type 1 diabetes for 19 years. Complications include diabetic neuropathy and autonomic neuropathy with hypoglycemic unawareness Patient is currently managed with: insulin injections Patient has been checking their blood sugar 4 times per day Patient's most recent Hgb A1c was 10.8% on 01/21 Patient's HGb is <6.0% or >8.5% Patient currently takes humalog and basaglar insulin injections 4 times daily. Patient is positive for a history of hypoglycemic unawareness Patient has inadequate control despite compliance with multiple alterations in insulin doses/medication regimen. 2. Education: Reviewed ABCs of diabetes management (respective goals in parentheses): A1C (7.0-8.0), blood pressure (<130/80), and cholesterol (LDL <100). 3. Compliance at present is estimated to be fair. Efforts to improve compliance (if necessary) will be directed at dietary modifications: Limit portion sizes, Limit starches, carbohydrates and concentrated sugar sources and following with a intensive care specialist if insurance permits, increased exercise and regular blood sugar monitorin-6 times daily. 4. Follow up: 4 months 5. Record blood sugar readings as instructed. Call if BG consistently <70 or >250. [phone] Check blood sugar 3-4 times daily and as needed. May call in readings if blood glucose readings continue to stay elevated or drop too low. 6. Bring blood sugar meter to follow up appointment. Orders Placed This Encounter Procedures Comprehensive Metabolic Panel Hemoglobin A1c T4, Free TSH Electronically Signed by: Alan Madrid CNP 08/11/21 7:30 AM documented in this encounter [facility] 03-10-2021 History of Present illness Narrative Patient is a pleasant 60-year-old female here for 10-day postop visit for her left carpal tunnel release. She was wearing her postop splint up to 3 days ago. She has been washing the wound with soap and water. She does get some random pains, she does take occasional Tylenol or ibuprofen which help her symptoms. She did use the pain medication for a few days postop and none since. She had immediate relief of the numb and tingling to her hand and fingers after the procedure. This is her nondominant hand. [facility] 300 Work Phone: 02-20-2021 Note PROCEDURE DETAILS Preoperative Diagnosis: Carpal tunnel syndrome, G56.00 Postoperative Diagnosis: Carpal tunnel syndrome, G56.00 Surgeon: Dorian Davis Resident/Fellow/Other Merchant Seaman: None of these were associated with this case Procedure: 1. L CTR Anesthesia: Dimitry Wilson Estimated Blood Loss: less than 5ml Findings: as noted above Specimens(s) Collected: no, Complications: none Patient Returned To/Condition: stable to pacu Operative Report: Indicationspatient presented to the outpatient orthopedic surgical office with numbness and tingling in the median nerve distribution patient tried multiple conservative measures including splints oral medication with no improvement of the symptoms the risk benefits alternatives and indications for treating carpal tunnels syndrome were discussed in detail. EMG evidence did suggest carpal tunnel syndrome as well as physical exam which was consistent with carpal tunnel syndrome surgical treatment injection and further splinting were discussed as well as the risks and benefits of continued nerve compression overall operative time. Patient did wish to proceed with surgical intervention. Written informed consent was at obtained after discussion of the risk benefits alternatives Description of procedurepatient was taken the preoperative holding area once again the risk benefits alternatives indications were discussed the operative site was marked agreed upon the patient was then taken to the operative room by nursing anesthesia staff. The patient was then placed on the operating table in the supine position all bony prominences well-padded and protected the arms extended onto a radiolucent arm board and a well-padded tourniquet was placed on the forearm. Operative timeout was undertaken identifying correct patient site and procedure all in agreement. Preoperative antibiotics were administered prior to incision the upper extremity was then prepped and draped in typical fashion. After prepping and draping Esmarch bandage used to exsanguinate the upper extremity tourniquet was inflated 200 mmHg. A longitudinal incision was made in the palm overlying the transverse carpal ligament. This was done using a 15 blade the subcutaneous tissue was bluntly dissected to the level of the palmar fascia with a 15 blade was then used to incise in line with the skin incision in the palmar fascia. Bipolar cautery was used to provide hemostasis in the wound edges. This exposed the transverse carpal ligament and the palmar stress palmaris brevis was noted mobilized radially and the transverse carpal ligament was incised sharply using a Sebago blade this exposed some of the contents of the canal and the proximal distal extents of the ligament were then released using blunt scissors under direct visualization after full release proximally and distally their contents of the carpal tunnel were evaluated there is an hourglass deformity indicative of compressive pathology. The radial leaflet was elevated in the radial border of the nerve as well as the recurrent motor branch were visualized. The wound was then copious irrigated with normal saline solution and the skin was closed with 4-0 Prolene in a horizontal mattress fashion. Xeroform 4 x 4 and a well-padded volar splint was placed on the forearm the patient was awakened from anesthesia transferred to [facility] taken to PACU in stable condition. Patient tolerated procedure without complication all the sponge counts were correct. Postoperative course patient will limit weightbearing on the upper extremity. Keep the splint on for 3 days at which point he can move insert shower following postoperative instructions. They should limit activity and weightbearing through the hand but work on range of motion of the fingers. Given a short pain medicine prescription follow-up in 10 days for stitch removal Attestation: Note Completion: Attending AttestationI performed the procedure without a resident Electronic Signatures: Dorian Davis () (Signed 20-Feb-2021 13:36) Authored: Post-Operative Note, Chart Review, Note Completion Last Updated: 20-Feb-2021 13:36 by Dorian Davis () [facility] 02-20-2021 History of Present illness Narrative Patient is a pleasant 50-year-old female presenting today for post operative evaluation of left CTR surgery on 02/20/21. Patient states her hand has remained tender and her pain is positional. She states her strength is good and her range of motion is almost to 100% but there is some stiffness. Following surgery and when she was still wearing the casting she states she was not experiencing any numbness. She has now begun to feel numbness in her hand and fingers that increases with fine motor activities and driving. She reports an increase in pain when her hand is straight and turning of the wrist that radiates up the arm and throughout the wrist. She has been doing physical therapy and has been tolerating it well. [facility] 300 Work Phone: 02-20-2021 History of Present illness Narrative Patient is a pleasant 50-year-old female presenting today for follow up with regards to her left wrist. Patient is 12+ weeks status post open carpal tunnel release performed on 02/20/2021. She returns as she is complaining of left dorsal radial wrist numbness and tingling sensations, as well as intermittent radial wrist pain. She states she picked up a heavy bag approximately 4 weeks ago and began to become symptomatic 2 days later. She states although the pain is bothersome, she is most concerned about the numbness at this time. She has mild pain with palpation along her wrist, but denies any feeling with palpation along the area of the radial nerve. With regards to intervention, patient states she would like to try an oral steroid medication in hopes to avoid EMG testing. She is a type II diabetic in which she states she is not opposed to trying the steroid medication as there is a possibility the medication can alter her sugar levels. [facility] 300 Work Phone: 02-20-2021 History of Present illness Narrative Patient is a pleasant 50-year-old female presenting today for 2 week follow up with regards to her left hand numbness. She is 3+ months status post open carpal tunnel release of the left wrist performed on 02/20/21. She was administered a corticosteroid injection at her last office visit in which she reports provided mild improvement in her condition, but caused complications with her sugar levels as she is a type 2 diabetic, as well as hot flashes and anxiety. She reports overall numbness of the left radial wrist has mildly decreased, but states it continues to present with a "weird" feeling. She denies experiencing the "pulling" sensation with reaching that she was previously. Her hand is occasionally bothersome with over use, but states she would like to delay any intervention as her condition has been manageable and does not disrupt her daily activities. [facility] 300 Work Phone: 02-20-2021 History of Present illness Narrative Patient is a pleasant 50-year-old female presenting today for 2 week follow up with regards to her left hand numbness. She is 3+ months status post open carpal tunnel release of the left wrist performed on 02/20/21. She was administered a corticosteroid injection at her last office visit in which she reports provided mild improvement in her condition, but caused complications with her sugar levels as she is a type 2 diabetic, as well as hot flashes and anxiety. She reports overall numbness of the left radial wrist has mildly decreased, but states it continues to present with a "weird" feeling. She denies experiencing the "pulling" sensation with reaching that she was previously. Her hand is occasionally bothersome with over use, but states she would like to delay any intervention as her condition has been manageable and does not disrupt her daily activities. [facility] 300 Work Phone: 02-20-2021 Note History & Physical R eviewed: /Lactating: Are You no Are You Currently Breastfeedingno I have reviewed the History and Physical dated: 20-Feb-2021 History and Physical reviewed and relevant findings noted. Patient examined to review pertinent physical findings.: No significant changes Home Medications Reviewed: no changes noted Allergies Reviewed: no changes noted ERAS (Enhanced Recovery After Surgery): ERAS Patient: no Consent: COVID-19 Consent: COVID-19 Risk ConsentSurgeon has reviewed lee risks related to the risk of joe COVID-19 and if they contract COVID-19 what the risks are. Electronic Signatures: Dorian Davis) (Signed 20-Feb-2021 09:51) Authored: History & Physical Reviewed, ERAS, Consent, Note Completion Last Updated: 20-Feb-2021 09:51 by Dorian Davis () [facility] 02-01-2021 Chief complaint Narrative - Reported 2 week follow-up) re-evaluation of left hand numbness. She is 3+ months status post open carpal tunnel release of the left wrist in 02/2021. She states overall numbness of the left radial wrist has decreased, however she states it still feels "weird". [facility] 300 Work Phone: 02-01-2021 Chief complaint Narrative - Reported 2 week follow-up) re-evaluation of left hand numbness. She is 3+ months status post open carpal tunnel release of the left wrist in 02/2021. She states overall numbness of the left radial wrist has decreased, however she states it still feels "weird". [facility] 300 Work Phone: 10-24-2020 History of Present illness Narrative Images from the original note were not included. +Patient ID: Gregoria Bai is a 50 y.o. female 1970 Subjective: HPI: Gregoria Bai presents for follow-up of Type 1 diabetes The initial diagnosis of gestational diabetes was made 23 years ago in 1997. One year later she developed Type 2 and was on oral agents for ~ 4 years, then started on Insulin and her diagnosis was changed to Type 1 Diabetes, confirmed with labs on 06/14/16. Self Monitored blood glucose levels Patient has been checking BG 1-5 times daily. Utilizing DexCom CGM. Blood glucose ranges are: Fasting BG 80-465 10am-1pm: 138-491 5pm-8pm: 131-423 Bedtime (10pm-11pm): 267-528 Patient's weight is stable Patient is following a diabetic diet intermittently Meal planning includes avoidance of concentrated sweets. She was able to meet with a intensive care specialist once. Currently taking: Humalog insulin: 1:2 units at breakfast; 1:2 units at lunch; 1:2 units at supper Basaglar insulin: 63 units at bedtime 25-35 units TID with meals. She also is following a standard sliding scale Humalog with meals (Greater than 150-200 extra 2 units, 201-150 extra 4 units...) Outpatient Medications Marked as Taking for the 10/24/20 encounter (Office Visit) with Alan Madrid CNP: aspirin (Ecotrin Low Strength) 81 MG EC tablet, Take 1 tablet by mouth daily . Basaglar KwikPen U-100 Insulin 100 unit/mL (3 mL) InPn, INJECT 60 UNITS SUBCUTANEOUSLY NIGHTLY (Patient taking differently: 62 Units nightly .) blood sugar diagnostic strips, Accu-chek test strips. Use as directed, 4 times daily. E10.65 . blood-glucose meter (Accu-Chek Kiki Plus Meter) [facility] [place] BG 4x daily. DX code E10.65 Use Accu-chek brand . cholecalciferol, vitamin D3, 1,000 unit tablet, Take 1,000 Units by mouth daily. esomeprazole (NEXIUM) 20 MG capsule, Take 20 mg by mouth every morning before breakfast. levothyroxine (Synthroid) 125 MCG tablet, Take 1 (one) tablet (125 mcg total) by mouth daily With extra 1/2 on Saturday . lisinopriL (PRINIVIL,ZESTRIL) 40 MG tablet, TAKE 1 TABLET DAILY NovoLOG Flexpen U-100 Insulin 100 unit/mL (3 mL) InPn, Use as directed up to 45 units TID. . (Patient taking differently: Use as directed up to 35 units TID. .) pen needle, diabetic 31 gauge x 5/16" Ndle, Use as directed QID. rosuvastatin (CRESTOR) 20 MG tablet, TAKE 1 TABLET DAILY STELARA 45 mg/0.5 mL Syrg, Review of Systems: Review of Systems Constitutional: Positive for activity change (Continues to exercise 4-5 days per week.). Negative for unexpected weight change. HENT: Negative for trouble swallowing and voice change. Eyes: Negative for visual disturbance. Respiratory: Negative for cough and shortness of breath. Cardiovascular: Negative for chest pain, palpitations and leg swelling. Gastrointestinal: Negative for constipation, diarrhea, nausea and vomiting. Endocrine: Negative for cold intolerance, heat intolerance, polydipsia, polyphagia and polyuria. Genitourinary: Negative for dysuria. Skin: Chronic dry patches on extremities r/t psoriasis. Improving with Stelara Neurological: Negative for dizziness, tremors, light-headedness and numbness. Psychiatric/Behavioral: Negative for sleep disturbance. The following portions of the patient's history were reviewed and updated as appropriate: allergies, current medications, past family history, past medical history, past social history, past surgical history and problem list. Objective: Ht 5' 2" Wt 104.3 kg (230 lb) BMI 42.07 kg/m Wt Readings from Last 3 Encounters: 10/24/20 104.3 kg (230 lb) 06/06/20 103.9 kg (229 lb) 02/01/20 95.6 kg (210 lb 12.8 oz) Physical Exam: General: alert, appears stated age and cooperative Eyes: conjunctivae/corneas clear. PERRL, EOM's intact. Neck: no adenopathy, supple, symmetrical, trachea midline. Thyroid: No thyromegaly appreciated. Skin is moist Lung: clear to auscultation bilaterally slightly diminished. Heart: regular rate and rhythm, S1, S2 normal, no murmur, click, rub or gallop Extremities: extremities normal, atraumatic, no cyanosis or edema Feet: Dry skin and psporiasis on legs bilaterally, Bilateral Feet: normal PT. Monofilament exam not assessed, bilateral lower extremities. Neuro: normal without focal findings, mental status, speech normal, alert and oriented x3 and JENNIFER Lab Review Date: 10/21/20 *labs reviewed 10/24/20 Hgb A1c: 9.2% Creat: 0.71; eGFR: 98 AST: 17; ALT: 20 K: 4.0 CBC: WBC:7.70; Hgb: 14.2; Hct: 42.6; Plt: 186 Tchol: 127; Tri; HDL: 33 ; LDL: 71 TSH: 7.180 ; FreeT4: 1.16 Microalbumin/creatinine Ratio: 9 06/02/20 Hgb A1c: 8.3% Creat: 0.71; eGFR: 99 AST: 15; ALT: 17 K: 4.6 01/29/20 Hgb A1c: 10.8% Creat: 0.73; eGFR: 96 AST: 17; ALT: 18 K: 4.1 TSH: 2.55 ; FreeT4: 1.35 08/28/19 Hgb A1c: 10.1% Creat: 0.82; eGFR: 83 AST: 16; ALT: 21 K: 4.0 TSH: 2.890 ; FreeT4: 1.32 03/20/19 Hgb A1c: 11.2% Creat: 0.75; eGFR: 93 AST: 13; ALT: 17 K: 3.8 Tchol: 158; Tri ; HDL: 39 ; LDL: 93 12/09/18 Hemoglobin A1c 10.1% Creatinine 0.71, estimated GFR 100, K4.5 AST 18, ALT 21 TSH 1.7, free T4--1.32 Microalbumin/creatinine ratio 4.5 08/28/2018 Hemoglobin A1c 9.4% Creatinine 0.70, estimated GFR 101, K3.8 AST 15, ALT 17 T cholesterol 194, TG 172, HDL 40, LDL at 120 CBC: H/H 13.9/41.1, WBC 7.60, platelets 206,000 03/29/18 Hgb A1c: 9.4% Creat: 0.8; eGFR: >60 AST: 15; ALT: 16 K: 4.0 TSH: 0.36 ; FreeT4: 1.18 11/26/17 Hgb A1c: 9.2% Creat: 0.6; eGFR: >60 AST: 22; ALT: 19 K: 3.9 05/28/17 Creat: 0.6 AST: 24; ALT: 25 K: 3.5 CBC: WBC:8.2; Hgb: 14.4; Hct: 43.0; Plt: 204 Tchol: 162; Tri ; HDL: 34 ; LDL: 89 TSH: 1.69 ; FreeT4: 0.99 02/01/17 Hgb A1C 9.6% 10/03/16 Hgb A1c: 8.7% Creat: 0.82 AST: 18; ALT: 29 K: 4.3 06/14/16 C Peptide: <0.1 ASHANTI 65 Antibody >250.0 Assessment: Dx: 1. Type 1 diabetes mellitus with hyperglycemia (HCC) 2. Hypothyroidism, unspecified type 3. Essential hypertension 4. Hyperlipidemia, unspecified hyperlipidemia type Type 1 diabetes, under fair control Patient is currently managed with: Humalog with meals and Basaglar at bedtime. Most recent Hgb A1c was 9.2% Patient bases insulin injection amount based on BG and meal content. She has not specific formula or pattern. She reports missing some injections leading to hyperglycemia. Reports not exercising, not following diet closely. Retinopathy: Negative Exam within last 12 months: yes Date: 10/14/20.With Dr. Resendiz in [place]. Evidence of early mild [employer] in left eye 07/21, has follow up 01/21. for the management of Mild [employer] and Glaucoma. Diagnosed with optic nerve swelling following short (possibly viral) GI illness, could also be secondary to stroke or TIA. However unlikely due to no other symptoms. Nephropathy: Negative Creat: 0.82; eGFR: 83 08/21; Mialb/creat ratio: 4.5 on 12/09/2018, patient takes lisinopril (Prinivil) Peripheral Neuropathy: Negative Denies symptoms associated with neuropathy (numbness and/or tingling). Occasional pains. Autonomic Neuropathy: Negative Patient aware of lows. Hyperlipidemia: Positive Currently taking: rosuvastatin (Crestor). LFT's WNL. Hypertension: Positive. Currently taking: lisinopril (Prinivil), was also previously on valsartan 80 mg in combination with JOHANNA, has since discontinued valsartan due to recall. Since combination of ARB and JOHANNA not currently recommended, patient may continue without. BP: 120/82 Stable-Goal <130/80 Cardiac: Negative Denies Chest pain or SOB at this time. Does have occasional palpitations-needs to check blood sugars when she are having these. Vascular: Negative no edema Feet: Negative sores or lesions at this time. Last foot exam: at initial visit 02/05/17 Thyroid: Positive. Takes levothyroxine 125 mcg daily. Patient has history of hypothyroidism after her in 1997. 10/21/20 TSH 7.18, free T4--1.16. PLAN: Adjust dose to 137 mcg. Other: Psoriasis: Currently taking Stelara now instead of Humira per a shorer. She is pleased with this. Plan: Type 1 diabetes mellitus with hyperglycemia (HCC) [E10.65] 1. Rx changes: Adjust medications as below Be sure to take insulin with all meals, even if BG <100. Humalog insulin: 1:2 units at breakfast; 1:2 units at lunch; 1:2 units at supper Basaglar insulin: 63 units at bedtime Discussed starting Ozempic as an adjunct medication to assist in weight maintenance and ffeeling full at meals. Paatient would like to think more about it and will notify office if she wishes to start. Use as directed with Humalog insulin before meals and at bedtime. 151-200: 2 units fast acting insulin 201-250: 4 units fast acting insulin 251-300: 6 units fast acting insulin 301-350: 8 units fast acting insulin 351-400: 10 units fast acting insulin above 400: 12 units fast acting insulin, call the office. Continue checking her BG 4 times a day and get control of her Blood sugars. DexCom CGM Mrs. Bai would benefit from Continued use of continuous glucose monitoring system. Patient has had Type 1 diabetes for 19 years. Complications include diabetic neuropathy and autonomic neuropathy with hypoglycemic unawareness Patient is currently managed with: insulin injections Patient has been checking their blood sugar 4 times per day Patient's most recent Hgb A1c was 10.8% on 01/21 Patient's HGb is <6.0% or >8.5% Patient currently takes humalog and basaglar insulin injections 4 times daily. Patient is positive for a history of hypoglycemic unawareness Patient has inadequate control despite compliance with multiple alterations in insulin doses/medication regimen. 2. Education: Reviewed ABCs of diabetes management (respective goals in parentheses): A1C (7.0-8.0), blood pressure (<130/80), and cholesterol (LDL <100). 3. Compliance at present is estimated to be fair. Efforts to improve compliance (if necessary) will be directed at dietary modifications: Limit portion sizes, Limit starches, carbohydrates and concentrated sugar sources and following with a intensive care specialist if insurance permits, increased exercise and regular blood sugar monitorin-6 times daily. 4. Follow up: 4 months 5. Record blood sugar readings as instructed. Call if BG consistently <70 or >250. [phone] Check blood sugar 3-4 times daily and as needed. May call in readings if blood glucose readings continue to stay elevated or drop too low. 6. Bring blood sugar meter to follow up appointment. Orders Placed This Encounter Procedures TSH T4, Free Hemoglobin A1c Comprehensive Metabolic Panel Electronically Signed by: Alan Madrid CNP 10/24/20 7:30 AM documented in this encounter [facility] 08-11-2020 History of Present illness Narrative Here for follow up of numbness and tingling in bilateral arms/hands. She had a nerve conduction study/EMG done with Dr. Pires, at [facility] on 08/11/2020. She would like to discuss those results. She does report that her symptoms have improved slightly, with left being worse than right. She feels that she is more aware of how she sleeps at night and has made some modifications to wrist movements and she feels this may have contributed to the mild improvement of her symptoms. She does feel as if her hand grasps are weaker, but denies clumsiness or dropping items.No new concerns today, however she does report that her last hemoglobin A1C that she had done at endocrinology was improved from 10.8% it was last time. Denies excessive thirst or urination, denies episodes of low blood sugars. Does not need any refills today. [facility] Work Phone: 08-11-2020 History of Present illness Narrative Here for follow up of numbness and tingling in bilateral arms/hands. She had a nerve conduction study/EMG done with Dr. Pires, at [facility] on 08/11/2020. She would like to discuss those results. She does report that her symptoms have improved slightly, with left being worse than right. She feels that she is more aware of how she sleeps at night and has made some modifications to wrist movements and she feels this may have contributed to the mild improvement of her symptoms. She does feel as if her hand grasps are weaker, but denies clumsiness or dropping items.No new concerns today, however she does report that her last hemoglobin A1C that she had done at endocrinology was improved from 10.8% it was last time. Denies excessive thirst or urination, denies episodes of low blood sugars. Does not need any refills today. [facility] Work Phone: 08-11-2020 History of Present illness Narrative Here for follow up of numbness and tingling in bilateral arms/hands. She had a nerve conduction study/EMG done with Dr. Pires, at [facility] on 08/11/2020. She would like to discuss those results. She does report that her symptoms have improved slightly, with left being worse than right. She feels that she is more aware of how she sleeps at night and has made some modifications to wrist movements and she feels this may have contributed to the mild improvement of her symptoms. She does feel as if her hand grasps are weaker, but denies clumsiness or dropping items.No new concerns today, however she does report that her last hemoglobin A1C that she had done at endocrinology was improved from 10.8% it was last time. Denies excessive thirst or urination, denies episodes of low blood sugars. Does not need any refills today. [facility] Work Phone: 08-08-2020 History of Present illness Narrative Images from the original note were not included. [facility]rology [address], [facility] 2nd floor [place] [id number] Nerve Conduction & EMG Report Patient: Gregoria Bai Sex: Female Date of : 1970 Visit Date: 08/08/2020 08:00 Age: 49 Years Examining MD: Andrew Pires MD Referred by: MEI Brooks Temperature: 33.5 Current Height: 5 feet 3 inch Referred for: BUE numbness for 6 months. + DM. No neck. Plan: The study is design to evaluate for radiculopathy, plexopathy, entrapment neuropathy, median or ulnar neuropathy. Indication, risk, side effects, and alternatives were explained. Patient agreed to proceed. Patient was instructed to clean the puncture site with soap and water and put some ice pack for bruising. EMG Summary: The bilateral median motor nerve conduction study showed prolonged distal latency, normal amplitude and decreased conduction velocity. The right median sensory nerve conduction study showed prolonged distal latency and reduced amplitude while the left median sensory nerve conduction study showed absent response. The bilateral ulnar motor and sensory nerve conduction studies was normal. The bilateral radial sensory nerve conduction study were normal. Needle EMG of the muscles tested showed no abnormal spontaneous activity. Normal motor unit action potentials and recruitment patterns were seen. Impression: This is an abnormal EMG. 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 There is NO electrodiagnostic evidence of bilateral cervical radiculopathy, brachial plexopathy or ulnar neuropathy at this time. Andrew Pires MD Diplomate, ABPN, NBPAS Clinical Neurophysiology, Neurology, Vascular Neurology and Sleep Medicine [place], [place] [phone] Motor NCS Nerve / Sites Muscle Latency Amplitude Distance Velocity ms mV cm m/s R Median - APB Wrist APB 4.71 11.0 7 Elbow APB 8.77 11.4 19 46.8 L Median - APB Wrist APB 7.02 5.4 7 Elbow APB 11.42 4.2 19 43.2 R Ulnar - ADM Wrist ADM 2.65 7.2 6.5 B.Elbow ADM 6.33 6.6 21 56.9 A.Elbow ADM 8.29 6.6 11 56.2 L Ulnar - ADM Wrist ADM 2.40 9.2 6.5 B.Elbow ADM 6.06 8.0 21 57.3 A.Elbow ADM 7.98 7.2 10 52.2 Sensory NCS Nerve / Sites Peak Amp Amp.2-3 Distance Velocity d Lat.2 ms V V cm m/s ms R Radial - Snuff Forearm 1.88 34.9 24.6 10 77 L Radial - Snuff Forearm 1.92 28.4 43.2 10 72 R Median, Ulnar - Transcarpal comparison Median Palm 3.33 7.2 11.3 8 30 Ulnar Palm 1.75 19.4 11.0 8 64 1.58 L Median, Ulnar - Transcarpal comparison Median Palm NR NR NR 8 NR Ulnar Palm 1.54 5.1 38.0 8 65 NR EMG Summary Table Spontaneous Activity Amplitude Duration Recruitment Polyphasia Comment Muscle Ins Act Fib PSW Fasc - - - - - L. Deltoid Normal 0 0 0 Normal Normal Normal Normal Normal L. Triceps brachii Normal 0 0 0 Normal Normal Normal Normal Normal L. Biceps brachii Normal 0 0 0 Normal Normal Normal Normal Normal L. Pronator teres Normal 0 0 0 Normal Normal Normal Normal Normal L. Extensor digitorum communis Normal 0 0 0 Normal Normal Normal Normal Normal L. First dorsal interosseous Normal 0 0 0 Normal Normal Normal Normal Normal L. Abductor pollicis brevis Normal 0 0 0 Normal Normal Normal Normal Normal R. Deltoid Normal 0 0 0 Normal Normal Normal Normal Normal R. Triceps brachii Normal 0 0 0 Normal Normal Normal Normal Normal R. Biceps brachii Normal 0 0 0 Normal Normal Normal Normal Normal R. Pronator teres Normal 0 0 0 Normal Normal Normal Normal Normal R. Extensor digitorum communis Normal 0 0 0 Normal Normal Normal Normal Normal R. First dorsal interosseous Normal 0 0 0 Normal Normal Normal Normal Normal R. Abductor pollicis brevis Normal 0 0 0 Normal Normal Normal Normal Normal documented in this encounter [facility] Evaluation note Diagnosis Numbness and tingling- Primary Disturbance of skin sensation [facility] Diagnosis Carpal tunnel syndrome, bilateral- Primary Carpal tunnel syndrome Numbness and tingling Disturbance of skin sensation [facility]* Diagnosis Type 1 diabetes mellitus with hyperglycemia (HCC)- Primary Hypothyroidism, unspecified type Essential hypertension Unspecified essential hypertension Hyperlipidemia, unspecified hyperlipidemia type [facility] Diagnosis Type 1 diabetes mellitus with hyperglycemia (HCC)- Primary Hypothyroidism, unspecified type Primary hypertension Unspecified essential hypertension Hyperlipidemia, unspecified hyperlipidemia type [facility] Diagnosis Type 1 diabetes mellitus with hyperglycemia (HCC)- Primary Hypothyroidism, unspecified type Hyperlipidemia, unspecified hyperlipidemia type Primary hypertension Unspecified essential hypertension [facility] Diagnosis Type 1 diabetes mellitus with hyperglycemia (HCC)- Primary Hypothyroidism, unspecified type Primary hypertension Unspecified essential hypertension Hyperlipidemia, unspecified hyperlipidemia type BMI 40.0-44.9, adult (HCC) [facility] Work [facility]* Diagnosis Type 1 diabetes mellitus with hyperglycemia (HCC)- Primary Hyperlipidemia, unspecified hyperlipidemia type [facility]* Diagnosis Encounter for gynecological examination without abnormal finding Vaginal Pap smear Special screening for malignant neoplasms, vagina Encounter for screening mammogram for breast cancer documented in this encounter [facility] Work Phone: Evaluation note* Diagnosis Type 1 diabetes mellitus with hyperglycemia (HCC)- Primary [facility]* Diagnosis Viral URI with cough- Primary documented in this encounter [facility] Work Phone: Evaluation note* Diagnosis Encounter for screening mammogram for malignant neoplasm of breast Encounter for gynecological examination without abnormal finding Vaginal Pap smear Special screening for malignant neoplasms, vagina documented in this encounter [facility] Work Phone: Evaluation note* Diagnosis Encounter for screening mammogram for malignant neoplasm of breast documented in this encounter [facility] Work Phone: Evaluation note* Diagnosis Influenza A- Primary Influenza with other respiratory manifestations Acute cough documented in this encounter [facility] Work Phone: Evaluation note* Diagnosis Type 1 diabetes mellitus with hyperglycemia (HCC)- Primary Hypothyroidism, unspecified type [facility] Diagnosis Type 1 diabetes mellitus with hyperglycemia (HCC) [E10.65]- Primary [facility]* Diagnosis Type 1 diabetes mellitus with hyperglycemia (HCC)- Primary [facility] NarrativePresents for annual exam. She voices no complaints and is doing well. Denies any bowel or bladder problems. Denies any breast problems. She had previous hysterectomy.[address] Work Phone: History of Present illness NarrativePatient is a very pleasant 50-year-old female presents today for left CTS; F/U pre-surgery. She hasbilateral hand numbness and tingling patient has been dealing with numbness and tingling the hand for some time now. She states the pain and numbness has been progressively worsening. She does have anumber of confounding medical comorbidities including diabetes mellitus type 2 with hemoglobin A1c of around 9 as well as psoriatic arthritis treated with immunomodulators. The left hand is much moresevere than the right hand which bothers her primarily when she is driving. She has been wearing splints but do not feel they have been helping. She would like to move forward with scheduling surgery, starting with the left hand first.[facility] [address] Work Phone: History of Present illness NarrativePatient is a very pleasant 50-year-old female presents today for left CTS; pre-surgery. She has bilateral hand numbness and tingling patient has been dealing with numbness and tingling the hand for some time now. She states the pain and numbness has been progressively worsening. She does have a number of confounding medical comorbidities including diabetes mellitus type 2 with hemoglobin A1c of around 9 as well as psoriatic arthritis treated with immunomodulators. The left hand is much more severe than the right hand which bothers her primarily when she is driving. She has been wearing splints but do not feel they have been helping. She would like to move forward with scheduling surgery, starting with the left hand first.[facility] [address] Work Phone: History of Present illness NarrativePatient is a pleasant 50-year-old female who presents today follow-up with regards to her carpal tunnel release. She still having some occasional numbness and tingling and some pillar pain but she isimproving her overall symptoms.[facility] [address] Work Phone: Reason for visit Narrative* Imaging (Routine) - Authorized Specialty Diagnoses / Procedures Referred By Nettie quevedo Referred To Contact Radiology Diagnoses Encounter for screening mammogram for malignant neoplasm of breast Procedures BI mammo bilateral screening tomosynthesis Loyd Jackson MD [address] [place] [address] Dr [facility], [place] [address] Phone: tel: fax: Referral ID Status Reason Start Date Expiration Date Visits Requested Visits Authorized [id number] Authorized Perform Procedure 03/09/2024 03/09/2025 1 1 [facility] Work Phone: Instructions * Patient Instructions - Alan Madrid CNP - 05/30/2017 2:48 PM EDT Formatting of this note may be different from the original. Plan: Type 1 diabetes mellitus with hyperglycemia (HCC) [E10.65] 1. Rx changes: Increase medications as below Humalog insulin: 30 units at breakfast; 33 units at lunch; 33 units at supper Basaglar insulin: 55 units at bedtime Humalog standard sliding scale as needed with meals or snacks No oral hypoglycemic medications 2. Education: Reviewed ABCs of diabetes management (respective goals in parentheses): A1C (7.0-8.0), blood pressure (<130/80), and cholesterol (LDL <100). 3. Compliance at present is estimated to be fair. Efforts to improve compliance (if necessary) willbe directed at dietary modifications: Limit portion sizes, Limit starches, carbohydrates and concentrated sugar sources and following with a intensive care specialist if insurance permits, increased exercise and regular blood sugar monitorin-6 times daily. 4. Follow up: 3 months 5. Record blood sugar readings as instructed. Call if BG consistently <70 or >250. [phone] Check blood sugar 3-4 times daily and as needed. May call in readings if blood glucose readings continue to stay elevated or drop too low. 6. Bring blood sugar meter to follow up appointment. Orders Placed This Encounter Procedures Hemoglobin A1c Comprehensive Metabolic Panel in this encounter* Patient Instructions - Diana Rodriguez CNP - 02/05/2017 3:59 PM EST B Complex or B12 vitamins daily to help nerve pain. Increase Humalog to 30 units with meals and use sliding scale: If Blood sugar 150-200: take 2 extra units 201-250 take 4 extra units 251-300 take 6 extra units 301-350 take 8 extra units 351-400 take 10 extra units 401- greater take 10 extra units and call Dr Massey's office Increase Basaglar to 50 units at bedtime Call if blood sugars consistently >250 in this encounter* Patient Instructions* Alan Madrid CNP - 04/01/2018 9:00 AM EST Plan: Type 1 diabetes mellitus with hyperglycemia (HCC) [E10.65] 1. Rx changes: Continue current regimen Be sure to take insulin with all meals, even if BG <100. Humalog insulin: 10-30 units at breakfast; 10-30 units at lunch; 10-30 units at supper Basaglar insulin: 55 units at bedtime Humalog standard sliding scale as needed with meals or snacks No oral hypoglycemic medications Conitnue checking her BG 3-4 times a day and get control of her Blood sugars. Can revisit an insulin pump at her next visit. It was discussed at her visit in Oct 2016. 2. Education: Reviewed ABCs of diabetes management (respective goals in parentheses): A1C (7.0-8.0), blood pressure (<130/80), and cholesterol (LDL <100). 3. Compliance at present is estimated to be fair. Efforts to improve compliance (if necessary) willbe directed at dietary modifications: Limit portion sizes, Limit starches, carbohydrates and concentrated sugar sources and following with a intensive care specialist if insurance permits, increased exercise and regular blood sugar monitorin-6 times daily. 4. Follow up: 4 months 5. Record blood sugar readings as instructed. Call if BG consistently <70 or >250. [phone] Check blood sugar 3-4 times daily and as needed. May call in readings if blood glucose readings continue to stay elevated or drop too low. 6. Bring blood sugar meter to follow up appointment. in this encounter* Patient Instructions* Ned Brown PA-C - 09/01/2018 4:16 PM EDT - Discontinue Valsartan, start checking blood pressure periodically. Call the office if consistently running >130/90 - Restart Rosuvastatin (Crestor) documented in this encounter Assessments Diagnosis Type 1 diabetes mellitus wit h hyperglycemia (HCC) - Primary Essential hypertension Unspecified essential hypertension Hyperlipidemia, unspecified hyperlipidemia type Diagnosis Type 1 diabetes mellitus wit h hyperglycemia (HCC) - Primary Essential hypertension Unspecified essential hypertension Hyperlipidemia, unspecified hyperlipidemia type Diagnosis Type 1 diabetes mellitus wit h hyperglycemia (HCC) - Primary Essential hypertension Unspecified essential hypertension Diagnosis Type 1 diabetes mellitus with hyperglycemia (HCC)- Primary Hyperlipidemia, unspecified hyperlipidemia type Essential hypertension Unspecified essential hypertension Diagnosis Type 1 diabetes mellitus with hyperglycemia (HCC)- Primary Diagnosis Type 1 diabetes mellitus with hyperglycemia (HCC) Essential hypertension Unspecified essential hypertension Hyperlipidemia, unspecified hyperlipidemia type Diagnosis Type 1 diabetes mellitus with hyperglycemia (HCC) Essential hypertension Unspecified essential hypertension Hyperlipidemia, unspecified hyperlipidemia type Hypothyroidism, unspecified type Diagnosis Type 1 diabetes mellitus with hyperglycemia (HCC)- Primary Hypothyroidism, unspecified type Essential hypertension Unspecified essential hypertension Hyperlipidemia, unspecified hyperlipidemia type Diagnosis Type 1 diabetes mellitus with hyperglycemia (HCC)- Primary Diagnosis Type 1 diabetes mellitus with hyperglycemia (HCC)- Primary Hypothyroidism, unspecified type Hyperlipidemia, unspecified hyperlipidemia type Summary Purpose Family History No Family History Records FoundUnknown Family Member Name Dates Details Family history of lung cance r: Mother(V16.1, Z80.1) Status:Active Family history of liver canc er: Brother(V16.0, Z80.0) Status:Active Family history of type 2 kevin betes mellitus: Grandparent(V18.0, Z83.3) Status:Active Family history of hypertensi on: Grandparent(V17.49, Z82.49) Status:Active Family history of thyroid di sease: Grandparent(V18.19, Z83.49) Status:Active Family history of gastric ul cer: Grandparent(V18.59, Z83.79) Status:Active Family history of diabetes m ellitus: Grandparent(V18.0, Z83.3) Status:Active Unknown Family Member Name Dates Details Family history of lung cance r: Mother(V16.1, Z80.1) Status:Active Family history of liver canc er: Brother(V16.0, Z80.0) Status:Active Family history of type 2 kevin betes mellitus: Grandparent(V18.0, Z83.3) Status:Active Family history of hypertensi on: Grandparent(V17.49, Z82.49) Status:Active Family history of thyroid di sease: Grandparent(V18.19, Z83.49) Status:Active Family history of gastric ul cer: Grandparent(V18.59, Z83.79) Status:Active Family history of diabetes m ellitus: Grandparent(V18.0, Z83.3) Status:Active Unknown Family Member Name Dates Details Family history of lung cance r: Mother(V16.1, Z80.1) Status:Active Family history of liver canc er: Brother(V16.0, Z80.0) Status:Active Family history of type 2 kevin betes mellitus: Grandparent(V18.0, Z83.3) Status:Active Family history of hypertensi on: Grandparent(V17.49, Z82.49) Status:Active Family history of thyroid di sease: Grandparent(V18.19, Z83.49) Status:Active Family history of gastric ul cer: Grandparent(V18.59, Z83.79) Status:Active Family history of diabetes m ellitus: Grandparent(V18.0, Z83.3) Status:Active Unknown Family Member Name Dates Details Family history of lung cance r: Mother(V16.1, Z80.1) Status:Active Family history of liver canc er: Brother(V16.0, Z80.0) Status:Active Family history of type 2 kevin betes mellitus: Grandparent(V18.0, Z83.3) Status:Active Family history of hypertensi on: Grandparent(V17.49, Z82.49) Status:Active Family history of thyroid di sease: Grandparent(V18.19, Z83.49) Status:Active Family history of gastric ul cer: Grandparent(V18.59, Z83.79) Status:Active Family history of diabetes m ellitus: Grandparent(V18.0, Z83.3) Status:Active Unknown Family Member Name Dates Details Family history of lung cance r: Mother(V16.1, Z80.1) Status:Active Family history of liver canc er: Brother(V16.0, Z80.0) Status:Active Family history of type 2 kevin betes mellitus: Grandparent(V18.0, Z83.3) Status:Active Family history of hypertensi on: Grandparent(V17.49, Z82.49) Status:Active Family history of thyroid di sease: Grandparent(V18.19, Z83.49) Status:Active Family history of gastric ul cer: Grandparent(V18.59, Z83.79) Status:Active Family history of diabetes m ellitus: Grandparent(V18.0, Z83.3) Status:Active Unknown Family Member Name Dates Details Family history of lung cance r: Mother(V16.1, Z80.1) Status:Active Family history of liver canc er: Brother(V16.0, Z80.0) Status:Active Family history of type 2 kevin betes mellitus: Grandparent(V18.0, Z83.3) Status:Active Family history of hypertensi on: Grandparent(V17.49, Z82.49) Status:Active Family history of thyroid di sease: Grandparent(V18.19, Z83.49) Status:Active Family history of gastric ul cer: Grandparent(V18.59, Z83.79) Status:Active Family history of diabetes m ellitus: Grandparent(V18.0, Z83.3) Status:Active Unknown Family Member Name Dates Details Family history of lung cance r: Mother(V16.1, Z80.1) Status:Active Family history of liver canc er: Brother(V16.0, Z80.0) Status:Active Family history of type 2 kevin betes mellitus: Grandparent(V18.0, Z83.3) Status:Active Family history of hypertensi on: Grandparent(V17.49, Z82.49) Status:Active Family history of thyroid di sease: Grandparent(V18.19, Z83.49) Status:Active Family history of gastric ul cer: Grandparent(V18.59, Z83.79) Status:Active Family history of diabetes m ellitus: Grandparent(V18.0, Z83.3) Status:Active Unknown Family Member Name Dates Details Family history of lung cance r: Mother(V16.1, Z80.1) Status:Active Family history of liver canc er: Brother(V16.0, Z80.0) Status:Active Family history of type 2 kevin betes mellitus: Grandparent(V18.0, Z83.3) Status:Active Family history of hypertensi on: Grandparent(V17.49, Z82.49) Status:Active Family history of thyroid di sease: Grandparent(V18.19, Z83.49) Status:Active Family history of gastric ul cer: Grandparent(V18.59, Z83.79) Status:Active Family history of diabetes m ellitus: Grandparent(V18.0, Z83.3) Status:Active Unknown Family Member Name Dates Details Family history of lung cance r: Mother(V16.1, Z80.1) Status:Active Family history of liver canc er: Brother(V16.0, Z80.0) Status:Active Family history of type 2 kevin betes mellitus: Grandparent(V18.0, Z83.3) Status:Active Family history of hypertensi on: Grandparent(V17.49, Z82.49) Status:Active Family history of thyroid di sease: Grandparent(V18.19, Z83.49) Status:Active Family history of gastric ul cer: Grandparent(V18.59, Z83.79) Status:Active Family history of diabetes m ellitus: Grandparent(V18.0, Z83.3) Status:Active Unknown Family Member Name Dates Details Family history of lung cance r: Mother(V16.1, Z80.1) Status:Active Family history of liver canc er: Brother(V16.0, Z80.0) Status:Active Family history of type 2 kevin betes mellitus: Grandparent(V18.0, Z83.3) Status:Active Family history of hypertensi on: Grandparent(V17.49, Z82.49) Status:Active Family history of thyroid di sease: Grandparent(V18.19, Z83.49) Status:Active Family history of gastric ul cer: Grandparent(V18.59, Z83.79) Status:Active Family history of diabetes m ellitus: Grandparent(V18.0, Z83.3) Status:Active Unknown Family Member Name Dates Details Family history of diabetes m ellitus: Grandparent(V18.0, Z83.3) Status:Active Family history of gastric ul cer: Grandparent(V18.59, Z83.79) Status:Active Family history of thyroid di sease: Grandparent(V18.19, Z83.49) Status:Active Family history of hypertensi on: Grandparent(V17.49, Z82.49) Status:Active Family history of type 2 kevin betes mellitus: Grandparent(V18.0, Z83.3) Status:Active Family history of liver canc er: Brother(V16.0, Z80.0) Status:Active Family history of lung cance r: Mother(V16.1, Z80.1) Status:Active Unknown Family Member Name Dates Details Family history of diabetes m ellitus: Grandparent(V18.0, Z83.3) Status:Active Family history of lung cance r: Mother(V16.1, Z80.1) Status:Active Family history of liver canc er: Brother(V16.0, Z80.0) Status:Active Family history of type 2 kevin betes mellitus: Grandparent(V18.0, Z83.3) Status:Active Family history of hypertensi on: Grandparent(V17.49, Z82.49) Status:Active Family history of thyroid di sease: Grandparent(V18.19, Z83.49) Status:Active Family history of gastric ul cer: Grandparent(V18.59, Z83.79) Status:Active Unknown Family Member Name Dates Details Family history of lung cance r: Mother(V16.1, Z80.1) Status:Active Family history of liver canc er: Brother(V16.0, Z80.0) Status:Active Family history of type 2 kevin betes mellitus: Grandparent(V18.0, Z83.3) Status:Active Family history of hypertensi on: Grandparent(V17.49, Z82.49) Status:Active Family history of thyroid di sease: Grandparent(V18.19, Z83.49) Status:Active Family history of gastric ul cer: Grandparent(V18.59, Z83.79) Status:Active Family history of diabetes m ellitus: Grandparent(V18.0, Z83.3) Status:Active Unknown Family Member Name Dates Details Family history of diabetes m ellitus: Grandparent(V18.0, Z83.3) Status:Active Family history of gastric ul cer: Grandparent(V18.59, Z83.79) Status:Active Family history of thyroid di sease: Grandparent(V18.19, Z83.49) Status:Active Family history of hypertensi on: Grandparent(V17.49, Z82.49) Status:Active Family history of type 2 kevin betes mellitus: Grandparent(V18.0, Z83.3) Status:Active Family history of liver canc er: Brother(V16.0, Z80.0) Status:Active Family history of lung cance r: Mother(V16.1, Z80.1) Status:Active Unknown Family Member Name Dates Details Family history of lung cance r: Mother(V16.1, Z80.1) Status:Active Family history of liver canc er: Brother(V16.0, Z80.0) Status:Active Family history of type 2 kevin betes mellitus: Grandparent(V18.0, Z83.3) Status:Active Family history of hypertensi on: Grandparent(V17.49, Z82.49) Status:Active Family history of thyroid di sease: Grandparent(V18.19, Z83.49) Status:Active Family history of gastric ul cer: Grandparent(V18.59, Z83.79) Status:Active Family history of diabetes m ellitus: Grandparent(V18.0, Z83.3) Status:Active Unknown Family Member Name Dates Details Family history of lung cance r: Mother(V16.1, Z80.1) Status:Active Family history of liver canc er: Brother(V16.0, Z80.0) Status:Active Family history of type 2 kevin betes mellitus: Grandparent(V18.0, Z83.3) Status:Active Family history of hypertensi on: Grandparent(V17.49, Z82.49) Status:Active Family history of thyroid di sease: Grandparent(V18.19, Z83.49) Status:Active Family history of gastric ul cer: Grandparent(V18.59, Z83.79) Status:Active Family history of diabetes m ellitus: Grandparent(V18.0, Z83.3) Status:Active Unknown Family Member Name Dates Details Family history of lung cance r: Mother(V16.1, Z80.1) Status:Active Family history of liver canc er: Brother(V16.0, Z80.0) Status:Active Family history of type 2 kevin betes mellitus: Grandparent(V18.0, Z83.3) Status:Active Family history of hyperti on: Grandparent(V17.49, Z82.49) Status:Active Family history of thyroid di sease: Grandparent(V18.19, Z83.49) Status:Active Family history of gastric ul cer: Grandparent(V18.59, Z83.79) Status:Active Family history of diabetes m iggy: Grandparent(V18.0, Z83.3) Status:Active Advance Directives No Advanced Directives Records FoundDocuments on File Type Date Recorded Patient [employer] Expl anation Advance Directives and Living Will Documents on File Type Date Recorded Patient [employer] Expl anation Advance Directives and Living Will Documents on File Type Date Recorded Patient [employer] Expl anation Advance Directives and Livin g Will 04/14/2019 3:16 PM Documents on File Type Date Recorded Patient [employer] Expl anation Advance Directives and Livin g Will 04/14/2019 3:16 PM History of Present Illness * Crissy Justice, RENÉ - 02/14/2018 9:31 AM EST Formatting of this note may be different from the original. Outpatient Prescriptions as of 02/14/2018 Medication Sig BASAGLAR KWIKPEN U-100 INSULIN 100 unit/mL (3 mL) InPn Inject 60 (sixty) Units under the skin nightly. blood sugar diagnostic strips One Touch Ultra test strips. Use as directed, 6 times daily. E10.65. cholecalciferol, vitamin D3, 1,000 unit tablet Take 1,000 Units by mouth daily. esomeprazole (NEXIUM) 20 MG capsule Take 20 mg by mouth every morning before breakfast. insulin aspart U-100 (NovoLOG Flexpen U-100 Insulin) 100 unit/mL InPn Use as directed, approx 80 units per day. levothyroxine (SYNTHROID, LEVOTHROID) 125 MCG tablet Take 1 (one) tablet (125 mcg total) by mouth once daily. lisinopril (PRINIVIL,ZESTRIL) 40 MG tablet Take 1 (one) tablet (40 mg total) by mouth daily. NOVOLOG FLEXPEN U-100 INSULIN 100 unit/mL InPn USE DIRECTED APPROXIMATELY 80 UNITS DAILY pen needle, diabetic 31 gauge x 5/16" Ndle Use as directed QID. rosuvastatin (CRESTOR) 20 MG tablet Take 1 (one) tablet (20 mg total) by mouth daily. STELARA 45 mg/0.5 mL Syrg valsartan (DIOVAN) 80 MG tablet Take 1 (one) tablet (80 mg total) by mouth daily. in this encounter* Alan Madrid CNP - 04/01/2018 8:48 AM EST Patient ID: Gregoria Bai is a 47 y.o. female 1970 Subjective: HPI: Gregoria Bai presents for follow-up of Type 1 diabetes The initial diagnosis of gestational diabetes was made 19 years ago in 1997. One year later she developed Type 2 and was on oral agents for ~ 4 years, then started on Insulin and her diagnosis was changed to Type 1 Diabetes, confirmed with labson 06/14/16. Disease course has been slowly improving. Pertinent negatives for diabetes include: no chest pain no shortness of breath no polyuria, polydipsia, polyphagia no nausea or vomiting no blurred vision no weight loss no recent hypoglycemia Pertinent positives for diabetes include: reports fatigue. She often awakens about [id number], but does not check her BG. Encouraged her to check it. Hypoglycemia symptoms include hunger and sweats . There are no hypoglycemic complications, no nocturnal hypoglycemia. Diabetic complications include none Pertinent negatives for diabetic complications include no: diabetic neuropathy, diabetic nephropathy, diabetic retinopathy, autonomic neuropathy, CAD and PVD Current diabetic treatment includes insulin injections Self Monitored blood glucose levels Patient has been checking BG 0-3 times daily. Blood glucose ranges are: Fasting BG 68-376 10am-1pm: 85-318 5pm-8pm: 95-343 Bedtime (10pm-11pm): 202-351 Patient's weight has decreased 3 lbs. She has been watching her diet and has been exercising doing workout classes at the [facility]. Patient is following a diabetic diet. Meal planning includes avoidance of concentrated sweets. She was able to meet with a intensive care specialist once An JOHANNA inhibitor/angiotensin II receptor aditi is being taken. Patient does not see a instruction librarian. Eye exam is current. Patient with a history of hypertension. Stable from previous. Currently managed with oral antihypertensives. Compliance is stated as good. Attempts to follow a diet low in salt. Patient with a history of Hyperlipidemia. Stable from previous. Currently managed with rosuvastatin (Crestor). Attempts to follow a diet low in cholesterol/fat. Currently taking: No oral hypoglycemic medications Average BG over last 2 week: 200; 4.3 readings per day Humalog insulin: 10-30 units at breakfast; 10-30 units at lunch; 10-30 units at supper Basaglar insulin: 55 units at bedtime She also is following a standard sliding scale Humalog with meals (Greater than 150-200 extra 2 units, 201-150 extra 4 units...) Current Outpatient Medications Medication Sig Dispense Refill BASAGLAR KWIKPEN U-100 INSULIN 100 unit/mL (3 mL) InPn Inject 60 (sixty) Units under the skin nightly. 60 mL 3 blood sugar diagnostic strips One Touch Ultra test strips. Use as directed, 6 times daily. E10.65. 550 each 3 cholecalciferol, vitamin D3, 1,000 unit tablet Take 1,000 Units by mouth daily. esomeprazole (NEXIUM) 20 MG capsule Take 20 mg by mouth every morning before breakfast. insulin aspart U-100 (NovoLOG Flexpen U-100 Insulin) 100 unit/mL InPn Use as directed, approx 80 units per day. 75 mL 3 levothyroxine (SYNTHROID, LEVOTHROID) 125 MCG tablet Take 1 (one) tablet (125 mcg total) by mouth once daily. 90 tablet 3 lisinopril (PRINIVIL,ZESTRIL) 40 MG tablet Take 1 (one) tablet (40 mg total) by mouth daily. 90 tablet 3 pen needle, diabetic 31 gauge x 5/16" Ndle Use as directed QID. 400 each 3 rosuvastatin (CRESTOR) 20 MG tablet Take 1 (one) tablet (20 mg total) by mouth daily. 90 tablet 3 STELARA 45 mg/0.5 mL Syrg valsartan (DIOVAN) 80 MG tablet Take 1 (one) tablet (80 mg total) by mouth daily. 90 tablet 3 NOVOLOG FLEXPEN U-100 INSULIN 100 unit/mL InPn USE DIRECTED APPROXIMATELY 80 UNITS DAILY 75 mL 3 No current facility-administered medications for this visit. Review of Systems: Review of Systems Constitutional: Positive for activity change (Continues to exercise 4-5 days per week.). Negative for unexpected weight change. HENT: Negative for trouble swallowing and voice change. Eyes: Negative for visual disturbance. Respiratory: Negative for cough and shortness of breath. Cardiovascular: Positive for palpitations (occasional momentary palpitations. ). Negative for chestpain and leg swelling. Gastrointestinal: Negative for constipation, diarrhea, nausea and vomiting. Endocrine: Negative for cold intolerance, heat intolerance, polydipsia, polyphagia and polyuria. Genitourinary: Negative for dysuria. Skin: Chronic dry patches on extremities r/t psoriasis. Improving with Stelara Neurological: Negative for dizziness, tremors, light-headedness and numbness. Psychiatric/Behavioral: Negative for sleep disturbance. The following portions of the patient's history were reviewed and updated as appropriate: allergies, current medications, past family history, past medical history, past social history, past surgicalhistory and problem list. Objective: BP 106/72 Pulse 87 Ht 5' 3" Wt 88.2 kg (194 lb 8 oz) BMI 34.45 kg/m Wt Readings from Last 3 Encounters: 04/01/18 88.2 kg (194 lb 8 oz) 11/28/17 89.4 kg (197 lb 1.6 oz) 05/30/17 96.6 kg (213 lb) Physical Exam: General: alert, appears stated age and cooperative Eyes: conjunctivae/corneas clear. PERRL, EOM's intact. Neck: no adenopathy, supple, symmetrical, trachea midline. Thyroid: No thyromegaly appreciated. Skin is moist Lung: clear to auscultation bilaterally slightly diminished. Heart: regular rate and rhythm, S1, S2 normal, no murmur, click, rub or gallop Extremities: extremities normal, atraumatic, no cyanosis or edema Feet: Dry skin and psporiasis on legs bilaterally, Bilateral Feet: normal PT. Monofilament exam Normal , bilateral lower extremities. Neuro: normal without focal findings, mental status, speech normal, alert and oriented x3 and JENNIFER Lab Review Date: 03/29/18 *labs reviewed 04/01/18 Hgb A1c: 9.4% Creat: 0.8; eGFR: >60 AST: 15; ALT: 16 K: 4.0 TSH: 0.36 ; FreeT4: 1.18 11/26/17 Hgb A1c: 9.2% Creat: 0.6; eGFR: >60 AST: 22; ALT: 19 K: 3.9 05/28/17 Creat: 0.6 AST: 24; ALT: 25 K: 3.5 CBC: WBC:8.2; Hgb: 14.4; Hct: 43.0; Plt: 204 Tchol: 162; Tri ; HDL: 34 ; LDL: 89 TSH: 1.69 ; FreeT4: 0.99 02/01/17 Hgb A1C 9.6% 10/03/16 Hgb A1c: 8.7% Creat: 0.82 AST: 18; ALT: 29 K: 4.3 06/14/16 C Peptide: <0.1 ASHANIT 65 Antibody >250.0 05/22/16: Hgb A1C; 9.9% Cr: 0.60 AST: 23; ALT: 26 CBC: Hgb: 13.3; Hct: 40.2, Plt: 199 Tchol: not documented, Tri ; HDL: 33 ; LDL:88 TSH: 1.67 Microalbumin/creatinine Ratio: 7 Assessment: Dx: SNOMED CT(R) 1. Type 1 diabetes mellitus with hyperglycemia (HCC) HYPERGLYCEMIA DUE TO TYPE 1 DIABETES MELLITUS 2. Hyperlipidemia, unspecified hyperlipidemia type HYPERLIPIDEMIA 3. Essential hypertension ESSENTIAL HYPERTENSION Type 1 diabetes, under fair control Gregoria Bai presents for follow-up of Type 1 diabetes Patient is currently managed with: Humalog with meals and Basaglar at bedtime. Most recent Hgb A1c was 9.4% on 03/29/18. Patient bases insulin injection amount based on BG and meal content. She has not specific formula or pattern. She reports missing some injections leading to hyperglycemia. Patient having occasional low BG at night. Awakens confused. Retinopathy: Negative Exam within last 12 months: yes Date: 05/2017 for the management of Routine eye care and no history of BACTERIOLOGIST PHARMACEUTICAL. Nephropathy: Negative Creat: 0.6; eGFR: >60 11/19; Mialb/creat ratio: 7 on 05/22/16, patient takeslisinopril (Prinivil) and valsartan (Diovan) Peripheral Neuropathy: Negative Denies symptoms associated with neuropathy (numbness and/or tingling). Occasional pains. Autonomic Neuropathy: Negative Patient aware of lows. Hyperlipidemia: Positive Currently taking: rosuvastatin (Crestor). LFT's WNL. Tchol: not documented, Tri ; HDL: 33 ; LDL:88. Stable. Hypertension: Positive. Currently taking: lisinopril (Prinivil) and valsartan (Diovan)-Has been on both for years BP: 106/72 Stable-Goal <130/80 Cardiac: Negative Denies Chest pain or SOB at this time. Does have occasional palpitations-needs tocheck blood sugars when she are having these. Vascular: Negative no edema Feet: Negative sores or lesions at this time. Last foot exam: at initial visit 02/05/17 Thyroid: Positive . Takes levothyroxine 125 mcg daily for history of hypothyroidism after her in 1997. 04/01/18: TSH: 0.36 ; FreeT4: 1.18 Other: Psoriasis: Currently taking Stelara now instead of Humira per a shorer. She is pleased with this. Plan: Type 1 diabetes mellitus with hyperglycemia (HCC) [E10.65] 1. Rx changes: Continue current regimen Be sure to take insulin with all meals, even if BG <100. Humalog insulin: 10-30 units at breakfast; 10-30 units at lunch; 10-30 units at supper Basaglar insulin: 55 units at bedtime Humalog standard sliding scale as needed with meals or snacks No oral hypoglycemic medications Continue checking her BG 4 times a day and get control of her Blood sugars. Can revisit an insulin pump at her next visit. Long discussion with patient concerning insulin pump therapy or CGM. Patient will consider medtronic insulin pump. She currently attempts to adjust insulin based on meal and BG, she would benefit from the consistency of a pump and the more "scientific" method of set IC ratios and sensitivity. Mrs. Bai would benefit from continuous glucose monitoring system. Patient has had Type 1 diabetes for 19 years. Complications include diabetic neuropathy and autonomic neuropathy with hypoglycemic unawareness Patient is currently managed with: insulin injections Patient has been checking their blood sugar 4 times per day Patient is positive for a history of reoccurring hypoglycemia <50. Patient is predisposed to hypoglycemia, and has had 2-3 hypoglycemic episodes in the last 14 days. Patient's most recent Hgb A1c was 9.4% on 03/22 Patient's HGb is <6.0% or >8.5% Patient currently takes humalog and basaglar insulin injections 4 times daily. Patient is positive for a history of hypoglycemic unawareness Patient has inadequate control despite compliance with multiple alterations in insulin doses/medication regimen. 2. Education: Reviewed ABCs of diabetes management (respective goals in parentheses): A1C (7.0-8.0), blood pressure (<130/80), and cholesterol (LDL <100). 3. Compliance at present is estimated to be fair. Efforts to improve compliance (if necessary) willbe directed at dietary modifications: Limit portion sizes, Limit starches, carbohydrates and concentrated sugar sources and following with a intensive care specialist if insurance permits, increased exercise and regular blood sugar monitorin-6 times daily. 4. Follow up: 4 months 5. Record blood sugar readings as instructed. Call if BG consistently <70 or >250. [phone] Check blood sugar 3-4 times daily and as needed. May call in readings if blood glucose readings continue to stay elevated or drop too low. 6. Bring blood sugar meter to follow up appointment. Orders Placed This Encounter Procedures Hemoglobin A1c Comprehensive Metabolic Panel Lipid Panel CBC and Differential Electronically Signed by: Alan Madrid CNP 04/01/18 1:32 PM in this encounter* Ned Brown PA-C - 09/01/2018 4:04 PM EDT Patient ID: Gregoria Bai is a 48 y.o. female 1970 Subjective: HPI: Gregoria Bai presents for follow-up of Type 1 diabetes The initial diagnosis of gestational diabetes was made 19 years ago in 1997. One year later she developed Type 2 and was on oral agents for ~ 4 years, then started on Insulin and her diagnosis was changed to Type 1 Diabetes, confirmed with labson 06/14/16. Disease course has been slowly improving. Current diabetic treatment includes insulin injections Self Monitored blood glucose levels Patient has been checking BG 1-5 times daily. Blood glucose ranges are: Fasting BG 42-483 10am-1pm: 147-255 5pm-8pm: 152-369 Bedtime (10pm-11pm): 138-505 Patient's weight has decreased 3 lbs. She has been watching her diet and has been exercising doing workout classes at the [facility]. Patient is following a diabetic diet. Meal planning includes avoidance of concentrated sweets. She was able to meet with a intensive care specialist once An JOHANNA inhibitor/angiotensin II receptor aditi is being taken. Patient does not see a instruction librarian. Eye exam is current. Currently taking: No oral hypoglycemic medications Average BG over last 2 week: 200; 4.3 readings per day Humalog insulin: 10-30 units at breakfast; 10-30 units at lunch; 10-30 units at supper Basaglar insulin: 55 units at bedtime She also is following a standard sliding scale Humalog with meals (Greater than 150-200 extra 2 units, 201-150 extra 4 units...) Current Outpatient Medications Medication Sig Dispense Refill BASAGLAR KWIKPEN U-100 INSULIN 100 unit/mL (3 mL) InPn INJECT 60 UNITS SUBCUTANEOUSLY NIGHTLY 60 mL3 blood sugar diagnostic strips One Touch Ultra test strips. Use as directed, 6 times daily. E10.65. 550 each 3 cholecalciferol, vitamin D3, 1,000 unit tablet Take 1,000 Units by mouth daily. esomeprazole (NEXIUM) 20 MG capsule Take 20 mg by mouth every morning before breakfast. lisinopril (PRINIVIL,ZESTRIL) 40 MG tablet TAKE 1 TABLET DAILY 90 tablet 3 NOVOLOG FLEXPEN U-100 INSULIN 100 unit/mL InPn USE DIRECTED APPROXIMATELY 80 UNITS DAILY 75 mL 3 pen needle, diabetic 31 gauge x 5/16" Ndle Use as directed QID. 400 each 3 rosuvastatin (CRESTOR) 20 MG tablet TAKE 1 TABLET DAILY 90 tablet 3 STELARA 45 mg/0.5 mL Syrg SYNTHROID 125 mcg tablet TAKE 1 TABLET ONCE DAILY 90 tablet 3 valsartan (DIOVAN) 80 MG tablet TAKE 1 TABLET DAILY 90 tablet 3 No current facility-administered medications for this visit. Review of Systems: Review of Systems Constitutional: Positive for activity change (Continues to exercise 4-5 days per week.). Negative for unexpected weight change. HENT: Negative for trouble swallowing and voice change. Eyes: Negative for visual disturbance. Respiratory: Negative for cough and shortness of breath. Cardiovascular: Negative for chest pain, palpitations and leg swelling. Gastrointestinal: Negative for constipation, diarrhea, nausea and vomiting. Endocrine: Negative for cold intolerance, heat intolerance, polydipsia, polyphagia and polyuria. Genitourinary: Negative for dysuria. Skin: Chronic dry patches on extremities r/t psoriasis. Improving with Stelara Neurological: Negative for dizziness, tremors, light-headedness and numbness. Psychiatric/Behavioral: Negative for sleep disturbance. The following portions of the patient's history were reviewed and updated as appropriate: allergies, current medications, past family history, past medical history, past social history, past surgicalhistory and problem list. Objective: BP (P) 131/85 Pulse (P) 88 Ht 5' 3" Wt 92.5 kg (204 lb) BMI 36.14 kg/m Wt Readings from Last 3 Encounters: 09/01/18 92.5 kg (204 lb) 04/01/18 88.2 kg (194 lb 8 oz) 11/28/17 89.4 kg (197 lb 1.6 oz) Physical Exam: General: alert, appears stated age and cooperative Eyes: conjunctivae/corneas clear. PERRL, EOM's intact. Neck: no adenopathy, supple, symmetrical, trachea midline. Thyroid: No thyromegaly appreciated. Skin is moist Lung: clear to auscultation bilaterally slightly diminished. Heart: regular rate and rhythm, S1, S2 normal, no murmur, click, rub or gallop Extremities: extremities normal, atraumatic, no cyanosis or edema Feet: Dry skin and psporiasis on legs bilaterally, Bilateral Feet: normal PT. Monofilament exam Normal , bilateral lower extremities. Neuro: normal without focal findings, mental status, speech normal, alert and oriented x3 and JENNIFER Lab Review Date: 08/28/2018 Hemoglobin A1c 9.4% Creatinine 0.70, estimated GFR 101, K3.8 AST 15, ALT 17 T cholesterol 194, TG 172, HDL 40, LDL at 120 CBC: H/H 13.9/41.1, WBC 7.60, platelets 206,000 03/29/18 *labs reviewed 09/03/18 Hgb A1c: 9.4% Creat: 0.8; eGFR: >60 AST: 15; ALT: 16 K: 4.0 TSH: 0.36 ; FreeT4: 1.18 11/26/17 Hgb A1c: 9.2% Creat: 0.6; eGFR: >60 AST: 22; ALT: 19 K: 3.9 05/28/17 Creat: 0.6 AST: 24; ALT: 25 K: 3.5 CBC: WBC:8.2; Hgb: 14.4; Hct: 43.0; Plt: 204 Tchol: 162; Tri ; HDL: 34 ; LDL: 89 TSH: 1.69 ; FreeT4: 0.99 02/01/17 Hgb A1C 9.6% 10/03/16 Hgb A1c: 8.7% Creat: 0.82 AST: 18; ALT: 29 K: 4.3 06/14/16 C Peptide: <0.1 ASHANTI 65 Antibody >250.0 05/22/16: Hgb A1C; 9.9% Cr: 0.60 AST: 23; ALT: 26 CBC: Hgb: 13.3; Hct: 40.2, Plt: 199 Tchol: not documented, Tri ; HDL: 33 ; LDL:88 TSH: 1.67 Microalbumin/creatinine Ratio: 7 Assessment: Dx: SNOMED CT(R) 1. Type 1 diabetes mellitus with hyperglycemia (HCC) HYPERGLYCEMIA DUE TO TYPE 1 DIABETES MELLITUS Comprehensive Metabolic Panel Hemoglobin A1c TSH T4, Free External Lab Microalbumin/Creatinine Type 1 diabetes, under fair control Gregoria Bai presents for follow-up of Type 1 diabetes Patient is currently managed with: Humalog with meals and Basaglar at bedtime. Most recent Hgb A1c was 9.4% on 08/28/2018, unchanged from 9.4% on08/28/2018, unchanged from 03/29/18. Patient bases insulin injection amount based on BG and meal content. She has not specific formula or pattern. She reports missing some injections leading to hyperglycemia. Patient having occasional low BG at night. Retinopathy: Negative Exam within last 12 months: yes Date: 05/2017 for the management of Routine eye care and no history of BACTERIOLOGIST PHARMACEUTICAL. Nephropathy: Negative Creatinine 0.70, estimated GFR 101 on 08/28/2018; Mialb/creat ratio: 7 on 05/22/16, patient takes lisinopril (Prinivil) Peripheral Neuropathy: Negative Denies symptoms associated with neuropathy (numbness and/or tingling). Occasional pains. Autonomic Neuropathy: Negative Patient aware of lows. Hyperlipidemia: Positive Currently taking: rosuvastatin (Crestor). LFT's WNL. 08/28/2018: T cholesterol 194, TG 172, HDL 40, LDL 120 Patient states she is not totally compliant with taking Crestor nightly, frequently forgets her dose. Plan: Encouraged compliance, offered solution such as changing the time of day in which she takes the medication, leaving it in frequent places visited in her home, etc. Check lipid panel before nextappointment Hypertension: Positive. Currently taking: lisinopril (Prinivil), was also previously on valsartan 80 mg in combination with JOHANNA, has since discontinued valsartan due to recall. Since combination of ARB and JOHANNA not currently recommended, patient may continue without. I instructed her to continue to m onitor blood pressure at home and contact the office if her BP continues above goal. BP: (P) 131/85 Stable-Goal <130/80 Cardiac: Negative Denies Chest pain or SOB at this time. Does have occasional palpitations-needs tocheck blood sugars when she are having these. Vascular: Negative no edema Feet: Negative sores or lesions at this time. Last foot exam: at initial visit 02/05/17 Thyroid: Positive . Takes levothyroxine 125 mcg daily for history of hypothyroidism after her in 1997. 04/01/18: TSH: 0.36 ; FreeT4: 1.18. Check TFTs before next appointment Other: Psoriasis: Currently taking Stelara now instead of Humira per a shorer. She is pleased with this. Plan: Type 1 diabetes mellitus with hyperglycemia (HCC) [E10.65] 1. Rx changes: Adjust medications as below Be sure to take insulin with all meals, even if BG <100. Humalog insulin: 1:8 units at breakfast; 1:8 units at lunch; 1:8 units at supper Basaglar insulin: 55 units at bedtime Humalog standard sliding scale as needed with meals or snack Continue checking her BG 4 times a day and get control of her Blood sugars. After long conversation, patient agreed to try a insulin/carb ratio rather than errantly gassing meal doses based on gross carb amounts. We discussed that with a more specific meal dose regimen, she will be able to reduce postprandial hyperglycemia, stacking of correction doses, and overall blood sugar control. She agreed to try an insulin to carb ratio, 1/8 was agreed upon based off of her body weight, she will most likely need more. Long discussion with patient concerning insulin pump therapy or CGM. Patient will consider medtronic insulin pump. She currently attempts to adjust insulin based on meal and BG, she would benefit from the consistency of a pump and the more "scientific" method of set IC ratios and sensitivity. Mrs. Bai would benefit from continuous glucose monitoring system. Patient has had Type 1 diabetes for 19 years. Complications include diabetic neuropathy and autonomic neuropathy with hypoglycemic unawareness Patient is currently managed with: insulin injections Patient has been checking their blood sugar 4 times per day Patient's most recent Hgb A1c was 9.4% on 08/28/2018 Patient's HGb is <6.0% or >8.5% Patient currently takes humalog and basaglar insulin injections 4 times daily. Patient is positive for a history of hypoglycemic unawareness Patient has inadequate control despite compliance with multiple alterations in insulin doses/medication regimen. 2. Education: Reviewed ABCs of diabetes management (respective goals in parentheses): A1C (7.0-8.0), blood pressure (<130/80), and cholesterol (LDL <100). 3. Compliance at present is estimated to be fair. Efforts to improve compliance (if necessary) willbe directed at dietary modifications: Limit portion sizes, Limit starches, carbohydrates and concentrated sugar sources and following with a intensive care specialist if insurance permits, increased exercise and regular blood sugar monitorin-6 times daily. 4. Follow up: 4 months 5. Record blood sugar readings as instructed. Call if BG consistently <70 or >250. [phone] Check blood sugar 3-4 times daily and as needed. May call in readings if blood glucose readings continue to stay elevated or drop too low. 6. Bring blood sugar meter to follow up appointment. Orders Placed This Encounter Procedures Comprehensive Metabolic Panel Hemoglobin A1c TSH T4, Free External Lab Microalbumin/Creatinine Electronically signed by: Ned Brown PA-C, [facility] 09/03/18 10:49 AM documented in this encounter* Alan Madrid, [facility] - 03/23/2019 3:32 PM EST Patient ID: Gregoria Bai is a 48 y.o. female 1970 Subjective: HPI: Gregoria Bai presents for follow-up of Type 1 diabetes The initial diagnosis of gestational diabetes was made 19 years ago in 1997. One year later she developed Type 2 and was on oral agents for ~ 4 years, then started on Insulin and her diagnosis was changed to Type 1 Diabetes, confirmed with labson 06/14/16. Patient was last seen in 12/2018 at which time her hemoglobin A1c was 10.1%. She was exercising more and had been eating better. She varies dose without much specificity. She has been checking her blood sugar relatively frequently, but admits to frequently missed or late insulin doses as of late. Most recent hemoglobin A1c increased to 11.2%. Self Monitored blood glucose levels Patient has been checking BG 1-5 times daily. Blood glucose ranges are: Fasting BG 80-465 10am-1pm: 138-491 5pm-8pm: 131-423 Bedtime (10pm-11pm): 267-528 Patient's weight is stable Patient is following a diabetic diet intermittently Meal planning includes avoidance of concentrated sweets. She was able to meet with a intensive care specialist once. Currently taking: Humalog insulin: 10-50 units at breakfast; 10-50 units at lunch; 10-50 units at supper Basaglar insulin: 55 units at bedtime She also is following a standard sliding scale Humalog with meals (Greater than 150-200 extra 2 units, 201-150 extra 4 units...) Current Outpatient Medications Medication Sig Dispense Refill BASAGLAR KWIKPEN U-100 INSULIN 100 unit/mL (3 mL) InPn INJECT 60 UNITS SUBCUTANEOUSLY NIGHTLY 60 mL3 blood sugar diagnostic strips Accu-chek test strips. Use as directed, 4 times daily. E10.65 . 400 each 3 blood-glucose meter (Accu-Chek Kiki Plus Meter) [facility] [place] BG 4x daily. DX code E10.65 Use Accu-chek brand . 1 each 0 cholecalciferol, vitamin D3, 1,000 unit tablet Take 1,000 Units by mouth daily. esomeprazole (NEXIUM) 20 MG capsule Take 20 mg by mouth every morning before breakfast. lisinopril (PRINIVIL,ZESTRIL) 40 MG tablet TAKE 1 TABLET DAILY 90 tablet 3 NOVOLOG FLEXPEN U-100 INSULIN 100 unit/mL (3 mL) InPn Use as directed before meals, approx. 100 units daily. . (Patient taking differently: Use as directed before meals, approx. 120 units daily. .) 90 mL 3 pen needle, diabetic 31 gauge x 5/16" Ndle Use as directed QID. 400 each 3 rosuvastatin (CRESTOR) 20 MG tablet TAKE 1 TABLET DAILY 90 tablet 3 STELARA 45 mg/0.5 mL Syrg SYNTHROID 125 mcg tablet TAKE 1 TABLET ONCE DAILY 90 tablet 3 No current facility-administered medications for this visit. Review of Systems: Review of Systems Constitutional: Positive for activity change (Continues to exercise 4-5 days per week.). Negative for unexpected weight change. HENT: Negative for trouble swallowing and voice change. Eyes: Negative for visual disturbance. Respiratory: Negative for cough and shortness of breath. Cardiovascular: Negative for chest pain, palpitations and leg swelling. Gastrointestinal: Negative for constipation, diarrhea, nausea and vomiting. Endocrine: Negative for cold intolerance, heat intolerance, polydipsia, polyphagia and polyuria. Genitourinary: Negative for dysuria. Skin: Chronic dry patches on extremities r/t psoriasis. Improving with Stelara Neurological: Negative for dizziness, tremors, light-headedness and numbness. Psychiatric/Behavioral: Negative for sleep disturbance. The following portions of the patient's history were reviewed and updated as appropriate: allergies, current medications, past family history, past medical history, past social history, past surgicalhistory and problem list. Objective: BP 119/80 (BP Location: Left arm, Patient Position: Sitting, BP Cuff Size: X- large Adult) Pulse 97 Resp (!) 96 Ht 5' 3" Wt 94.8 kg (208 lb 14.4 oz) BMI 37.00 kg/m Wt Readings from Last 3 Encounters: 03/23/19 94.8 kg (208 lb 14.4 oz) 12/15/18 93.1 kg (205 lb 3 oz) 09/01/18 92.5 kg (204 lb) Physical Exam: General: alert, appears stated age and cooperative Eyes: conjunctivae/corneas clear. PERRL, EOM's intact. Neck: no adenopathy, supple, symmetrical, trachea midline. Thyroid: No thyromegaly appreciated. Skin is moist Lung: clear to auscultation bilaterally slightly diminished. Heart: regular rate and rhythm, S1, S2 normal, no murmur, click, rub or gallop Extremities: extremities normal, atraumatic, no cyanosis or edema Feet: Dry skin and psporiasis on legs bilaterally, Bilateral Feet: normal PT. Monofilament exam Normal , bilateral lower extremities. Neuro: normal without focal findings, mental status, speech normal, alert and oriented x3 and JENNIFER Lab Review Date: 03/20/19 *labs reviewed 03/24/19 Hgb A1c: 11.2% Creat: 0.75; eGFR: 93 AST: 13; ALT: 17 K: 3.8 Tchol: 158; Tri ; HDL: 39 ; LDL: 93 12/09/18 Hemoglobin A1c 10.1% Creatinine 0.71, estimated GFR 100, K4.5 AST 18, ALT 21 TSH 1.7, free T4--1.32 Microalbumin/creatinine ratio 4.5 08/28/2018 Hemoglobin A1c 9.4% Creatinine 0.70, estimated GFR 101, K3.8 AST 15, ALT 17 T cholesterol 194, TG 172, HDL 40, LDL at 120 CBC: H/H 13.9/41.1, WBC 7.60, platelets 206,000 03/29/18 *labs reviewed 03/23/19 Hgb A1c: 9.4% Creat: 0.8; eGFR: >60 AST: 15; ALT: 16 K: 4.0 TSH: 0.36 ; FreeT4: 1.18 11/26/17 Hgb A1c: 9.2% Creat: 0.6; eGFR: >60 AST: 22; ALT: 19 K: 3.9 05/28/17 Creat: 0.6 AST: 24; ALT: 25 K: 3.5 CBC: WBC:8.2; Hgb: 14.4; Hct: 43.0; Plt: 204 Tchol: 162; Tri ; HDL: 34 ; LDL: 89 TSH: 1.69 ; FreeT4: 0.99 02/01/17 Hgb A1C 9.6% 10/03/16 Hgb A1c: 8.7% Creat: 0.82 AST: 18; ALT: 29 K: 4.3 06/14/16 C Peptide: <0.1 ASHANTI 65 Antibody >250.0 05/22/16: Hgb A1C; 9.9% Cr: 0.60 AST: 23; ALT: 26 CBC: Hgb: 13.3; Hct: 40.2, Plt: 199 Tchol: not documented, Tri ; HDL: 33 ; LDL:88 TSH: 1.67 Microalbumin/creatinine Ratio: 7 Assessment: Dx: 1. Type 1 diabetes mellitus with hyperglycemia (HCC) Ambulatory referral to Nutrition Services Comprehensive Metabolic Panel Hemoglobin A1c TSH T4, Free 2. Essential hypertension 3. Hyperlipidemia, unspecified hyperlipidemia type Type 1 diabetes, under poor control Patient is currently managed with: Humalog with meals and Basaglar at bedtime. Most recent Hgb A1c was 11.2% on 03/23, increased from 10.2% on 11/2018 Patient bases insulin injection amount based on BG and meal content. She has not specific formula or pattern. She reports missing some injections leading to hyperglycemia. Reports not exercising, notfollowing diet closely. Retinopathy: Negative Exam within last 12 months: yes Date: 05/2017 for the management of Routine eye care and no history of BACTERIOLOGIST PHARMACEUTICAL. Nephropathy: Negative Creat: 0.75; eGFR: 93 03/23; Mialb/creat ratio: 4.5 on 12/09/2018, patient takes lisinopril (Prinivil) Peripheral Neuropathy: Negative Denies symptoms associated with neuropathy (numbness and/or tingling). Occasional pains. Autonomic Neuropathy: Negative Patient aware of lows. Hyperlipidemia: Positive Currently taking: rosuvastatin (Crestor). LFT's WNL. 03/23: Tchol: 158; Tri ; HDL: 39 ; LDL: 93 Hypertension: Positive. Currently taking: lisinopril (Prinivil), was also previously on valsartan 80 mg in combination with JOHANNA, has since discontinued valsartan due to recall. Since combination of ARB and JOHANNA not currently recommended, patient may continue without. BP: 119/80 Stable-Goal <130/80 Cardiac: Negative Denies Chest pain or SOB at this time. Does have occasional palpitations-needs tocheck blood sugars when she are having these. Vascular: Negative no edema Feet: Negative sores or lesions at this time. Last foot exam: at initial visit 02/05/17 Thyroid: Positive. Takes levothyroxine 125 mcg daily for history of hypothyroidism after her in 1997. TSH 1.7, free T4--1.32. CPM. Other: Psoriasis: Currently taking Stelara now instead of Humira per a shorer. She is pleased with this. Plan: No primary diagnosis found. 1. Rx changes: Adjust medications as below Be sure to take insulin with all meals, even if BG <100. Humalog insulin: 1:5 units at breakfast; 1:5 units at lunch; 1:5 units at supper Basaglar insulin: 55 units at bedtime Use as directed with Humalog insulin before meals and at bedtime. 151-200: 2 units fast acting insulin 201-250: 4 units fast acting insulin 251-300: 6 units fast acting insulin 301-350: 8 units fast acting insulin 351-400: 10 units fast acting insulin above 400: 12 units fast acting insulin, call the office. Continue checking her BG 4 times a day and get control of her Blood sugars. DexCom CGM Long discussion with patient concerning insulin pump therapy or CGM. Patient will consider medtronic insulin pump. She currently attempts to adjust insulin based on meal and BG, she would benefit from the consistency of a pump and the more "scientific" method of set IC ratios and sensitivity. Mrs. Bai would benefit from continuous glucose monitoring system. Patient has had Type 1 diabetes for 19 years. Complications include diabetic neuropathy and autonomic neuropathy with hypoglycemic unawareness Patient is currently managed with: insulin injections Patient has been checking their blood sugar 4 times per day Patient's most recent Hgb A1c was 9.4% on 08/28/2018 Patient's HGb is <6.0% or >8.5% Patient currently takes humalog and basaglar insulin injections 4 times daily. Patient is positive for a history of hypoglycemic unawareness Patient has inadequate control despite compliance with multiple alterations in insulin doses/medication regimen. 2. Education: Reviewed ABCs of diabetes management (respective goals in parentheses): A1C (7.0-8.0), blood pressure (<130/80), and cholesterol (LDL <100). 3. Compliance at present is estimated to be fair. Efforts to improve compliance (if necessary) willbe directed at dietary modifications: Limit portion sizes, Limit starches, carbohydrates and concentrated sugar sources and following with a intensive care specialist if insurance permits, increased exercise and regular blood sugar monitorin-6 times daily. 4. Follow up: 4 months 5. Record blood sugar readings as instructed. Call if BG consistently <70 or >250. [phone] Check blood sugar 3-4 times daily and as needed. May call in readings if blood glucose readings continue to stay elevated or drop too low. 6. Bring blood sugar meter to follow up appointment. Orders Placed This Encounter Procedures Comprehensive Metabolic Panel Hemoglobin A1c TSH T4, Free Ambulatory referral to Nutrition Services Electronically Signed by: Alan Madrid CNP 03/24/19 7:30 AM documented in this encounter* Alan Madrid CNP - 08/31/2019 3:19 PM EDT +Patient ID: Gregoria Bai is a 49 y.o. female 1970 Subjective: HPI: Gregoria Bai presents for follow-up of Type 1 diabetes The initial diagnosis of gestational diabetes was made 19 years ago in 1997. One year later she developed Type 2 and was on oral agents for ~ 4 years, then started on Insulin and her diagnosis was changed to Type 1 Diabetes, confirmed with labson 06/14/16. Patient was last seen in 12/2018 at which time her hemoglobin A1c was 10.1%. She was exercising more and had been eating better. She varies dose without much specificity. She has been checking her blood sugar relatively frequently, but admits to frequently missed or late insulin doses as of late. Most recent hemoglobin A1c increased to 11.2%. Self Monitored blood glucose levels Patient has been checking BG 1-5 times daily. Blood glucose ranges are: Fasting BG 80-465 10am-1pm: 138-491 5pm-8pm: 131-423 Bedtime (10pm-11pm): 267-528 Patient's weight is stable Patient is following a diabetic diet intermittently Meal planning includes avoidance of concentrated sweets. She was able to meet with a intensive care specialist once. Currently taking: Humalog insulin: 1:2 units at breakfast; 1:2 units at lunch; 1:2 units at supper Basaglar insulin: 55 units at bedtime She also is following a standard sliding scale Humalog with meals (Greater than 150-200 extra 2 units, 201-150 extra 4 units...) Outpatient Medications Marked as Taking for the 08/31/19 encounter (Office Visit) with Alan Madrid CNP: Basaglar KwikPen U-100 Insulin 100 unit/mL (3 mL) InPn, INJECT 60 UNITS SUBCUTANEOUSLY NIGHTLY blood sugar diagnostic strips, Accu-chek test strips. Use as directed, 4 times daily. E10.65 . blood-glucose meter (Accu-Chek Kiki Plus Meter) [facility] [place] BG 4x daily. DX code E10.65 UseAccu-chek brand . cholecalciferol, vitamin D3, 1,000 unit tablet, Take 1,000 Units by mouth daily. esomeprazole (NEXIUM) 20 MG capsule, Take 20 mg by mouth every morning before breakfast. lisinopriL (PRINIVIL,ZESTRIL) 40 MG tablet, TAKE 1 TABLET DAILY NovoLOG Flexpen U-100 Insulin 100 unit/mL (3 mL) InPn, Use as directed before meals, approx. 150 units daily. . pen needle, diabetic 31 gauge x 5/16" Ndle, Use as directed QID. rosuvastatin (CRESTOR) 20 MG tablet, TAKE 1 TABLET DAILY STELARA 45 mg/0.5 mL Syrg, Synthroid 125 mcg tablet, TAKE 1 TABLET ONCE DAILY Review of Systems: Review of Systems Constitutional: Positive for activity change (Continues to exercise 4-5 days per week.). Negative for unexpected weight change. HENT: Negative for trouble swallowing and voice change. Eyes: Negative for visual disturbance. Respiratory: Negative for cough and shortness of breath. Cardiovascular: Negative for chest pain, palpitations and leg swelling. Gastrointestinal: Negative for constipation, diarrhea, nausea and vomiting. Endocrine: Negative for cold intolerance, heat intolerance, polydipsia, polyphagia and polyuria. Genitourinary: Negative for dysuria. Skin: Chronic dry patches on extremities r/t psoriasis. Improving with Stelara Neurological: Negative for dizziness, tremors, light-headedness and numbness. Psychiatric/Behavioral: Negative for sleep disturbance. The following portions of the patient's history were reviewed and updated as appropriate: allergies, current medications, past family history, past medical history, past social history, past surgicalhistory and problem list. Objective: BP 122/83 Pulse 85 Ht 5' 2" Wt 93.9 kg (207 lb) BMI 37.86 kg/m Wt Readings from Last 3 Encounters: 08/31/19 93.9 kg (207 lb) 03/23/19 94.8 kg (208 lb 14.4 oz) 12/15/18 93.1 kg (205 lb 3 oz) Physical Exam: General: alert, appears stated age and cooperative Eyes: conjunctivae/corneas clear. PERRL, EOM's intact. Neck: no adenopathy, supple, symmetrical, trachea midline. Thyroid: No thyromegaly appreciated. Skin is moist Lung: clear to auscultation bilaterally slightly diminished. Heart: regular rate and rhythm, S1, S2 normal, no murmur, click, rub or gallop Extremities: extremities normal, atraumatic, no cyanosis or edema Feet: Dry skin and psporiasis on legs bilaterally, Bilateral Feet: normal PT. Monofilament exam Normal , bilateral lower extremities. Neuro: normal without focal findings, mental status, speech normal, alert and oriented x3 and JENNIFER Lab Review Date: 08/28/19 *labs reviewed 08/31/19 Hgb A1c: 10.1% Creat: 0.82; eGFR: 83 AST: 16; ALT: 21 K: 4.0 TSH: 2.890 ; FreeT4: 1.32 03/20/19 Hgb A1c: 11.2% Creat: 0.75; eGFR: 93 AST: 13; ALT: 17 K: 3.8 Tchol: 158; Tri ; HDL: 39 ; LDL: 93 12/09/18 Hemoglobin A1c 10.1% Creatinine 0.71, estimated GFR 100, K4.5 AST 18, ALT 21 TSH 1.7, free T4--1.32 Microalbumin/creatinine ratio 4.5 08/28/2018 Hemoglobin A1c 9.4% Creatinine 0.70, estimated GFR 101, K3.8 AST 15, ALT 17 T cholesterol 194, TG 172, HDL 40, LDL at 120 CBC: H/H 13.9/41.1, WBC 7.60, platelets 206,000 03/29/18 *labs reviewed 08/31/19 Hgb A1c: 9.4% Creat: 0.8; eGFR: >60 AST: 15; ALT: 16 K: 4.0 TSH: 0.36 ; FreeT4: 1.18 11/26/17 Hgb A1c: 9.2% Creat: 0.6; eGFR: >60 AST: 22; ALT: 19 K: 3.9 05/28/17 Creat: 0.6 AST: 24; ALT: 25 K: 3.5 CBC: WBC:8.2; Hgb: 14.4; Hct: 43.0; Plt: 204 Tchol: 162; Tri ; HDL: 34 ; LDL: 89 TSH: 1.69 ; FreeT4: 0.99 02/01/17 Hgb A1C 9.6% 10/03/16 Hgb A1c: 8.7% Creat: 0.82 AST: 18; ALT: 29 K: 4.3 06/14/16 C Peptide: <0.1 ASHANTI 65 Antibody >250.0 05/22/16: Hgb A1C; 9.9% Cr: 0.60 AST: 23; ALT: 26 CBC: Hgb: 13.3; Hct: 40.2, Plt: 199 Tchol: not documented, Tri ; HDL: 33 ; LDL:88 TSH: 1.67 Microalbumin/creatinine Ratio: 7 Assessment: Dx: 1. Type 1 diabetes mellitus with hyperglycemia (HCC) 2. Essential hypertension 3. Hyperlipidemia, unspecified hyperlipidemia type 4. Hypothyroidism, unspecified type Type 1 diabetes, under poor control Patient is currently managed with: Humalog with meals and Basaglar at bedtime. Most recent Hgb A1c was 10.1% on 08/21, decreased from 11.2% on 04/23 Patient bases insulin injection amount based on BG and meal content. She has not specific formula or pattern. She reports missing some injections leading to hyperglycemia. Reports not exercising, notfollowing diet closely. Retinopathy: Negative Exam within last 12 months: yes Date: 07/14/[address] Resendiz in [place]. Evidence of early mild [employer]OLOG[employer]ARM[employer] in left eye 07/21, has follow up 01/21. for the management of Mild BACT[employer]IOLOG[employer]ARMACE[employer] and Glaucoma. Nephropathy: Negative Creat: 0.82; eGFR: 83 08/21; Mialb/creat ratio: 4.5 on 12/09/2018, patient takes lisinopril (Prinivil) Peripheral Neuropathy: Negative Denies symptoms associated with neuropathy (numbness and/or tingling). Occasional pains. Autonomic Neuropathy: Negative Patient aware of lows. Hyperlipidemia: Positive Currently taking: rosuvastatin (Crestor). LFT's WNL. 03/23: Tchol: 158; Tri ; HDL: 39 ; LDL: 93 Hypertension: Positive. Currently taking: lisinopril (Prinivil), was also previously on valsartan 80 mg in combination with JOHANNA, has since discontinued valsartan due to recall. Since combination of ARB and JOHANNA not currently recommended, patient may continue without. BP: 122/83 Stable-Goal <130/80 Cardiac: Negative Denies Chest pain or SOB at this time. Does have occasional palpitations-needs tocheck blood sugars when she are having these. Vascular: Negative no edema Feet: Negative sores or lesions at this time. Last foot exam: at initial visit 02/05/17 Thyroid: Positive. Takes levothyroxine 125 mcg daily for history of hypothyroidism after her in 1997. TSH 1.7, free T4--1.32. CPM. Other: Psoriasis: Currently taking Stelara now instead of Humira per a shorer. She is pleased with this. Plan: Type 1 diabetes mellitus with hyperglycemia (HCC) [E10.65] 1. Rx changes: Adjust medications as below Be sure to take insulin with all meals, even if BG <100. Humalog insulin: 1:2 units at breakfast; 1:2 units at lunch; 1:2 units at supper Basaglar insulin: 55 units at bedtime Use as directed with Humalog insulin before meals and at bedtime. 151-200: 2 units fast acting insulin 201-250: 4 units fast acting insulin 251-300: 6 units fast acting insulin 301-350: 8 units fast acting insulin 351-400: 10 units fast acting insulin above 400: 12 units fast acting insulin, call the office. Continue checking her BG 4 times a day and get control of her Blood sugars. DexCom CGM Long discussion with patient concerning insulin pump therapy or CGM. Patient will consider medtronic insulin pump. She currently attempts to adjust insulin based on meal and BG, she would benefit from the consistency of a pump and the more "scientific" method of set IC ratios and sensitivity. Mrs. Bai would benefit from continuous glucose monitoring system. Patient has had Type 1 diabetes for 19 years. Complications include diabetic neuropathy and autonomic neuropathy with hypoglycemic unawareness Patient is currently managed with: insulin injections Patient has been checking their blood sugar 4 times per day Patient's most recent Hgb A1c was 9.4% on 08/28/2018 Patient's HGb is <6.0% or >8.5% Patient currently takes humalog and basaglar insulin injections 4 times daily. Patient is positive for a history of hypoglycemic unawareness Patient has inadequate control despite compliance with multiple alterations in insulin doses/medication regimen. 2. Education: Reviewed ABCs of diabetes management (respective goals in parentheses): A1C (7.0-8.0), blood pressure (<130/80), and cholesterol (LDL <100). 3. Compliance at present is estimated to be fair. Efforts to improve compliance (if necessary) willbe directed at dietary modifications: Limit portion sizes, Limit starches, carbohydrates and concentrated sugar sources and following with a intensive care specialist if insurance permits, increased exercise and regular blood sugar monitorin-6 times daily. 4. Follow up: 4 months 5. Record blood sugar readings as instructed. Call if BG consistently <70 or >250. [phone] Check blood sugar 3-4 times daily and as needed. May call in readings if blood glucose readings continue to stay elevated or drop too low. 6. Bring blood sugar meter to follow up appointment. Orders Placed This Encounter Procedures Comprehensive Metabolic Panel TSH T4, Free Hemoglobin A1c Electronically Signed by: Alan Madrid CNP 08/31/19 7:30 AM documented in this encounter* Alan Madrid CNP - 02/01/2020 3:29 PM EST +Patient ID: Gregoria Bai is a 49 y.o. female 1970 Subjective: HPI: Gregoria Bai presents for follow-up of Type 1 diabetes The initial diagnosis of gestational diabetes was made 19 years ago in 1997. One year later she developed Type 2 and was on oral agents for ~ 4 years, then started on Insulin and her diagnosis was changed to Type 1 Diabetes, confirmed with labson 06/14/16. Patient has not been eating well or exercising. She varies dose without much specificity. She has been checking her blood sugar relatively frequently, but admits to frequently missed or late insulin doses as of late. Most recent hemoglobin A1c increased to 10.8%. Self Monitored blood glucose levels Patient has been checking BG 1-5 times daily. Blood glucose ranges are: Fasting BG 80-465 10am-1pm: 138-491 5pm-8pm: 131-423 Bedtime (10pm-11pm): 267-528 Patient's weight is stable Patient is following a diabetic diet intermittently Meal planning includes avoidance of concentrated sweets. She was able to meet with a intensive care specialist once. Currently taking: Humalog insulin: 1:2 units at breakfast; 1:2 units at lunch; 1:2 units at supper Basaglar insulin: 55 units at bedtime She also is following a standard sliding scale Humalog with meals (Greater than 150-200 extra 2 units, 201-150 extra 4 units...) Outpatient Medications Marked as Taking for the 02/01/20 encounter (Office Visit) with Alan Madrid, SUPERVISOR FRAME SAMPLE AND PATTERN: Basaglar KwikPen U-100 Insulin 100 unit/mL (3 mL) InPn, INJECT 60 UNITS SUBCUTANEOUSLY NIGHTLY (Patient taking differently: 55 Units .) blood sugar diagnostic strips, Accu-chek test strips. Use as directed, 4 times daily. E10.65 . blood-glucose meter (Accu-Chek Kiki Plus Meter) [facility] [place] BG 4x daily. DX code E10.65 UseAccu-chek brand . cholecalciferol, vitamin D3, 1,000 unit tablet, Take 1,000 Units by mouth daily. esomeprazole (NEXIUM) 20 MG capsule, Take 20 mg by mouth every morning before breakfast. levothyroxine (Synthroid) 125 MCG tablet, Take 1 (one) tablet (125 mcg total) by mouth daily With extra 1/2 on Saturday . lisinopriL (PRINIVIL,ZESTRIL) 40 MG tablet, TAKE 1 TABLET DAILY NovoLOG Flexpen U-100 Insulin 100 unit/mL (3 mL) InPn, INJECT SUBCUTANEOUSLY DIRECTED BEFORE MEALS , APPROXIMATELY 150 UNITS DAILY . . pen needle, diabetic 31 gauge x 5/16" Ndle, Use as directed QID. rosuvastatin (CRESTOR) 20 MG tablet, TAKE 1 TABLET DAILY STELARA 45 mg/0.5 mL Syrg, Review of Systems: Review of Systems Constitutional: Positive for activity change (Continues to exercise 4-5 days per week.). Negative for unexpected weight change. HENT: Negative for trouble swallowing and voice change. Eyes: Negative for visual disturbance. Respiratory: Negative for cough and shortness of breath. Cardiovascular: Negative for chest pain, palpitations and leg swelling. Gastrointestinal: Negative for constipation, diarrhea, nausea and vomiting. Endocrine: Negative for cold intolerance, heat intolerance, polydipsia, polyphagia and polyuria. Genitourinary: Negative for dysuria. Skin: Chronic dry patches on extremities r/t psoriasis. Improving with Stelara Neurological: Negative for dizziness, tremors, light-headedness and numbness. Psychiatric/Behavioral: Negative for sleep disturbance. The following portions of the patient's history were reviewed and updated as appropriate: allergies, current medications, past family history, past medical history, past social history, past surgicalhistory and problem list. Objective: BP 133/77 Pulse 97 Ht 5' 2" Wt 95.6 kg (210 lb 12.8 oz) BMI 38.56 kg/m Wt Readings from Last 3 Encounters: 02/01/20 95.6 kg (210 lb 12.8 oz) 08/31/19 93.9 kg (207 lb) 03/23/19 94.8 kg (208 lb 14.4 oz) Physical Exam: General: alert, appears stated age and cooperative Eyes: conjunctivae/corneas clear. PERRL, EOM's intact. Neck: no adenopathy, supple, symmetrical, trachea midline. Thyroid: No thyromegaly appreciated. Skin is moist Lung: clear to auscultation bilaterally slightly diminished. Heart: regular rate and rhythm, S1, S2 normal, no murmur, click, rub or gallop Extremities: extremities normal, atraumatic, no cyanosis or edema Feet: Dry skin and psporiasis on legs bilaterally, Bilateral Feet: normal PT. Monofilament exam Normal , bilateral lower extremities. Neuro: normal without focal findings, mental status, speech normal, alert and oriented x3 and JENNIFER Lab Review Date: 01/29/20 *labs reviewed 02/01/20 Hgb A1c: 10.8% Creat: 0.73; eGFR: 96 AST: 17; ALT: 18 K: 4.1 TSH: 2.55 ; FreeT4: 1.35 08/28/19 Hgb A1c: 10.1% Creat: 0.82; eGFR: 83 AST: 16; ALT: 21 K: 4.0 TSH: 2.890 ; FreeT4: 1.32 03/20/19 Hgb A1c: 11.2% Creat: 0.75; eGFR: 93 AST: 13; ALT: 17 K: 3.8 Tchol: 158; Tri ; HDL: 39 ; LDL: 93 12/09/18 Hemoglobin A1c 10.1% Creatinine 0.71, estimated GFR 100, K4.5 AST 18, ALT 21 TSH 1.7, free T4--1.32 Microalbumin/creatinine ratio 4.5 08/28/2018 Hemoglobin A1c 9.4% Creatinine 0.70, estimated GFR 101, K3.8 AST 15, ALT 17 T cholesterol 194, TG 172, HDL 40, LDL at 120 CBC: H/H 13.9/41.1, WBC 7.60, platelets 206,000 03/29/18 Hgb A1c: 9.4% Creat: 0.8; eGFR: >60 AST: 15; ALT: 16 K: 4.0 TSH: 0.36 ; FreeT4: 1.18 11/26/17 Hgb A1c: 9.2% Creat: 0.6; eGFR: >60 AST: 22; ALT: 19 K: 3.9 05/28/17 Creat: 0.6 AST: 24; ALT: 25 K: 3.5 CBC: WBC:8.2; Hgb: 14.4; Hct: 43.0; Plt: 204 Tchol: 162; Tri ; HDL: 34 ; LDL: 89 TSH: 1.69 ; FreeT4: 0.99 02/01/17 Hgb A1C 9.6% 10/03/16 Hgb A1c: 8.7% Creat: 0.82 AST: 18; ALT: 29 K: 4.3 06/14/16 C Peptide: <0.1 ASHANTI 65 Antibody >250.0 05/22/16: Hgb A1C; 9.9% Cr: 0.60 AST: 23; ALT: 26 CBC: Hgb: 13.3; Hct: 40.2, Plt: 199 Tchol: not documented, Tri ; HDL: 33 ; LDL:88 TSH: 1.67 Microalbumin/creatinine Ratio: 7 Assessment: Dx: 1. Type 1 diabetes mellitus with hyperglycemia (HCC) 2. Hypothyroidism, unspecified type 3. Essential hypertension 4. Hyperlipidemia, unspecified hyperlipidemia type Type 1 diabetes, under poor control Patient is currently managed with: Humalog with meals and Basaglar at bedtime. Most recent Hgb A1c was 10.1% on 08/21, decreased from 11.2% on 04/23 Patient bases insulin injection amount based on BG and meal content. She has not specific formula or pattern. She reports missing some injections leading to hyperglycemia. Reports not exercising, notfollowing diet closely. Retinopathy: Negative Exam within last 12 months: yes Date: 07/14/[address] Resendiz in [place]. Evidence of early mild B[employer]IOLOG[employer]ARMACE[employer] in left eye 07/21, has follow up 01/21. for the management of Mild [employer]ACT[employer]ARMACE[employer] and Glaucoma. Nephropathy: Negative Creat: 0.82; eGFR: 83 08/21; Mialb/creat ratio: 4.5 on 12/09/2018, patient takes lisinopril (Prinivil) Peripheral Neuropathy: Negative Denies symptoms associated with neuropathy (numbness and/or tingling). Occasional pains. Autonomic Neuropathy: Negative Patient aware of lows. Hyperlipidemia: Positive Currently taking: rosuvastatin (Crestor). LFT's WNL. Hypertension: Positive. Currently taking: lisinopril (Prinivil), was also previously on valsartan 80 mg in combination with JOHANNA, has since discontinued valsartan due to recall. Since combination of ARB and JOHANNA not currently recommended, patient may continue without. BP: 133/77 Stable-Goal <130/80 Cardiac: Negative Denies Chest pain or SOB at this time. Does have occasional palpitations-needs tocheck blood sugars when she are having these. Vascular: Negative no edema Feet: Negative sores or lesions at this time. Last foot exam: at initial visit 02/05/17 Thyroid: Positive. Takes levothyroxine 125 mcg daily for history of hypothyroidism after her in 1997. TSH 1.7, free T4--1.32. CPM. Other: Psoriasis: Currently taking Stelara now instead of Humira per a shorer. She is pleased with this. Plan: Type 1 diabetes mellitus with hyperglycemia (HCC) [E10.65] 1. Rx changes: Adjust medications as below Be sure to take insulin with all meals, even if BG <100. Humalog insulin: 1:2 units at breakfast; 1:2 units at lunch; 1:2 units at supper Basaglar insulin: 55 units at bedtime Use as directed with Humalog insulin before meals and at bedtime. 151-200: 2 units fast acting insulin 201-250: 4 units fast acting insulin 251-300: 6 units fast acting insulin 301-350: 8 units fast acting insulin 351-400: 10 units fast acting insulin above 400: 12 units fast acting insulin, call the office. Continue checking her BG 4 times a day and get control of her Blood sugars. DexCom CGM Long discussion with patient concerning insulin pump therapy or CGM. Patient will consider medtronic insulin pump. She currently attempts to adjust insulin based on meal and BG, she would benefit from the consistency of a pump and the more "scientific" method of set IC ratios and sensitivity. Mrs. Bai would benefit from continuous glucose monitoring system. Patient has had Type 1 diabetes for 19 years. Complications include diabetic neuropathy and autonomic neuropathy with hypoglycemic unawareness Patient is currently managed with: insulin injections Patient has been checking their blood sugar 4 times per day Patient's most recent Hgb A1c was 10.8% on 01/21 Patient's HGb is <6.0% or >8.5% Patient currently takes humalog and basaglar insulin injections 4 times daily. Patient is positive for a history of hypoglycemic unawareness Patient has inadequate control despite compliance with multiple alterations in insulin doses/medication regimen. 2. Education: Reviewed ABCs of diabetes management (respective goals in parentheses): A1C (7.0-8.0), blood pressure (<130/80), and cholesterol (LDL <100). 3. Compliance at present is estimated to be fair. Efforts to improve compliance (if necessary) willbe directed at dietary modifications: Limit portion sizes, Limit starches, carbohydrates and concentrated sugar sources and following with a intensive care specialist if insurance permits, increased exercise and regular blood sugar monitorin-6 times daily. 4. Follow up: 4 months 5. Record blood sugar readings as instructed. Call if BG consistently <70 or >250. [phone] Check blood sugar 3-4 times daily and as needed. May call in readings if blood glucose readings continue to stay elevated or drop too low. 6. Bring blood sugar meter to follow up appointment. Orders Placed This Encounter Procedures Comprehensive Metabolic Panel Hemoglobin A1c Electronically Signed by: Alan Madrid CNP 02/01/20 7:30 AM documented in this encounter* Ned Brown PA-C - 12/15/2018 4:12 PM EDT Patient ID: Gregoria Bai is a 48 y.o. female 1970 Subjective: HPI: Gregoria Bai presents for follow-up of Type 1 diabetes The initial diagnosis of gestational diabetes was made 19 years ago in 1997. One year later she developed Type 2 and was on oral agents for ~ 4 years, then started on Insulin and her diagnosis was changed to Type 1 Diabetes, confirmed with labson 06/14/16. Patient was last seen in 09/2018 at which time her hemoglobin A1c was 9.4%. At that appointment timewas spent transitioning patient from set meal doses to an insulin/carb ratio with hopes for more precise postprandial glucose control. Patient states life stressors kept her from transitioning to this technique, and negatively affected her overall diabetes self-care since that appointment. She has been checking her blood sugar relatively frequently, but admits to frequently missed or late insulindoses as of late. Most recent hemoglobin A1c increased to 10.1%. Self Monitored blood glucose levels Patient has been checking BG 1-5 times daily. Blood glucose ranges are: Fasting BG 80-465 10am-1pm: 138-491 5pm-8pm: 131-423 Bedtime (10pm-11pm): 267-528 Patient's weight is stable Patient is following a diabetic diet intermittently Meal planning includes avoidance of concentrated sweets. She was able to meet with a intensive care specialist once. Currently taking: Humalog insulin: 10-30 units at breakfast; 10-30 units at lunch; 10-30 units at supper Basaglar insulin: 55 units at bedtime She also is following a standard sliding scale Humalog with meals (Greater than 150-200 extra 2 units, 201-150 extra 4 units...) Current Outpatient Medications Medication Sig Dispense Refill BASAGLAR KWIKPEN U-100 INSULIN 100 unit/mL (3 mL) InPn INJECT 60 UNITS SUBCUTANEOUSLY NIGHTLY 60 mL3 blood sugar diagnostic strips One Touch Ultra test strips. Use as directed, 6 times daily. E10.65. 550 each 3 cholecalciferol, vitamin D3, 1,000 unit tablet Take 1,000 Units by mouth daily. esomeprazole (NEXIUM) 20 MG capsule Take 20 mg by mouth every morning before breakfast. lisinopril (PRINIVIL,ZESTRIL) 40 MG tablet TAKE 1 TABLET DAILY 90 tablet 3 NOVOLOG FLEXPEN U-100 INSULIN 100 unit/mL (3 mL) InPn Use as directed before meals, approx. 100 units daily. . (Patient taking differently: Use as directed before meals, approx. 120 units daily. .) 90 mL 3 pen needle, diabetic 31 gauge x 5/16" Ndle Use as directed QID. 400 each 3 rosuvastatin (CRESTOR) 20 MG tablet TAKE 1 TABLET DAILY 90 tablet 3 STELARA 45 mg/0.5 mL Syrg SYNTHROID 125 mcg tablet TAKE 1 TABLET ONCE DAILY 90 tablet 3 No current facility-administered medications for this visit. Review of Systems: Review of Systems Constitutional: Positive for activity change (Continues to exercise 4-5 days per week.). Negative for unexpected weight change. HENT: Negative for trouble swallowing and voice change. Eyes: Negative for visual disturbance. Respiratory: Negative for cough and shortness of breath. Cardiovascular: Negative for chest pain, palpitations and leg swelling. Gastrointestinal: Negative for constipation, diarrhea, nausea and vomiting. Endocrine: Negative for cold intolerance, heat intolerance, polydipsia, polyphagia and polyuria. Genitourinary: Negative for dysuria. Skin: Chronic dry patches on extremities r/t psoriasis. Improving with Stelara Neurological: Negative for dizziness, tremors, light-headedness and numbness. Psychiatric/Behavioral: Negative for sleep disturbance. The following portions of the patient's history were reviewed and updated as appropriate: allergies, current medications, past family history, past medical history, past social history, past surgicalhistory and problem list. Objective: BP 111/77 Pulse 94 Ht 5' 3" Wt 93.1 kg (205 lb 3 oz) BMI 36.35 kg/m Wt Readings from Last 3 Encounters: 12/15/18 93.1 kg (205 lb 3 oz) 09/01/18 92.5 kg (204 lb) 04/01/18 88.2 kg (194 lb 8 oz) Physical Exam: General: alert, appears stated age and cooperative Eyes: conjunctivae/corneas clear. PERRL, EOM's intact. Neck: no adenopathy, supple, symmetrical, trachea midline. Thyroid: No thyromegaly appreciated. Skin is moist Lung: clear to auscultation bilaterally slightly diminished. Heart: regular rate and rhythm, S1, S2 normal, no murmur, click, rub or gallop Extremities: extremities normal, atraumatic, no cyanosis or edema Feet: Dry skin and psporiasis on legs bilaterally, Bilateral Feet: normal PT. Monofilament exam Normal , bilateral lower extremities. Neuro: normal without focal findings, mental status, speech normal, alert and oriented x3 and JENNIFER Lab Review Date: 12/09/18 Hemoglobin A1c 10.1% Creatinine 0.71, estimated GFR 100, K4.5 AST 18, ALT 21 TSH 1.7, free T4--1.32 Microalbumin/creatinine ratio 4.5 08/28/2018 Hemoglobin A1c 9.4% Creatinine 0.70, estimated GFR 101, K3.8 AST 15, ALT 17 T cholesterol 194, TG 172, HDL 40, LDL at 120 CBC: H/H 13.9/41.1, WBC 7.60, platelets 206,000 03/29/18 *labs reviewed 12/16/18 Hgb A1c: 9.4% Creat: 0.8; eGFR: >60 AST: 15; ALT: 16 K: 4.0 TSH: 0.36 ; FreeT4: 1.18 11/26/17 Hgb A1c: 9.2% Creat: 0.6; eGFR: >60 AST: 22; ALT: 19 K: 3.9 05/28/17 Creat: 0.6 AST: 24; ALT: 25 K: 3.5 CBC: WBC:8.2; Hgb: 14.4; Hct: 43.0; Plt: 204 Tchol: 162; Tri ; HDL: 34 ; LDL: 89 TSH: 1.69 ; FreeT4: 0.99 02/01/17 Hgb A1C 9.6% 10/03/16 Hgb A1c: 8.7% Creat: 0.82 AST: 18; ALT: 29 K: 4.3 06/14/16 C Peptide: <0.1 ASHANTI 65 Antibody >250.0 05/22/16: Hgb A1C; 9.9% Cr: 0.60 AST: 23; ALT: 26 CBC: Hgb: 13.3; Hct: 40.2, Plt: 199 Tchol: not documented, Tri ; HDL: 33 ; LDL:88 TSH: 1.67 Microalbumin/creatinine Ratio: 7 Assessment: Dx: 1. Type 1 diabetes mellitus with hyperglycemia (HCC) Comprehensive Metabolic Panel Hemoglobin A1c Lipid Panel Type 1 diabetes, under poor control Patient is currently managed with: Humalog with meals and Basaglar at bedtime. Most recent Hgb A1c was 10.2% on 12/09/18, increased from 9.4% on 08/28/2018 Patient bases insulin injection amount based on BG and meal content. She has not specific formula or pattern. She reports missing some injections leading to hyperglycemia. Retinopathy: Negative Exam within last 12 months: yes Date: 05/2017 for the management of Routine eye care and no history of BACT[employer]IOLOGIST [employer]ARMACE[employer]. Nephropathy: Negative Creatinine 0.71, estimated GFR 100; Mialb/creat ratio: 4.5 on 12/09/2018, patient takes lisinopril (Prinivil) Peripheral Neuropathy: Negative Denies symptoms associated with neuropathy (numbness and/or tingling). Occasional pains. Autonomic Neuropathy: Negative Patient aware of lows. Hyperlipidemia: Positive Currently taking: rosuvastatin (Crestor). LFT's WNL. 08/28/2018: T cholesterol 194, TG 172, HDL 40, LDL 120 Patient states she is not totally compliant with taking Crestor nightly, frequently forgets her dose. Plan: Encouraged compliance, offered solution such as changing the time of day in which she takes the medication, leaving it in frequent places visited in her home, etc. Check lipid panel before nextappointment Hypertension: Positive. Currently taking: lisinopril (Prinivil), was also previously on valsartan 80 mg in combination with JOHANNA, has since discontinued valsartan due to recall. Since combination of ARB and JOHANNA not currently recommended, patient may continue without. I instructed her to continue to m onitor blood pressure at home and contact the office if her BP continues above goal. BP: 111/77 Stable-Goal <130/80 Cardiac: Negative Denies Chest pain or SOB at this time. Does have occasional palpitations-needs tocheck blood sugars when she are having these. Vascular: Negative no edema Feet: Negative sores or lesions at this time. Last foot exam: at initial visit 02/05/17 Thyroid: Positive. Takes levothyroxine 125 mcg daily for history of hypothyroidism after her in 1997. TSH 1.7, free T4--1.32. CPM. Other: Psoriasis: Currently taking Stelara now instead of Humira per a shorer. She is pleased with this. Plan: Type 1 diabetes mellitus with hyperglycemia (HCC) [E10.65] 1. Rx changes: Adjust medications as below Be sure to take insulin with all meals, even if BG <100. Humalog insulin: 15-30 units at breakfast; 15-30 units at lunch; 15-30 units at supper Basaglar insulin: 55 units at bedtime Humalog standard sliding scale as needed with meals or snack Continue checking her BG 4 times a day and get control of her Blood sugars. In the midst of increased life stressors, I encouraged the patient to spend time before her next appointment focusing on timely insulin use, and being compliant with all injections. Long discussion with patient concerning insulin pump therapy or CGM. Patient will consider medtronic insulin pump. She currently attempts to adjust insulin based on meal and BG, she would benefit from the consistency of a pump and the more "scientific" method of set IC ratios and sensitivity. Mrs. Bai would benefit from continuous glucose monitoring system. Patient has had Type 1 diabetes for 19 years. Complications include diabetic neuropathy and autonomic neuropathy with hypoglycemic unawareness Patient is currently managed with: insulin injections Patient has been checking their blood sugar 4 times per day Patient's most recent Hgb A1c was 9.4% on 08/28/2018 Patient's HGb is <6.0% or >8.5% Patient currently takes humalog and basaglar insulin injections 4 times daily. Patient is positive for a history of hypoglycemic unawareness Patient has inadequate control despite compliance with multiple alterations in insulin doses/medication regimen. 2. Education: Reviewed ABCs of diabetes management (respective goals in parentheses): A1C (7.0-8.0), blood pressure (<130/80), and cholesterol (LDL <100). 3. Compliance at present is estimated to be fair. Efforts to improve compliance (if necessary) willbe directed at dietary modifications: Limit portion sizes, Limit starches, carbohydrates and concentrated sugar sources and following with a intensive care specialist if insurance permits, increased exercise and regular blood sugar monitorin-6 times daily. 4. Follow up: 4 months 5. Record blood sugar readings as instructed. Call if BG consistently <70 or >250. [phone] Check blood sugar 3-4 times daily and as needed. May call in readings if blood glucose readings continue to stay elevated or drop too low. 6. Bring blood sugar meter to follow up appointment. Orders Placed This Encounter Procedures Comprehensive Metabolic Panel Hemoglobin A1c Lipid Panel Electronically signed by: Ned Brown PA-C, [facility] 12/16/18 1:44 PM documented in this encounter* Alan Madrid CNP - 06/06/2020 3:38 PM EDT +Patient ID: Gregoria Bai is a 49 y.o. female 1970 Subjective: HPI: Gregoria Bai presents for follow-up of Type 1 diabetes The initial diagnosis of gestational diabetes was made 23 years ago in 1997. One year later she developed Type 2 and was on oral agents for ~ 4 years, then started on Insulin and her diagnosis was changed to Type 1 Diabetes, confirmed with labson 06/14/16. Patient has not been eating well or exercising. She varies dose without much specificity. She has been checking her blood sugar relatively frequently, but admits to frequently missed or late insulin doses as of late. Most recent hemoglobin A1c increased to 10.8%. Self Monitored blood glucose levels Patient has been checking BG 1-5 times daily. Utilizing DexCom CGM. Blood glucose ranges are: Fasting BG 80-465 10am-1pm: 138-491 5pm-8pm: 131-423 Bedtime (10pm-11pm): 267-528 Patient's weight is stable Patient is following a diabetic diet intermittently Meal planning includes avoidance of concentrated sweets. She was able to meet with a intensive care specialist once. Currently taking: Humalog insulin: 1:2 units at breakfast; 1:2 units at lunch; 1:2 units at supper Basaglar insulin: 62 units at bedtime She also is following a standard sliding scale Humalog with meals (Greater than 150-200 extra 2 units, 201-150 extra 4 units...) Outpatient Medications Marked as Taking for the 06/06/20 encounter (Office Visit) with Alan Cohn CNP: Basaglar KwikPen U-100 Insulin 100 unit/mL (3 mL) InPn, INJECT 60 UNITS SUBCUTANEOUSLY NIGHTLY (Patient taking differently: 62 Units nightly .) blood sugar diagnostic strips, Accu-chek test strips. Use as directed, 4 times daily. E10.65 . blood-glucose meter (Accu-Chek Kiki Plus Meter) Misc, Use to check BG 4x daily. DX code E10.65 UseAccu-chek brand . cholecalciferol, vitamin D3, 1,000 unit tablet, Take 1,000 Units by mouth daily. esomeprazole (NEXIUM) 20 MG capsule, Take 20 mg by mouth every morning before breakfast. levothyroxine (Synthroid) 125 MCG tablet, Take 1 (one) tablet (125 mcg total) by mouth daily With extra 1/2 on Saturday . lisinopriL (PRINIVIL,ZESTRIL) 40 MG tablet, TAKE 1 TABLET DAILY NovoLOG Flexpen U-100 Insulin 100 unit/mL (3 mL) InPn, INJECT SUBCUTANEOUSLY DIRECTED BEFORE MEALS, APPROXIMATELY 150 UNITS DAILY pen needle, diabetic 31 gauge x 5/16" Ndle, Use as directed QID. rosuvastatin (CRESTOR) 20 MG tablet, TAKE 1 TABLET DAILY STELARA 45 mg/0.5 mL Syrg, Review of Systems: Review of Systems Constitutional: Positive for activity change (Continues to exercise 4-5 days per week.). Negative for unexpected weight change. HENT: Negative for trouble swallowing and voice change. Eyes: Negative for visual disturbance. Respiratory: Negative for cough and shortness of breath. Cardiovascular: Negative for chest pain, palpitations and leg swelling. Gastrointestinal: Negative for constipation, diarrhea, nausea and vomiting. Endocrine: Negative for cold intolerance, heat intolerance, polydipsia, polyphagia and polyuria. Genitourinary: Negative for dysuria. Skin: Chronic dry patches on extremities r/t psoriasis. Improving with Stelara Neurological: Negative for dizziness, tremors, light-headedness and numbness. Psychiatric/Behavioral: Negative for sleep disturbance. The following portions of the patient's history were reviewed and updated as appropriate: allergies, current medications, past family history, past medical history, past social history, past surgicalhistory and problem list. Objective: BP 122/83 (BP Location: Right arm, Patient Position: Sitting, BP Cuff Size: Adult) Pulse 93 Ht 5' 2" Wt 103.9 kg (229 lb) BMI 41.88 kg/m Wt Readings from Last 3 Encounters: 06/06/20 103.9 kg (229 lb) 02/01/20 95.6 kg (210 lb 12.8 oz) 08/31/19 93.9 kg (207 lb) Physical Exam: General: alert, appears stated age and cooperative Eyes: conjunctivae/corneas clear. PERRL, EOM's intact. Neck: no adenopathy, supple, symmetrical, trachea midline. Thyroid: No thyromegaly appreciated. Skin is moist Lung: clear to auscultation bilaterally slightly diminished. Heart: regular rate and rhythm, S1, S2 normal, no murmur, click, rub or gallop Extremities: extremities normal, atraumatic, no cyanosis or edema Feet: Dry skin and psporiasis on legs bilaterally, Bilateral Feet: normal PT. Monofilament exam Normal , bilateral lower extremities. Neuro: normal without focal findings, mental status, speech normal, alert and oriented x3 and JENNIFER Lab Review Date: 06/02/20 *labs reviewed 06/06/20 Hgb A1c: 8.3% Creat: 0.71; eGFR: 99 AST: 15; ALT: 17 K: 4.6 01/29/20 Hgb A1c: 10.8% Creat: 0.73; eGFR: 96 AST: 17; ALT: 18 K: 4.1 TSH: 2.55 ; FreeT4: 1.35 08/28/19 Hgb A1c: 10.1% Creat: 0.82; eGFR: 83 AST: 16; ALT: 21 K: 4.0 TSH: 2.890 ; FreeT4: 1.32 03/20/19 Hgb A1c: 11.2% Creat: 0.75; eGFR: 93 AST: 13; ALT: 17 K: 3.8 Tchol: 158; Tri ; HDL: 39 ; LDL: 93 12/09/18 Hemoglobin A1c 10.1% Creatinine 0.71, estimated GFR 100, K4.5 AST 18, ALT 21 TSH 1.7, free T4--1.32 Microalbumin/creatinine ratio 4.5 08/28/2018 Hemoglobin A1c 9.4% Creatinine 0.70, estimated GFR 101, K3.8 AST 15, ALT 17 T cholesterol 194, TG 172, HDL 40, LDL at 120 CBC: H/H 13.9/41.1, WBC 7.60, platelets 206,000 03/29/18 Hgb A1c: 9.4% Creat: 0.8; eGFR: >60 AST: 15; ALT: 16 K: 4.0 TSH: 0.36 ; FreeT4: 1.18 11/26/17 Hgb A1c: 9.2% Creat: 0.6; eGFR: >60 AST: 22; ALT: 19 K: 3.9 05/28/17 Creat: 0.6 AST: 24; ALT: 25 K: 3.5 CBC: WBC:8.2; Hgb: 14.4; Hct: 43.0; Plt: 204 Tchol: 162; Tri ; HDL: 34 ; LDL: 89 TSH: 1.69 ; FreeT4: 0.99 02/01/17 Hgb A1C 9.6% 10/03/16 Hgb A1c: 8.7% Creat: 0.82 AST: 18; ALT: 29 K: 4.3 06/14/16 C Peptide: <0.1 ASHANTI 65 Antibody >250.0 Assessment: Dx: 1. Type 1 diabetes mellitus with hyperglycemia (HCC) 2. Hypothyroidism, unspecified type 3. Hyperlipidemia, unspecified hyperlipidemia type Type 1 diabetes, under poor control Patient is currently managed with: Humalog with meals and Basaglar at bedtime. Most recent Hgb A1c was 8.3%, improved from 10.1% on 08/21, decreased from 11.2% on 04/23 Patient bases insulin injection amount based on BG and meal content. She has not specific formula or pattern. She reports missing some injections leading to hyperglycemia. Reports not exercising, notfollowing diet closely. Retinopathy: Negative Exam within last 12 months: yes Date: 07/14/[address] Resendiz in [place]. Evidence of early mild BACT[employer]OLOGIST [employer] in left eye 07/21, has follow up 01/21. for the management of Mild [employer]ACT[employer]OLOG[employer] and Glaucoma. Nephropathy: Negative Creat: 0.82; eGFR: 83 08/21; Mialb/creat ratio: 4.5 on 12/09/2018, patient takes lisinopril (Prinivil) Peripheral Neuropathy: Negative Denies symptoms associated with neuropathy (numbness and/or tingling). Occasional pains. Autonomic Neuropathy: Negative Patient aware of lows. Hyperlipidemia: Positive Currently taking: rosuvastatin (Crestor). LFT's WNL. Hypertension: Positive. Currently taking: lisinopril (Prinivil), was also previously on valsartan 80 mg in combination with JOHANNA, has since discontinued valsartan due to recall. Since combination of ARB and JOHANNA not currently recommended, patient may continue without. BP: 122/83 Stable-Goal <130/80 Cardiac: Negative Denies Chest pain or SOB at this time. Does have occasional palpitations-needs tocheck blood sugars when she are having these. Vascular: Negative no edema Feet: Negative sores or lesions at this time. Last foot exam: at initial visit 02/05/17 Thyroid: Positive. Takes levothyroxine 125 mcg daily, with extra 1/2 tablet on Saturday. Patient has history of hypothyroidism after her in 1997. TSH 1.7, free T4--1.32. CPM. Other: Psoriasis: Currently taking Stelara now instead of Humira per a shorer. She is pleased with this. Plan: Type 1 diabetes mellitus with hyperglycemia (HCC) [E10.65] 1. Rx changes: Adjust medications as below Be sure to take insulin with all meals, even if BG <100. Humalog insulin: 1:2 units at breakfast; 1:2 units at lunch; 1:2 units at supper Basaglar insulin: 62 units at bedtime Use as directed with Humalog insulin before meals and at bedtime. 151-200: 2 units fast acting insulin 201-250: 4 units fast acting insulin 251-300: 6 units fast acting insulin 301-350: 8 units fast acting insulin 351-400: 10 units fast acting insulin above 400: 12 units fast acting insulin, call the office. Continue checking her BG 4 times a day and get control of her Blood sugars. DexCom CGM Long discussion with patient concerning insulin pump therapy or CGM. Patient will consider medtronic insulin pump. She currently attempts to adjust insulin based on meal and BG, she would benefit from the consistency of a pump and the more "scientific" method of set IC ratios and sensitivity. Mrs. Bai would benefit from continuous glucose monitoring system. Patient has had Type 1 diabetes for 19 years. Complications include diabetic neuropathy and autonomic neuropathy with hypoglycemic unawareness Patient is currently managed with: insulin injections Patient has been checking their blood sugar 4 times per day Patient's most recent Hgb A1c was 10.8% on 01/21 Patient's HGb is <6.0% or >8.5% Patient currently takes humalog and basaglar insulin injections 4 times daily. Patient is positive for a history of hypoglycemic unawareness Patient has inadequate control despite compliance with multiple alterations in insulin doses/medication regimen. 2. Education: Reviewed ABCs of diabetes management (respective goals in parentheses): A1C (7.0-8.0), blood pressure (<130/80), and cholesterol (LDL <100). 3. Compliance at present is estimated to be fair. Efforts to improve compliance (if necessary) willbe directed at dietary modifications: Limit portion sizes, Limit starches, carbohydrates and concentrated sugar sources and following with a intensive care specialist if insurance permits, increased exercise and regular blood sugar monitorin-6 times daily. 4. Follow up: 4 months 5. Record blood sugar readings as instructed. Call if BG consistently <70 or >250. [phone] Check blood sugar 3-4 times daily and as needed. May call in readings if blood glucose readings continue to stay elevated or drop too low. 6. Bring blood sugar meter to follow up appointment. Orders Placed This Encounter Procedures Comprehensive Metabolic Panel Hemoglobin A1c T4, Free TSH Lipid Panel CBC and Differential Microalbumin/Creatinine Ratio, UR Random Electronically Signed by: Alan Madrid CNP 06/06/20 7:30 AM documented in this encounter Reason for Referral Status Reason Specialty Diagnoses / Procedures Re ferred By Contact Referred To Contact Authorized Nutrition Diagnoses Type 1 diabetes mellitus with hyperglycemia (HCC) Alan Madrid CNP [address] [facility] [address] [place] [address] [facility] [address] [place] [address] Status Reason Specialty Diagnoses / Procedures Referred By Contact Referred To Contact Authorized Neurology Diagnoses Numbness and tingling Jen Brooks CNP [address] [address] Andrew Pires MD [address] [facility] [address] [place] [address] Specialty Diagnoses / Procedures Referred By Nettie t Referred To Contact Alan Madrid, SUPERVISOR [employer]TERN [address] [place] [address] Referral ID Status Reason Start Date Expiration Date Visits Re quested Visits Authorized [id number] Closed 1 1 Referral ID Status Reason Start Date Expiration Date V isits Requested Visits Authorized [id number] Pending Review 1 1 Specialty Diagnoses / Procedures Referred By Nettie quevedo Referred To Contact Radiology Diagnoses Encounter for screening mammogram for breast cancer Procedures BI mammo bilateral screening tomosynthesis Loyd Jackson MD [address] [facility], [facility] [address] [place] [address] Referral ID Status Reason Start Date Expiration Date Visits Requested Visits Authorized [id number] Authorized Perform Procedure 03/06/2023 03/05/2024 1 1 Chief Complaint pt here to discuss EMG results.pt here to discuss EMG results.pt here to discuss EMG results.Patient is here for her yearly exam and pap test. Hysterectomy in 2016. Patient does not do self breast exams and has no concerns at this time.L CTS, F/U PRE SURGERYL CTS, F/U PRE [id number] day PO L CTR. Pain 3/10.10 day PO L CTR. Pain 3/10.* Pt presents to this office for PO L CTR. * PAIN - POSITIONAL * STRENGTH - GOOD * ROM- 100% * SOME NUMBNESS AT TIMES Post-op) 8+ weeks status post open carpal tunnel release left wrist on 02/20/2021. She denies any night time pain, only mild intermittent pain with pressure over pillar region of the hand. She does have intermittent numbness as well.Post-op) 8+ weeks status post open carpal tunnel release left wrist on 02/20/2021. She denies any night time pain, only mild intermittent pain with pressure over pillar region of the hand. She does have intermittent numbness as well.Est patient) returning for left dorsal radial wrist numbness, intermittent radial wrist pain x few weeks. She is 12+ weeks status post open carpal tunnel release on 02/20/2021. She rarely has pain and denies any significant pain at this time. She is more concerned about the numbness. Chief Complaint and Reason for Visit Chief Complaint SKIN Additional Source Comments INFORMATION SOURCE (unrecogn ized section and content) DATE CREATED AUTHOR 08/20/2017 [facility] DATE CREATED AUTHOR AUTHOR'S ORGANIZ ATION 10/03/2018 [facility] DATE CREATED AUTHOR AUTHOR'S ORGANIZ ATION 11/20/2018 [facility] DATE CREATED AUTHOR AUTHOR'S ORGANIZ ATION 04/18/2019 [facility] DATE CREATED AUTHOR AUTHOR'S ORGANIZ ATION 02/24/2021 [facility] DATE CREATED AUTHOR AUTHOR'S ORGANIZ ATION 06/04/2021 [facility] DATE CREATED AUTHOR AUTHOR'S ORGANIZ ATION 09/21/2022 [facility] DATE CREATED AUTHOR AUTHOR'S ORGANIZ ATION 09/28/2022 [facility] DATE CREATED AUTHOR AUTHOR'S ORGANIZ ATION 05/26/2023 [facility] DATE CREATED AUTHOR AUTHOR'S ORGANIZ ATION 12/23/2023 [facility] DATE CREATED AUTHOR AUTHOR'S ORGANIZ ATION 03/26/2024 [facility] DATE CREATED AUTHOR AUTHOR'S ORGANIZ ATION 05/05/2024 [facility] DATE CREATED AUTHOR AUTHOR'S ORGANIZ ATION 12/07/2024 [facility] Reason for Visit (unrecogniz ed section and content) Reason Comments Diabetes Mellitus Reason Comments Follow-up 3 month diabetes and thyroid follow up. Patient voices no concerns or complaints today. Reason Comments Medication Refill Reason Onset Date Comments Medication Refill 04/08/2020 Status Reason Specialty Diagnoses / Procedures Referre d By Contact Referred To Contact Closed Neurology Diagnoses Numbness and tingling Mg Ndiaye, SUPERVISOR [employer]TERN [address] [facility] [address] [place] [address] Andrew Pires MD [facility] Babar Caballero [address] [address] Reason Comments Diabetes Mellitus Reason Onset Date Comments Medication Refill 12/28/2021 Reason Onset Date Comments Medication Refill 03/13/2022 Reason Onset Date Comments Medication Refill 03/19/2022 Reason Comments Diabetes Mellitus Gap Closure (Health Maintenance) Urine M icroalbumin due on 2A1C due on 03/04/2022 Reason Comments Diabetes Mellitus Gap Closure (Health Maintenance) There a re no preventive care reminders to display for this patient. Reason Comments Gynecologic Exam Patient is here for yearly exam and pap test. Patient does not do regular self breast exams and has no concerns at this time. LMP: Hysterectomy. Reason Comments Diabetes Mellitus Gap Closure (Health Maintenance) Urine M icroalbumin due on 04/11/2023 Reason Comments URI Cough and congestion with sinus perssure since Saturday. Reason Comments Gynecologic Exam Patient is here for yearly exam and pap test. Patient does not do regular self breast exams and has no concerns at this time. LMP: Hysterectomy Reason Comments Flu Symptoms Body aches, chills, cough, chest hurts when coughing, runny nose x 1 week Reason Onset Date Comments Medication Refill 05/30/2024 Reason Comments Diabetes Mellitus There are no prevent radha care reminders to display for this patient. Reason Onset Date Comments Medication Refill 11/11/2024 Care Teams (unrecognized sec tion and content) Table Games Supervisor Relationship Specialty Start Date End Date Joyce Wilks, SUPERVISOR [employer]TERN PCP - General Nurse Practitioner 12/15/18 [employer] Supervisor Relationship Specialty Start Date End Date Joyce Wilks SUPERVISOR [employer]TERN PCP - General Nurse Practitioner 12/15/18 [employer] Supervisor Relationship Specialty Start Date End Date Joyce Wilks SUPERVISOR [employer] PATTERN PCP - General Nurse Practitioner 12/15/18 [employer] Supervisor Relationship Specialty Start Date End Date Joyce Wilks, SUPERVISOR [employer]AMPLE [employer] PATTERN PCP - General Nurse Practitioner 12/15/18 [employer] Supervisor Relationship Specialty Start Date End Date Joyce Wilks, SUPERVISOR [employer]AMPLE [employer] PATTERN PCP - General Nurse Practitioner 12/15/18 [employer] Supervisor Relationship Specialty Start Date End Date Joyce Wilks, SUPERVISOR [employer]AMPLE [employer] PATTERN PCP - General Nurse Practitioner 12/15/18 [employer] Supervisor Relationship Specialty Start Date End Date Joyce Wilks, SUPERVISOR [employer] SAMPLE [employer] PATTERN PCP - General Nurse Practitioner 12/15/18 [employer] Supervisor Relationship Specialty Start Date End Date Joyce Wilks CNP PCP - General Nurse Practitioner 12/15/18 [employer] Supervisor Relationship Specialty Start Date End Date Donovan Jimenes MD [address] [place] [address] PCP - General Family Medicine 03/21/16 12/14/18 Joyce Wilks, SUPERVISOR [employer] PATTERN [address] [place] [address] PCP - General Nurse Practitioner 12/15/18 [employer] Supervisor Relationship Specialty Start Date End Date Joyce Wilks SUPERVISOR [employer] PATTERN PCP - General Nurse Practitioner 12/15/18 Team Status: Active Member Role Status Dates Dr. Etienne Hutchins MD Primary Care Provider Active Team Status: Inactive Member Role Status Dates Dr. Etienne Hutchins MD Primary Care Provider Active JORGE Pal Attending Provider, Referring Provi luana Active Table [employer] Supervisor Relationship Specialty Start Date End Date Joyce Wilks CNP PCP - General Nurse Practitioner 12/15/18 [employer] Supervisor Relationship Specialty Start Date End Date Joyce Wilks SUPERVISOR [employer] PATTERN PCP - General Nurse Practitioner 12/15/18 [employer] Supervisor Relationship Specialty Start Date End Date Mg Ndiaye APRN-SUPERVISOR [employer]AMPLE [employer] PATTERN [address] [facility], [address] [address] PCP - General 06/14/20 [employer] Supervisor Relationship Specialty Start Date End Date Joyce Wilks, SUPERVISOR [employer] SAMPLE [employer] PATTERN PCP - General Nurse Practitioner 12/15/18 [employer] Games Supervisor Relationship Specialty Start Date End Date Joyce Wilks, SUPERVISOR FR[employer] SAMPLE [employer] PATTERN PCP - General Nurse Practitioner 12/15/18 [employer] Games Supervisor Relationship Specialty Start Date End Date Joyce Wilks, SUPERVISOR FR[employer] SAMPLE [employer] PATTERN PCP - General Nurse Practitioner 12/15/18 Table Games Supervisor Relationship Specialty Start Date End Date Bob Cruz PA-C [address] [facility], [facility] [address] [id number] PCP - General Family Medicine 01/23/24 [employer] Games Supervisor Relationship Specialty Start Date End Date Bob Cruz PA-C [address] [facility], [facility] [address] [place] [id number] PCP - General Family Medicine 01/23/24 Table Games Supervisor Relationship Specialty Start Date End Date Bob Cruz PA-C [address] [facility], [place] [address] [id number] PCP - General Family Medicine 01/23/24 Table Games Supervisor Relationship Specialty Start Date End Date Bob Cruz PA-C [address] [facility], [place] [address] [place] [id number] PCP - General Family Medicine 01/23/24 Table Games Supervisor Relationship Specialty Start Date End Date Joyce Wilks, SUPERVISOR FR[employer] SAMPLE [employer] PATTERN PCP - General Nurse Practitioner 12/15/18 [employer] Games Supervisor Relationship Specialty Start Date End Date Joyce Wilks CNP PCP - General Nurse Practitioner 12/15/18 [employer] Games Supervisor Relationship Specialty Start Date End Date Joyce Wilks CNP PCP - General Nurse Practitioner 12/15/18 Goals (unrecognized section and content) Goals may be documented in a n alternate section FOR RECORDS PERTAINING TO PATIENTS WHO ARE OR HAVE BEEN ENROLLED IN A CHEMICAL DEPENDENCY/SUBSTANCEABUSE PROGRAM, SOME INFORMATION MAY BE OMITTED. This clinical summary was aggregated from multiple sources. Caution should be exercised in using it in the provision of clinical care. This summary normalizes information from multiple sources, and as a consequence, information in this document may materially change the coding, format and clinical context of patient data. In addition, data may be omitted in some cases. CLINICAL DECISIONS SHOULD BE BASED ON THE PRIMARY CLINICAL RECORDS. [employer] [facility]. provides no warranty or guarantee of the accuracy or completeness of information in this document.
[2024-12-19 11:08] LABS: QNTFERON TB Mitogen Value > 10.00 IU/mL (.); QNTFERON TB Nil Value 0.03 IU/mL (.); QNTFERON TB1+ Ag Value 0.02 IU/mL (.); QNTFERON TB2+ Ag Value 0.03 IU/mL (.); QNTIFERON TB Positive Criteria Negative (Negative)
== END | disposition home or self-care (01) ==
LOC: MTLAB 14:01
PROVIDERS: PCP Family Medicine; Referring Provider Physician Assistant; Visit Provider Physician Assistant
DX: L40.0 Psoriasis vulgaris (principal)
CPT/HCPCS: 36415; 86480